=== PATIENT | female | born 1955 ===

== ENCOUNTER 2020-03-11 10:53 | Emergency (ER) | payer MEDICAID, SELFPAY ==
--- NOTE | 2020-03-11 13:10 | CT_ITS ---
EXAMINATION: CT HEAD WITHOUT CONTRAST CLINICAL INFORMATION: Fall, trauma, pain COMPARISON: CT head 01/28/2019 TECHNIQUE: Contiguous axial imaging was performed from the skull base to vertex without intravenous administration of contrast. Additional 2-D coronal and sagittal reformatted images are generated on the CT workstation and uploaded to PACS. This CT examination was performed using dose optimization techniques as appropriate, variously including the following: *Automated exposure control *Adjustment of mA and/or kV according to patient size (this includes techniques or standardized protocols for targeted exams where dose is matched to indication/reason for exam; i.e. extremities or head) *Use of iterative reconstruction technique DLP: 551 mGy-cm FINDINGS: There is no intracranial hemorrhage, hematoma, or extra-axial fluid collection. The ventricles are normal in size. There is no hydrocephalus, edema, or mass effect. The chin-white matter differentiation appears symmetric. There is no visible acute territorial infarct or mass lesion. There is a prominent right parietal occipital fissure again seen similar to prior CT. The calvarium appears intact. There is no pneumocephalus or orbital emphysema. The visualized sinuses and middle ears and mastoid air cells show no significant mucosal thickening. There are no air-fluid levels. CT/CT head/brain wo con IMPRESSION: No acute intracranial abnormality.
--- NOTE | 2020-03-11 13:10 | ECG_ITS ---
Test Reason : FALL Blood Pressure : / mmHG Vent. Rate : 072 BPM Atrial Rate : 072 BPM P-R Int : 128 ms QRS Dur : 072 ms QT Int : 394 ms P-R-T Axes : 061 029 025 degrees QTc Int : 431 ms Normal sinus rhythm Normal ECG When compared to the previous EKG of No other significant changes seen Referred By: Johan Aquino Electronically Signed By:NAY LAGUNAS MD
[2020-03-11 13:51] LABS: Basophils Percent Auto 0.2 % (0-2); Hematocrit 38.8 % (37-47); Hemoglobin 11.5 g/dl (12.0-16.0); Imm Gran Abs Auto 0.01 X10*3/uL (0.00-0.03); Imm Gran Pct Auto 0.2 % (0.0-0.4); Lymphocytes Absolute Auto 0.5 X10*3/uL (1.2-4.9); Lymphocytes Percent Auto 10.2 % (20-40); MANUAL DIFF FLAG SCAN; Mean Corpuscular HGB Conc 29.6 g/dl (31.0-35.0); Mean Corpuscular Hemoglobin 23.1 pg (27.0-33.0); Mean Corpuscular Volume 78.1 fL (80-98); Mean Platelet Volume 9.7 fL (9.4-12.3); Monocytes Absolute Auto 0.3 X10*3/uL (0.1-1.2); Monocytes Percent Auto 5.5 % (2-11); Neutrophils Absolute Auto 4.5 X10*3/uL (2.0-8.3); Neutrophils Percent Auto 83.9 % (45-73); Platelet Count 159 X10*3/uL (160-400); Red Blood Count 4.97 X10*6/uL (4.20-5.50); Red Cell Distribution Width 17.2 % (11.0-16.0); SCAN SMEAR FLAG 1; White Blood Count 5.3 X10*3/uL (4.8-10.8)
[2020-03-11 13:53] LABS: INTERNATIONAL NORM RATIO 1.3 (0.9-1.1); Prothrombin Time 15.4 SEC (10.8-13.0)
[2020-03-11 13:56] LABS: Partial Thromboplastin Time 31.6 SEC (24.1-38.0)
[2020-03-11 14:17] LABS: SLIDE REVIEW VERIFIED
[2020-03-11 14:19] LABS: Alanine Aminotransferase 11 U/L (0-31); Albumin Level 3.4 g/dL (3.5-5.0); Alkaline Phosphatase 70 U/L (39-117); Anion Gap 12 (12-20); Aspartate Amino Transferase 25 U/L (5-31); Bilirubin Total 0.4 mg/dL (0.0-1.0); Blood Urea Nitrogen 13 mg/dL (9-16); Calcium 7.9 mg/dL (8.4-10.2); Carbon Dioxide 26 mmol/L (22-29); Chloride 105 mmol/L (96-108); Estimated Glomerular Filt Rate > 60; Glucose Random 112 mg/dL (60-115); Potassium 3.7 mmol/l (3.3-5.1); Sodium 139 mmol/L (135-145); Total Protein 6.8 g/dL (6.5-8.0)
[2020-03-11 14:20] LABS: Troponin-I High Sensitivity 7.3 ng/L (<3.5-17.0)
[2020-03-11 14:50] VITALS: BP 122/102; PULSE 86; RESP 16; TEMP 37.4; O2SAT 98; BMI 38.3
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
== END 2020-03-11 19:00 | disposition home or self-care (01) ==
PROVIDERS: Nurse Practitioner Primary Care; Emergency Provider Emergency Medicine
DX: R55 Syncope and collapse (principal); T21.14XA Burn of first degree of lower back, initial encounter; T31.0 Burns involving less than 10% of body surface; M54.5 Low back pain; G44.309 Post-traumatic headache, unspecified, not intractable; X11.0XXA Contact with hot water in bath or tub, initial encounter; Y93.E1 Activity, personal bathing and showering; Y92.002 Bathroom of unspecified non-institutional (private) residence as the place of occurrence of the external cause; Z79.899 Other long term (current) drug therapy
CPT/HCPCS: 36415; 70450; 80053; 84484; 85025; 85610; 85730; 93005; 99283; 99284

== ENCOUNTER 2020-10-06 10:26 | Outpatient (REF) | payer MEDICAID, SELFPAY ==
--- NOTE | ~2020-10-06 | XR_ITS ---
EXAMINATION: XR HAND/WRIST, RIGHT CLINICAL INFORMATION: Trigger finger. COMPARISON: Right hand radiographs dated 05/30/2015. TECHNIQUE: AP, oblique, lateral, and scaphoid views of the right hand and wrist. FINDINGS: No acute fracture or dislocation. Mild joint space narrowing with small marginal osteophytes at the triscaphe and 1st carpometacarpal joints. No osseous erosion. No abnormal soft tissue calcification. 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 Patient will return for dedicated images of the hand.
== END 2020-10-06 10:27 | disposition home or self-care (01) ==
LOC: HO.XRAY 10:26
PROVIDERS: PCP Family Medicine; Visit Provider Family Medicine
DX: M65.341 Trigger finger, right ring finger (principal)
CPT/HCPCS: 73110; 73130

== ENCOUNTER 2021-01-02 11:26 | Outpatient (REF) | payer MEDICAID, SELFPAY ==
--- NOTE | ~2021-01-02 | MM_ITS ---
EXAMINATION: MM SCREENING DIGITAL BREAST TOMOSYNTHESIS, BILATERAL CLINICAL INFORMATION: Screening. Asymptomatic. The lifetime risk of breast cancer based on the Tyrer-Cuzick Model is 9%. COMPARISON: Mammography: 11/05/2019, 06/09/2018, 04/29/2017, 04/27/2016, 03/15/2015 TECHNIQUE: Digital breast tomosynthesis is performed in both the craniocaudal and mediolateral oblique views along with computer-aided detection (CAD). Synthesized 2D images are generated from the tomosynthesis. Additional left MLO view is provided. FINDINGS: There are scattered areas of fibroglandular density (ACR BI-RADS breast composition Category b). Bilateral scattered stable parenchymal asymmetries and smooth nodularity are similar to prior exams. There is no interval mass or architectural abnormality or developing density. There are some dermal calcifications overlying the bilateral posterior inferior medial breasts. The axilla and skin contours are unremarkable. No significant changes. MM/MM tomosynthesis screening BI IMPRESSION: No significant changes from prior studies. ASSESSMENT: BI-RADS 2: Benign RECOMMENDATION: Routine annual mammography screening. This patient's information was entered into a reminder system with a target due date for their next mammogram.
== END 2021-01-02 11:27 | disposition home or self-care (01) ==
LOC: HO.MAMMO 11:26
PROVIDERS: Visit Provider Family Medicine
DX: Z12.31 Encounter for screening mammogram for malignant neoplasm of breast (principal)
CPT/HCPCS: 77063; 77067

== ENCOUNTER → 2021-01-30 14:18 | Outpatient (BNVA) | payer MEDICAID, SELFPAY | PROVIDERS: PCP Family Medicine; Referring Provider Family Medicine; Visit Provider Internal Medicine Cardiovascular Disease | DX: R55 Syncope and collapse (principal); I10 Essential (primary) hypertension; E66.01 Morbid (severe) obesity due to excess calories; Z68.41 Body mass index [BMI] 40.0-44.9, adult; Z79.899 Other long term (current) drug therapy | CPT/HCPCS: 93005; 99202 ==

== ENCOUNTER → 2021-02-15 13:50 | Outpatient (BNVA) | payer MEDICAID, SELFPAY | PROVIDERS: PCP Family Medicine; Visit Provider Orthopaedic Surgery ==

== ENCOUNTER → 2021-03-01 12:48 | Outpatient (BNVA) | payer MEDICAID, SELFPAY | PROVIDERS: PCP Family Medicine; Visit Provider Orthopaedic Surgery | DX: M65.311 Trigger thumb, right thumb (principal) | CPT/HCPCS: 99202 ==

== ENCOUNTER → 2021-03-07 07:58 | Outpatient (REF) | payer MEDICAID, SELFPAY ==
--- NOTE | ~2021-03-07 | NM_ITS ---
Myocardial perfusion study Indication: Syncope Technique: The patient was brought in for a Lexiscan perfusion study on 03/07/2021. Patient performed low-level exercise and was injected 0.4 mg of Lexiscan intravenously. Within a minute of injection, 35 mCi of sestamibi was given intravenously. Images were obtained using the SPECT gamma camera interlaced with the gating device. Images were obtained in supine position. Resting perfusion study was performed on 03/08/2021. Patient was administered 35 mCi of sestamibi intravenously at rest. Images were then obtained in supine position. Images obtained with and without CT attenuation. Total DLP 156 mGy-cm. Images were processed with the software and compared side to side in short axis, horizontal long axis and vertical long axis views. Findings: The stress perfusion study showed non attenuated images show mildly to moderately reduced uptake in the lateral wall of the LV myocardium. Remainder of the LV myocardium is normally perfused. Attenuation corrected images show mildly reduced uptake in the distal anterior and apical wall of the LV myocardium.. The gated study shows normal LV systolic function with calculated LVEF of greater than 70 %. LV cavity is normal in size. The gated study shows normal systolic wall thickening and contraction of segments. Resting study shows nontender images show normal uptake of radiotracer in all segments of LV myocardium. Attenuation corrected images show mildly reduced uptake in the apex of the LV myocardium.. Gating at rest reveals normal systolic wall motion with ejection fraction at 68%. The findings are consistent with mild to moderate intensity reversible defect of lateral wall on non attenuated images. These findings are not seen on attenuation corrected images, could be corrected. Equivocal for mild to moderate lateral wall ischemia. NM/NM federico perf SPECT rest & str Impression: 1. Myocardial perfusion imaging study shows equivocal findings of lateral wall ischemia 2. Gated LVEF is 68% 3. Transient ischemic dilatation not present EKG is nondiagnostic for ischemia
--- NOTE | 2021-03-07 08:03 | HM_ITS ---
TEST PERFORMED: Cardiac event monitoring. REQUESTING PHYSICIAN: Blas Paul M.D. ENROLLMENT PERIOD: 03/07/2021, to 04/06/2021; 30 days. FINDINGS: In the above monitoring period, underlying rhythm was sinus. Ranged from 68 beats per minute to 93 beats per minute. Isolated PVCs noted. No clear patient symptoms identified. CONCLUSION: Study shows sinus rhythm only with isolated PVCs and no patient symptoms. Syed Quijano MD HS/STACY / [id number] MTDD
--- NOTE | 2021-03-07 08:03 | CA_ITS ---
Transthoracic Echocardiogram Patient (Last, First, Middle): Augustus Rust, Gender: Female Date of : 1955 Age: 65 Procedure Date: 03/07/2021 Procedure Type: Transthoracic Echocardiogram Location: OP Height: 149.86 cm Weight: 76.2 kg BSA: 1.71 m2 Heart Rate: bpm BP: 161 / 93 mmHg Interlibrary Loan Specialist: VH/CP Referring MD: Blas Paul MD Symptoms: R55 - Syncope and collapse Study Quality: Fair ECG Rhythm: Sinus Conclusions: - The left ventricular systolic function is normal. The visually estimated ejection fraction is between 60-65%. - No obvious valvular pathology seen on this study. Findings Left Ventricle Normal left ventricular cavity size. There is normal left ventricular wall thickness. The left ventricular systolic function is normal. The visually estimated ejection fraction is between 60-65%. There is no evidence of regional wall motion abnormalities. Diastolic function is normal for age. Right Ventricle Normal right ventricular cavity size and systolic function. Atria Both atria are normal in size. Aortic Valve There is a normal trileaflet aortic valve. There is no aortic valve stenosis. There is no aortic valve regurgitation. Mitral Valve The mitral valve appears normal. There is trace mitral valve regurgitation. There is no mitral valve stenosis. Pulmonic Valve The pulmonic valve was not well visualized. Tricuspid Valve There is trace tricuspid valve regurgitation. The pulmonary artery systolic pressure is normal. Great Vessels The aortic annulus, sinuses of valsalva, and asc aorta are normal in size. Venous The inferior vena cava is normal in size and collapses greater than 50% with inspiration. Pericardium/Pleural There is no evidence of pericardial effusion. Prior Study Comparison No significant change compared to prior study dated: 10/06/2015. Recommendations, Care & Conclusions No obvious valvular pathology seen on this study. Measurements 2D Linear Measurements IVSd: 1.01 0.6-0.9/0.6-1.0 cm LVIDd: 4.43 3.9-5.3/4.2-5.9 cm LVIDd Index: 2.59 2.4-3.2/2.2-3.1 cm/m2 LVIDs: 2.71 2.0-3.6 cm LVPWd: 0.94 0.7-1.1 cm Ao Root: 3.00 2.1-3.5 cm LA Diam: 3.80 2.7-3.8/3.0-4.0 cm LAIDs Index: 2.22 1.5-2.3 cm/m2 LV Mass: 179.92 67-162/88-224 g LV Mass Index: 105.22 43-95/49-115 g/m2 LVOT Diam: 2.00 3.0+(-)1.3 cm 2D Systolic Function EF 4C: 63.00 >55% EF 2C: 60.60 >55% Mitral Valve MV Pk E: 0.99 MV PK A: 0.77 MV Decel Time: 168.00 E/A: 1.30 E'Lateral: 8.27 E'Medial: 8.27 E/E' Med: 12.00 E/E' Lat: 12.00 PHT: 49.00 MVA PHT: 4.49 Decel [place]: 5.91 Aortic Valve AoV Pk Parker: 1.17 AoV Mn Parker: 0.80 AoV VTI: 0.34 AoV Pk Grad: 5.00 Aov Mn Grad: 3.00 TESSIE Cont.VTI: 2.22 LVOT LVOT Pk Parker: 0.87 LVOT Mn Parker: 0.49 LVOT VTI: 0.24 LVOT Pk Grad: 3.00 LVOT Mn Grad: 1.00 LVOT Diam: 2.00 LVOT Area: 3.14 Diastolic Function MV Pk E: 0.99 MV Pk A: 0.77 E/A: 1.30 E'Medial: 8.27 E/E' Med: 12.00 E' Laterial: 8.27 E/E' Lat: 12.00 Right Ventricle TAPSE (mm): 19.00 TVS' Parker: 14.00 Tricuspid Valve TR Pk Parker: 2.03 TR Pk Grad: 16.00 Great Vessels Aorta Ao Root-2D: 3.00 2.0-3.7 cm Ao Asc: 3.20 2.1-3.4 cm Updated in Other Vendor System with Status of Final Syed Quijano MD electronically signed on 03/08/2021 3:19:48 PM with status of Final
--- NOTE | 2021-03-07 08:03 | CA_ITS ---
Acquisition Time: 2021-03-07 11:17:48 Total Exercise Time: 00:02:00 Test Indications: Syncope Medications: AMLODIPINE CHLORTHALIDONE DOXYCYCLINE GABAPENTIN HYDROXAZINE OMEPRAZOLE TRAMADOL Protocol: LEXISCAN Max HR: 096 BPM 61% of Pred: 156 BPM Max BP: 130/082 mmHG Max Work Load: 1.0 METS Pharmacological stress test with Lexiscan injection, while sitting and kicking her legs, without anginal symptoms, without arrythmia, with normotensive response to injection, with nondiagnostic EKG for ischemia. Nuclear images pending. Test reviewed with Dr Quijano. Referred By: Blas Paul Overread By: INGRID TRONCOSO
== END ==
LOC: HO.CARD 07:58
PROVIDERS: Visit Provider Internal Medicine Cardiovascular Disease
DX: R55 Syncope and collapse (principal)
CPT/HCPCS: 78452; 93017; 93270; 93306; A9500; J0280; J2785

== ENCOUNTER 2021-03-08 14:08 | Outpatient (REF) | payer MEDICAID, SELFPAY ==
--- NOTE | ~2021-03-08 | MR_ITS ---
EXAMINATION: MR LUMBAR SPINE WITHOUT CONTRAST CLINICAL INFORMATION: Chronic right-sided pain with radicular symptoms. COMPARISON: Plain films of the lumbar spine 12/17/2017. CT scan of the lumbar spine 08/13/2016. TECHNIQUE: MRI of the lumbar spine was obtained using routine sequences without contrast. FINDINGS: VERTEBRAL BODIES AND PARASPINAL STRUCTURES: There is a mild levoscoliosis. The study redemonstrates a grade 1 anterolisthesis of L4 on L5 of approximately 4 mm. There is marked narrowing of intervertebral disc height at this level. There is a mild retrolisthesis of L5 on S1. There are multilevel degenerative endplate contour changes, with mild edematous signal anteriorly at T12-L1. Fatty endplate signal changes are seen at L4-L5 and L5-S1. There are a few foci of hyperintense T1 and T2 signal in multiple vertebrae consistent with hemangiomata. Vertebral body heights are maintained. There are no acute fractures. There are multiple bilateral renal cysts. There is a well-defined area of fatty signal in the right paraspinal muscles laterally at L4-L5. This was demonstrated on the prior CT scan. CONUS MEDULLARIS AND CAUDA EQUINA: Normal, terminating at the level of L1. The lower thoracic spinal cord appears normal. The cauda equina nerve roots and filum terminale appear normal. SPINAL LEVELS: T10-T11: On the sagittal images there is a small posterior disc protrusion with mild distortion the ventral lower thoracic spinal cord but there does not appear to be central stenosis and the neural foramina are patent bilaterally. T12-L1: There is mild bilateral facet arthropathy. There is a central and left-sided disc protrusion which distorts the ventral thecal sac, and is mild narrowing of the left subarticular recess. The neural foramina are patent. There is no central stenosis. L1-L2: There is mild to moderate bilateral facet arthropathy. Posterior disc contour is normal. There is no central stenosis and the neural foramina are patent bilaterally. L2-L3: There is mild to moderate bilateral facet arthropathy. Disc contour is normal. There is no central stenosis and the neural foramina are patent bilaterally. L3-L4: There is moderate bilateral facet arthropathy. Posterior disc contour is normal. There is no central stenosis and the neural foramina are patent bilaterally. L4-L5: There is severe bilateral facet arthropathy. There is unroofing of the disc as a result of the anterolisthesis and there is a left foraminal disc protrusion with mass effect on the exiting left L4 nerve root. There is narrowing of the subarticular recesses bilaterally, more severely on the left and there is severe central stenosis. L5-S1: There is moderate bilateral facet arthropathy. There is a posterior disc protrusion extending into the neural foramina bilaterally with mild impingement on the exiting L5 nerve roots, more prominently on the right. There is mild narrowing of the right subarticular recess. There is no central stenosis. MR/MR lumbar spine wo con IMPRESSION: 1. At L4-L5 there is severe facet arthropathy and there is a grade 1 anterolisthesis. There is a left foraminal disc protrusion with mass effect on the exiting left L4 nerve root. There is severe central stenosis. 2. At L5-S1 there is facet arthropathy and there is a posterior disc protrusion extending into the neural foramina, more prominently on the right. There is no central stenosis. 3. Spondylitic and facet arthropathic changes are also demonstrated at other levels as described above. 4. 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
== END 2021-03-08 14:09 | disposition home or self-care (01) ==
LOC: HO.MRI 14:08
PROVIDERS: Visit Provider Family Medicine
DX: M54.50 Low back pain, unspecified (principal)
CPT/HCPCS: 72148

== ENCOUNTER 2021-03-13 10:17 | Day surgery (SDC) | payer MEDICAID, SELFPAY ==
--- NOTE | 2021-03-13 09:40 | W.PM.OPN ---
Operative Note Operative Note Date of Service: 03/13/21 Narrative: Operative Note Preop diagnosis: 1. Right trigger thumb Postop diagnosis: 1. Same Procedure: 1. Right thumb A1 parish release Surgeon: Brenda Rudolph MD Anesthesia: local block using 1% lidocaine with epinephrine Findings: No locking or catching after A1 parish release EBL: Less than 5 mL Tourniquet time: None Specimens: None Complications: None Disposition: Brought to recovery room in stable condition Plan: Follow-up for 7-10 days for wound check and suture removal Indications: The patient is 65 years old, with a right trigger thumb that has been unresponsive to nonoperative management. The risks and benefits of operative treatment including but not limited to risk of damage to blood vessels, nerves, tendons, infection, persistent pain, persistent symptoms, recurrence or possible need for additional surgery were discussed with the patient and the patient wishes to proceed with surgery. Procedure: Once consent was obtained a local block was performed in the preop area using a combination of 1% lidocaine with epinephrine. The patient was then brought back to the operating suite and placed on the operative table in supine position. A tourniquet was applied to the proximal aspect of the right upper extremity and the limb was prepped and draped in a standard surgical fashion. Once assured that we had a good block, a 1.5 cm oblique incision was made centered over the A1 parish of the right thumb . The incision was made through the skin to the subcutaneous tissues using a #15 blade. Careful dissection was made down to the level of the A1 parish using tenotomy scissors, with care being taken to protect the nearby neurovascular structures. A longitudinal incision was made in the A1 parish 1st using a #15 blade, then using tenotomy scissors under direct visualization. The A1 parish was noted to be significantly thickened. Following our A1 parish release, we no longer saw any locking or catching of the digit with flexion and extension. Once satisfied with our A1 parish release the wound was copiously irrigated with normal saline and hemostasis was obtained with a brief period of local pressure. The skin edges were reapproximated with some 5.0 nylon suture material and a sterile dressing was applied. The patient appears to have tolerated the procedure well and with no complications. All digits were well vascularized at the conclusion of the case.
[2021-03-13 11:08] VITALS: BP 157/52; PULSE 70; RESP 16; TEMP 36.4; O2SAT 100; BMI 42.0
--- NOTE | 2021-03-13 11:34 | MHC.SHP ---
Pre-Procedural Eval Section A Date of Service: 03/13/21 The patient is an INPATIENT: No Changes since office visit: No Cold of Flu in the past 2 weeks, No New Medical Problems, No Changes in Medication and No Patient answered all questions The History & Physical has been completed within 30 days and I have reviewed it.: Yes Section B Chief Complaint: trigger release Allergies: Allergies Allergy/AdvReac Type Severity Reaction Status Date / Time No Known Allergies Allergy Unverified 12/24/19 18:09 [No Known Allergies*] pt states no food/medication Allergy Unknown Uncoded 09/18/19 00:00 a Plan I have reviewed the history and physical and performed a pertinent physical examination on my patient. No changes have occurred unless specified.
[2021-03-13 12:55] VITALS: BP 153/73; PULSE 70; RESP 16; TEMP 36.2; O2SAT 98
== END 2021-03-13 13:17 ==
LOC: HO.SSS 10:18
PROVIDERS: PCP Family Medicine; Visit Provider Orthopaedic Surgery
PROC: (CPT 26055; principal; 2021-03-13 10:40)
DX: M65.311 Trigger thumb, right thumb (principal); D64.9 Anemia, unspecified; I10 Essential (primary) hypertension; Z79.899 Other long term (current) drug therapy
CPT/HCPCS: 26055

== ENCOUNTER → 2021-03-22 14:36 | Outpatient (BNVA) | payer MEDICAID, SELFPAY | PROVIDERS: PCP Family Medicine; Visit Provider Orthopaedic Surgery | DX: Z47.89 Encounter for other orthopedic aftercare (principal); Z87.39 Personal history of other diseases of the musculoskeletal system and connective tissue | CPT/HCPCS: 99212 ==

== ENCOUNTER 2021-04-11 15:34 | Outpatient (REF) | payer MEDICAID, SELFPAY ==
[2021-04-11 17:14] LABS: Appearance Urine CLEAR; Color Urine STRAW; Glucose Urine UA NEG (NEG); Leukocyte Esterase Urine TRACE (NEG); Nitrite Urine NEG (NEG); Urine Blood NEG (NEG); Urine Ketones NEG (NEG); Urine Protein NEG (NEG-TRACE)
[2021-04-11 17:25] LABS: Bacteria Urine 1+ /LPF; RBC Urine 0-2 /HPF (0); Squamous Epithelial Cell Urine 1+ /LPF
[2021-04-11 17:40] LABS: Anion Gap 9 (12-20); Blood Urea Nitrogen 16 mg/dL (9-16); Calcium 9.6 mg/dL (8.4-10.2); Carbon Dioxide 31 mmol/L (22-29); Chloride 105 mmol/L (96-108); Estimated Glomerular Filt Rate > 60; Potassium 4.2 mmol/L (3.3-5.1); Sodium 141 mmol/L (135-145); Total Protein 7.7 g/dL (6.5-8.0)
[2021-04-11 17:40] LABS: Creatinine Urine 81.31 mg/dL; Microalbum/Creatinine Ratio Ur 8.6 ug/mg cr
== END 2021-04-11 15:35 | disposition home or self-care (01) ==
LOC: HO.LAB 15:34
PROVIDERS: PCP Family Medicine; Visit Provider Internal Medicine Nephrology
DX: I10 Essential (primary) hypertension (principal); R80.1 Persistent proteinuria, unspecified
CPT/HCPCS: 36415; 80051; 81001; 82043; 82310; 82565; 84155; 84520

== ENCOUNTER → 2021-05-25 14:38 | Outpatient (BNVA) | payer MEDICARE, MEDICAID, SELFPAY | PROVIDERS: PCP Family Medicine; Referring Provider Family Medicine; Visit Provider Internal Medicine Cardiovascular Disease | DX: R40.20 Unspecified coma (principal) | CPT/HCPCS: 99212 ==

== ENCOUNTER 2021-07-12 14:00 | Outpatient (RCR) | payer MEDICARE, OTHER, MEDICAID, SELFPAY | END 2021-07-21 08:36 | disposition home or self-care (01) | LOC: HO.PT 14:00 | PROVIDERS: PCP Family Medicine; Visit Provider Family Medicine | DX: M54.50 Low back pain, unspecified (principal) | CPT/HCPCS: 97014; 97110; 97140; 97162 ==

== ENCOUNTER → 2021-11-06 10:44 | Outpatient (BNVA) | payer OTHER, MEDICAID, SELFPAY | PROVIDERS: PCP Family Medicine; Visit Provider Anesthesiology | DX: M48.00 Spinal stenosis, site unspecified (principal); M43.10 Spondylolisthesis, site unspecified; M47.816 Spondylosis without myelopathy or radiculopathy, lumbar region; E66.01 Morbid (severe) obesity due to excess calories; Z68.43 Body mass index [BMI] 50.0-59.9, adult | CPT/HCPCS: 99202 ==

== ENCOUNTER 2022-01-04 11:23 | Outpatient (REF) | payer OTHER, SELFPAY ==
--- NOTE | ~2022-01-04 | MM_ITS ---
EXAMINATION: MM SCREENING DIGITAL BREAST TOMOSYNTHESIS, BILATERAL CLINICAL INFORMATION: Screening. Asymptomatic. Family history breast cancer, mother. The lifetime risk of breast cancer based on the Tyrer-Cuzick Model is 9%. COMPARISON: Mammography: 01/02/2021, 11/05/2019, 06/09/2018 TECHNIQUE: Digital breast tomosynthesis is performed in both the craniocaudal and mediolateral oblique views along with computer-aided detection (CAD). Synthesized 2D images are generated from the tomosynthesis. FINDINGS: There are scattered areas of fibroglandular density (ACR BI-RADS breast composition Category b). There are no significant masses, abnormal calcifications, or other abnormalities. Parenchymal pattern is similar to prior studies. There are stable parenchymal asymmetries and minor smooth nodularity. No developing density or architectural abnormality. No abnormal calcifications. The axilla are unremarkable. MM/MM tomosynthesis screening BI IMPRESSION: No significant changes from prior exams. ASSESSMENT: BI-RADS 2: Benign RECOMMENDATION: Routine annual mammography screening. This patient's information was entered into a reminder system with a target due date for their next mammogram.
== END 2022-01-04 11:24 | disposition home or self-care (01) ==
LOC: HO.MAMMO 11:23
PROVIDERS: PCP Family Medicine; Visit Provider Family Medicine
DX: Z12.31 Encounter for screening mammogram for malignant neoplasm of breast (principal)
CPT/HCPCS: 77063; 77067

== ENCOUNTER 2023-01-23 08:55 | Outpatient (REF) | payer OTHER, SELFPAY ==
[2023-01-23 09:10] LABS: MANUAL DIFF FLAG NO
[2023-01-23 09:15] LABS: Basophils Absolute Auto 0.1 X10*3/uL (0.0-0.2); Basophils Percent Auto 0.7 % (0-2); Eosinophils Absolute Auto 0.2 X10*3/uL (0.0-0.4); Eosinophils Percent Auto 3.1 % (0-4); Hematocrit 44.3 % (37.0-47.0); Hemoglobin 13.2 g/dl (12.0-16.0); Imm Gran Abs Auto 0.02 X10*3/uL (0.00-0.03); Imm Gran Pct Auto 0.3 % (0.0-0.4); Lymphocytes Absolute Auto 1.9 X10*3/uL (1.2-4.9); Mean Corpuscular HGB Conc 29.8 g/dl (31.0-35.0); Mean Corpuscular Hemoglobin 24.9 pg (27.0-33.0); Mean Corpuscular Volume 83.6 fL (80.0-98.0); Mean Platelet Volume 9.1 fL (9.4-12.3); Monocytes Absolute Auto 0.6 X10*3/uL (0.1-1.2); Neutrophils Absolute Auto 4.6 x10*3/uL (2.0-8.3); Neutrophils Percent Auto 61.9 % (45-73); Platelet Count 250 X10*3/uL (160-400); Red Cell Distribution Width 16.5 % (11.0-16.0); White Blood Count 7.4 X10*3/uL (4.8-10.8)
[2023-01-23 09:59] LABS: Alanine Aminotransferase 18 U/L (0-31); Albumin Level 3.8 g/dL (3.5-5.0); Alkaline Phosphatase 107 U/L (39-117); Anion Gap 13 (12-20); Aspartate Amino Transferase 20 U/L (5-31); Bilirubin Total 0.4 mg/dL (0.0-1.0); Blood Urea Nitrogen 15 mg/dL (9-16); Calcium 9.3 mg/dL (8.4-10.2); Carbon Dioxide 27 mmol/L (22-29); Chloride 107 mmol/L (96-108); Cholesterol 160 mg/dL (<200); Estimated Glomerular Filt Rate > 60; Glucose Random 105 mg/dL (60-115); HDL Cholesterol 51 mg/dL (>40); LDL Cholesterol Calculated 87 mg/dL (<100); Potassium 3.9 mmol/L (3.3-5.1); Sodium 143 mmol/L (135-145); Total Protein 7.6 g/dL (6.5-8.0); Triglycerides 114 mg/dL (<150)
[2023-01-23 10:07] LABS: TSH reflex Free T4 1.58 uIU/mL (0.32-4.0); Vitamin D 25-OH Total 39.6 ng/mL (>30)
[2023-01-23 10:55] LABS: Creatinine Urine 238.24 mg/dL; Microalbum/Creatinine Ratio Ur 5.4 ug/mg cr (<30)
== END 2023-01-23 08:56 | disposition home or self-care (01) ==
LOC: HO.LAB 08:55
PROVIDERS: PCP Family Medicine; Visit Provider Family Medicine
DX: E66.01 Morbid (severe) obesity due to excess calories (principal); N18.2 Chronic kidney disease, stage 2 (mild); C54.1 Malignant neoplasm of endometrium; E55.9 Vitamin D deficiency, unspecified
CPT/HCPCS: 36415; 80053; 80061; 82043; 82306; 82570; 84443; 85025

== ENCOUNTER 2023-02-07 10:41 | Outpatient (REF) | payer OTHER, SELFPAY | END 2023-02-07 10:42 | disposition home or self-care (01) | LOC: HO.MAMMO 10:41 | PROVIDERS: PCP Family Medicine; Visit Provider Family Medicine | DX: Z12.31 Encounter for screening mammogram for malignant neoplasm of breast (principal) | CPT/HCPCS: 77063; 77067 ==

== ENCOUNTER → 2023-02-07 10:45 | Outpatient (BNV) | payer OTHER, SELFPAY | PROVIDERS: PCP Family Medicine; Visit Provider Radiology Diagnostic Radiology | DX: Z12.31 Encounter for screening mammogram for malignant neoplasm of breast (principal) | CPT/HCPCS: 77063; 77067 ==

== ENCOUNTER 2023-02-25 13:53 | Outpatient (AMB) | payer OTHER, SELFPAY ==
--- NOTE | 2023-02-25 14:00 | MHC.OFFVISWM ---
Intake VS Expanded 02/25/23 14:20 BP 142/88 H Blood Pressure Location Rt brachial Blood Pressure Position Sitting Pulse 72 Pulse Source Pulse Oximeter Temp 97.2 F Temperature Source Temporal Artery Scan Pulse Oximetry 100 Oxygen Delivery Method Room Air Height 5 ft 1 in Weight 238 lb 3.2 oz BMI 45.0 Body Fat % 48.5 Body Fat Mass 115.6 Fat Free Mass 122.6 Visceral Fat Rating 20.0 Body Water % 36.4 Body Water Mass 86.6 Muscle Mass/Score 116.4 Basal Metabolic Rate/Score 1,731 Intake Visit Reasons: (OV) GBP 11/09/15 *Revision?* Allergies No Known Allergies [No Known Allergies*] Allergy (Verified 02/25/23 14:06) pt states no food/medication a Allergy (Unknown, Uncoded 11/06/21 11:11) Unknown Medication List - Last Reconciled 02/25/23 by Marlin Arambula PA-C amlodipine 10 mg PO DAILY chlorthalidone 25 mg PO DAILY cholecalciferol (vitamin D3) 50 mcg PO DAILY gabapentin 600 mg PO TID hydralazine 50 mg PO TID hydrocodone-acetaminophen 5-325 mg 1 tab PO Q4-6H PRN losartan 100 mg PO DAILY silver sulfadiazine 1% (Silvadene) 1 appl topical DAILY spironolactone 25 mg PO DAILY tolterodine ER 2 mg PO DAILY tramadol 50 mg PO BID PRN trazodone 50 mg PO BEDTIME HPI HPI Comments History of Present Illness Details 67 yo woman had GBP with Dr Mcclendon in November of 2015. At her last appt with us in September of 2019 she weighed 194 lbs BMI of 36.7. Her [employer] weight was 294.6 lbs and her lowest weight was 169 lbs. TBWL of 125.6 lbs or 42%. She returns to the bariatric office today with 69 lb weight gain and new diagnosis of spinal stenosis that is worsened by her weight. She is looking for options to lose weight again. Was given options for q 3 months injections - last one 1 year ago. She states she has nausea with desire to vomit if eats too large a meal. She will have reflux if eats fatty foods or lays down after she eats, no abd pain and no abdominal surgeries since her GBP. Wakes at 5:30 am and bed at 2:30 am. Only sleeps 3 hours per day. No naps 5:30 - black coffee without sugar. Changed this over last 6 months. - had more coffee with milk and sugar. Usually doesn't eat until 4 pm, sometimes has a yogurt or a piece of fruit at 1pm. 4pm - chicken breast or shrimp (4-5 oz) and 6 oz lettuce. no drinks when eating. Does not eat again for the day. Exercise - last PT was 6 months ago - states no exercises done at home. Can walk up to 1 hour without pain. Has gym membership [facility] Medical History (Updated 11/06/21 @ 11:38 by Antonio Yan MD) Morbid obesity Anemia HTN (hypertension) Surgical History (Updated 02/25/23 @ 14:15 by Marlin Arambula PA-C) Hx of hand surgery Hx of knee surgery Family History Father No problems noted. Mother CVD (cardiovascular disease) Social History Alcohol intake: never Patient Tobacco Use Status: Never used Tobacco Current occupational status: disabled Current occupation: rt handed Physical Exam GI Inspection: Yes Abdominal panniculus present and Yes scar (laparoscopic incisions well healed. Old vertical abd incision well healed) Assessment & Plan Assessment & Plan (1) S/P gastric bypass: Code(s): Z98.84 - Bariatric surgery status Plan: 67 yo woman s/p GBP 7 years ago with weight regain of 69.2 lbs. She asked about possible revision and I explained to her that we would need UGI and possible EGD for Dr Aceves to decide whether she was a candidate or not. But that she must restart a healthy meal plan and regualr exercise plan now. I encouraged her to meeet with her neuro surgeon or pain management team to discuss furhter steroid injections for her spinal stenosis. Meal plan: 1 cup coffee 8am - Pure protien powder with 8 oz water - over 1-2 hours 12 pm - same shake 4pm - 3 oz chciekn brease, fish or shellfish and 2 oz vegetable and 2 oz fresh fruit Exercise - treadmill at gym - start with 4d/ week, speed 2.5, incline 2- 5 for 300 calories. I have ordered vitamin levels and UGI. Next appt with me in 3-4 weeks, text me weekly weights Appt belinda Chung in 6 weeks. Patient is morbidly obese and is not considered stable at this time. I spent 45 minutes in total with patient reviewing/updating records, examining the patient and counseling the patient on weight management as detailed above. (2) Morbid obesity: Code(s): E66.01 - Morbid (severe) obesity due to excess calories Plan: see above (3) HTN (hypertension): Code(s): I10 - Essential (primary) hypertension Plan: see above Orders: Orders Hemoglobin A1c Today E66.01 - Morbid (severe) obesity due to excess calories, I10 - Essential (primary) hypertension, Z98.84 - Bariatric surgery status Zinc Today E66.01 - Morbid (severe) obesity due to excess calories, I10 - Essential (primary) hypertension, Z98.84 - Bariatric surgery status Vitamin A Today E66.01 - Morbid (severe) obesity due to excess calories, I10 - Essential (primary) hypertension, Z98.84 - Bariatric surgery status FL upper GI series Today E66.01 - Morbid (severe) obesity due to excess calories, Z98.84 - Bariatric surgery status Vitamin B12 and Folate Today E66.01 - Morbid (severe) obesity due to excess calories, I10 - Essential (primary) hypertension, Z98.84 - Bariatric surgery status Vitamin B1 Today E66.01 - Morbid (severe) obesity due to excess calories, I10 - Essential (primary) hypertension, Z98.84 - Bariatric surgery status PTHI Today E66.01 - Morbid (severe) obesity due to excess calories, I10 - Essential (primary) hypertension, Z98.84 - Bariatric surgery status Coding Level of Care Code New Pt Level 4 (13691) Diagnoses S/P gastric bypass Z98.84 Morbid obesity E66.01 HTN (hypertension) I10
[2023-02-25 14:20] VITALS: BP 142/88; PULSE 72; TEMP 36.2; O2SAT 100; BMI 45.0
== END 2023-02-25 14:57 | disposition home or self-care (01) ==
PROVIDERS: PCP Family Medicine; Visit Provider Physician Assistant
DX: E66.01 Morbid (severe) obesity due to excess calories (principal); Z68.42 Body mass index [BMI] 45.0-49.9, adult; Z90.3 Acquired absence of stomach [part of]; Z98.84 Bariatric surgery status
CPT/HCPCS: 99204

== ENCOUNTER → 2023-02-25 13:53 | Outpatient (BNVA) | payer OTHER, SELFPAY | PROVIDERS: PCP Family Medicine; Visit Provider Physician Assistant | DX: E66.01 Morbid (severe) obesity due to excess calories (principal); I10 Essential (primary) hypertension; Z98.84 Bariatric surgery status; Z68.42 Body mass index [BMI] 45.0-49.9, adult | CPT/HCPCS: 99202 ==

== ENCOUNTER 2023-03-08 08:18 | Outpatient (REF) | payer OTHER, SELFPAY ==
[2023-03-08 08:51] LABS: Estimated Average Glucose 117 mg/dL; Hemoglobin A1c % 5.7 % (<6.0)
[2023-03-08 09:44] LABS: Folate 14.5 ng/mL (> or = 4.0); Vitamin B12 394 pg/mL (200-900)
[2023-03-12 06:13] LABS: Zinc 74 mcg/dL (60-130)
[2023-03-13 14:59] LABS: Vitamin B1 7 nmol/L (8-30)
[2023-03-13 17:18] LABS: Vitamin A 34 mcg/dL (38-98)
== END 2023-03-08 08:19 | disposition home or self-care (01) ==
LOC: HO.LAB 08:18
PROVIDERS: PCP Family Medicine; Visit Provider Physician Assistant
DX: E66.01 Morbid (severe) obesity due to excess calories (principal); I10 Essential (primary) hypertension; Z98.84 Bariatric surgery status
CPT/HCPCS: 36415; 82607; 82746; 83036; 84425; 84590; 84630

== ENCOUNTER 2023-03-14 09:07 | Outpatient (AMB) | payer OTHER, SELFPAY ==
--- NOTE | 2023-03-14 09:13 | A.OFFVIS_ITS ---
Intake Vital Signs 03/14/23 09:24 Height 5 ft 1 in Weight 242 lb 2 oz BMI 45.7 BP 160/72 H Blood Pressure Location Lt brachial Position Sitting Respiration 18 Pulse 64 Pulse Source Pulse Oximeter Pulse Oximetry (%) 99 Oxygen Delivery Method Room Air Intake Visit Reasons: CHRONIC LOW BACK PAIN WITH SCIATICA/no answer Allergies No Known Allergies [No Known Allergies*] Allergy (Verified 03/14/23 09:23) pt states no food/medication a Allergy (Unknown, Uncoded 11/06/21 11:11) Unknown HPI HPI Comments History of Present Illness Details Augustus is back in my office after 1 year of absence. I was recommending her to go for a neurosurgery consult because she has severe lumbar spinal canal stenosis. The patient did not hear anything from neurosurgery. She was never trying to contact my office with the question why the neurosurgery did not contact her, neither she never contacter any office of neurosurgery on her own. I have send her again for the neurosurgical consult, in the order to prepare her for the neurosurgical visit I will send her for MRI, her last MRI was 3 years ago. I can offer her some injections under sedation (needle phobia) if she decides not to go for the neurosurgery or she will find to be a bad candidate for the neurosurgical procedures, after all she is severely morbidely obese with BMI more than 45 kg/m2 rior: complains on pain in lower back with radiation into the right lower extremity. She reports that she cannot sleep normally because of her pain she cannot do activities of daily living she can take care of herself but she can not function normally. She is on permanent disability. She reports that movements aggravates her pain and she reports that the tramadol alleviate her pain. She refused to describe her pain in terms of tissue damage. She had physical therapy in August of 2021 she reported that physical therapy did her pain on the worse. She had MRI of the lumbar spine which was done in March of 2021 results of which are dictated as below. Because of the results of the MRI she was sent to consult with some another practitioner presumably from neurosurgical office who did not recommend any surgical intervention and recommended steroid injections. The patient is scared of needles. She is morbidly obese individual despite the fact that she had bariatric surgery. [facility] Medical History (Updated 11/06/21 @ 11:38 by Antonio Yan MD) Morbid obesity Anemia HTN (hypertension) Surgical History (Updated 02/25/23 @ 14:15 by Marlin Arambula PA-C) Hx of hand surgery Hx of knee surgery Family History Father No problems noted. Mother CVD (cardiovascular disease) Social History (Updated 02/25/23 @ 14:12 by Nenita Garrison CMA) Alcohol intake: never Patient Tobacco Use Status: Never used Tobacco Current occupational status: disabled Current occupation: rt handed Review of Systems Const All systems reviewed & are unremarkable except as noted in HPI and below ENT Reports Normal hearing present Neuro Reports Normal hearing present, Denies Abnormal speech present, Denies confusion and Denies Sensory deficit (Neuro) Psych Denies confusion Physical Exam Vital Signs: Last Vital Signs Pulse 64 03/14/23 09:24 Resp 18 03/14/23 09:24 BP 160/72 H 03/14/23 09:24 Pulse Ox 99 03/14/23 09:24 Oxygen Delivery Method Room Air 03/14/23 09:24 BMI result Body Mass Index 45.7 Const General: No confusion Nutritional Appearance: obese morbidly obese Orientation/consciousness: No confusion Eyes General: appearance normal, both eyes and all related structures Pupils: Equal, round and reactive pupils present EOM: EOMs intact bilaterally Neck Neck: Yes full ROM Chest Chest palpation & inspection: normal inspection of the chest Resp Effort & Inspection: normal respiratory effort, able to speak in complete sentences, normal respiratory pattern, no audible wheezes and no cough Cardio Jugular venous distension: no JVD GI Inspection: Yes normal to inspection Back/Spine/Pelvis Other: Nelson presents with very mild aggravation on SLR on the right. Negative on the left. Reports quick tiredness of the lower extremities when walking. Reports flexing backwards alleviates her pain. That might be related to the fact that she has significant anterolisthesis on L4-5. Neuro General: No confusion Cranial nerves: Yes Equal, round and reactive pupils present and Yes Normal hearing present Speech: No Abnormal speech present Gait exam (Neuro): Normal gait present Motor exam (neuro): 5/5 motor strength present throughout Sensory Exam: No Sensory deficit (Neuro) Extrem General: No pedal edema Psych Speech and movement: Normal speech and movement present Affect: normal affect Attitude: cooperative Thought process: Normal thought process present Thought content: Normal thought content present Insight: Good insight present (Psych) Judgement: Good judgement present (Psych) Results Reviewed Results Reviewed: MR LUMBAR SPINE WITHOUT CONTRAST 2020 TECHNIQUE: MRI of the lumbar spine was obtained using routine sequences without contrast. FINDINGS: VERTEBRAL BODIES AND PARASPINAL STRUCTURES: There is a mild levoscoliosis. The study redemonstrates a grade 1 anterolisthesis of L4 on L5 of approximately 4 mm. There is marked narrowing of intervertebral disc height at this level. There is a mild retrolisthesis of L5 on S1. There are multilevel degenerative endplate contour changes, with mild edematous signal anteriorly at T12-L1. Fatty endplate signal changes are seen at L4-L5 and L5-S1. There are a few foci of hyperintense T1 and T2 signal in multiple vertebrae consistent with hemangiomata. Vertebral body heights are maintained. There are no acute fractures. There are multiple bilateral renal cysts. There is a well-defined area of fatty signal in the right paraspinal muscles laterally at L4-L5. This was demonstrated on the prior CT scan. CONUS MEDULLARIS AND CAUDA EQUINA: Normal, terminating at the level of L1. The lower thoracic spinal cord appears normal. The cauda equina nerve roots and filum terminale appear normal. SPINAL LEVELS: T10-T11: On the sagittal images there is a small posterior disc protrusion with mild distortion the ventral lower thoracic spinal cord but there does not appear to be central stenosis and the neural foramina are patent bilaterally. T12-L1: There is mild bilateral facet arthropathy. There is a central and left-sided disc protrusion which distorts the ventral thecal sac, and is mild narrowing of the left subarticular recess. The neural foramina are patent. There is no central stenosis. L1-L2: There is mild to moderate bilateral facet arthropathy. Posterior disc contour is normal. There is no central stenosis and the neural foramina are patent bilaterally. L2-L3: There is mild to moderate bilateral facet arthropathy. Disc contour is normal. There is no central stenosis and the neural foramina are patent bilaterally. L3-L4: There is moderate bilateral facet arthropathy. Posterior disc contour is normal. There is no central stenosis and the neural foramina are patent bilaterally. L4-L5: There is severe bilateral facet arthropathy. There is unroofing of the disc as a result of the anterolisthesis and there is a left foraminal disc protrusion with mass effect on the exiting left L4 nerve root. There is narrowing of the subarticular recesses bilaterally, more severely on the left and there is severe central stenosis. L5-S1: There is moderate bilateral facet arthropathy. There is a posterior disc protrusion extending into the neural foramina bilaterally with mild impingement on the exiting L5 nerve roots, more prominently on the right. There is mild narrowing of the right subarticular recess. There is no central stenosis. MR/MR lumbar spine wo con IMPRESSION: 1. At L4-L5 there is severe facet arthropathy and there is a grade 1 anterolisthesis. There is a left foraminal disc protrusion with mass effect on the exiting left L4 nerve root. There is severe central stenosis. 2. At L5-S1 there is facet arthropathy and there is a posterior disc protrusion extending into the neural foramina, more prominently on the right. There is no central stenosis. 3. Spondylitic and facet arthropathic changes are also demonstrated at other levels as described above. 4. 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 Assessment & Plan Assessment & Plan (1) Spinal stenosis: Code(s): M48.00 - Spinal stenosis, site unspecified (2) Morbid obesity: Code(s): E66.01 - Morbid (severe) obesity due to excess calories (3) Spondylolisthesis: Code(s): M43.10 - Spondylolisthesis, site unspecified (4) Spondylosis of lumbar spine: Code(s): M47.816 - Spondylosis without myelopathy or radiculopathy, lumbar region Plan Care plan: 1. Care plan fresh MRI 2. Neurosurgery consult. 3. If not a good candidate some injections could be offered to the patient under sedation such as L4- L5 & L5-S1 TFESI on the right. 4 will see her in the office after neurosurgical consult Orders: Orders MR lumbar spine wo con 03/14/23 M48.00 - Spinal stenosis, site unspecified Referrals Neuro Spine Referral M48.00 - Spinal stenosis, site unspecified Patient Instructions: I hereby testify that I spent 35 minutes in conversation with the patient as well as planning her care , evaluating her previous records and studies and organizing this note. Coding Level of Care Code Est Pt Level 4 (98416) Diagnoses Spinal stenosis M48.00 Morbid obesity E66.01 Spondylolisthesis M43.10 Spondylosis of lumbar spine M47.816
[2023-03-14 09:24] VITALS: BP 160/72; PULSE 64; RESP 18; O2SAT 99; BMI 45.7
== END 2023-03-14 09:57 | disposition home or self-care (01) ==
PROVIDERS: PCP Family Medicine; Visit Provider Anesthesiology
DX: M48.00 Spinal stenosis, site unspecified (principal); E66.01 Morbid (severe) obesity due to excess calories; M43.10 Spondylolisthesis, site unspecified; M47.816 Spondylosis without myelopathy or radiculopathy, lumbar region
CPT/HCPCS: 99214

== ENCOUNTER → 2023-03-14 09:07 | Outpatient (BNVA) | payer OTHER, SELFPAY | PROVIDERS: PCP Family Medicine; Visit Provider Anesthesiology | DX: M48.00 Spinal stenosis, site unspecified (principal); M43.10 Spondylolisthesis, site unspecified; M47.816 Spondylosis without myelopathy or radiculopathy, lumbar region; E66.01 Morbid (severe) obesity due to excess calories; Z68.42 Body mass index [BMI] 45.0-49.9, adult | CPT/HCPCS: 99212 ==

== ENCOUNTER 2023-03-25 14:45 | Outpatient (AMB) | payer OTHER, SELFPAY ==
--- NOTE | 2023-03-25 12:44 | A.OFFVIS_ITS ---
Intake VS Expanded 03/25/23 14:59 BP 150/77 H Blood Pressure Location Rt brachial Blood Pressure Position Sitting Pulse 70 Pulse Source Pulse Oximeter Temp 96.6 F L Temperature Source Temporal Artery Scan Pulse Oximetry 99 Oxygen Delivery Method Room Air Height 5 ft 1 in Weight 238 lb BMI 45.0 Body Fat % 42.9 Body Fat Mass 102.0 Fat Free Mass 135.8 Visceral Fat Rating 16.0 Body Water % 40.4 Body Water Mass 96.2 Muscle Mass/Score 129.0 Basal Metabolic Rate/Score 1,877 Intake Visit Reasons: (OV) F/U SWL Allergies No Known Allergies [No Known Allergies*] Allergy (Verified 03/25/23 14:55) pt states no food/medication a Allergy (Unknown, Uncoded 11/06/21 11:11) Unknown HPI HPI Comments History of Present Illness Details 67 yo woman had GBP with Dr Mcclendon in November of 2015. At her appt with us in September of 2019 she weighed 194 lbs BMI of 36.7. 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 TBWL of 125.6 lbs or 42%. She returned to the bariatric office in February with 69 lb weight gain and new diagnosis of spinal stenosis that is worsened by her weight. She is looking for options to lose weight again. Was given options for q 3 months injections - last one 1 year ago. She did not start the meal plan we discussed and is not exercising, did not contact me and is wondering why she has not lost any weight. Doesn't eat until afternoon may eat twice per day, but usually once. UGI - May 15, 2023 Appt with Juliet - 04/09/23 [facility] Medical History (Updated 11/06/21 @ 11:38 by Antonio Yan MD) Morbid obesity Anemia HTN (hypertension) Surgical History Hx of hand surgery Hx of knee surgery Family History Father No problems noted. Mother CVD (cardiovascular disease) Social History Alcohol intake: never Patient Tobacco Use Status: Never used Tobacco Current occupational status: disabled Current occupation: rt handed Physical Exam Vital Signs: Last Vital Signs Temp 96.6 F L 03/25/23 14:59 Pulse 70 03/25/23 14:59 BP 150/77 H 03/25/23 14:59 Pulse Ox 99 03/25/23 14:59 Oxygen Delivery Method Room Air 03/25/23 14:59 BMI result Body Mass Index 45.0 Assessment & Plan Assessment & Plan (1) Morbid obesity: Code(s): E66.01 - Morbid (severe) obesity due to excess calories Plan: No weight loss since appt on Feb 25, not following any plan. We discussed that she must follow a healthy meal plan and regular exercise if she wants to lose weight. 7am black coffee 8a - Pure protein powder with water 12 pm- same shake 4pm - 8 forks lean protien (only likes chicken breast, seafood - no fish - and eggs) and 8 forks vegetables (only like broccoli, cauliflower and lettuce) pt has very limited variety that she will eat. Exercise - Sit to be Fit daily for 15 minutes bid. We reveiwed her labs, Vit A and B1 deficiencies - taking both new supplements. Next appt with Juliet on 04/09 to help her with variety of foods and how to prepare them. Next appt with me in 3 months unless their is an abnormality with her UGI. Patient is morbidly obese and is not considered stable at this time. I spent 25 minutes in total with patient reviewing/updating records, examining the patient and counseling the patient on weight management as detailed above. (2) S/P gastric bypass: Code(s): Z98.84 - Bariatric surgery status Plan see above Coding Level of Care Code Est Pt Level 4 (10011) Diagnoses Morbid obesity E66.01 S/P gastric bypass Z98.84
[2023-03-25 14:59] VITALS: BP 150/77; PULSE 70; TEMP 35.9; O2SAT 99; BMI 45.0
== END 2023-03-25 15:34 | disposition home or self-care (01) ==
PROVIDERS: PCP Family Medicine; Visit Provider Physician Assistant
DX: E66.01 Morbid (severe) obesity due to excess calories (principal); Z98.84 Bariatric surgery status
CPT/HCPCS: 99214

== ENCOUNTER → 2023-03-25 14:45 | Outpatient (BNVA) | payer OTHER, SELFPAY | PROVIDERS: PCP Family Medicine; Visit Provider Physician Assistant | DX: E66.01 Morbid (severe) obesity due to excess calories (principal); Z98.84 Bariatric surgery status; Z68.42 Body mass index [BMI] 45.0-49.9, adult | CPT/HCPCS: 99212 ==

== ENCOUNTER 2023-04-11 09:27 | Outpatient (REF) | payer OTHER, SELFPAY | END 2023-04-11 09:28 | disposition home or self-care (01) | LOC: HO.MAMMO 09:27 | PROVIDERS: PCP Family Medicine; Visit Provider Family Medicine | DX: Z13.820 Encounter for screening for osteoporosis (principal); Z78.0 Asymptomatic menopausal state; Z90.3 Acquired absence of stomach [part of]; Z90.710 Acquired absence of both cervix and uterus; Z90.722 Acquired absence of ovaries, bilateral | CPT/HCPCS: 77080 ==

== ENCOUNTER 2023-05-24 14:22 | Outpatient (REF) | payer OTHER, SELFPAY ==
--- NOTE | ~2023-05-24 | MR_ITS ---
EXAMINATION: MR LUMBAR SPINE WITHOUT CONTRAST CLINICAL INFORMATION: Spinal stenosis. COMPARISON: MR lumbar spine 03/08/2021. TECHNIQUE: MRI of the lumbar spine was obtained using routine sequences without the administration of intravenous contrast. FINDINGS: This examination assumes the presence of 5 lumbar-type vertebral bodies. For the purposes of this examination, the L5-S1 intervertebral disc space is visualized on axial series 6 image 28. Mild exaggeration of the normal lumbar lordosis. Grade 1 anterolisthesis of L4-L5. Partially visualized dextrocurvature of the thoracolumbar junction. Lumbar vertebral body heights are maintained. Multilevel Modic type I and type II endplate changes. There is edema along the left L5 pedicle/posterior elements which is likely on the basis of degenerative change/stress reaction. Diffusely heterogeneous background marrow signal may reflect underlying osteopenia/osteoporosis. The conus medullaris is normal in signal intensity and terminates at the level of L1. T10-T11: Central disc protrusion indents the ventral thecal sac with probable mild canal stenosis. The left neural foramen is mildly narrowed. T12-L1: Left central disc extrusion asymmetrically impinges upon the left lateral recess. Facet arthropathy with ligamentum flavum redundancy. There is mild spinal canal stenosis. Overall, this appears comparable to the prior examination of 2020. The neural foramen are patent. L1-L2: Disc bulge and facet arthropathy. The spinal canal and neural foramen are not significantly narrowed. L2-L3: Facet arthropathy. The spinal canal and neural foramen are not significantly narrowed. L3-L4: Facet arthropathy. The spinal canal is patent. Mild narrowing of the neural foramen. L4-L5: Advanced facet arthropathy. There is associated grade 1 anterolisthesis with uncovering of the intervertebral disc space. Redemonstrated severe spinal canal stenosis with asymmetric narrowing of the left lateral recess compressing the descending left L5 nerve root. Overall, this appears stable to mildly increased compared to prior. There is severe left and [id number] right neural foraminal stenosis with compression of the exiting left L4 nerve root that appears comparable to prior. L5-S1: Disc bulge and facet arthropathy with ligamentum flavum redundancy. Narrowing of the lateral recesses abutting the S1 nerve roots. The central canal is otherwise patent. There is severe right and [id number] left neural foraminal stenosis with exiting nerve root impingement that appears slightly increased compared to prior, particularly on the left. Stable well circumscribed fatty lesion in the right posterior paraspinal musculature at the level of L4. Multiple bilateral renal cysts and additional T2 hyperintense foci which are too small to fully characterize but likely represent cysts. Dorsal subcutaneous edema is noted. MR/MR lumbar spine wo con IMPRESSION: Again seen are advanced multilevel degenerative changes of the lumbar spine with severe spinal canal stenosis at L4-L5. Again seen is asymmetric narrowing of the left lateral recess at L4-L5 with compression of the descending left L5 nerve root. Overall, the degree of stenosis appears stable to slightly increased compared to prior. Advanced bilateral neural foraminal stenoses at L4-L5 and L5-S1 with exiting nerve root impingement as described above. These appear slightly increased compared to the prior examination.
== END 2023-05-24 14:23 | disposition home or self-care (01) ==
LOC: HO.MRI 14:22
PROVIDERS: PCP Family Medicine; Visit Provider Anesthesiology
DX: M48.061 Spinal stenosis, lumbar region without neurogenic claudication (principal)
CPT/HCPCS: 72148

== ENCOUNTER 2023-06-05 07:46 | Outpatient (REF) | payer OTHER, SELFPAY ==
--- NOTE | ~2023-06-05 | FL_ITS ---
EXAMINATION: XR FLUOROSCOPY UPPER GI WITH AIR CLINICAL INFORMATION: History of gastric bypass. Preop evaluation. COMPARISON: Upper GI 11/2015 TECHNIQUE: Fluoroscopic air contrast upper GI examination was performed utilizing standard techniques with thin and thick barium and effervescent granules. Numerous spot images were obtained. FINDINGS: Dual and single contrast images of the esophagus demonstrate normal caliber, contour, and mucosal pattern. No evidence of stricture, mass, or ulcerations identified. Esophageal peristalsis was normal. Small type I hiatus hernia. Gastroesophageal reflux to the level of the lower esophagus. Dual contrast and single contrast images of the stomach demonstrated postsurgical changes consistent with prior history of Fuentes-en-Y gastric bypass. The gastrojejunostomy is widely patent without evidence of stricture or leak. Mucosal pattern without evidence of mass, ulceration, or other abnormality. Contrast freely passed into the alimentary limb. The imaged jejunum has a normal fold pattern and caliber. FLUOROSCOPY TIME: 4 minutes 2 seconds Number of Spot Images: 13 Number of Cine: 6 DOSE AREA PRODUCT: [id number] uGy-m2 (microgray-meter squared) FL/FL upper GI series IMPRESSION: 1. Postsurgical changes consistent with prior history of Fuentes-en-Y gastric bypass. No anastomotic stricture or leak. 2. Mild gastroesophageal reflux. 3. Small type I hiatus hernia. This procedure was performed by Sma Sunshine PA-C, and supervised by Dr. Arrington
== END 2023-06-05 07:47 | disposition home or self-care (01) ==
LOC: HO.XRAY 07:46
PROVIDERS: PCP Family Medicine; Visit Provider Physician Assistant
DX: E66.01 Morbid (severe) obesity due to excess calories (principal); Z98.84 Bariatric surgery status
CPT/HCPCS: 74240

== ENCOUNTER → 2023-06-05 07:47 | Outpatient (BNV) | payer OTHER, SELFPAY | PROVIDERS: PCP Family Medicine; Visit Provider Physician Assistant Surgical | DX: E66.01 Morbid (severe) obesity due to excess calories (principal); Z01.818 Encounter for other preprocedural examination | CPT/HCPCS: 74246 ==

== ENCOUNTER 2023-06-07 10:30 | Outpatient (AMB) | payer OTHER, SELFPAY ==
--- NOTE | 2023-06-07 10:26 | A.OFFVIS_ITS ---
Intake Intake Visit Reasons: (TV) F/U SWL Allergies No Known Allergies [No Known Allergies*] Allergy (Verified 03/25/23 14:55) pt states no food/medication a Allergy (Unknown, Uncoded 11/06/21 11:11) Unknown Medication List - Last Reconciled 06/07/23 by Marlin Arambula PA-C amlodipine 10 mg PO DAILY chlorthalidone 25 mg PO DAILY cholecalciferol (vitamin D3) 50 mcg PO DAILY gabapentin 600 mg PO TID hydralazine 50 mg PO TID hydrocodone-acetaminophen 5-325 mg 1 tab PO Q4-6H PRN losartan 100 mg PO DAILY silver sulfadiazine 1% (Silvadene) 1 appl topical DAILY spironolactone 25 mg PO DAILY thiamine HCl (vitamin B1) 50 mg PO DAILY tolterodine ER 2 mg PO DAILY tramadol 50 mg PO BID PRN HPI HPI Comments History of Present Illness Details 67 yo woman had GBP with Dr Mcclendon in November of 2015. 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 TBWL of 125.6 lbs or 42%. She returned to the bariatric office in February with 69 lb weight gain and new diagnosis of spinal stenosis that is worsened by her weight. She is looking for options to lose weight again. No weight loss since appt on Feb 25, not following any plan. We discussed that she must follow a healthy meal plan and regular exercise if she wants to lose weight. I saw her in March and she had not made any of the changes we discussed. I ordered an UGI due to her complaints of intolerance to foods. No n/v, abd pain or reflux. UGI - May 15, 2023 - rescheduled to 06/05 - not read yet. Appt with Juliet - 04/09/23 - she did not have this appt Meal plan now: does not think she is losing any weight 7am black coffee no sugar 10 am - Pure protein powder with water 1 pm- yogurt 4 pm - not measuring amount - chicken le gs without skin and 2 forks (?) broccoli or lettuce No snacks or anything else to eat Exercise - none, states back hurts too much to sit or stand. Has spine center appt on 06/13. [facility] Medical History (Updated 11/06/21 @ 11:38 by Antonio Yan MD) Morbid obesity Anemia HTN (hypertension) Surgical History Hx of hand surgery Hx of knee surgery Family History Father No problems noted. Mother CVD (cardiovascular disease) Social History Alcohol intake: never Patient Tobacco Use Status: Never used Tobacco Current occupational status: disabled Current occupation: rt handed Assessment & Plan Assessment & Plan (1) Morbid obesity: Code(s): E66.01 - Morbid (severe) obesity due to excess calories Plan: Pt does not have her weight today - states scale has no batteries, does not know the last time she weighed herself. She is s/p GBP 7 years ago with inadequate weight loss and weight gain. She states she does not have any side fffects from GBP but acn not exercise due to spinal stenosis. She has an adequate meal plan, no changes made. We will have an office appt in 2-3 weeks to get accurate weight and she will have spoken to spine team for advice on what exercises she can do. We discussed that she will likely not be able to loose weight without adequate movement - she states she can't do anythng. uGi is being read by radiology team this week. Will review with Dr Yola marlow no symptoms. Labs done Jan and Mar 2023. Patient is still morbidly obese and is not considered stable at this time. I spent 27 minutes in total speaking with the patient via video conference counseling , reviewing records and charting in patients chart. . (2) S/P gastric bypass: Code(s): Z98.84 - Bariatric surgery status (3) Spinal stenosis: Code(s): M48.00 - Spinal stenosis, site unspecified Plan see above Telehealth Telehealth Location of provider rendering services: practice address Location of patient: address on file Patient Identification confirmed using: Name, : Yes Telehealth method: voice only Patient verbally consented to treatment: Yes Patient verbally consented to billing insurance company: Yes Patient informed of any privacy concerns related to visit: Yes Coding Level of Care Code Tele Est Pt Level 4 (44158) Diagnoses Morbid obesity E66.01 S/P gastric bypass Z98.84 Spinal stenosis M48.00
== END 2023-06-07 10:57 | disposition home or self-care (01) ==
LOC: HO.HBS 10:50
PROVIDERS: PCP Family Medicine; Visit Provider Physician Assistant
DX: E66.01 Morbid (severe) obesity due to excess calories (principal); Z98.84 Bariatric surgery status; M48.00 Spinal stenosis, site unspecified
CPT/HCPCS: 99443

== ENCOUNTER → 2023-06-07 10:30 | Outpatient (BNVA) | payer OTHER, SELFPAY | PROVIDERS: PCP Family Medicine; Visit Provider Physician Assistant ==

== ENCOUNTER 2023-06-14 09:57 | Outpatient (REF) | payer OTHER, SELFPAY ==
--- NOTE | ~2023-06-14 | XR_ITS ---
EXAMINATION: XR LUMBOSACRAL SPINE WITH OBLIQUES CLINICAL INFORMATION: Spondylolisthesis. COMPARISON: MRI lumbar spine 05/24/2023. Radiographs lumbar spine 12/17/2017. TECHNIQUE: AP, lateral neutral, flexion and extension views of the lumbar spine. FINDINGS: Mild rightward curvature of the [id number]-vb-[id number] lumbar spine. Advanced degenerative changes in the imaged lower thoracic spine. Surgical clips overlie the left mid and upper abdomen as well as the pelvis. Radiodense material overlying the left lower quadrant and partially imaged right lower abdomen may represent ingested oral material such as oral contrast and correlation with clinical exam is recommended for further evaluation. This was not identified on the exam of 2018. Advanced multilevel lumbar spondylosis with multilevel loss of disc space height most notable at L5-S1. Grade 1 retrolisthesis of L1 on L2, L2 on L3 and L3 on L4. Grade 1 anterolisthesis of L4 on L5. XR/XR lumbar spine 4V min IMPRESSION: 1. Advanced multilevel lumbar spondylosis most notable at L5-S1. 2. Mild grade 1 retrolisthesis of L1 on L2, L2 on L3 and L3 on L4. Grade 1 anterolisthesis of L4 on L5. 3. Radiodense material overlying the left lower quadrant and partially imaged right lower abdomen may represent ingested oral material such as oral contrast and correlation with clinical exam is recommended for further evaluation.
== END 2023-06-14 09:58 | disposition home or self-care (01) ==
LOC: HO.HOSX 09:57
PROVIDERS: PCP Family Medicine; Visit Provider Physician Assistant
DX: M43.16 Spondylolisthesis, lumbar region (principal)
CPT/HCPCS: 72110; 99202

== ENCOUNTER 2023-06-14 09:57 | Outpatient (AMB) | payer OTHER, SELFPAY ==
--- NOTE | 2023-06-14 10:16 | HO.SPINEOV ---
Intake Intake Visit Reasons: Spinal stenosis Intake Note: Ms. Rudolph is here today c/o low back pain. Junior Database Administrator Required: Yes Junior Database Administrator Name: Tablet Allergies No Known Allergies [No Known Allergies*] Allergy (Verified 03/25/23 14:55) pt states no food/medication a Allergy (Unknown, Uncoded 11/06/21 11:11) Unknown Assessment & Plan Assessment & Plan (1) Spondylolisthesis: Code(s): M43.10 - Spondylolisthesis, site unspecified Plan Dear Dr Yan, Thank you for referring Mrs Ronni Dunn to our office today. She is a very nice 68-year-old female presents to the office today for evaluation of a chronic low back pain for least 3 years. The patient reports that the pain starts from the moment she gets up in the morning and gradually goes throughout the day. She does get intermittent leg pains as well when she is standing and walking which goes down the outside of her legs into her calves. She takes Aleve and tramadol to try to help with the pain. The pain at this point is significantly limiting her quality of life and that she is having severe pain in her back even doing simple things such as going to the grocery store or making meals. She underwent physical therapy without any relief. She has not yet had any cortisone injections, she is slightly nervous about this so wanted to talk to a spine surgery team 1st. PMH: She has a history of high blood pressure, knee replacements, endometriosis, bladder suspension, gastric bypass, trigger thumb surgery. She denies any heart attacks, strokes, kidney disorders, bleeding disorders, lung problems, previous back surgery etc. Social hx: She has not smoke, drink or use any recreational drugs Medications: Tramadol, losartan, amlodipine, multivitamins, ibuprofen Allergies: None Physical exam: Morbidly obese female BMI 47 she is able to stand up out of a chair demonstrates tenderness to her lower back around the level of L4-5. Her strength is full, reflexes absent in the setting of knee replacements. Imaging review: Lumbar MRI done at [place], compared to a CT scan done in 2014 at [place] shows a severe collapse of the disc at L4-5 with anterior listhesis. There is significant facet arthropathy and narrowing of the foramen bilaterally. She also has some milder degenerative disc disease throughout the lumbar spine in varying places but nothing as bad as the L4-5 disc space. I can see compared to the CT scan there has been progression of the spondylolisthesis over the last 9 years when it was barely noticeable at that time. Impression: 68-year-old female morbidly obese presents for evaluation of chronic but progressively worsening low back pain in the middle of her lumbar region most likely coming from the spondylolisthesis at L4-5 with facet arthropathy. She has a component of radicular pain down her legs as well which I think is coming from the L4-5 region as well. She is tried activity modifications, tincture of time, tramadol, Advil and physical therapy. The pain only continues to get worse and she is in significant discomfort doing simple things like standing to make food or going to the grocery store. Typically this is something because of her size Dr. Walker would treat with oblique lumbar interbody fusion. We did briefly discuss the procedure, risks, benefits etc.. At this time the patient is not interested in surgery and would like to try injections. I told her to contact your office to set that up, from the notes it looks like you are going to try L4-5, L5-S1 facet blocks which seems certainly reasonable. I will follow up with her in 3 months just to see how things are going. I will review her imaging with Dr. Walker as well just to finalize a surgical plan should the pain escalate and she wished to move ahead with surgery. I will also obtain standing flexion-extension x-rays just to evaluate the degree of instability of the segment. Thank you for allowing us to care for your patient. The total time spent with this visit with this patient was 45 minutes reviewing history, physical exam, lumbar imaging review, and implementation of treatment plan or further diagnostic testing Cayetano Walker MD,PhD [facility] Orders: Orders XR lumbar spine 4V min Today M43.10 - Spondylolisthesis, site unspecified Coding Level of Care Code New Pt Level 4 (91928) Diagnoses Spondylolisthesis M43.10
== END 2023-06-14 10:59 | disposition home or self-care (01) ==
PROVIDERS: PCP Family Medicine; Referring Provider Anesthesiology; Visit Provider Physician Assistant
DX: M43.10 Spondylolisthesis, site unspecified (principal)
CPT/HCPCS: 99204

== ENCOUNTER 2023-08-15 14:06 | Outpatient (AMB) | payer OTHER, SELFPAY ==
--- NOTE | 2023-08-15 14:07 | MHC.OFFVIS ---
Vital Signs 08/15/23 14:11 Height 5 ft 1 in Weight 251 lb 4 oz BMI 47.5 BP 160/84 H Blood Pressure Location Lt brachial Position Sitting Respiration 16 Pulse 73 Pulse Source Pulse Oximeter Pulse Oximetry (%) 98 Oxygen Delivery Method Room Air Intake Visit Reasons: Injection Discussion Intake Note: Patient comes in for injection discussion. Reports pain 810. Allergies No Known Allergies [No Known Allergies*] Allergy (Verified 08/15/23 14:11) pt states no food/medication a Allergy (Unknown, Uncoded 11/06/21 11:11) Unknown HPI Comments Details: Augustus is back in my office after 1 year of absence. She went for neurosurgical consult by my recommendation and they offered her neurosurgical procedure. However the weight of the patient is significant. Her BMI is 47.5 kg per m2. The suggestion from neurosurgical office was to perform therapeutic medial branch block to attempt to alleviate the pain of this patient. We will like to schedule this appointment prior to September. I will schedule her for bilateral L3-L4 does ramus L5 medial branch block therapeutic. Prior: complains on pain in lower back with radiation into the right lower extremity. She reports that she cannot sleep normally because of her pain she cannot do activities of daily living she can take care of herself but she can not function normally. She is on permanent disability. She reports that movements aggravates her pain and she reports that the tramadol alleviate her pain. She refused to describe her pain in terms of tissue damage. She had physical therapy in August of 2021 she reported that physical therapy did her pain on the worse. She had MRI of the lumbar spine which was done in March of 2021 results of which are dictated as below. Because of the results of the MRI she was sent to consult with some another practitioner presumably from neurosurgical office who did not recommend any surgical intervention and recommended steroid injections. The patient is scared of needles. She is morbidly obese individual despite the fact that she had bariatric surgery. [facility] Medical History (Updated 08/15/23 @ 16:34 by Antonio Yan MD) Morbid obesity Anemia HTN (hypertension) Surgical History Hx of hand surgery Hx of knee surgery Family History Father No problems noted. Mother CVD (cardiovascular disease) Social History Alcohol intake: never Patient Tobacco Use Status: Never used Tobacco Current occupational status: disabled Current occupation: rt handed Review of Systems Const All systems reviewed & are unremarkable except as noted in HPI and below ENT Reports Normal hearing present Neuro Reports Normal hearing present, Denies Abnormal speech present, Denies confusion and Denies Sensory deficit (Neuro) Psych Denies confusion Physical Exam Vital Signs: Last Vital Signs Pulse 73 08/15/23 14:11 Resp 16 08/15/23 14:11 BP 160/84 H 08/15/23 14:11 Pulse Ox 98 08/15/23 14:11 Oxygen Delivery Method Room Air 08/15/23 14:11 BMI result Body Mass Index 47.5 Const General: No confusion Nutritional Appearance: obese morbidly obese Orientation/consciousness: No confusion Eyes General: appearance normal, both eyes and all related structures Pupils: Equal, round and reactive pupils present EOM: EOMs intact bilaterally Neck Neck: Yes full ROM Chest Chest palpation & inspection: normal inspection of the chest Resp Effort & Inspection: normal respiratory effort, able to speak in complete sentences, normal respiratory pattern, no audible wheezes and no cough Cardio Jugular venous distension: no JVD GI Inspection: Yes normal to inspection Back/Spine/Pelvis Other: Nelson presents with very mild aggravation on SLR on the right. Negative on the left. Reports quick tiredness of the lower extremities when walking. Reports flexing backwards alleviates her pain. That might be related to the fact that she has significant anterolisthesis on L4-5. Neuro General: No confusion Cranial nerves: Yes Equal, round and reactive pupils present and Yes Normal hearing present Speech: No Abnormal speech present Gait exam (Neuro): Normal gait present Motor exam (neuro): 5/5 motor strength present throughout Sensory Exam: No Sensory deficit (Neuro) Extrem General: No pedal edema Psych Speech and movement: Normal speech and movement present Affect: normal affect Attitude: cooperative Thought process: Normal thought process present Thought content: Normal thought content present Insight: Good insight present (Psych) Judgement: Good judgement present (Psych) Assessment & Plan Assessment & Plan (1) Spinal stenosis: Code(s): M48.00 - Spinal stenosis, site unspecified Category: Medical (2) Morbid obesity: Code(s): E66.01 - Morbid (severe) obesity due to excess calories Category: Medical (3) Spondylolisthesis: Code(s): M43.10 - Spondylolisthesis, site unspecified Category: Medical (4) Spondylosis of lumbar spine: Code(s): M47.816 - Spondylosis without myelopathy or radiculopathy, lumbar region Category: Medical (5) Spondylosis of lumbar region without myelopathy or radiculopathy: Code(s): M47.816 - Spondylosis without myelopathy or radiculopathy, lumbar region Category: Medical Plan Neurosurgical consult was made patient was offered surgery. To mitigate her pain syndrome surgical team suggested medial branch blocks lower lumbar spine to help her pain. I will schedule her for therapeutic medial branch block as soon as possible. Coding Level of Care Code Est Pt Level 3 (81875) Diagnoses Spinal stenosis M48.00 Morbid obesity E66.01 Spondylolisthesis M43.10 Spondylosis of lumbar spine M47.816 Spondylosis of lumbar region without myelopathy or radiculopathy M47.816
[2023-08-15 14:11] VITALS: BP 160/84; PULSE 73; RESP 16; O2SAT 98; BMI 47.5
== END 2023-08-15 14:59 | disposition home or self-care (01) ==
PROVIDERS: PCP Family Medicine; Visit Provider Anesthesiology
DX: M48.00 Spinal stenosis, site unspecified (principal); E66.01 Morbid (severe) obesity due to excess calories; M43.10 Spondylolisthesis, site unspecified; M47.816 Spondylosis without myelopathy or radiculopathy, lumbar region
CPT/HCPCS: 99213

== ENCOUNTER → 2023-08-15 14:06 | Outpatient (BNVA) | payer OTHER, SELFPAY | PROVIDERS: PCP Family Medicine; Visit Provider Anesthesiology | DX: M48.00 Spinal stenosis, site unspecified (principal); M43.10 Spondylolisthesis, site unspecified; M47.816 Spondylosis without myelopathy or radiculopathy, lumbar region; E66.01 Morbid (severe) obesity due to excess calories; Z68.42 Body mass index [BMI] 45.0-49.9, adult | CPT/HCPCS: 99212 ==

== ENCOUNTER 2023-09-10 06:53 | Outpatient (REF) | payer OTHER, SELFPAY ==
--- NOTE | ~2023-09-10 | FL_ITS ---
EXAMINATION: XR FLUOROSCOPY WITH IMAGES CLINICAL INFORMATION: Lumbar spondylosis. COMPARISON: None available. TECHNIQUE: Fluoroscopy Supervised By: Dr. Antonio Yan. Fluoroscopy Time: 0.8 minutes. Cumulative Dose: 40.1 mGy. DAP: 0.697 Gycm2. Images: 4. FINDINGS: Intraoperative fluoroscopy and spot films were performed during a procedure in the OR. Transforaminal placement of spinal needles are seen at what appear to be L5 and S1. Exact level cannot be confirmed because of coning of the radiographs. Contrast media is seen in the epidural space around the nerve sheaths. Please see Dr. Antonio Yan's report for complete details. FL/FL guidance in treatment room IMPRESSION: Intraoperative fluoroscopy and spot films were obtained. Please see Dr. Antonio Yan's report for complete details.
== END 2023-09-10 06:54 | disposition home or self-care (01) ==
LOC: CF 06:53
PROVIDERS: Visit Provider Anesthesiology
DX: M47.816 Spondylosis without myelopathy or radiculopathy, lumbar region (principal)
CPT/HCPCS: 64493; 64494; J2795; J3301; Q9967

== ENCOUNTER 2023-09-10 12:42 | Outpatient (AMB) | payer OTHER, SELFPAY ==
--- NOTE | 2023-09-10 13:40 | A.OFFVIS_ITS ---
Vital Signs 09/10/23 13:41 09/10/23 13:49 Height 5 ft 1 in Weight 251 lb BMI 47.4 BP 124/82 128/86 Blood Pressure Location Lt brachial Lt brachial Position Sitting Sitting Respiration 18 18 Pulse 75 75 Pulse Source Pulse Oximeter Pulse Oximeter Pulse Oximetry (%) 96 96 Oxygen Delivery Method Room Air Room Air Comment Pre-Op Post-Op Intake Visit Reasons: BILATERAL THERAPEUTIC L3, L4, DRL5 MBB Allergies No Known Allergies [No Known Allergies*] Allergy (Verified 08/15/23 14:11) pt states no food/medication a Allergy (Unknown, Uncoded 11/06/21 11:11) Unknown PFSH Medical History (Updated 08/15/23 @ 16:34 by Antonio Yan MD) Morbid obesity Anemia HTN (hypertension) Surgical History Hx of hand surgery Hx of knee surgery Family History Father No problems noted. Mother CVD (cardiovascular disease) Social History Alcohol intake: never Patient Tobacco Use Status: Never used Tobacco Current occupational status: disabled Current occupation: rt handed Physical Exam Vital Signs: Last Vital Signs Pulse 75 09/10/23 13:49 Resp 18 09/10/23 13:49 BP 128/86 09/10/23 13:49 Pulse Ox 96 09/10/23 13:49 Oxygen Delivery Method Room Air 09/10/23 13:49 BMI result Body Mass Index 47.4 Assessment & Plan Assessment & Plan (1) Spinal stenosis: Code(s): M48.00 - Spinal stenosis, site unspecified Category: Medical (2) Morbid obesity: Code(s): E66.01 - Morbid (severe) obesity due to excess calories Category: Medical (3) Spondylolisthesis: Code(s): M43.10 - Spondylolisthesis, site unspecified Category: Medical (4) Spondylosis of lumbar spine: Code(s): M47.816 - Spondylosis without myelopathy or radiculopathy, lumbar region Category: Medical (5) Spondylosis of lumbar region without myelopathy or radiculopathy: Code(s): M47.816 - Spondylosis without myelopathy or radiculopathy, lumbar region Category: Medical Plan: Intra-articular L4-5 and medial branch block dorsal ramus L5 therapeutic injection. Informed consent was thoroughly explained to the patient before the procedure.? The patient came to the operating room.? She was positioned prone on operating table with a pillow under his abdomen.? Time-out was performed delineating correct site and side of the procedure, nature of the injection, name and date of of the patient. The lower back of the patient was prepped with ChloraPrep and draped with sterile utility towels.? C-arm was brought over the operating field and the picture of the lower lumbar spine and upper pelvis were demonstrated on the screen. Attention 1st concentrated on confluence of superior articular process of S1 with sacral ala bilaterally. Right and after that left confluence points were chosen as the target of the injection. The projection of the point of interest to the skin was injected with small amount of mixture of the ropivacain e 0.5% and lidocaine 2% one-to-one. After that 22 gauge 5 in needle was driven sequentially to the point of interest tunnel vision fashion. The patient tolerated needle advancement very poorly. Eventually when needle gently contacted the bone injection of the contrast performed demonstrating no intrathecal and no intravascular spread of the contrast. Small amount of the ropivacaine 0.5% mixed with Kenalog was injected into each point of interest. The patient continued to complain on severe pain in the injections. I asked her if she wants me to continue the procedure and she said that she does want the procedure to be completed. To minimize discomfort and pain on the injection I decided to go for bilateral intra-articular L4-5 steroid injections. The C-arm was tilted ipsilateral of t he right and after that left to demonstrate the L4-5 intra-articular space. After raising a skin wheal with previously mentioned solution of local anesthetics 22 gauge 5 in needle was driven sequentially to the point of interest this time intra-articular L5-S1 facets pace. Injection of the contrast demonstrated no intrathecal and no intravascular spread of the contrast. After that injection of the 2 cc of the ropivacaine mixed with Kenalog was performed into each joint. Upon completion of the injection the needles were withdrawn sterile dressing was applied. Total dose of Kenalog was 60 mg. The patient tolerated procedure well. Plan Neurosurgical consult was made patient was offered surgery. To mitigate her pain syndrome surgical team suggested medial branch blocks lower lumbar spine to help her pain. I will schedule her for therapeutic medial branch block as soon as possible. Orders: Orders FL guidance in treatment room Today M47.816 - Spondylosis without myelopathy or radiculopathy, lumbar region Coding Level of Care Code Procedure Only Diagnoses Spinal stenosis M48.00 Morbid obesity E66.01 Spondylolisthesis M43.10 Spondylosis of lumbar spine M47.816 Spondylosis of lumbar region without myelopathy or radiculopathy M47.816
[2023-09-10 13:41] VITALS: BP 124/82; PULSE 75; RESP 18; O2SAT 96; BMI 47.4
[2023-09-10 13:49] VITALS: BP 128/86; PULSE 75; RESP 18; O2SAT 96
== END 2023-09-10 13:31 | disposition home or self-care (01) ==
LOC: HO.PMCPRC 12:42
PROVIDERS: PCP Family Medicine; Visit Provider Anesthesiology
DX: M47.816 Spondylosis without myelopathy or radiculopathy, lumbar region (principal)
CPT/HCPCS: 64493; 64494

== ENCOUNTER 2023-09-20 11:26 | Outpatient (AMB) | payer OTHER, SELFPAY ==
--- NOTE | 2023-09-20 11:41 | HO.SPINEOV ---
Intake Visit Reasons: 3 month F/u Intake Note: Ms. Ronni Dunn is here today for a 3month F/u Fitness Worker Required: Yes Fitness Worker Name: Darcy Allergies No Known Allergies [No Known Allergies*] Allergy (Verified 09/20/23 12:00) pt states no food/medication a Allergy (Unknown, Uncoded 11/06/21 11:11) Unknown Assessment & Plan Assessment & Plan (1) Spondylosis of lumbar region without myelopathy or radiculopathy: Code(s): M47.816 - Spondylosis without myelopathy or radiculopathy, lumbar region Category: Medical (2) Spondylolisthesis: Code(s): M43.10 - Spondylolisthesis, site unspecified Category: Medical Plan Mrs Ronni Dunn is returning in follow-up. She underwent the injections and unfortunately she did not have any significant improvement. I reviewed my note from last time, and her MRI and x-rays done here at [facility]. We believe that the surgery of choice for her would be a L4-5, L5-S1 trans Kambin lumbar interbody fusion not only to correct her spondylolisthesis at L4-5 but also the severely collapsed disc at L5-S1. The pain is at a point now where it is almost intolerable. It shoots down her legs and it gives her significant trouble walking. I discussed the surgical procedure with her and her daughter at length, reviewing risks benefits, recovery etc.. They would like to proceed so we have tentatively booked him for December 23. I will bring her back in a week or 2 before surgery to meet Dr. Walker and just to go over the procedure again. Pt was given risk and benefits of surgery including but not limited to infection, hematoma , nerve injury,durotomy, weakness,bowel/bladder injury, persistent pain, as well as the option to continue with conservative treatment and patient wishes to proceed with surgery. Pt is aware they should stop their motrin, aspirin 7 days prior to surgery. All questions were answered to the best of our ability. If there is anything about this patients medical history that we have overlooked or concerns you have about us proceeding with surgery we would appreciate any input you can offer. Total amount of time spent in this visit was 20 minutes in discussion of symptoms, lumbar MRI and x-ray imaging results and subsequent plan of care Cayetano Walker MD,PhD [facility] Coding Level of Care Code Est Pt Level 3 (13847) Diagnoses Spondylosis of lumbar region without myelopathy or radiculopathy M47.816 Spondylolisthesis M43.10
== END 2023-09-20 12:30 | disposition home or self-care (01) ==
PROVIDERS: PCP Family Medicine; Visit Provider Physician Assistant
DX: M47.816 Spondylosis without myelopathy or radiculopathy, lumbar region (principal); M43.10 Spondylolisthesis, site unspecified
CPT/HCPCS: 99213

== ENCOUNTER → 2023-09-20 11:26 | Outpatient (BNVA) | payer OTHER, SELFPAY | PROVIDERS: PCP Family Medicine; Visit Provider Physician Assistant | DX: M47.816 Spondylosis without myelopathy or radiculopathy, lumbar region (principal); M43.10 Spondylolisthesis, site unspecified | CPT/HCPCS: 99212 ==

== ENCOUNTER 2023-10-07 12:52 | Outpatient (AMB) | payer OTHER, SELFPAY ==
--- NOTE | 2023-10-07 12:58 | MHC.OFFVIS ---
Vital Signs 10/07/23 13:12 Height 5 ft 1 in Weight 251 lb 3 oz BMI 47.5 BP 144/90 H Blood Pressure Location Lt brachial Position Sitting Respiration 16 Pulse 66 Pulse Source Pulse Oximeter Pulse Oximetry (%) 98 Oxygen Delivery Method Room Air Intake Visit Reasons: BILATERAL THERAPEUTIC L3, L4, DRL5 MBB Intake Note: Patient comes in for post-op. Reports pain 6/10. Allergies No Known Allergies [No Known Allergies*] Allergy (Verified 10/07/23 13:13) pt states no food/medication a Allergy (Unknown, Uncoded 11/06/21 11:11) Unknown HPI Comments Details: Augustus went for neurosurgical consult by my recommendation and they offered her neurosurgical procedure. She has scheduled for the neurosurgical procedure with Dr. Walker. To improve her pain we attempted to perform medial branch block for this patient. However unfortunately it was not helpful. Patient denies medial branch block with steroid L2-L3 L4 does ramus L5 helps her pain at all. She has appointment for surgery scheduled in December. She is recommended to follow-up with Dr. Walker. Prior: complains on pain in lower back with radiation into the right lower extremity. She reports that she cannot sleep normally because of her pain she cannot do activities of daily living she can take care of herself but she can not function normally. She is on permanent disability. She reports that movements aggravates her pain and she reports that the tramadol alleviate her pain. She refused to describe her pain in terms of tissue damage. She had physical therapy in August of 2021 she reported that physical therapy did her pain on the worse. She had MRI of the lumbar spine which was done in March of 2021 results of which are dictated as below. Because of the results of the MRI she was sent to consult with some another practitioner presumably from neurosurgical office who did not recommend any surgical intervention and recommended steroid injections. The patient is scared of needles. She is morbidly obese individual despite the fact that she had bariatric surgery. [facility] Medical History (Updated 08/15/23 @ 16:34 by Antonio Yan MD) Morbid obesity Anemia HTN (hypertension) Surgical History Hx of hand surgery Hx of knee surgery Family History Father No problems noted. Mother CVD (cardiovascular disease) Social History Alcohol intake: never Patient Tobacco Use Status: Never used Tobacco Current occupational status: disabled Current occupation: rt handed Review of Systems Const All systems reviewed & are unremarkable except as noted in HPI and below ENT Reports Normal hearing present Neuro Reports Normal hearing present, Denies Abnormal speech present, Denies confusion and Denies Sensory deficit (Neuro) Psych Denies confusion Physical Exam Vital Signs: Last Vital Signs Pulse 66 10/07/23 13:12 Resp 16 10/07/23 13:12 BP 144/90 H 10/07/23 13:12 Pulse Ox 98 10/07/23 13:12 Oxygen Delivery Method Room Air 10/07/23 13:12 BMI result Body Mass Index 47.5 Const General: No confusion Nutritional Appearance: obese morbidly obese Orientation/consciousness: No confusion Eyes General: appearance normal, both eyes and all related structures Pupils: Equal, round and reactive pupils present EOM: EOMs intact bilaterally Neck Neck: Yes full ROM Chest Chest palpation & inspection: normal inspection of the chest Resp Effort & Inspection: normal respiratory effort, able to speak in complete sentences, normal respiratory pattern, no audible wheezes and no cough Cardio Jugular venous distension: no JVD GI Inspection: Yes normal to inspection Back/Spine/Pelvis Other: presents with very mild aggravation on SLR on the right. Negative on the left. Reports quick tiredness of the lower extremities when walking. Reports flexing backwards alleviates her pain. That might be related to the fact that she has significant anterolisthesis on L4-5. Neuro General: No confusion Cranial nerves: Yes Equal, round and reactive pupils present and Yes Normal hearing present Speech: No Abnormal speech present Gait exam (Neuro): Normal gait present Motor exam (neuro): 5/5 motor strength present throughout Sensory Exam: No Sensory deficit (Neuro) Extrem General: No pedal edema Psych Speech and movement: Normal speech and movement present Affect: normal affect Attitude: cooperative Thought process: Normal thought process present Thought content: Normal thought content present Insight: Good insight present (Psych) Judgement: Good judgement present (Psych) Assessment & Plan Assessment & Plan (1) Spondylosis of lumbar region without myelopathy or radiculopathy: Code(s): M47.816 - Spondylosis without myelopathy or radiculopathy, lumbar region Category: Medical (2) Spondylolisthesis: Code(s): M43.10 - Spondylolisthesis, site unspecified Category: Medical (3) Spinal stenosis: Code(s): M48.00 - Spinal stenosis, site unspecified Category: Medical (4) Morbid obesity: Code(s): E66.01 - Morbid (severe) obesity due to excess calories Category: Medical (5) Spondylosis of lumbar spine: Code(s): M47.816 - Spondylosis without myelopathy or radiculopathy, lumbar region Category: Medical Plan Neurosurgical consult was made patient was offered surgery. To mitigate her pain syndrome surgical team suggested medial branch blocks lower lumbar spine to help her pain. Therapeutic L3 L4-5 medial branch block was performed for the patient. Unfortunately it did not help. For her surgery in December. Follow-up with Neurosurgery now. Coding Level of Care Code Est Pt Level 3 (60970) Diagnoses Spondylosis of lumbar region without myelopathy or radiculopathy M47.816 Spondylolisthesis M43.10 Spinal stenosis M48.00 Morbid obesity E66.01 Spondylosis of lumbar spine M47.816
[2023-10-07 13:12] VITALS: BP 144/90; PULSE 66; RESP 16; O2SAT 98; BMI 47.5
== END 2023-10-07 13:13 | disposition home or self-care (01) ==
PROVIDERS: PCP Family Medicine; Visit Provider Anesthesiology
DX: M47.816 Spondylosis without myelopathy or radiculopathy, lumbar region (principal); M43.10 Spondylolisthesis, site unspecified; M48.00 Spinal stenosis, site unspecified; E66.01 Morbid (severe) obesity due to excess calories
CPT/HCPCS: 99213

== ENCOUNTER → 2023-10-07 12:52 | Outpatient (BNVA) | payer OTHER, SELFPAY | PROVIDERS: PCP Family Medicine; Visit Provider Anesthesiology | DX: M47.816 Spondylosis without myelopathy or radiculopathy, lumbar region (principal); M43.10 Spondylolisthesis, site unspecified; M48.00 Spinal stenosis, site unspecified; E66.01 Morbid (severe) obesity due to excess calories; Z68.42 Body mass index [BMI] 45.0-49.9, adult | CPT/HCPCS: 99212 ==

== ENCOUNTER 2023-12-20 15:18 | Outpatient (AMB) | payer OTHER, SELFPAY ==
--- NOTE | 2023-12-20 15:20 | A.SPINEOV_ITS ---
Intake Visit Reasons: Discuss surgery Intake Note: Ms. Ronni Dunn is here today to Discuss Surgery. Fabric Designer Required: No Allergies No Known Allergies [No Known Allergies*] Allergy (Verified 12/20/23 16:31) pt states no food/medication a Allergy (Unknown, Uncoded 11/06/21 11:11) Unknown Assessment & Plan Assessment & Plan (1) Spondylosis of lumbar region without myelopathy or radiculopathy: Code(s): M47.816 - Spondylosis without myelopathy or radiculopathy, lumbar region Category: Medical Plan On 12/20/2023 I saw for preoperative visit Augustus Dunn. She scheduled to undergo a transcatheter by L4-5 and L5-S1 lumbar fusion coming Saturday. All questions were answered satisfactorily. León Walker MD, PhD Spine Fellowship Trained Neurosurgeon Director, [facility] Coding Level of Care Code Est Pt Level 2 (83945) Diagnoses Spondylosis of lumbar region without myelopathy or radiculopathy M47.816
== END 2023-12-20 16:55 | disposition home or self-care (01) ==
PROVIDERS: PCP Family Medicine; Visit Provider Neurological Surgery
DX: M47.816 Spondylosis without myelopathy or radiculopathy, lumbar region (principal)
CPT/HCPCS: 99212

== ENCOUNTER → 2023-12-20 15:18 | Outpatient (BNVA) | payer OTHER, SELFPAY | PROVIDERS: PCP Family Medicine; Visit Provider Neurological Surgery | DX: M47.816 Spondylosis without myelopathy or radiculopathy, lumbar region (principal) | CPT/HCPCS: 99212 ==

== ENCOUNTER 2023-12-24 08:34 | Outpatient (BNV) | payer OTHER, SELFPAY | END 2023-12-25 07:00 | PROVIDERS: Admitting Provider Physician Assistant; PCP Family Medicine; Visit Provider Internal Medicine Cardiovascular Disease | DX: R07.9 Chest pain, unspecified (principal) | CPT/HCPCS: 93306 ==

== ENCOUNTER 2023-12-24 08:34 | Inpatient (IN) | payer OTHER, SELFPAY ==
--- NOTE | 2023-12-13 | ECG_ITS ---
Test Reason : preop Blood Pressure : / mmHG Vent. Rate : 068 BPM Atrial Rate : 068 BPM P-R Int : 154 ms QRS Dur : 074 ms QT Int : 386 ms P-R-T Axes : 000 171 174 degrees QTc Int : 410 ms Suspect limb lead reversal, interpretation assumes no reversal Normal sinus rhythm Right axis deviation Abnormal ECG When compared with ECG of 11-MAR-2020 14:36, QRS axis Shifted right Referred By: Alyssa Briones Electronically Signed By:WHIT PERDOMO
[2023-12-13 11:56] VITALS: BP 147/70; PULSE 64; RESP 18; O2SAT 97; BMI 52.9
[2023-12-13 13:43] LABS: Hematocrit 39.5 % (37.0-47.0); Hemoglobin 11.8 g/dl (12.0-16.0); Mean Corpuscular HGB Conc 29.9 g/dl (31.0-35.0); Mean Corpuscular Volume 80.4 fL (80.0-98.0); Mean Platelet Volume 9.1 fL (9.4-12.3); Platelet Count 252 X10*3/uL (160-400); Red Blood Count 4.91 X10*6/uL (4.20-5.50); Red Cell Distribution Width 17.8 % (11.0-16.0); White Blood Count 7.3 X10*3/uL (4.8-10.8)
[2023-12-13 14:14] LABS: Anion Gap 9 (12-20); Blood Urea Nitrogen 19 mg/dL (9-16); Calcium 9.2 mg/dL (8.4-10.2); Carbon Dioxide 25 mmol/L (22-29); Chloride 112 mmol/L (96-108); Creatinine Clr Calc Pharmacy 80.9; Estimated Glomerular Filt Rate > 60; Glucose Random 94 mg/dL (60-115); Potassium 3.9 mmol/L (3.3-5.1); Sodium 142 mmol/L (135-145)
[2023-12-24] VITALS (15 sets, daily range): BP systolic 142–176; BP diastolic 47–82; PULSE 54–108; RESP 14–22; TEMP 36–36.4; O2SAT 97–100; BMI 53.3
--- NOTE | ~2023-12-24 | XR_ITS ---
EXAMINATION: XR CHEST CLINICAL INFORMATION: Chest pain COMPARISON: 06/24/2018 TECHNIQUE: Frontal view of the chest was obtained. FINDINGS: EKG leads overlying the chest. Heart is normal in size. Low lung volumes are present. Nonspecific bowel perihilar interstitial thickening and groundglass changes. No pleural effusions. XR/XR chest 1V IMPRESSION: Low lung volumes with nonspecific perihilar interstitial thickening and groundglass changes. Electronically signed by: Augustin Vitale MD 12/24/2023 09:32 PM EDT
--- OUTSIDE RECORDS SUMMARY | 2023-12-24 08:37 | XMS_ITS | Continuity of Care Document ---
Author Organization [facility] Address [address] [place], [place] [address]ade[address], [address] [place] [address]- Care Team Providers Care Septic Cleaner Name Role Phone Rob BOSTON, [place] Primary Care Physician Encounter [facility] [place] Date(s): 03/23/21 - 04/22/[address], [address] [place], [place] [address] Allergies, Adverse Reactions, Alerts No Known Allergies Immunizations Given and Recorded Vaccine Date Status Refusal Reason pneumococcal 23-valent vaccine 02/13/12 Given influenza virus vaccine, inactivated 02/13/12 Give n Medications hydrochlorothiazide-lisinopril 25 mg-20 mg oral tablet 1 tablet, By Mouth, Daily, 0 Refills, Maintenance Start Date: 02/08/12 Status: Ordered Walker See Instructions, # 1 units, Maintenance, For aid with walking, 02/14/12 4:57:32 Start Date: 02/14/12 Status: Ordered Problem List Condition Effective Dates Status Health Status Inform ant HCV (hepatitis C virus)(Confirmed) Active S/P MILTON-BSO (total abdominal hysterectomy and bilateral salpingo-oophorectomy)(Confirmed) Active Social History Social History Type Response Smoking Status Former smoker; Other : quit 20+ years ago; entered on: 06/28/14 Sex
--- OUTSIDE RECORDS SUMMARY | 2023-12-24 08:37 | XMS_ITS | Continuity of Care Document ---
Author Organization [facility] Address [address] [place] [address] flora, [address] [place] [address]- Care Team Providers Care Perforator Name Role Phone Socorro Rivas MD Primary Care Physician Encounter [facility] Date(s): 05/15/21 - 06/14/21 [facility] [address] [place] [address], [address] [place] [address]- Attending Physician: Kari Tidwell Admitting Physician: AdmKari douglas Referring Physician: AdmtrKari Allergies, Adverse Reactions, Alerts No Known Allergies Immunizations Given and Recorded Vaccine Date Status Refusal Reason pneumococcal 23-valent vaccine 02/13/12 Given influenza virus vaccine, inactivated 02/13/12 Give n Medications Amlodipine By Mouth, Daily, 0 Refills, Maintenance, 05/12/21 11:53:00 EST, Partial fill upon patient request if the prescription is for a schedule II opioid drug. Start Date: 05/12/21 Status: Ordered Cetirizine 0 Refills, Maintenance, 05/12/21 11:53:00 EST, Partial fill upon patient request if the prescription is for a schedule II opioid drug. Start Date: 05/12/21 Status: Ordered Chlorthalidone By Mouth, Daily, 0 Refills, Maintenance, 05/12/21 11:53:00 EST, Partial fill upon patient request if the prescription is for a schedule II opioid drug. Start Date: 05/12/21 Status: Ordered Clonidine 0 Refills, Maintenance, 05/12/21 11:53:00 EST, Partial fill upon patient request if the prescription is for a schedule II opioid drug. Start Date: 05/12/21 Status: Ordered Diclofenac By Mouth, 0 Refills, Maintenance, 05/12/21 11:53:00 EST, Partial fill upon patient request if the prescription is for a schedule II opioid drug. Start Date: 05/12/21 Status: Ordered Gabapentin By Mouth, 0 Refills, Maintenance, 05/12/21 11:54:00 EST, Partial fill upon patient request if the prescription is for a schedule II opioid drug. Start Date: 05/12/21 Status: Ordered hydrALAZINE 0 Refills, Maintenance, 05/12/21 11:54:00 EST, Partial fill upon patient request if the prescription is for a schedule II opioid drug. Start Date: 05/12/21 Status: Ordered hydrochlorothiazide-lisinopril 25 mg-20 mg oral tablet 1 tablet, By Mouth, Daily, 0 Refills, Maintenance Start Date: 02/08/12 Status: Ordered lidocaine 4% patch Topically, Daily, 0 Refills, Maintenance, 05/12/21 11:54:00 EST, Partial fill upon patient request if the prescription is for a schedule II opioid drug. Start Date: 05/12/21 Status: Ordered Losartan By Mouth, Daily, 0 Refills, Maintenance, 05/12/21 11:54:00 EST, Partial fill upon patient request if the prescription is for a schedule II opioid drug. Start Date: 05/12/21 Status: Ordered Myrbetriq By Mouth, Daily, 0 Refills, Maintenance, 05/12/21 11:54:00 EST, Partial fill upon patient request if the prescription is for a schedule II opioid drug. Start Date: 05/12/21 Status: Ordered Omeprazole By Mouth, Daily, 0 Refills, Maintenance, 05/12/21 11:54:00 EST, Partial fill upon patient request if the prescription is for a schedule II opioid drug. Start Date: 05/12/21 Status: Ordered Shingrix Intramuscular, Once, 0 Refills, Maintenance, 05/12/21 11:54:00 EST, Partial fill upon patient request if the prescription is for a schedule II opioid drug. Start Date: 05/12/21 Status: Ordered Spironolactone By Mouth, 0 Refills, Maintenance, 05/12/21 11:54:00 EST, Partial fill upon patient request if the prescription is for a schedule II opioid drug. Start Date: 05/12/21 Status: Ordered Tramadol By Mouth, 0 Refills, Maintenance, 05/12/21 11:55:00 EST, Partial fill upon patient request if the prescription is for a schedule II opioid drug. Start Date: 05/12/21 Status: Ordered Trazodone By Mouth, 2 times a day, 0 Refills, Maintenance, 05/12/21 11:55:00 EST, Partial fill upon patient request if the prescription is for a schedule II opioid drug. Start Date: 05/12/21 Status: Ordered Vitamin A = 50,000 International_Units, Intramuscular, Daily, 0 Refills, Maintenance, 05/12/21 11:55:00 EST, Partial fill upon patient request if the prescription is for a schedule II opioid drug. Start Date: 05/12/21 Status: Ordered Vitamin D3 400 intl units oral capsule 1 capsule = 10 mcg, By Mouth, Daily, 0 Refills, Maintenance, 05/12/21 11:55:00 EST, Partial fill upon patient request if the prescription is for a schedule II opioid drug. Start Date: 05/12/21 Status: Ordered Walker See Instructions, # 1 units, Maintenance, For aid with walking, 02/14/12 4:57:32 Start Date: 02/14/12 Status: Ordered Problem List Condition Effective Dates Status Health Status Inform ant HCV (hepatitis C virus)(Confirmed) Active S/P MILTON-BSO (total abdominal hysterectomy and bilateral salpingo-oophorectomy)(Confirmed) Active Severe obesity(Confirmed) Active Social History Social History Type Response Smoking Status Former smoker; Other : quit 20+ years ago; entered on: 06/28/14 Sex
--- OUTSIDE RECORDS SUMMARY | 2023-12-24 08:37 | XMS_ITS | Continuity of Care Document ---
Author Organization [facility] Address [address] [place] [address], [address] [place] [address]- Care Team Providers Care Spray Dyer Name Role Phone Rob BOSTON, Socorro Primary Care Physician Encounter [facility] [place] Date(s): 05/15/21 - 05/22/21 [facility] [address] [place] [address], [address] [place], [place] [address] Attending Physician: Cheyenne Francis DO Allergies, Adverse Reactions, Alerts No Known Allergies [...] and bilateral salpingo-oophorectomy)(Confirmed) Active Severe obesity(Confirmed) Active Vital Signs Most recent to oldest [Reference Range]: 1 Height 152 cm (05/15/21 1:23 PM) Weight 99 kg (05/15/21 1:23 PM) Body Mass Index [18.5-24.99] 42.85 *>HHI* (05/15/21 1:23 PM) Social History Social History Type Response Smoking Status Former smoker; Other : quit 20+ years ago; entered on: 06/28/14 Sex
--- OUTSIDE RECORDS SUMMARY | 2023-12-24 08:37 | XMS_ITS | Continuity of Care Document ---
Author Organization [facility] Address [address] [place] [address] [address], [address] [place] [address]- Care Team Providers Care Block Layer Name Role Phone Socorro Rivas MD Primary Care Physician Encounter [facility] [place] Date(s): 03/23/21 - 05/05/21 [facility] [address] [place] [address] Drive, [address] [place], [place] [address] Attending Physician: Cheyenne Francis DO Referring Physician: Socorro Rivas MD Allergies, Adverse Reactions, Alerts No Known Allergies [...]
--- OUTSIDE RECORDS SUMMARY | 2023-12-24 08:37 | XMS_ITS | Continuity of Care Document ---
Author Organization [facility] [address], [address] [place] [address]- Care Team Providers Care Rebeamer Name Role Phone Socorro Rivas MD Primary Care Physician [place] [facility] [place]13[place] - 05/31/21 [facility] [address] [place] [address], [address] [place], [place] [address] Attending Physician: Cheyenne Francis DO Referring Physician: [...]
[2023-12-24] MEDS: methocarbamoL 750 MG TABLET PO (09:16)
[2023-12-24] MEDS: Gabapentin 300 MG CAPSULE PO ×3 (09:16→21:10)
[2023-12-24] MEDS: Lactated Ringers 1,000 ML 100 ML IVCONT (09:24)
--- NOTE | 2023-12-24 10:11 | MHC.SHP ---
Pre-Procedural Eval Section A - 24 Hr Update-Section A only Date of Service: 12/24/23 The patient is an INPATIENT: Yes Section B - Complete if H&P > 30 days Chief Complaint: s/p 14-sl ollif Details of Present Illness: Back pain Allergies: Allergies Allergy/AdvReac Type Severity Reaction Status Date / Time No Known Allergies Allergy Verified 12/20/23 16:31 [No Known Allergies*] pt states no food/medication Allergy Unknown Unknown Uncoded 11/06/21 11:11 a Review of Systems Sugical H&P ROS: Negative: Constitution, Cardiovascular, Respiratory, Neurological, Psychiatric, Hem-Onc, Allergic/Immunologic, Gastrointestinal, Genitourinary, Musculoskeletal, Integumentary, Endocrine and Eyes/Ears/Nose/Throat Exam Surgical H&P Exam: Normal: HEENT, Normal: Heart, Normal: Lungs, Normal: Extremities, Normal: Abdomen, Normal: Skin and Normal: Neurological (Awake, alert) Plan Diagnosis/Plan: Unchanged I have reviewed the history and physical and performed a pertinent physical examination on my patient. No changes have occurred unless specified. L4-5, L5-S1 Transkambin fusion Time Spent With Patient Time: Total time managing care of this patient today _5___ minutes.
--- NOTE | 2023-12-24 10:35 | P.CONAN_ITS ---
Documented by User: Alyssa Briones NP 12/23/23 14:22 HPI - Anesthesia Eval Consult details Narrative: 68yo F for L4-5,L5-S1 Transkambin Lumbar Interbody Fusion, 12/24/23 No recent illness No CP/SOB with minimal activity OMA: No CPAP d/t equipment malfunction GERD: ran out of ppi, rare symptoms BMI: 52 PMFSH Active Problems Active Problems: All Active Problems Spondylosis of lumbar region without myelopathy or radiculopathy (Acute) S/P gastric bypass (Acute) Spondylosis of lumbar spine (Acute) Spondylolisthesis (Acute) Spinal stenosis (Acute) Trigger finger of right thumb (Acute) Morbid obesity (Acute) HTN (hypertension) (Acute) Past Medical History Medical History (Updated 12/13/23 @ 11:42 by Carolyne Carrillo RN) GERD (gastroesophageal reflux disease) History of headache Sleep apnea Insomnia Back pain Morbid obesity Anemia HTN (hypertension) Family History Family History Father No problems noted. Mother CVD (cardiovascular disease) Family history of problems with anesthesia: No Surgical History Surgical History (Updated 12/24/23 @ 08:50 by Sophia Denson RN) History of cholecystectomy Hx of bariatric surgery Hx of total hysterectomy H/O colonoscopy Hx of hand surgery Hx of knee surgery History of Problems with Anesthesia: No Social History Social History Are you a primary home health care respiratory therapist to a significant other at home: No Do you presently have visiting nurse or other home services: Yes (PATIENT'S LIBRARIAN) Alcohol intake: never Patient Tobacco Use Status: Never used Tobacco Use of substances other than those prescribed or required for medical reasons: No Have you been hit, kicked, punched, or otherwise hurt by someone within the past year? If so, by whom?: No Advance Directives: No Advance Directives on File: No Recently lost weight without trying: No Eating poorly because of decreased appetite: No Nutrition Risks: No Nutritional Risk Patient : No : No Poor oral hygiene: Yes (full upper and lower dentures) Current occupational status: disabled Current occupation: rt handed Meds Allergies Allergy/AdvReac Type Severity Reaction Status Date / Time No Known Allergies Allergy Verified 12/20/23 16:31 [No Known Allergies*] pt states no food/medication Allergy Unknown Unknown Uncoded 11/06/21 11:11 a Home Medications ?Medication ?Instructions ?Recorded ?Confirmed ?Last Taken ?Type amlodipine 10 mg tablet 10 mg PO DAILY 01/30/21 12/13/23 Unknown History chlorthalidone 25 mg tablet 25 mg PO DAILY 01/30/21 12/13/23 Unknown History cholecalciferol (vitamin D3) 50 50 mcg PO DAILY 01/30/21 12/13/23 Unknown History mcg (2,000 unit) capsule losartan 100 mg tablet 100 mg PO DAILY 01/30/21 12/13/23 03/13/21 History spironolactone 25 mg tablet 25 mg PO DAILY 01/30/21 12/13/23 Unknown History tramadol 50 mg tablet 50 mg PO BID PRN Pain 01/30/21 12/13/23 Unknown History amitriptyline 50 mg tablet 50 mg PO BEDTIME 12/13/23 12/13/23 Unknown History cetirizine 10 mg tablet 10 mg PO DAILY 12/13/23 12/13/23 Unknown History clonidine HCl 0.1 mg tablet 0.1 mg PO BEDTIME 12/13/23 12/13/23 Unknown History gabapentin 300 mg capsule 300 mg PO TID 12/13/23 12/13/23 Unknown History hydralazine 100 mg tablet 100 mg PO TID 12/13/23 12/13/23 Unknown History mirabegron 25 mg tablet,extended 25 mg PO DAILY 12/13/23 12/13/23 Unknown History release 24 hr (Myrbetriq) pregabalin 50 mg capsule 50 mg PO TID 12/13/23 12/13/23 Unknown History zolpidem 5 mg tablet 5 mg PO BEDTIME PRN insomnia 12/24/23 Unknown History Exam Height,Weight and Vital Signs: Height 4 ft 10 in Weight 114.759 kg Last Vital Signs Pulse 64 12/13/23 11:56 Resp 18 12/13/23 11:56 BP 147/70 H 12/13/23 11:56 Pulse Ox 97 12/13/23 11:56 O2 Del Method Room Air 12/13/23 11:56 Pertinent Lab Results Pertinent Lab Results: Lab Results 12/13/23 12/13/23 Range/Units 13:06 13:14 WBC 7.3 (4.8-10.8) X10*3/uL RBC 4.91 (4.20-5.50) X10*6/uL Hgb 11.8 L (12.0-16.0) g/dl Hct 39.5 (37.0-47.0) % MCV 80.4 (80.0-98.0) fL MCH 24.0 L (27.0-33.0) pg MCHC 29.9 L (31.0-35.0) g/dl RDW 17.8 H (11.0-16.0) % Plt Count 252 (160-400) X10*3/uL MPV 9.1 L (9.4-12.3) fL Absolute Nucleated RBC 0.000 (0.0-0.012) X10*3/uL Nucleated RBC % (auto) 0.0 (0.0-0.2) /100WBC Sodium 142 (135-145) mmol/L Potassium 3.9 (3.3-5.1) mmol/L Chloride 112 H (96-108) mmol/L Carbon Dioxide 25 (22-29) mmol/L Anion Gap 9 L (12-20) BUN 19 H (9-16) mg/dL Creatinine 0.75 (0.5-1.4) mg/dL Estim Creat Clear Calc 80.9 Estimated GFR > 60 Random Glucose 94 (60-115) mg/dL Calcium 9.2 (8.4-10.2) mg/dL Blood Type A Positive Antibody Screen NEGATIVE Narrative Narrative: EKG 12/2023 Vent. Rate : 068 BPM Atrial Rate : 068 BPM P-R Int : 154 ms QRS Dur : 074 ms QT Int : 386 ms P-R-T Axes : 000 171 174 degrees QTc Int : 410 ms Suspect limb lead reversal, interpretation assumes no reversal Normal sinus rhythm Right axis deviation Abnormal ECG When compared with ECG of 11-MAR-2020 14:36, QRS axis Shifted right Airway TM Dist: >3cm Neck ROM: Full Denture: Upper and Lower Heart: RRR Lungs: CTAB Assessment and Plan Assessment Anesthesia Assessment: Anesthesia Plan Discussed and PAT Visit Final Anesthetic Review Family History of Problems with Anesthesia: No History of Problems with Anesthesia: No Documented by User: Juliet Knight, 12/24/23 10:42 [facility] Past Medical History Medical History (Updated 12/13/23 @ 11:42 by Carolyne Carrillo RN) GERD (gastroesophageal reflux disease) History of headache Sleep apnea Insomnia Back pain Morbid obesity Anemia HTN (hypertension) Family History Family History Father No problems noted. Mother CVD (cardiovascular disease) Family history of problems with anesthesia: No Surgical History Surgical History (Updated 12/24/23 @ 08:50 by Sophia Denson RN) History of cholecystectomy Hx of bariatric surgery Hx of total hysterectomy H/O colonoscopy Hx of hand surgery Hx of knee surgery History of Problems with Anesthesia: No Social History Social History Are you a primary home health care respiratory therapist to a significant other at home: No Do you presently have visiting nurse or other home services: Yes (PATIENT'S LIBRARIAN) Alcohol intake: never Patient Tobacco Use Status: Never used Tobacco Use of substances other than those prescribed or required for medical reasons: No Have you been hit, kicked, punched, or otherwise hurt by someone within the past year? If so, by whom?: No Advance Directives: No Advance Directives on File: No Recently lost weight without trying: No Eating poorly because of decreased appetite: No Nutrition Risks: No Nutritional Risk Patient : No : No Poor oral hygiene: Yes (full upper and lower dentures) Current occupational status: disabled Current occupation: rt handed Meds Allergies Allergy/AdvReac Type Severity Reaction Status Date / Time No Known Allergies Allergy Verified 12/20/23 16:31 [No Known Allergies*] pt states no food/medication Allergy Unknown Unknown Uncoded 11/06/21 11:11 a Home Medications ?Medication ?Instructions ?Recorded ?Confirmed ?Last Taken ?Type amlodipine 10 mg tablet 10 mg PO DAILY 01/30/21 12/13/23 Unknown History chlorthalidone 25 mg tablet 25 mg PO DAILY 01/30/21 12/13/23 Unknown History cholecalciferol (vitamin D3) 50 50 mcg PO DAILY 01/30/21 12/13/23 Unknown History mcg (2,000 unit) capsule losartan 100 mg tablet 100 mg PO DAILY 01/30/21 12/13/23 03/13/21 History spironolactone 25 mg tablet 25 mg PO DAILY 01/30/21 12/13/23 Unknown History tramadol 50 mg tablet 50 mg PO BID PRN Pain 01/30/21 12/13/23 Unknown History amitriptyline 50 mg tablet 50 mg PO BEDTIME 12/13/23 12/13/23 Unknown History cetirizine 10 mg tablet 10 mg PO DAILY 12/13/23 12/13/23 Unknown History clonidine HCl 0.1 mg tablet 0.1 mg PO BEDTIME 12/13/23 12/13/23 Unknown History gabapentin 300 mg capsule 300 mg PO TID 12/13/23 12/13/23 Unknown History hydralazine 100 mg tablet 100 mg PO TID 12/13/23 12/13/23 Unknown History mirabegron 25 mg tablet,extended 25 mg PO DAILY 12/13/23 12/13/23 Unknown History release 24 hr (Myrbetriq) pregabalin 50 mg capsule 50 mg PO TID 12/13/23 12/13/23 Unknown History zolpidem 5 mg tablet 5 mg PO BEDTIME PRN insomnia 12/24/23 Unknown History Exam Exam Date and Time: 12/24/23 1030 Height,Weight and Vital Signs: Vital Signs Pulse Rate 64 12/13/23 11:56 Respiratory Rate 18 12/13/23 11:56 Blood Pressure 147/70 H 12/13/23 11:56 Pulse Oximetry 97 12/13/23 11:56 Oxygen Delivery Method Room Air 12/13/23 11:56 Temperature 97.2 F 12/24/23 09:06 Pulse Rate 69 12/24/23 09:06 Respiratory Rate 16 12/24/23 09:06 Blood Pressure 151/66 H 12/24/23 09:06 Pulse Oximetry 97 12/24/23 09:06 Oxygen Delivery Method Room Air 12/24/23 09:06 Height 4 ft 10 in Weight 114.759 kg Last Vital Signs Pulse 64 12/13/23 11:56 Resp 18 12/13/23 11:56 BP 147/70 H 12/13/23 11:56 Pulse Ox 97 12/13/23 11:56 O2 Del Method Room Air 12/13/23 11:56 Airway Mallampati Class: II TM Dist: >3cm Neck ROM: Full Denture: Upper and Lower Heart: S1S2 Assessment and Plan Assessment Anesthesia Assessment: Anesthesia Plan Discussed and Chart Reviewed Final Anesthetic Review Family History of Problems with Anesthesia: No History of Problems with Anesthesia: No NPO: Yes ASA Class: III Final Preanesthetic Review: No Changes in Pt Med Stat, Meds/Allgs Chart Reviewed, Consent Obtained/Reviewed (case monitor at bedside for translation) and Anes Risks/Benef Reviewed Patient Risk: Intermediate Procedure Risk: Intermediate Anesthetic Plan Anesthetic Plan: GA and Agree w/ Assess. and Plan Disposition: Standard PACU
[2023-12-24] MEDS: ceFAZolin Sodium/Dextrose,Iso 2 GM/50 ML PIGGYBACK IV ×3 (10:58→23:34)
[2023-12-24] MEDS: Acetaminophen 1,000 MG/100 ML PIGGYBACK 400 MG IV ×3 (11:10→23:15)
--- NOTE | 2023-12-24 13:20 | P.OP_ITS ---
Operative Note Operative Note Date of Service: 12/24/23 Narrative: Preoperative diagnosis: 1) L4-L5, L5-S1 degenerative disc disease and lumbar spondylolisthesis L4-5 2) back pain and radiculopathy. Postprocedure diagnosis: 1) same as above Procedure: 1) L4-5, L5-S1 oblique lateral lumbar interbody fusion with discectomy, preparation of the endplates and placement of a titanium bullet cage packed with allograft, anterior to the transverse process in modified prone position, with intraoperative biplanar fluoroscopy imaging and electrophysiological monitoring 2) L4-S1 posterior minimally invasive pedicle screw placement and posterior lateral instrumentation and fusion with intraoperative biplanar fluoroscopic imaging and electrophysiological monitoring 3 injection of 10 cc of Exparel at the bilateral L 5 transverse process for a muscular erector spinae block and additional Exparel in paravertebral tissue for postop management Consent Informed Consent was obtained for this operation. I have explained the nature, purpose and benefits of the operation. I have discussed the risks and benefit of the operation including possible complications or adverse events with patient/family. Alternative(s) were discussed with the patient with their relative benefits and risks as well as the consequences of not accepting the operation were included in obtaining consent. Surgeon: MELONY MO MD, PHD Procedure Assisted By: selam Saxena Description of Procedure: This is a complex surgery on the lumbar spine and an business banking sales assistant as needed for safety of the surgery for setup of instrumentation, retraction and closing. History: This 68-year-old female suffering from severe lumbar degenerative disc disease L4-5 and L5-S1 with a spondylolisthesis at L4-5 causing spinal stenosis and nerve compression. The patient was offered an oblique lumbar lateral interbody fusion followed by a posterior lateral instrumented fusion L4-5 and L5-S1. The procedure and complications were explained and the patient was consented. Procedure: The patient was brought to the operating room and endotracheally intubated. The patient was positioned on the Nixon spine table in a modified prone position for ease of access from the left side.. 2C arms were installed for fluoroscopy. Prepping and draping was done followed by timeout. The landmarks, including spinal processes, transverse processes, disc space, endplates and pedicles are identified and marked. The following steps are taken for each specified level: L4-5 level: Cage size 10 mm high and 30 mm long titanium; L5-S1 level: Cage size 9 mm high and 27 mm long titanium . The patient was turned using the rotation of the surgical table so a near direct anterior lateral approach to the lumbar spine could be achieved. A small incision was then made superior to the mid iliac crest and then using biplanar fluoroscopy visualization, under electrophysiological monitoring and stimulation, we introduced an electrophysiological probe through the retroperitoneal space into the desired disc anterior to the transverse process and then passed it into the disc space after finding a silent window. The sleeve was retained and the probe was removed, then the K wire was passed sequentially into the disc space. A dilating tube was then passed along the same route. Following this, a working channel, a working channel was then passed sequentially into the disc space. The working channel was manually held in position while a series of disc cleaning tools were passed through the channel to remove the affected disc under clear and direct biplanar fluoroscopic visualization, decompress the nerve roots and equal corticated vertebral endplates at this segment. Arthrodesis of the intervertebral space via an anterior retroperitoneal exposure was achieved through [place] and lateral extraforaminal space. Allograft was added into the anterior disc space. The working channel was then removed. A titanium interbody cage tightly packed with allograft was then inserted into the midportion of the intervertebral disc space over a K-wire under biplanar fluoroscopic visualization and intraoperative neuro monitoring. The inter pedicular and intradiscal space was significantly enlarged and disc height was restored to worked normal anatomy there for releasing pressure on the nerve roots visual largely the spinal canal and lateral recess as well as foramen were bilateral decompressed and all bones were confined to the borders of the disc space . The steps were done for the L4-5 and L5-S1 levels. The following steps are then taken for each specified level: L4 level: Bilateral L4 screws with a diameter of 6.5 x 45 mm; L5 level: Bilateral L5 screws with a diameter of 6.5 x 40 mm; S1 level: Bilateral S1 screws with a diameter of 6.5 x 40 mm. The posterolateral fusion is initiated after the patient is rotated to a true prone position. The entry point to the pedicle is identified in the AP and lateral views and then the skin incision is injected with local anesthetic. We entered the pedicle with the pediguard tap after which a K-wire was introduced into the vertebral body. Additionally, I used a small periosteal decorticator along the screws to refresh the surface of the bone and facet and I put some amount of allograft for additional stability for the posterolateral fusion. Over the K-wire we insert pedicle screws bilaterally. After the screws were placed, we put the daphney in place and under fluoroscopic imaging, we locked the daphney in place and removed the screw tops and then each incision has been closed with 0 Vicryl for the fascia and a 3-0 Vicryl for the subdermal layer. Steri- Strips were used to approximate the incisions. An OpSite with Tegaderm was used to cover the incision. Final x-rays and AP and lateral projection showed good position of the interbody device and instrumentation. All sponge and needle counts were correct. The patient was extubated and transported in a stable condition to the recovery room. This procedure was done with the aid of a physician business banking sales assistant as a qualified resident was not available. Anesthesia: General Estimated Blood Loss (ml): 40 mL Specimen: None Duration of Surgery: 90 minutes Postoperative Plan: Admit to inpatient
[2023-12-24] MEDS: HYDROmorphone HCl 0.5 MG/0.5 ML SYRINGE IVPUSH ×3 (13:58→14:40)
[2023-12-24] MEDS: 0.9 % Sodium Chloride 1,000 ML 75 ML IVCONT (15:27)
[2023-12-24] MEDS: hydrOXYzine HCL 10 MG TABLET PO ×2 (16:32→21:11)
--- NOTE | 2023-12-24 17:14 | PHA.MEDREC ---
Pharmacy Consult ? Medication Reconciliation Pharmacy has completed the medication reconciliation. Confirmed medications with patient and Collar Runner. Patient was able to confirm all her medications and how she takes them and they matched what we have in claims but the Mybretiq 25mg she states she takes that as needed for an overactive bladder. She also confirmed she took her medications last yesterday.
[2023-12-24] MEDS: Pregabalin 50 MG CAPSULE PO ×2 (17:49→21:10)
[2023-12-24] MEDS: hydrALAZINE HCl 50 MG TABLET 100 MG PO ×2 (17:49→21:10)
[2023-12-24] MEDS: ondansetron HCL 4 MG/2 ML VIAL IVPUSH (19:34)
--- NOTE | 2023-12-24 19:43 | ECG_ITS ---
Test Reason : CP Blood Pressure : / mmHG Vent. Rate : 124 BPM Atrial Rate : 124 BPM P-R Int : 142 ms QRS Dur : 068 ms QT Int : 260 ms P-R-T Axes : 060 009 -05 degrees QTc Int : 373 ms Sinus tachycardia Nonspecific ST and T wave abnormality Abnormal ECG When compared with ECG of 13-DEC-2023 12:32, Nonspecific ST and T wave abnormality is now Present QRS axis Shifted left Heart rate has increased Referred By: Theresa Alexander Electronically Signed By:WHIT PERDOMO
[2023-12-24] MEDS: Nitroglycerin 0.4 MG TAB.SUBL SUBLINGUAL (19:45)
--- NOTE | 2023-12-24 19:50 | PM.EVENT ---
Event Note Date of Service: 12/24/23 Event Note: DATA CONTROL ASSISTANT called due to patient experiencing severe retrosternal chest pain described as tightness. Non radiating. Started about 20 minutes ago. Initially had lightheadedness but no sob, nauea, vomiting, diaphoresis syncope. She has s/p lumbar fusion with discectomy performed earlier today and reports ongoing back pain. She is very anxious. Will check EKG, troponin, BNP, BMP, CBC, ddimer. Will also order CXR She is given sublingual nitro Q 5 minutes p.r.n. for chest pain with good effect. Hold on aspirin given spinal surgery today. Monitor on tele. Time Spent With Patient Time: Total time managing care of this patient today ____ minutes.
[2023-12-24 20:28] LABS: Basophils Percent Auto 0.1 % (0-2); Hematocrit 39.9 % (37.0-47.0); Hemoglobin 11.8 g/dl (12.0-16.0); Imm Gran Abs Auto 0.11 X10*3/uL (0.00-0.03); Imm Gran Pct Auto 0.7 % (0.0-0.4); Lymphocytes Absolute Auto 0.4 X10*3/uL (1.2-4.9); Lymphocytes Percent Auto 2.6 % (20-40); MANUAL DIFF FLAG SCAN; Mean Corpuscular HGB Conc 29.6 g/dl (31.0-35.0); Mean Corpuscular Volume 81.3 fL (80.0-98.0); Mean Platelet Volume 9.2 fL (9.4-12.3); Monocytes Absolute Auto 0.4 X10*3/uL (0.1-1.2); Monocytes Percent Auto 2.3 % (2-11); Neutrophils Absolute Auto 15.1 x10*3/uL (2.0-8.3); Neutrophils Percent Auto 94.3 % (45-73); Platelet Count 219 X10*3/uL (160-400); Red Blood Count 4.91 X10*6/uL (4.20-5.50); Red Cell Distribution Width 17.2 % (11.0-16.0); SCAN SMEAR FLAG 1
[2023-12-24 20:52] LABS: B Type Natriuretic Peptide 138 pg/mL (<100); Troponin-I High Sensitivity < 2.7 ng/L (<3.5-17.0)
[2023-12-24 20:56] LABS: SLIDE REVIEW VERIFIED
[2023-12-24 21:01] LABS: Anion Gap 12 (12-20); Blood Urea Nitrogen 13 mg/dL (9-16); Calcium 8.9 mg/dL (8.4-10.2); Carbon Dioxide 24 mmol/L (22-29); Chloride 106 mmol/L (96-108); Creatinine Clr Calc Pharmacy 67.7; Estimated Glomerular Filt Rate > 60; Glucose Random 382 mg/dL (60-115); Potassium 4.2 mmol/L (3.3-5.1); Sodium 138 mmol/L (135-145)
[2023-12-24] MEDS: Docusate Sodium 100 MG CAPSULE PO (21:10)
[2023-12-24] MEDS: LORazepam 0.5 MG TABLET 0.25 MG PO (21:10)
[2023-12-24] MEDS: Amitriptyline HCl 50 MG TABLET PO (21:10)
[2023-12-24] MEDS: cloNIDine HCL 0.1 MG TABLET PO (21:15)
--- NOTE | 2023-12-24 21:41 | PM.EVENT ---
Event Note Date of Service: 12/24/23 Event Note: 7:35 PM - SOFTWARE PRODUCT MANAGER activated. Patient started to experience retrosternal pressure associated with anxiety and some shortness of breath. VS remarkable for O2 sats 100 % on RA and mild tachycardia. No hypotension or fever. ECG stat showed sinus tachycardia without obvious ischemic changes. CXR showed no pulmonary edema, effusions, consolidation or pneumothorax. Nitroglycerin 0.4 mg SL given X1 which completely resolved all her symptoms. Blood workup obtained. Troponin is negative. Glucose is 382 (per chart review no hx of diabetes). Insulin sliding scale and NS bolus ordered. We will recheck her BG in 2 hours as well as her A1c. We will avoid aspirin due to recent spinal surgery. D-dimer noted to be elevated, however, this is likely due to recent surgery as there is no hypoxia and symptoms completely subsided with nitroglycerin SL X1. For now, we will continue to monitor her symptoms, recheck troponin in several hours, obtain TTE in am and request a cardiology consult. Time Spent With Patient Time: Total time managing care of this patient today ____ minutes.
[2023-12-24 21:43] LABS: D Dimer High Sensitivity 4098 NG/ML
[2023-12-24] MEDS: Insulin Lispro 100 UNIT/ML 3 ML VIAL SUBCUT (22:03)
[2023-12-24] MEDS: 0.9 % Sodium Chloride 500 ML IV (22:04)
[2023-12-25 00:13] LABS: Glucose, Whole Blood 132 mg/dL (60-115)
[2023-12-25 01:28] LABS: Troponin-I High Sensitivity 4.5 ng/L (<3.5-17.0)
--- NOTE | 2023-12-25 01:58 | PC.NURSE ---
Addendum entered by Lucía Marrero RN 12/25/23 05:13: add to below, during below incident oxygen 2 liters N/C was applied and o2 sat was 100%, prior to oxygen was 96% room air (see typo below). Original Note: 193- Alerted to patients room by HEALTH DATA ANALYST that patient is feeling mid sternal chest pressure and tightness. pt alert and somewhat feeling anxious, 3 family members present in her room, pt mainly Mohawk speaking, however, daughter at bedside speaks Central African. Lung harris clear but dim to bases, ((% room air, [id number]/65. pt denies jaw pain, no radiation to her arms, color wnl, skin warm and dry. pt stated to not feeling this kind of pain previously, noted she is post operative for an Oblique Lateral Lumbar Inter-body Fusion, lower back dressing C-D-I. also feeling nauseous, therefore, medicated with IVP Zofran at 1938. Due to chest tightness and pressure persisting a GUIDANCE COUNSELOR was called; nursing assembly supervisor, PA, and the hospitalist on duty all responded. Nitro SL 0.4 mg was administered at 194 after an override from Pyxis by SUPERINTENDENT ELECTRIC POWER on RR team. Patient had relief from her symptoms within 10 minutes and continued to improve to a pain free status. MD ordered Lab work, trop series, cxr, Po Ativan, To place pt on tele monitoring, Ekg....Noted with labs that her random Glucose value was 382, MD ordered a 500ml bolus and 10 units of Insulin with a recheck in 2 hours. Pt denied a diabetic diagnosis, will check her HA1C in the AM. all other medications given as ordered, pt swallowed pills without difficulty and no further chest tightness or chest pressure episodes. Will continue to watch cardiac rhythm and monitor her status closely.
[2023-12-25 04:00] VITALS: BP 112/55; PULSE 80; RESP 18; TEMP 36.1; O2SAT 96
[2023-12-25] MEDS: Acetaminophen 1,000 MG/100 ML PIGGYBACK 400 MG IV (04:45)
[2023-12-25] MEDS: 0.9 % Sodium Chloride 1,000 ML 75 ML IVCONT (05:01)
[2023-12-25] MEDS: ceFAZolin Sodium/Dextrose,Iso 2 GM/50 ML PIGGYBACK IV (05:02)
--- NOTE | 2023-12-25 05:16 | PC.NURSE ---
0000-Patient incontinent of small amount of urine, then 2 max assist to bedside commode at 0400, able to void 300ml of yellow urine then bladder scan revealed 211ml. No action at this time, will continue to monitor
--- NOTE | 2023-12-25 06:56 | P.DS_ITS ---
DS: Providers Provider Date of Service: 12/25/23 Date of admission: 12/24/23 08:34 Primary care physician: Socorro Rivas MD Consults: 12/24/23 21:54 Consult to Cardiology Routine Consulting Provider: [facility] Reason for consultation: Chest pain, status post spinal surgery Has provider been notified: Yes DS: Summary Time Attestation Discharge Coordination Time (in mins): 15 Quality: Safe Use of Opioids Does Pt have an Active Cancer Diagnosis on the Problem List?: No Quality: Stroke Does the patient have a stroke diagnosis?: No Physical Exam Vital Signs: Vital Signs: Last Vital Signs Temp 96.9 F 12/25/23 04:00 Pulse 80 12/25/23 04:00 Resp 18 12/25/23 04:00 BP 112/55 L 12/25/23 04:00 Pulse Ox 96 12/25/23 04:00 O2 Del Method Room Air 12/25/23 04:00 O2 Flow Rate 2.0 12/24/23 19:47 BMI result Body Mass Index 53.3 DS: Data Data Completed and Pending Labs on day of discharge: Laboratory Results - last 24 hr 12/24/23 12/25/23 12/25/23 20:16 00:01 01:01 WBC 16.0 H RBC 4.91 Hgb 11.8 L Hct 39.9 MCV 81.3 MCH 24.0 L MCHC 29.6 L RDW 17.2 H Plt Count 219 MPV 9.2 L Immature Gran % (Auto) 0.7 H Neut % (Auto) 94.3 H Lymph % (Auto) 2.6 L [place] % (Auto) 2.3 Eos % (Auto) 0.0 Baso % (Auto) 0.1 Lymph # (Auto) 0.4 L [place] # (Auto) 0.4 Eos # (Auto) 0.0 Baso # (Auto) 0.0 Abs Immat Gran (auto) 0.11 H Absolute Neuts (auto) 15.1 H Absolute Nucleated RBC 0.000 Nucleated RBC % (auto) 0.0 Smear Tech's Comments VERIFIED D-Dimer High Sensitivty 4098 Sodium 138 Potassium 4.2 Chloride 106 Carbon Dioxide 24 Anion Gap 12 BUN 13 Creatinine 0.90 Estim Creat Clear Calc 67.7 Estimated GFR > 60 POC Glucose 132 H Random Glucose 382 H* Calcium 8.9 Troponin I High Sens < 2.7 4.5 D B-Natriuretic Peptide 138 H Discharge Plan Discharge Anticipated Discharge Date/Time: 12/25/23 07:38 Patient Disposition: Home Health Service Discharge Diagnosis: s/p L4-5 Referrals: Socorro Rivas MD [Primary Care Provider] - 1 Week Discharge Medications: New oxycodone 5 mg tablet 5 mg PO Q4-6H PRN (Reason: severe pain (scale score 7-10)) Qty: 30 0RF Rx Instructions: Partial Fill upon patient request. hydroxyzine HCl 25 mg tablet 25 mg PO BID Qty: 30 0RF methocarbamol 500 mg tablet 500 mg PO TID Qty: 30 0RF Continued cetirizine 10 mg tablet 10 mg PO DAILY amitriptyline 50 mg tablet 50 mg PO BEDTIME clonidine HCl 0.1 mg tablet 0.1 mg PO BEDTIME hydralazine 100 mg tablet 100 mg PO TID gabapentin 300 mg capsule 300 mg PO TID pregabalin 50 mg Capsule 50 mg PO TID mirabegron [Myrbetriq] 25 mg tablet extended release 24 hr 25 mg PO DAILY PRN (Reason: Overactive Bladder) zolpidem 5 mg tablet 5 mg PO BEDTIME PRN (Reason: insomnia) vitamin A 3,000 mcg (10,000 unit) capsule 1 cap PO DAILY ibuprofen [Advil] 200 mg Tablet 600 mg PO DAILY PRN (Reason: Headache) cholecalciferol (vitamin D3) 50 mcg (2,000 unit) capsule 50 mcg PO DAILY losartan 100 mg tablet 100 mg PO DAILY amlodipine 10 mg tablet 10 mg PO DAILY spironolactone 25 mg tablet 25 mg PO DAILY tramadol 50 mg tablet 50 mg PO BID PRN (Reason: Pain) chlorthalidone 25 mg tablet 25 mg PO DAILY Discharge Orders: Discharge Order (Routine); Ordered 12/25/23 Ordered By: Bryson Arita Diet: Advance to usual diet Activity on Discharge: As tolerated Stand Alone Forms: Patient Portal Discharge page Print Language: Indonesian Activity Restrictions/Additional Instructions: After your spinal surgery we ask you to observe the following restrictions/guidelines: Activity: It is normal to feel some discomfort as you increase your activity, but that will improve with time. We ask you avoid heavy lifting or acitivities that cause pain. As a general rule, 8lbs is a safe limit for lifting right after surgery. Walk as much as you feel comfortable but not to exhaustion. You will feel extra tired the first few days after surgery. Stay well hydrated. It is OK to walk up and down stairs You may return to driving when you are off narcotics (such as vicodin, oxycodone, dilaudid, etc), and you are back to normal functional capacity. If you have any concerns please check with office before driving. Return to work is specific to each patient and each surgery, so please speak with your doctor/PA at first follow up. Please bring paperwork such as FMLA at that time if you need it filled out. Medications: We have sent in [address] [facility] pharmacy here at [facility] for you to take post- operatively. Oxycodone, hydroxyzine & methocarbamol. Please take these as prescribed for pain. Please also continue your Lyrica prescription alongside this for nerve pain. Please refrain from taking your tramadol prescription at the same time as the oxycodone as they are both narcotic pain medications. You may take one or the other. Often times patients feel tramadol is not strong enough to help deal with their pain after lumbar fusion. We recommend you take 1,000mg Tylenol every 8 hours for the first few weeks after surgery, if you do not have any liver issues and can tolerate this medication. Do not exceed 4,000mg daily. We will give you a short supply of narcotics after surgery (usually one weeks worth). If you need more please call the office but do not use more than prescribed. You will need to give our office 48 hours notice if you need narcotics refilled and we do not fill narcotics on weekends or evenings. If you are on a narcotic, it is a good idea to take a stool softener such as colace or senna to avoid constipation If you take blood thinner such as aspirin, Plavix, Coumadin, Effient, Eliquis etc for conditions such as Afib, DVT, Pulmonary embolus, coronary disease, stents etc please speak with your surgeon about specific details as to when you can resume these medications. You can resume NSAIDs on post op day 1 (eg: Motrin, Naproxen, etc). Follow up: Please call the office, , after surgery to arrange a 3 week follow up for wound check. Wound Care: You may remove your dressing on the first day after surgery. ?You may ?leave open to air. Please do not remove the steri strips underneath. they will fall off on their own in one week. IT IS NORMAL FOR THE WOUND TO OOZE OR BE BLOODY FOR A FEW DAYS AFTER SURGERY. ?IF THIS HAPPENS JUST PLACE NEW DRESSING OVER IT TO AVOID STAINING CLOTHES. You may shower on post op day # 1 We ask that you do not let the water soak the wound. If it does get wet, just towel dry lightly. Please do not scrub your incision or place any type of chemical/ointment on the wound. No tub baths, pools or jacuzzis for one month. If you have any leaking or redness from your wound, or fevers, please call the office. Care Plan Goals: Returned to normal activity as tolerated. Health Concerns: Patient had an episode of chest pain during her admission, it is recommended that she follow up with her live in caregiver outpatient who fortunately for her was able to see her inpatient during this hospital stay and start her on a new medication. She understands she should also follow up promptly with her primary care physician to discuss her ongoing medical concerns. Plan of Treatment: Follow-up in clinic in 2-3 weeks. Assessment: POD: 1 Procedure: L4-S1 SHANE Coffman was seen sitting upright in bed this morning on . Overnight the patient had an episode of chest pain. This was worked up by our medical team who reports stable vitals, and unremarkable labs/imaging. Her chest pain was completely resolved with the 1 application of nitroglycerin. In addition to this she had high sugar noted overnight 383 and was started on insulin sliding scale. She has no history of diabetes so far as we are able to tell. She reports she has been OOB to the bedside commode with assist, and is otherwise doing well. She feels her symptoms are much better overall than pre- operatively. She still reports mild-moderate pain in her low back, with good r elief with oxycodone pain medication. She is voiding well, tolerating diet. Afebrile, vital signs stable. Full strength 5/5 LEs. Back dressings have some staining without signs of hematoma. No active sanguineous drainage. Area is dry. Plan: 68 y/o female POD:1 s/p L4-S1 lumbar fusion. 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 Vitals reported as stable. Chest x-ray stable. Troponin negative, D-dimer elevated but likely secondary to surgery (this lab value is nonspecific). She is OOB with assist, voiding well, tolerating diet. PT recommends home with REFRIGERATION HOUSEMAN & family support. Cardiology reviewed her TTE and reports no wall motion abnormality. They are comfortable with her being discharged home with an additional cardiac medication. Thus, the patient is medically cleared to be discharged home with health services. This patients care & post-operative plan has been discussed with the attending neurosurgeon Dr. Walker who saw the patient alongside this communications writer today during rounds. Bryson Walker MD,PhD [facility]
--- NOTE | 2023-12-25 07:00 | CA_ITS ---
Transthoracic Echocardiogram Patient (Last, First, Middle): Augustus Rust, Gender: Female Date of : 1955 Age: 68 Procedure Date: 12/25/2023 Procedure Type: Transthoracic Echocardiogram Location: S3E Height: 147.32 cm Weight: 115.21 kg BSA: 2.02 m2 Heart Rate: 118 bpm BP: 126 / 60 mmHg Soil Analyst: Referring MD: Clifford Hui MD Sas Programmer Remote: Blas Paul MD Symptoms: Chest pain Study Quality: Technically Difficult ECG Rhythm: Sinus Conclusions: - 1. Technically limited study 2. Normal LV ejection fraction of 65-70% with mild LVH with impaired relaxation filling pattern with no regional wall motion abnormality noted after definity injection 3. Cardiac valvular Dopplers within normal limits 4. Normal measured RV systolic pressure Findings Procedure Information Contrast agent, definity, is being given per protocol without apparent complications. Left Ventricle Normal left ventricular size and systolic function. There is mildly increased left ventricular wall thickness. The visually estimated ejection fraction is between 65-70%. There is no evidence of regional wall motion abnormalities. Spectral Doppler is indicative of an impaired relaxation filling pattern. Right Ventricle The right ventricle was not well visualized. Normal right ventricular cavity size. Atria The left atrium is mildly dilated. Interatrial shunt cannot be excluded. The right atrium was not well visualized. Aortic Valve The aortic valve was not well visualized. There is no aortic valve stenosis. There is no aortic valve regurgitation. Mitral Valve The mitral valve was not well visualized. There is trace mitral valve regurgitation. There is no mitral valve stenosis. Pulmonic Valve The pulmonic valve was not well visualized. Tricuspid Valve The tricuspid valve was not well visualized. There is trace tricuspid valve regurgitation. The right ventricular systolic pressure is normal. The right ventricular systolic pressure is 26 mmHg. Normal right atrial pressure. There is no evidence of pulmonary hypertension. Great Vessels The pulmonary artery was not well visualized. There is no dilatation of the ascending aorta measuring 2.70 cm. Venous The inferior vena cava was not well visualized. Pericardium/Pleural The pericardium was not well visualized. Measurements 2D Linear Measurements IVSd: 1.24 0.6-0.9/0.6-1.0 cm LVIDd: 4.64 3.9-5.3/4.2-5.9 cm LVIDd Index: 2.30 2.4-3.2/2.2-3.1 cm/m2 LVIDs: 2.77 2.0-3.6 cm LVPWd: 1.21 0.7-1.1 cm Ao Root: 2.70 2.1-3.5 cm LA Diam: 4.50 2.7-3.8/3.0-4.0 cm LAIDs Index: 2.23 1.5-2.3 cm/m2 LV Mass: 266.76 67-162/88-224 g LV Mass Index: 132.06 43-95/49-115 g/m2 LVOT Diam: 2.10 3.0+(-)1.3 cm Mitral Valve MV Pk E: 0.93 MV PK A: 1.08 MV Decel Time: 115.00 E/A: 0.90 E'Lateral: 14.50 E'Medial: 12.10 E/E' Med: 7.60 E/E' Lat: 6.40 PHT: 34.00 MVA PHT: 6.47 Decel Mcmullen: 8.04 Aortic Valve AoV Pk Parker: 1.72 AoV Mn Parker: 1.13 AoV VTI: 0.37 AoV Pk Grad: 12.00 Aov Mn Grad: 6.00 TESSIE Cont.VTI: 2.67 LVOT LVOT Pk Parker: 1.22 LVOT Mn Parker: 0.80 LVOT VTI: 0.29 LVOT Pk Grad: 6.00 LVOT Mn Grad: 3.00 LVOT Diam: 2.10 LVOT Area: 3.46 Diastolic Function MV Pk E: 0.93 MV Pk A: 1.08 E/A: 0.90 E'Medial: 12.10 E/E' Med: 7.60 E' Laterial: 14.50 E/E' Lat: 6.40 Right Ventricle TAPSE (mm): 23.00 TVS' Parker: 17.00 Tricuspid Valve TR Pk Parker: 2.42 TR Pk Grad: 23.00 RA Press: 3.00 RVSP: 26.00 Great Vessels Aorta Ao Root-2D: 2.70 2.0-3.7 cm Ao Asc: 2.70 2.1-3.4 cm Pulmonary Valve PV Pk Parker: 1.29 Peak PV Grad: 7.00 Updated in Other Vendor System with Status of Final Blas Paul MD electronically signed on 12/25/2023 12:16:19 PM with status of Final
[2023-12-25 07:11] LABS: Estimated Average Glucose 114 mg/dL; Hemoglobin A1C 101.1935 umol/L; Hemoglobin A1c % 5.6 % (<6.0)
[2023-12-25 07:12] VITALS: BP 126/60; PULSE 84; RESP 18; TEMP 36.1; O2SAT 94
[2023-12-25 07:26] LABS: Glucose, Whole Blood 90 mg/dL (60-115)
--- NOTE | 2023-12-25 07:44 | HO.NEUROPN_ITS ---
Neurosurgery Operative Note Date of Service: 12/25/23 Narrative: POD: 1 Procedure: L4-S1 SHANE Coffman was seen sitting upright in bed this morning on . Overnight the patient had an acute episode of chest pain. She hospitalist note for additional details. In short this was worked up by our medicine team who reported stable vitals, and unremarkable labs/imaging. Her chest pain was completely resolved with 1 application of nitroglycerin. In addition to this she had high sugar noted overnight (383) and was started on insulin sliding scale. She has no history of diabetes so far as we are able to tell. She reports she has been OOB to the bedside commode with assist, and is otherwise doing well. She feels her symptoms are much better overall than pre- operatively. She still reports mild-moderate pain in her low back, with good relief with oxycodone pain medication. She is voiding well, tolerating diet. Afebrile, vital signs stable. Full strength 5/5 LEs. Back dressings have some staining without signs of hematoma. No active sanguineous drainage. Area is dry. Plan: 68 y/o female POD:1 s/p L4-S1 lumbar fusion. NUCLEAR OPERATIONS SPECIALIST called on patient last night for chest pain. Vitals reported as stable. Chest x-ray stable. Troponin negative, D-dimer elevated but likely secondary to surgery (this lab value is nonspecific). She is OOB with assist x 2, voiding well, tolerating diet. She will need to mobilize with physical therapy today. Assuming she is cleared for discharge home with health services by PT she should be fine to go home today. Obviously if medicine team would like to continue working her up via a TTE it is understandable, however we would recommend she have this completed outpatient. We feel it protracted hospital stay will only cause additional post-operative harm for the patient, given that she has full strength and lives at home with multiple family members who can assist her. I will complete a face to face for the patient before DC. This patients care & post-operative plan has been discussed with the attending neurosurgeon Dr. Walker who saw the patient alongside this chief writer today during rounds. Bryson Walker MD,PhD [facility]
[2023-12-25 09:13] VITALS: BP 126/60; PULSE 84; O2SAT 94
[2023-12-25] MEDS: Losartan Potassium 50 MG TABLET 100 MG PO (09:15)
[2023-12-25] MEDS: Pregabalin 50 MG CAPSULE PO (09:15)
[2023-12-25] MEDS: Thiamine HCL 100 MG TABLET 50 MG PO (09:15)
[2023-12-25] MEDS: Docusate Sodium 100 MG CAPSULE PO (09:19)
[2023-12-25] MEDS: Cholecalciferol (Vitamin D3) 25 MCG TABLET 50 MCG PO (09:19)
[2023-12-25] MEDS: hydrOXYzine HCL 10 MG TABLET PO (09:19)
[2023-12-25] MEDS: Spironolactone 25 MG TABLET PO (09:19)
[2023-12-25] MEDS: Loratadine 10 MG TABLET PO (09:19)
[2023-12-25] MEDS: Gabapentin 300 MG CAPSULE PO (09:19)
[2023-12-25] MEDS: hydrALAZINE HCl 50 MG TABLET 100 MG PO (09:19)
[2023-12-25] MEDS: hydroCHLOROthiazide 25 MG TABLET PO (09:19)
[2023-12-25] MEDS: amLODIPine Besylate 10 MG TABLET PO (09:25)
--- NOTE | 2023-12-25 09:58 | P.CONCA_ITS ---
History of Present Illness History of Present Illness Date of Service: 12/25/23 Requesting physician: Clifford Hui Consult reason: chest pain Chief complaint: s/p 14-sl ollif Narrative: I was consulted to see Augustus in cardiology consultation today for chest pain. Consult was requested by hospitalist team. Patient just underwent lumbar neurosurgery for radicular pain. Patient yesterday while at rest developed retrosternal chest tightness which she describes as severe discomfort requiring sublingual nitroglycerin. This episode was precipitated by anxiety. Subsequently she had another episode of similar chest pain along with anxiety relieved by sublingual nitroglycerin. EKG done shows sinus tachycardia with nonspecific T-wave changes. Her troponins were negative for any myocardial injury. Couple years ago she had a myocardial perfusion imaging which had shown lateral ischemia. History was obtained with help of cage maker machine. She says she has had this chest pain syndrome for many years greater than 10 years starting in [place]. However she has had totally only 6 or 7 episodes at home all of these episodes mostly at rest. She denies any exertional symptoms at home. She is minimally functionally active. She was prior history of obesity status post gastric bypass surgery, hypertension, spinal stenosis. Patient has never had any documented coronary artery disease. Cardiology consult was sought for further management plan. While interviewing her she started getting very agitated and got very anxious and was shaking all over. She says she gets these episodes frequently. Review of Systems 2 Constitutional: Constitutional: Reports no additional constitutional complaints Eyes: Eyes: Reports no additional eye complaints Cardiovascular: Cardiovascular: Reports chest pain at rest, Denies syncope, Denies leg edema, Denies lightheadedness, Denies Loss of Consciousness, Denies palpitations and Reports dyspnea Respiratory: Respiratory: Reports no additional respiratory complaints and Reports dyspnea Gastrointestinal: Gastrointestinal: Reports no additional gastrointestinal complaints Musculoskeletal: Musculoskeletal: Reports back pain Neurologic: Reports system reviewed and no additional complaints, except as documented and Denies syncope Psychiatric: Psychiatric: Reports anxiety Endocrine: Endocrine: Denies palpitations [facility] Past Medical History Medical History GERD (gastroesophageal reflux disease) History of headache Sleep apnea Insomnia Back pain Morbid obesity Anemia HTN (hypertension) Family History Family History Father No problems noted. Mother CVD (cardiovascular disease) Surgical History Surgical History History of cholecystectomy Hx of bariatric surgery Hx of total hysterectomy H/O colonoscopy Hx of hand surgery Hx of knee surgery Social History Social History Household Members: None Housing: Apartment Housing Other:: second floor. uses elevator Are you a primary transitional care liaison to a significant other at home: No Do you presently have visiting nurse or other home services: No Alcohol intake: never Patient Tobacco Use Status: Never used Tobacco Use of substances other than those prescribed or required for medical reasons: No Currently Displaying Signs/Symptoms of Drug Intoxication Withdrawal: No Have you been hit, kicked, punched, or otherwise hurt by someone within the past year? If so, by whom?: No Do you feel safe in your current relationship?: Yes Is there a partner from a previous relationship who is making you feel unsafe now?: No Are you made to feel afraid or neglected: No Advance Directives: No Advance Directives on File: No Do you have a plan to hurt others: No Plan Recently lost weight without trying: No Eating poorly because of decreased appetite: No Nutrition Risks: No Nutritional Risk Patient : No : No Poor oral hygiene: No Current occupational status: disabled Current occupation: rt handed Meds Allergies Allergy/AdvReac Type Severity Reaction Status Date / Time No Known Allergies Allergy Verified 12/20/23 16:31 [No Known Allergies*] pt states no food/medication Allergy Unknown Unknown Uncoded 11/06/21 11:11 a Active Medications: Current Medications Amitriptyline HCl (Amitriptyline Hcl 50 Mg Tablet) 50 mg PO BEDTIME REGAN Last Admin: 12/24/23 21:10 Dose: 50 mg Amlodipine Besylate (Amlodipine Besylate 10 Mg Tablet) 10 mg PO DAILY REGAN; Protocol Last Admin: 12/25/23 09:25 Dose: 10 mg Clonidine HCl (Clonidine Hcl 0.1 Mg Tablet) 0.1 mg PO BEDTIME REGAN; Protocol Last Admin: 12/24/23 21:15 Dose: 0.1 mg Docusate Sodium (Docusate Sodium 100 Mg Capsule) 100 mg PO BID REGAN Last Admin: 12/25/23 09:19 Dose: 100 mg Gabapentin (Gabapentin 300 Mg Capsule) 300 mg PO TID [facility] Last Admin: 12/25/23 09:19 Dose: 300 mg Glucose (Glucose Gel 15 Gm Gel..Gram.) 15 gm PO Q15M PRN; Protocol PRN Reason: per Hypoglycemia Standing Ord. Hydralazine HCl (Hydralazine Hcl 50 Mg Tablet) 100 mg PO TID [facility]; Protocol Last Admin: 12/25/23 09:19 Dose: 100 mg Hydrochlorothiazide (Hydrochlorothiazide 25 Mg Tablet) 25 mg PO DAILY [facility] Last Admin: 12/25/23 09:19 Dose: 25 mg Hydromorphone HCl (Hydromorphone Hcl 1 Mg/Ml Syringe) 1 mg IVPUSH Q3H PRN; Protocol PRN Reason: Pain, Severe (Pain Scale 7-10) Hydroxyzine HCl (Hydroxyzine Hcl 10 Mg Tablet) 10 mg PO TID [facility] Last Admin: 12/25/23 09:19 Dose: 10 mg Sodium Chloride (Ns) 1,000 mls @ 75 mls/hr IVCONT .[id number] [facility] Last Admin: 12/25/23 05:01 Dose: 75 mls/hr Acetaminophen (Ofirmev) 1,000 mg in 100 mls @ 400 mls/hr IV Q6H [facility] Last Infusion: 12/25/23 05:01 Dose: Infused Dextrose (D10) 250 mls @ 750 mls/hr IV Q15M PRN; Protocol PRN Reason: per Hypoglycemia Standing Ord. Insulin Human Lispro (Insulin Lispro 100 Unit/Ml 3 Ml Vial) 0 unit SUBCUT QIDACHS [facility]; Protocol Last Admin: 12/25/23 08:40 Dose: Not Given Loratadine (Loratadine 10 Mg Tablet) 10 mg PO DAILY [facility] Last Admin: 12/25/23 09:19 Dose: 10 mg Losartan Potassium (Losartan Potassium 50 Mg Tablet) 100 mg PO DAILY [facility]; Protocol Last Admin: 12/25/23 09:15 Dose: 50 mg Methocarbamol (Methocarbamol 750 Mg Tablet) 750 mg PO TID PRN PRN Reason: Muscle Spasm Mirabegron (Mirabegron 25 Mg Tab.Er.24h) 25 mg PO DAILY PRN PRN Reason: URINARY RETENTION Nitroglycerin (Nitroglycerin 0.4 Mg Tab.Subl) 0.4 mg SUBLINGUAL Q5MX3 PRN PRN Reason: Chest Pain Last Admin: 12/24/23 19:45 Dose: 0.4 tab Ondansetron HCl (Ondansetron Hcl 4 Mg/2 Ml Vial) 4 mg IVPUSH Q6H PRN PRN Reason: Nausea and Vomiting Last Admin: 12/24/23 19:34 Dose: 4 mg Oxycodone HCl (Oxycodone Hcl Immed Release 5 Mg Tablet) 5 mg PO Q4H PRN PRN Reason: Pain, Moderate(Pain Scale 4-6) Oxycodone HCl (Oxycodone Hcl Immed Release 5 Mg Tablet) 10 mg PO Q4H PRN PRN Reason: Pain, Severe (Pain Scale 7-10) Pregabalin (Pregabalin 50 Mg Capsule) 50 mg PO TID [facility] Last Admin: 12/25/23 09:15 Dose: 50 mg Spironolactone (Spironolactone 25 Mg Tablet) 25 mg PO DAILY [facility]; Protocol Last Admin: 12/25/23 09:19 Dose: 25 mg Thiamine HCl (Thiamine Hcl 100 Mg Tablet) 50 mg PO DAILY [facility] Last Admin: 12/25/23 09:15 Dose: 50 mg Vitamin D (Cholecalciferol (Vitamin D3) 25 Mcg Tablet) 50 mcg PO DAILY [facility] Last Admin: 12/25/23 09:19 Dose: 50 mcg Home Medications ?Medication ?Instructions ?Recorded ?Confirmed ?Last Taken ?Type amlodipine 10 mg tablet 10 mg PO DAILY 01/30/21 12/24/23 12/23/23 History chlorthalidone 25 mg tablet 25 mg PO DAILY 01/30/21 12/24/23 12/23/23 History cholecalciferol (vitamin D3) 50 50 mcg PO DAILY 01/30/21 12/24/23 12/23/23 History mcg (2,000 unit) capsule losartan 100 mg tablet 100 mg PO DAILY 01/30/21 12/24/23 12/23/23 History spironolactone 25 mg tablet 25 mg PO DAILY 01/30/21 12/24/23 12/23/23 History tramadol 50 mg tablet 50 mg PO BID PRN Pain 01/30/21 12/24/23 12/23/23 History amitriptyline 50 mg tablet 50 mg PO BEDTIME 12/13/23 12/24/23 12/23/23 History cetirizine 10 mg tablet 10 mg PO DAILY 12/13/23 12/24/23 12/23/23 History clonidine HCl 0.1 mg tablet 0.1 mg PO BEDTIME 12/13/23 12/24/23 12/23/23 History gabapentin 300 mg capsule 300 mg PO TID 12/13/23 12/24/23 12/23/23 History hydralazine 100 mg tablet 100 mg PO TID 12/13/23 12/24/23 12/23/23 History mirabegron 25 mg tablet,extended 25 mg PO DAILY PRN Overactive 12/13/23 12/24/23 12/23/23 History release 24 hr (Myrbetriq) Bladder pregabalin 50 mg capsule 50 mg PO TID 12/13/23 12/24/23 12/23/23 History ibuprofen 200 mg tablet (Advil) 600 mg PO DAILY PRN Headache 12/24/23 12/24/23 12/23/23 History vitamin A 3,000 mcg (10,000 unit) 1 cap PO DAILY 12/24/23 12/24/23 12/23/23 History capsule zolpidem 5 mg tablet 5 mg PO BEDTIME PRN insomnia 12/24/23 12/24/23 12/23/23 History Physical Exam 2 Vital Signs: Vital Signs: Last Vital Signs Temp 97.0 F 12/25/23 07:12 Pulse 84 12/25/23 09:13 Resp 18 12/25/23 07:12 BP 126/60 12/25/23 09:13 Pulse Ox 94 12/25/23 09:13 O2 Del Method Room Air 12/25/23 07:12 O2 Flow Rate 2.0 12/24/23 19:47 BMI result Body Mass Index 53.3 Const: General: cooperative, comfortable, alert, awake and anxious N utritional Appearance: obese Orientation/consciousness: patient oriented x3 HEENT: Head: Yes normocephalic and Yes atraumatic Neck: Neck: Yes trachea midline, Yes supple and Yes no JVD Resp: Effort & Inspection: normal respiratory effort Auscultation: clear to auscultation bilaterally Cardio: Jugular venous distension: no JVD Rate: tachycardic Rhythm: r egular rhythm Heart sounds: S1 normal heart sound present, S2 normal heart sound present, no click, no gallops, no murmurs and no rubs GI: Auscultation: normal bowel sounds Skin: General skin exam: no rashes or lesions noted Neuro: General: patient oriented x3 and no focal motor deficits Extrem: General: Yes no clubbing, cyanosis or edema Objective Labs and Meds 12/24/23 20:16 12/24/23 20:16 Lab results: Laboratory Results - last 24 hr 12/24/23 12/25/23 12/25/23 20:16 00:01 01:01 WBC 16.0 H RBC 4.91 Hgb 11.8 L Hct 39.9 MCV 81.3 MCH 24.0 L MCHC 29.6 L RDW 17.2 H Plt Count 219 MPV 9.2 L Immature Gran % (Auto) 0.7 H Neut % (Auto) 94.3 H Lymph % (Auto) 2.6 L [place] % (Auto) 2.3 Eos % (Auto) 0.0 Baso % (Auto) 0.1 Lymph # (Auto) 0.4 L [place] # (Auto) 0.4 Eos # (Auto) 0.0 Baso # (Auto) 0.0 Abs Immat Gran (auto) 0.11 H Absolute Neuts (auto) 15.1 H Absolute Nucleated RBC 0.000 Nucleated RBC % (auto) 0.0 Smear Tech's Comments VERIFIED D-Dimer High Sensitivty 4098 Sodium 138 Potassium 4.2 Chloride 106 Carbon Dioxide 24 Anion Gap 12 BUN 13 Creatinine 0.90 Estim Creat Clear Calc 67.7 Estimated GFR > 60 POC Glucose 132 H Random Glucose 382 H* Estimat Average Glucose Hemoglobin A1c % Calcium 8.9 Troponin I High Sens < 2.7 4.5 D B-Natriuretic Peptide 138 H 12/25/23 12/25/23 05:35 07:11 WBC RBC Hgb Hct MCV MCH MCHC RDW Plt Count MPV Immature Gran % (Auto) Neut % (Auto) Lymph % (Auto) [place] % (Auto) Eos % (Auto) Baso % (Auto) Lymph # (Auto) [place] # (Auto) Eos # (Auto) Baso # (Auto) Abs Immat Gran (auto) Absolute Neuts (auto) Absolute Nucleated RBC Nucleated RBC % (auto) Smear Tech's Comments D-Dimer High Sensitivty Sodium Potassium Chloride Carbon Dioxide Anion Gap BUN Creatinine Estim Creat Clear Calc Estimated GFR POC Glucose 90 Random Glucose Estimat Average Glucose 114 Hemoglobin A1c % 5.6 Calcium Troponin I High Sens B-Natriuretic Peptide Imaging Radiologist's impression: Impressions Chest X-Ray 12/24/23 20:00 IMPRESSION: Low lung volumes with nonspecific perihilar interstitial thickening and groundglass changes. Electronically signed by: Augustin Vitale MD 12/24/2023 09:32 PM EDT Assessment and Plan (1) Chest pain: Status: Acute Chest pain syndrome in this elderly woman with prior abnormal stress test with mildly abnormal EKG with fast heart rate could represent ischemia although her chest pain syndrome has been present for many years. This was responsive to nitroglycerin today. However troponins are negative and likelihood of acute coronary syndrome is low. I think her symptoms are driven by anxiety. This needs to be controlled. Also suggest to start a nonselective beta-neil such as Inderal LA 60 mg daily. Echocardiogram has been requested in absence of any significant findings of wall motion abnormality I think she can potentially be discharged home. Would start her on aspirin therapy. Will continue amlodipine and other antihypertensive regimen. Consider statin therapy. Will [place] back once echocardiogram is completed. Thank you for allowing me to partake in the care Procedures Date of Service Date of Service: 12/25/23
[2023-12-25 11:16] LABS: Glucose, Whole Blood 97 mg/dL (60-115)
[2023-12-25] MEDS: oxyCODONE HCl Immed Release 5 MG TABLET PO (12:25)
--- NOTE | 2023-12-25 13:14 | MHC.CM.PN ---
CM met with patient to complete CM assessment. apigee developer assisting. IMM delivered. Patient lives in an apartment alone. Ambulates w/ cane/walker PRN. Has a HOSPITAL NURSE LIAISON to assist w/ ADL's 1 hour daily. PCP Socorro Rivas MD HCP on file and verified. DP: Home w/ new VNA for SN. Awaiting accepting agency. Patient medically cleared for dc. Daughter to transport.
--- NOTE | 2023-12-25 13:57 | W.MHC.F2F ---
Service Date Service Date: 12/25/23 Encounter Date of encounter: 12/25/23 Reasons for Services Signs and symptoms assessed: S/P L4-5 lumbar fusion Reason for half-way: neurological assessment, medication management and medication treatment Reason for physical therapy: home safety and mobility, therapeutic exercises, gait/transfer training and ADL training Homebound: Leaving the home is medically contraindicated at this time without the asist of a device and/or another person due th the listed conditions above and below. Reason homebound: unsteady gait / fall risk, pain with ambulation, pain with transfers, poor balance / fall risk and weakness related to hospital stay Certification: Based on the above findings, I certify that this patient is confined to the home and needs intermittent half-way care, physical therapy and/or speech therapy, or continues to need occupational therapy. The patient is under my care, and I have initiated the establishment of the plan of care. The patient will be followed by a physician who will periodically review the plan of care. Time Spent With Patient Time: Total time managing care of this patient today ___15_ minutes.
--- NOTE | 2023-12-26 09:14 | HO.POSTANES ---
Post Anesthesia Evaluation Post Anesthesia Evaluation Date of Service: 12/24/23 Anesthesia: General Mental Status: Awake Pain Control: Satisfactory Nausea/Vomiting: None Hydration: Adequate Anesthesia-Related Issues: No Anes. Related Issues
== END 2023-12-25 14:20 | disposition home health service (06) | DRG 460 ==
LOC: HO.SSSA 08:35 → HO.S3 14:20
PROVIDERS: Internal Medicine; Neurological Surgery; Nurse Practitioner; Physician Assistant; Admitting Provider Physician Assistant; PCP Family Medicine; Visit Provider Physician Assistant
PROC: 0SG00A0 Fusion of Lumbar Vertebral Joint with Interbody Fusion Device, Anterior Approach, Anterior Column, Open Approach (ICD-10-PCS; principal; 2023-12-24 11:00)
DX: M51.06 Intervertebral disc disorders with myelopathy, lumbar region (principal); Z68.43 Body mass index [BMI] 50.0-59.9, adult; E66.01 Morbid (severe) obesity due to excess calories; R07.9 Chest pain, unspecified; M43.16 Spondylolisthesis, lumbar region; F41.9 Anxiety disorder, unspecified; M51.16 Intervertebral disc disorders with radiculopathy, lumbar region; M51.17 Intervertebral disc disorders with radiculopathy, lumbosacral region; Z98.84 Bariatric surgery status; Z79.899 Other long term (current) drug therapy
CPT/HCPCS: 36415; 71045; 80048; 82947; 83036; 83880; 84484; 85025; 85027; 85379; 86850; 86900; 86901; 93005; 93306; 97162; C1713; C1889; C9290; J0131; J0665; J0690; J1100; J1170; J1596; J1885; J2405; J2704; J3010; L8699; Q9957

== ENCOUNTER → 2023-12-24 08:34 | Outpatient (BNV) | payer OTHER, SELFPAY | PROVIDERS: Admitting Provider Physician Assistant; PCP Family Medicine; Visit Provider Internal Medicine Cardiovascular Disease | DX: R07.9 Chest pain, unspecified (principal) | CPT/HCPCS: 99222 ==

== ENCOUNTER → 2023-12-24 08:34 | Outpatient (BNV) | payer OTHER, SELFPAY | PROVIDERS: Admitting Provider Physician Assistant; PCP Family Medicine; Visit Provider Neurological Surgery | DX: M43.16 Spondylolisthesis, lumbar region (principal); M51.36 Other intervertebral disc degeneration, lumbar region | CPT/HCPCS: 20930; 22558; 22585; 22612; 22614; 22840; 22853; 63056; 63057; 99024; 99499; G0180 ==

== ENCOUNTER 2024-01-16 09:42 | Outpatient (AMB) | payer OTHER, SELFPAY ==
--- NOTE | 2024-01-16 09:44 | A.SPINEOV_ITS ---
Intake Visit Reasons: 1st post op Intake Note: Ms. Ronni Dunn is here today for her 1st post-op. Senior Software Quality Engineer Required: Yes Senior Software Quality Engineer Services: Senior Software Quality Engineer Present Senior Software Quality Engineer Name: Darcy Moscoso Allergies No Known Allergies [No Known Allergies*] Allergy (Verified 12/20/23 16:31) pt states no food/medication a Allergy (Unknown, Uncoded 11/06/21 11:11) Unknown Assessment & Plan Assessment & Plan (1) S/P spinal fusion: Code(s): Z98.1 - Arthrodesis status Category: Surgical Plan Procedure: L4-5, L5-S1 oblique lateral lumbar interbody fusion Augustus is a pleasant 68-year-old female who comes in today for her 1st p ostoperative visit after having an L4-S1 lumbar fusion completed by our service. To recap she was having intermittent leg pain down her bilateral legs laterally down to her calves alongside severe low back pain when she was initially evaluated in the clinic. Today she reports that her left leg has continued to have significant pain since her surgery. She also reports that the skin in her low back is painful to touch, more so on the left side vs. the right. She feels like the medication she has been taking for pain has only been modestly helpful. She has been up out of bed ambulating around her home but has to utilize a walker to do so. She has been sleeping in a recliner for the last 8 years and continues to do so as she experiences increased pain in her low back. The patient as severe shooting pains down her left lower extremity, which she describes as starting in her left hip and going down the lateral aspect of her left leg terminating near the left calf. She has no other new neurological issues/deficits since her surgery. Her left lateral incision site for the transkambin approach has an erythematous border and some degree of nonunion. Given this, it is dry and there is no evidence of swelling/fluctuance/induration. Augustus has a very large body habitus (BMI 53.3) and her left lateral incision site falls directly in the middle of a skin fold. This is likely contributing to the erythema and nonunion seen here. I would like to trial her on a few days of Bactrim and will send a picture of her incision site to the attending neurosurgeon Dr. Walker. I have scheduled her to come back and see me in clinic on Saturday after she has completed her course of antibiotics to see if there is any improvement. I will follow up with her in the interim if Dr. Walker has any other plan/directions. Bryson Walker MD,PhD [facility] Medications: New sulfamethoxazole-trimethoprim 800-160 mg (Bactrim DS) 1 tab PO BID 4 days 8 tabs 0RF surgical prophylaxis Coding Level of Care Code Global (72490) Diagnoses S/P spinal fusion Z98.1
== END 2024-01-16 10:17 | disposition home or self-care (01) ==
PROVIDERS: PCP Family Medicine; Visit Provider Physician Assistant
DX: Z98.1 Arthrodesis status (principal)
CPT/HCPCS: 99024

== ENCOUNTER → 2024-01-16 09:42 | Outpatient (BNVA) | payer OTHER, SELFPAY | PROVIDERS: PCP Family Medicine; Visit Provider Physician Assistant | DX: Z98.1 Arthrodesis status (principal) | CPT/HCPCS: 99212 ==

== ENCOUNTER 2024-01-21 15:01 | Outpatient (AMB) | payer OTHER, SELFPAY ==
--- NOTE | 2024-01-21 14:42 | A.SPINEOV_ITS ---
Intake Visit Reasons: follow up Intake Note: Ms. Ronni Dunn is here today for a F/u. Shuttle Van Driver Required: Yes Shuttle Van Driver Name: Darcy Moscoso Allergies No Known Allergies [No Known Allergies*] Allergy (Verified 01/21/24 15:13) pt states no food/medication a Allergy (Unknown, Uncoded 11/06/21 11:11) Unknown Office Meds lidocaine (PF) 10 mg/mL (1 %) injection solution Performing Provider: AZAM Hanna Performing Location: [facility] Administered by: AZAM Hanna on 01/21/24 14:59 Dose Route Admin Location Dispensed Lot Number Expiration Date [facility][NOTE 3] [employer]sn/Ss[employer] Assistant Navigator 5 mL subcut spine 5 mL [id number] 10/06/25 50405-409-34 [place] 5 mL subcut SPINE 5 mL [id number] 10/06/25 35183-796-57 [place] 5 mL subcut spine 5 mL [id number] 10/06/25 21536-873-53 [place] [employer] Assessment & Plan Assessment & Plan (1) S/P spinal fusion: Code(s): Z98.1 - Arthrodesis status Category: Surgical Plan Augustus comes in today for a follow-up visit after her L4-5, L5-S1 oblique lateral lumbar interbody fusion which was completed 12/24/23. During her last visit upon examining her incision sites it appeared that her far lateral incision site had begun to open up down to the sutures. I attempted to start the patient on few days of antibiotics in the hopes that her body would begin to reapproximate the incision. Unfortunately, this has continued to open up. It is now slightly larger than the image I compared it to during her last visit. Therefore, I discussed the possibility of excising tissue and reapproximating the wound with [place]son[place]. She was apprehensive at first, but did get sent to having the procedure done when I explained we can utilize lidocaine to make the procedure rather painless. She agreed to proceed. I prepped the area in a sterile fashion and cleansed it with both Betadine and alcohol. I then injected about 12cc of lidocaine total ( 3mL wasted ). I waited about 10 minutes for the lidocaine to take affect. After this I excised the wound edges, then closed the wound with 4 simple interrupted sutures. The patient was advised to keep the wound open to air. I provided her with hibiclens to bath with. I also sent in a 5 day course of doxycycline for the patient, as she just finished a 5 days course of Bactrim. We will need to see her again in 14 days for suture removal. We may want to wait another week if her incision does not appear well closed at this time. Bryson Walker MD,PhD [facility] Orders: Orders AMB Incision Repair Today Z98.1 - Arthrodesis status Medications: New doxycycline monohydrate 100 mg PO BID PRN 10 caps 0RF infection prophylaxis Coding Level of Care Code Procedure Only Diagnoses S/P spinal fusion Z98.1
== END 2024-01-21 15:58 | disposition home or self-care (01) ==
PROVIDERS: PCP Family Medicine; Visit Provider Physician Assistant
DX: Z98.1 Arthrodesis status (principal)
CPT/HCPCS: 99024

== ENCOUNTER → 2024-01-21 15:01 | Outpatient (BNVA) | payer OTHER, SELFPAY | PROVIDERS: PCP Family Medicine; Visit Provider Physician Assistant | DX: Z98.1 Arthrodesis status (principal) | CPT/HCPCS: 99212; J2003 ==

== ENCOUNTER 2024-01-27 10:18 | Outpatient (AMB) | payer OTHER, SELFPAY ==
[2024-01-27 10:21] VITALS: BP 156/84; PULSE 84; O2SAT 95; BMI 51.0
--- NOTE | 2024-01-27 10:21 | HO.NEPHOV_ITS ---
Vital Signs 01/27/24 10:21 Height 5 ft Weight 261 lb BMI 51.0 BP 156/84 H Blood Pressure Location Lt brachial Position Sitting Pulse 84 Pulse Source Pulse Oximeter Pulse Oximetry (%) 95 Oxygen Delivery Method Room Air Intake Visit Reasons: Hypertension/ Conf Clinical Laboratory Assistant Required: No Clinical Laboratory Assistant Services: Clinical Laboratory Assistant Present (Patients daughter will interpret.) Accompanied by: Daughter Allergies No Known Allergies [No Known Allergies*] Allergy (Verified 01/27/24 10:24) pt states no food/medication a Allergy (Unknown, Uncoded 11/06/21 11:11) Unknown Medication List - Last Reconciled 01/27/24 by Tay Sims MD acetaminophen (Tylenol Extra Strength) 1,000 mg (2 x 500 mg) PO TID PRN amitriptyline 50 mg PO BEDTIME amlodipine 10 mg PO DAILY baclofen 5 mg PO TID PRN cetirizine 10 mg PO DAILY chlorthalidone 25 mg PO DAILY cholecalciferol (vitamin D3) 50 mcg PO DAILY clonidine HCl 0.1 mg PO BEDTIME doxycycline monohydrate 100 mg PO BID PRN gabapentin 300 mg PO TID hydralazine 100 mg PO TID hydroxyzine HCl 25 mg PO BID ibuprofen (Advil) 600 mg PO DAILY PRN losartan 100 mg PO DAILY mirabegron ER (Myrbetriq) 25 mg PO DAILY PRN oxycodone 10 mg PO Q4H PRN pregabalin 50 mg PO TID spironolactone 25 mg PO DAILY sulfamethoxazole-trimethoprim 800-160 mg (Bactrim DS) 1 tab PO BID thiamine HCl (vitamin B1) mg PO tramadol 50 mg PO BID PRN vitamin A 1 cap PO DAILY zolpidem 5 mg PO BEDTIME PRN HPI Comments Details: Augustus is a pleasant 68-year-old man with a history of obesity and resistant hypertension. She has been referred for evaluation hypertension. She is on multiple antihypertensive medications blood pressure is still suboptimal. Recently she underwent back surgery. She lost some weight and subsequently came back. She was accompanied by her family. They helped with translation. [facility] Medical History (Updated 12/28/23 @ 00:02 by Vinicius Pruitt) GERD (gastroesophageal reflux disease) History of headache Sleep apnea Insomnia Back pain Morbid obesity Anemia HTN (hypertension) Surgical History (Updated 10/21/24 @ 10:24 by FELIPE Mendoza) History of back surgery (~12/2023) History of cholecystectomy Hx of bariatric surgery Hx of total hysterectomy H/O colonoscopy Hx of hand surgery Hx of knee surgery Family History Father No problems noted. Mother CVD (cardiovascular disease) Social History Household Members: None Housing: Apartment Housing Other:: second floor. uses elevator Are you a primary respiratory care specialist to a significant other at home: No Do you presently have visiting nurse or other home services: No Alcohol intake: never Patient Tobacco Use Status: Never used Tobacco service: No Current occupational status: disabled Current occupation: rt handed Review of Systems Const Denies fever(s) and Denies weight loss Card Denies chest pain Resp Denies cough and Denies hemoptysis GI Denies abdominal pain, Denies diarrhea and Denies nausea Musc Denies back pain Neuro Denies focal weakness Physical Exam Vital Signs: Last Vital Signs Pulse 84 01/27/24 10:21 BP 156/84 H 01/27/24 10:21 Pulse Ox 95 01/27/24 10:21 Oxygen Delivery Method Room Air 01/27/24 10:21 BMI result Body Mass Index 51.0 Const General: comfortable; No acute distress Nutritional Appearance: obese Orientation/consciousness: patient oriented x3 Eyes General: appearance normal, both eyes and all related structures Visual Blanchard: normal visual blanchard by confrontation Neck Neck: Yes supple and Yes no JVD Resp Effort & Inspection: normal respiratory effort and respiratory effort not decreased Auscultation: rhonchi Cardio Palpation: no palpable S3 and no palpable S4 Heart sounds: no rubs GI Inspection: Yes normal to inspection Palpation (GI): Soft to palpation Percussion: Yes normal to percussion Auscultation: normal bowel sounds General: Yes no CVA tenderness Back/Spine/Pelvis Back: no CVA tenderness Skin General skin exam: no petechiae and no purpura Neuro General: patient oriented x3 and no focal motor deficits Extrem General: No clubbing and No edema Results Reviewed Nephrology Results: Hgb 11.8 g/dl (12.0-16.0) L 12/24/23 WBC 16.0 X10*3/uL (4.8-10.8) H 12/24/23 Plt Count 219 X10*3/uL (160-400) 12/24/23 Sodium 138 mmol/L (135-145) 12/24/23 Potassium 4.2 mmol/L (3.3-5.1) 12/24/23 Chloride 106 mmol/L (96-108) 12/24/23 Carbon Dioxide 24 mmol/L (22-29) 12/24/23 BUN 13 mg/dL (9-16) 12/24/23 Creatinine 0.90 mg/dL (0.5-1.4) 12/24/23 Calcium 8.9 mg/dL (8.4-10.2) 12/24/23 Assessment & Plan Assessment & Plan (1) HTN (hypertension): Code(s): I10 - Essential (primary) hypertension Category: Medical Plan 68-year-old woman with obesity and resistant hypertension. Obesity is probably playing a critical role in causing resistant hypertension. Given the history of morbid obesity underlying obstructive sleep apnea should be considered as well. First step would be to re-evaluate the compliance. I will check with the pharmacy to see when she filled her prescriptions. Encouraged her to stay on low-sodium diet. Renal function stable at baseline. Goal is to maintain systolic blood pressure less than 140 mm Hg. We discussed importance of weight loss. Once I confirmed her medications I would gradually increase clonidine to 0.1 mg t.i.d. for now. Continue other medications including amlodipine losartan spironolactone and chlorthalidone with hydralazine. She was returned to office in next few weeks once the baseline workup is compl eted Orders: Orders Cortisol, Free Today I10 - Essential (primary) hypertension Basic Metabolic Panel Today I10 - Essential (primary) hypertension Medications: Discontinued sulfamethoxazole-trimethoprim 800-160 mg (Bactrim DS) Discontinued Reason: Patient no longer taking 1 tab PO BID 10 tabs 0RF surgical prophylaxis Coding Level of Care Code New Pt Level 5 (78327) Diagnoses HTN (hypertension) I10
== END 2024-01-27 10:42 | disposition home or self-care (01) ==
PROVIDERS: PCP Family Medicine; Referring Provider Family Medicine; Visit Provider Internal Medicine Hypertension Specialist
DX: I1A.0 Resistant hypertension (principal)
CPT/HCPCS: 99204

== ENCOUNTER → 2024-01-27 10:18 | Outpatient (BNVA) | payer OTHER, SELFPAY | PROVIDERS: PCP Family Medicine; Referring Provider Family Medicine; Visit Provider Internal Medicine Hypertension Specialist | DX: I1A.0 Resistant hypertension (principal); E66.9 Obesity, unspecified; Z68.43 Body mass index [BMI] 50.0-59.9, adult | CPT/HCPCS: 99202 ==

== ENCOUNTER 2024-02-06 10:15 | Outpatient (AMB) | payer OTHER, SELFPAY ==
--- NOTE | 2024-02-06 10:21 | A.SPINEOV_ITS ---
Intake Visit Reasons: 2nd post op Intake Note: Ms. Ronni Dunn is here for her 2nd post-op. Paver Operator Required: Yes Paver Operator Services: Paver Operator Present Paver Operator Name: Daughter- Darcy Allergies No Known Allergies [No Known Allergies*] Allergy (Verified 01/27/24 10:24) pt states no food/medication a Allergy (Unknown, Uncoded 11/06/21 11:11) Unknown Assessment & Plan Assessment & Plan (1) S/P spinal fusion: Code(s): Z98.1 - Arthrodesis status Category: Surgical Plan Procedure: L4-5, L5-S1 oblique lateral lumbar interbody fusion Augustus comes in today for a subsequent follow up visit to have her sutures rem arlyn after previous far lateral incision site was closed with interrupted sutures. She tolerated the suture removal well. Her incision site appeared closed and well healing before and after suture removal. She continues to report significant left leg pain since surgery. She reports it feels like it is aching and throbbing constantly. She is still using her post-operative pain medications. She has Gabapentin still but is out of Oxycodone and Baclofen. No new reported neurological deficits. Patient still ambulates with a cane. Her incision sites are closed and well healing. Typically the type of pain Augustus is reporting can be attributed to the surgical approach, however she reports her pain persists in the same severity since surgery. She should have had at least some relief of pain by now after the inflammation goes down from surgery. Therefore, I would like to send daren for a set of X-rays today after this visit. Due to her body habitus I suspect the X- rays will prove difficult to evaluate in regards to instrumentation positioning. I will likely need to follow up her X-rays with a CT scan. Bryson Walker MD,PhD [facility] Coding Level of Care Code Global (43019) Diagnoses S/P spinal fusion Z98.1
== END 2024-02-06 10:40 | disposition home or self-care (01) ==
LOC: HO.HNS 10:16
PROVIDERS: PCP Family Medicine; Visit Provider Physician Assistant
DX: Z98.1 Arthrodesis status (principal)
CPT/HCPCS: 99024

== ENCOUNTER 2024-02-06 10:15 | Outpatient (REF) | payer OTHER, SELFPAY ==
--- NOTE | ~2024-02-06 | XR_ITS ---
EXAMINATION: XR LUMBOSACRAL SPINE CLINICAL INFORMATION: Arthrodesis status COMPARISON: June 2023. TECHNIQUE: AP and lateral views of the lumbosacral spine. FINDINGS: No acute lumbar compression fractures seen. Postfusion changes now observed L4-S1 with disc spacers at L4-5 and L5-S1. Anterolisthesis L4-5 is again observed. The hardware appears to be intact. Slight retrolisthesis L2-3. Multilevel thoracic spondylitic change and degenerative disc space narrowing. XR/XR lumbar spine 2-3V IMPRESSION: Postfusion changes L4-S1 with disc spacers in position as noted above. Hardware appears intact. Anterolisthesis L4-5 again observed. Slight retrolisthesis L2-3. Electronically signed by: Jonnie Meza MD 02/06/2024 01:47 PM EDT
== END 2024-02-06 10:16 | disposition home or self-care (01) ==
LOC: HO.HOSX 10:15
PROVIDERS: PCP Family Medicine; Visit Provider Physician Assistant
DX: Z98.1 Arthrodesis status (principal)
CPT/HCPCS: 72100; 99212

== ENCOUNTER 2024-02-12 08:47 | Outpatient (REF) | payer OTHER, SELFPAY ==
[2024-02-12 10:10] LABS: Anion Gap 10 (12-20); Blood Urea Nitrogen 15 mg/dL (9-16); Calcium 9.1 mg/dL (8.4-10.2); Carbon Dioxide 29 mmol/L (22-29); Chloride 108 mmol/L (96-108); Cholesterol 156 mg/dL (<200); Estimated Glomerular Filt Rate > 60; Glucose Random 94 mg/dL (60-115); HDL Cholesterol 51 mg/dL (>40); LDL Cholesterol Calculated 85 mg/dL (<100); Potassium 3.6 mmol/L (3.3-5.1); Sodium 143 mmol/L (135-145); Triglycerides 104 mg/dL (<150)
[2024-02-12 10:35] LABS: TSH reflex Free T4 2.25 uIU/mL (0.32-4.0)
[2024-02-21 01:53] LABS: Cortisol, Free 0.74 mcg/dL
== END 2024-02-12 08:48 | disposition home or self-care (01) ==
LOC: HO.LAB 08:47
PROVIDERS: Internal Medicine; Absent Provider Internal Medicine Hypertension Specialist; PCP Family Medicine; Visit Provider Family Medicine
DX: I10 Essential (primary) hypertension (principal)
CPT/HCPCS: 36415; 80048; 80061; 82530; 84443

== ENCOUNTER 2024-02-13 09:52 | Outpatient (REF) | payer OTHER, SELFPAY ==
--- NOTE | ~2024-02-13 | MM_ITS ---
EXAMINATION: MM SCREENING DIGITAL BREAST TOMOSYNTHESIS, BILATERAL CLINICAL INFORMATION: Screening. Asymptomatic. COMPARISON: Mammography: Comparison is made with available priors TECHNIQUE: Digital breast mammography with tomosynthesis is performed in both the craniocaudal and mediolateral oblique views along with computer-aided detection (CAD). FINDINGS: There are scattered areas of fibroglandular density (ACR BI-RADS breast composition Category b). There are no significant masses, abnormal calcifications, or other abnormalities. MM/MM tomosynthesis screening BI IMPRESSION: No mammographic evidence of malignancy. ASSESSMENT: BI-RADS BI-RADS 1 - Negative RECOMMENDATION: Routine annual mammography screening. 1 year F/U This examination should not preclude the clinical evaluation of a suspicious palpable abnormality. This patient's information was entered into a reminder system with a target due date for their next mammogram. Electronically signed by: Laine Bravo DO 02/21/2024 04:07 PM [facility]
--- NOTE | ~2024-02-13 | CT_ITS ---
EXAMINATION: CT LUMBAR SPINE WITHOUT CONTRAST CLINICAL INFORMATION: Persistent postoperative pain. Evaluate for hardware complication. COMPARISON: Multiple priors, most recent lumbar spine radiographs dated 02/06/2024 and MRI dated 05/24/2023. TECHNIQUE: Contiguous axial CT images of the lumbar spine were obtained without contrast. Sagittal and coronal reformats were provided and reviewed. This CT examination was performed using dose optimization techniques as appropriate, variously including the following: *Automated exposure control *Adjustment of mA and/or kV according to patient size (this includes techniques or standardized protocols for targeted exams where dose is matched to indication/reason for exam; i.e. extremities or head) *Use of iterative reconstruction technique DLP; 1304 mGy-cm FINDINGS: Posterior stabilization and intervertebral disc hardware at L4-S1. No hardware fracture. No perihardware lucency to suggest loosening or infection. Associated bilateral facet arthropathy without significant fusion of the facet joints. Unchanged vertebral body alignment. The lumbar lordosis is maintained. Grade 1 anterolisthesis of L4 on L5, similar when compared to the prior MRI. No acute fracture or subluxation. No loss of vertebral body height. Mild loss of intervertebral disc height with endplate osteophytes throughout the upper lumbar and lower thoracic spine, unchanged. No concerning lytic or blastic osseous lesion. Disc bulges and stenosis poorly evaluated on CT examination. No significant bony central canal stenosis. Mild bilateral neural foraminal stenosis at L4-L5 and L5-S1. No abnormal soft tissue mass or organized fluid collection. The visualized paraspinal soft tissues are grossly unremarkable. CT/CT lumbar spine wo IV con IMPRESSION: 1. Posterior stabilization and intervertebral disc hardware at L4-S1 without evidence of hardware complication. 2. Grade 1 anterolisthesis of L4 on L5, similar when compared to the prior MRI. 3. No acute fracture or subluxation. 4. Multilevel degenerative disc disease, similar when compared to the prior MRI. Disc bulges and stenosis poorly evaluated on CT examination. Mild bilateral neural foraminal stenosis at L4-L5 and L5-S1. Electronically signed by: Eliecer Vásquez MD 02/14/2024 09:25 AM [facility] Workstation: [id number]
== END 2024-02-13 09:53 | disposition home or self-care (01) ==
LOC: HO.CT 09:52
PROVIDERS: Visit Provider Physician Assistant
DX: Z12.31 Encounter for screening mammogram for malignant neoplasm of breast (principal); Z98.1 Arthrodesis status
CPT/HCPCS: 72131; 77063; 77067

== ENCOUNTER → 2024-02-13 10:45 | Outpatient (BNV) | payer OTHER, SELFPAY | PROVIDERS: Visit Provider Internal Medicine | DX: Z12.31 Encounter for screening mammogram for malignant neoplasm of breast (principal) | CPT/HCPCS: 77063; 77067 ==

== ENCOUNTER 2024-03-02 12:00 | Outpatient (AMB) | payer OTHER, SELFPAY ==
--- NOTE | 2024-03-02 12:03 | HO.NEPHOV_ITS ---
Vital Signs 03/02/24 12:04 Height 5 ft Weight 256 lb BMI 50.0 BP 130/70 Blood Pressure Location Lt brachial Position Sitting Pulse 83 Pulse Source Pulse Oximeter Pulse Oximetry (%) 97 Oxygen Delivery Method Room Air Intake Visit Reasons: Hypertension/ Conf Engineering Specialist Required: Yes Engineering Specialist Services: Engineering Specialist Offered & Declined (Grandchild will translate) Accompanied by: Grand Child Allergies No Known Allergies [No Known Allergies*] Allergy (Verified 03/02/24 12:10) pt states no food/medication a Allergy (Unknown, Uncoded 11/06/21 11:11) Unknown Medication List - Last Reviewed 03/02/24 by FELIPE Mendoza amitriptyline 50 mg PO BEDTIME amlodipine 10 mg PO DAILY cetirizine 10 mg PO DAILY chlorthalidone 25 mg PO DAILY cholecalciferol (vitamin D3) 50 mcg PO DAILY clonidine HCl 0.1 mg PO BEDTIME gabapentin 300 mg PO TID hydralazine 100 mg PO TID ibuprofen (Advil) 600 mg PO DAILY PRN losartan 100 mg PO DAILY mirabegron ER (Myrbetriq) 25 mg PO DAILY PRN pregabalin 50 mg PO TID spironolactone 50 mg PO DAILY thiamine HCl (vitamin B1) mg PO tramadol 50 mg PO BID PRN zolpidem 5 mg PO BEDTIME PRN HPI Comments Details: Augustus is a pleasant 68-year-old man with a history of obesity and resistant hypertension. She has been referred for evaluation hypertension. She is on multiple antihypertensive medications blood pressure is still suboptimal. Recently she underwent back surgery. She lost some weight and subsequently gained some back. She was accompanied by her family. They helped with translation. 03/02/24 Claims BP was normal at home [facility] Medical History (Updated 12/28/23 @ 00:02 by Vinicius Pruitt) GERD (gastroesophageal reflux disease) History of headache Sleep apnea Insomnia Back pain Morbid obesity Anemia HTN (hypertension) Surgical History History of back surgery (~12/2023) History of cholecystectomy Hx of bariatric surgery Hx of total hysterectomy H/O colonoscopy Hx of hand surgery Hx of knee surgery Family History Father No problems noted. Mother CVD (cardiovascular disease) Social History Household Members: None Housing: Apartment Housing Other:: second floor. uses elevator Are you a primary career services manager to a significant other at home: No Do you presently have visiting nurse or other home services: No Alcohol intake: never Patient Tobacco Use Status: Never used Tobacco service: No Current occupational status: disabled Current occupation: rt handed Physical Exam Vital Signs: Last Vital Signs Pulse 83 03/02/24 12:04 Pulse Ox 97 03/02/24 12:04 Oxygen Delivery Method Room Air 03/02/24 12:04 BMI result Body Mass Index 50.0 Comfortable Neck supple no JVD. Lungs entry equal no rales. Heart S1-S2 heard no gallop or rub. Abdomen soft nontender. Neuro alert awake oriented. No asterixis. Extremities no edema. Results Reviewed Nephrology Results: Sodium 143 mmol/L (135-145) 02/12/24 Potassium 3.6 mmol/L (3.3-5.1) 02/12/24 Chloride 108 mmol/L (96-108) 02/12/24 Carbon Dioxide 29 mmol/L (22-29) 02/12/24 BUN 15 mg/dL (9-16) 02/12/24 Creatinine 0.70 mg/dL (0.5-1.4) 02/12/24 Calcium 9.1 mg/dL (8.4-10.2) 02/12/24 Assessment & Plan Assessment & Plan (1) HTN (hypertension): Code(s): I10 - Essential (primary) hypertension Category: Medical Plan 68-year-old woman with obesity and resistant hypertension. Obesity is probably playing a critical role in causing resistant hypertension. Given the history of morbid obesity underlying obstructive sleep apnea should be considered as well. Encouraged her to stay on low-sodium diet. Renal function stable at baseline. BP is acceptable Goal is to maintain systolic blood pressure less than 140 mm Hg. We discussed importance of weight loss. Keep current meds NO changes Coding Level of Care Code Est Pt Level 4 (50908) Diagnoses HTN (hypertension) I10
[2024-03-02 12:04] VITALS: BP 130/70; PULSE 83; O2SAT 97; BMI 50.0
== END 2024-03-02 12:25 | disposition home or self-care (01) ==
PROVIDERS: PCP Family Medicine; Visit Provider Internal Medicine Hypertension Specialist
DX: I1A.0 Resistant hypertension (principal)
CPT/HCPCS: 99214

== ENCOUNTER → 2024-03-02 12:00 | Outpatient (BNVA) | payer OTHER, SELFPAY | PROVIDERS: PCP Family Medicine; Visit Provider Internal Medicine Hypertension Specialist | DX: I1A.0 Resistant hypertension (principal); E66.9 Obesity, unspecified; Z68.43 Body mass index [BMI] 50.0-59.9, adult | CPT/HCPCS: 99212 ==

== ENCOUNTER 2024-06-30 11:06 | Outpatient (AMB) | payer OTHER, SELFPAY ==
[2024-06-30 11:09] VITALS: BP 144/86; PULSE 71; O2SAT 99; BMI 50.0
--- NOTE | 2024-06-30 11:09 | HO.NEPHOV_ITS ---
Vital Signs 06/30/24 11:09 06/30/24 11:21 Height 5 ft Weight 256 lb BMI 50.0 BP 144/86 H 130/80 Blood Pressure Location Lt brachial Lt brachial Position Sitting Sitting Pulse 71 Pulse Source Pulse Oximeter Pulse Oximetry (%) 99 Oxygen Delivery Method Room Air Intake Visit Reasons: 3 Month F/U/ Conf Business Intelligence Etl Developer Required: No Business Intelligence Etl Developer Services: Business Intelligence Etl Developer Offered & Declined (Granddaughter will translate ) Accompanied by: Grand Child Allergies No Known Allergies [No Known Allergies*] Allergy (Verified 06/30/24 11:11) pt states no food/medication a Allergy (Unknown, Uncoded 11/06/21 11:11) Unknown Medication List - Last Reconciled 06/30/24 by Tay Sims MD amitriptyline 50 mg PO BEDTIME amlodipine 10 mg PO DAILY cetirizine 10 mg PO DAILY chlorthalidone 25 mg PO DAILY cholecalciferol (vitamin D3) 50 mcg PO DAILY clonidine HCl 0.1 mg PO BEDTIME gabapentin 300 mg PO TID hydralazine 100 mg PO TID ibuprofen (Advil) 600 mg PO DAILY PRN losartan 100 mg PO DAILY mirabegron ER (Myrbetriq) 25 mg PO DAILY PRN pregabalin 50 mg PO TID spironolactone 50 mg PO DAILY thiamine HCl (vitamin B1) mg PO tramadol 50 mg PO BID PRN zolpidem 5 mg PO BEDTIME PRN HPI Comments Details: Augustus is a pleasant 68-year-old man with a history of obesity and resistant hypertension. She has been referred for evaluation hypertension. She is on multiple antihypertensive medications blood pressure is still suboptimal. Recently she underwent back surgery. She lost some weight and subsequently gained some back. She was accompanied by her family. They helped with translation. 03/02/24 Claims BP was normal at home [facility] Medical History (Updated 12/28/23 @ 00:02 by Vinicius Pruitt) GERD (gastroesophageal reflux disease) History of headache Sleep apnea Insomnia Back pain Morbid obesity Anemia HTN (hypertension) Surgical History History of back surgery (~12/2023) History of cholecystectomy Hx of bariatric surgery Hx of total hysterectomy H/O colonoscopy Hx of hand surgery Hx of knee surgery Family History Father No problems noted. Mother CVD (cardiovascular disease) Social History Household Members: None Housing: Apartment Housing Other:: second floor. uses elevator Are you a primary personal care worker to a significant other at home: No Do you presently have visiting nurse or other home services: No Alcohol intake: never Patient Tobacco Use Status: Never used Tobacco service: No Current occupational status: disabled Current occupation: rt handed Physical Exam Vital Signs: Last Vital Signs Pulse 71 06/30/24 11:09 BP 144/86 H 06/30/24 11:09 Pulse Ox 99 06/30/24 11:09 Oxygen Delivery Method Room Air 06/30/24 11:09 BMI result Body Mass Index 50.0 Comfortable Neck supple no JVD. Lungs entry equal no rales. Heart S1-S2 heard no gallop or rub. Abdomen soft nontender. Neuro alert awake oriented. No asterixis. Extremities no edema. Results Reviewed Nephrology Results: Sodium 143 mmol/L (135-145) 02/12/24 Potassium 3.6 mmol/L (3.3-5.1) 02/12/24 Chloride 108 mmol/L (96-108) 02/12/24 Carbon Dioxide 29 mmol/L (22-29) 02/12/24 BUN 15 mg/dL (9-16) 02/12/24 Creatinine 0.70 mg/dL (0.5-1.4) 02/12/24 Calcium 9.1 mg/dL (8.4-10.2) 02/12/24 Assessment & Plan Assessment & Plan (1) HTN (hypertension): Code(s): I10 - Essential (primary) hypertension Category: Medical Plan 68-year-old woman with obesity and resistant hypertension. Obesity is probably playing a critical role in causing resistant hypertension. Given the history of morbid obesity underlying obstructive sleep apnea should be considered as well. Encouraged her to stay on low-sodium diet. Renal function stable at baseline. BP is acceptable Goal is to maintain systolic blood pressure less than 140 mm Hg. We discussed importance of weight loss. Keep current meds NO changes Coding Level of Care Code Est Pt Level 4 (28199) Diagnoses HTN (hypertension) I10
[2024-06-30 11:21] VITALS: BP 130/80
--- OUTSIDE RECORDS SUMMARY | 2024-06-30 13:41 | XMS_ITS | Encounter Summary ---
Author Organization [employer] Address [address] [facility] [address] [place] [address] Care Team Providers Care Photographic Editor Name Role Phone Socorro Rivas MD Primary Care Provider [phone] Reason for Visit * Reason Comments Med Refill Encounter Details Date Type Department Care Team ([facility] st Contact Info) Description 09/05/2023 Refill [facility] MED & PEDS [address] [place], [place] [phone] Socorro Rivas MD [address] [place] [address] Social History Tobacco Use Types Packs/Day Years Used Date Smoking Tobacco: Never Passive Smoke Exposure: Never Smokeless Tobacco: Never Alcohol Answer Date Recorded Frequency of Alcohol Consumption Not on file 01/10/2023 Average Number of Drinks Not on file 023 Frequency of Binge Drinking Not on file 08/2022 Score 0 01/10/2023 Depression Answer Date Recorded Patient Health Questionnaire-9 Score 4 01/10/2023 Housing Stability Answer Date Recorded What is your housing situation today? I have kaitlynn owens 01/21/[address] you li ve. Do you have problems with any of the following? None of the above 01/21/2023 Food Insecurity Answer Date Recorded Within the past 12 months, y ou worried that your food would run out before you got money to buy more: Never True 01/21/2023 Within the past 12 months,th e food you bought just didn't last and you didn't have enough money to get more: Never True Transportation Answer Date Recorded In the past 12 months, has l ack of transportation kept you from medical appts, meetings, work or from getting things needed for daily living? No 01/21/2023 Utilities Answer Date Recorded In the past 12 months, has t he electric, gas, oil or water company threatened to shut off services in your home? No 01/21/2023 Depression Answer Date Recorded Patient Health Questionnaire-2 Score 1 01/10/2023 Comments Unknown Sex and Gender Information Value Date Recorded Sex Assigned at Female 02/05/2022 10:21 AM EDT Legal Sex Female 10:21 AM EDT Gender Identity Female 02/05/2022 10:21 AM EDT Sexual Orientation Straight 02/05/2022 10 :21 AM EDT documented as of this encounter Plan of Treatment Not on file documented as of this encounter Goals Goal Patient Goal Type Associated Problems Recent Progress Patient-Stated? Author BP <150/90 General No Darleen Humphreys, PharmD documented as of this encounter Visit Diagnoses Not on filedocumented in this encounter Additional Health Concerns Assessment Noted Time PHQ-9 Depression Total Score: 4 01/11/20 23 2:17 PM EDT documented as of this encounter Care Teams Photographic Editor Relationship Specialty Start Date End Date Socorro Rivas MD [address] [place] [address] PCP - General Family Medicine 12/02/[address] [address] 04/08/23 León Walker MD,PhD Spine Surgery 02/13/24 Tay Sims MD Nephrology 02/13/24 Antonio Yan MD Pain Medicine 02/13/24 Marlin Arambula PA-C Bariatrics 02/13/[address] [address] 03/09/24 documented as of this encounter
--- OUTSIDE RECORDS SUMMARY | 2024-06-30 13:41 | XMS_ITS | Encounter Summary ---
Author Organization [employer] Address [address] [facility] [address] [place] [address] Care Team Providers Care Sap Basis Consultant Name Role Phone Socorro Rivas MD Primary Care Provider [phone] Encounter Details Date Type Department Care Team ([facility] Contact Info) Description 04/17/2022 Telephone [facility] CH[facility] MED & PEDS [address] [place], [place] [phone] Socorro Rivas MD [address] [place] [address] Social History Tobacco Use Types Packs/Day Years Used Date Smoking Tobacco: Never Assessed Comments Unknown Sex and Gender Information Value [...] Diagnoses Not on filedocumented in this encounter Care Teams Sap Basis Consultant Relationship Specialty Start Date End Date Socorro Rivas MD [address] [place] [address] PCP - General Family Medicine 12/02/[address] [address] 04/08/23 León Walker MD,PhD Spine Surgery 02/13/24 Tay Sims MD Nephrology 02/13/24 Antonio Yan MD Pain Medicine 02/13/24 Marlin Arambula PA-C Bariatrics 02/13/[address] [address] 03/09/24 documented as of this encounter
--- OUTSIDE RECORDS SUMMARY | 2024-06-30 13:41 | XMS_ITS | Encounter Summary ---
Author Organization [employer] Address [address] [facility] [address] [place] [address] Care Team Providers Care Anchor Tack Puller Name Role Phone Socorro Rivas MD Primary Care Provider [phone] Reason for Visit * Reason Comments Med Refill Encounter Details Date Type Department Care Team ([facility] st Contact Info) Description 06/30/2024 Refill [facility] CHC MED & PEDS [address] [place], [place] [phone] Farnaz Linn FNP [address] [place], [place] [phone] Social History Tobacco Use Types Packs/Day Years Used Date Smoking Tobacco: Never Passive Smoke Exposure: Never Smokeless Tobacco: Never Alcohol Answer Date Recorded Frequency of Alcohol Consumption Not on file 02/13/2024 Average Number of Drinks Not on file 024 Frequency of Binge Drinking Not on file 10/2023 Score 0 02/13/2024 Depression Answer Date Recorded Patient Health Questionnaire-9 [...] documented as of this encounter Care Teams Anchor Tack Puller Relationship Specialty Start Date End Date Socorro Rivas MD [address] [place] [address] PCP - General Family Medicine 12/02/[address] [address] 04/08/23 León Walker MD,PhD Spine Surgery 02/13/24 Tay Sims MD Nephrology 02/13/24 Antonio Yan MD Pain Medicine 02/13/24 Marlin Arambula PA-C Bariatrics 02/13/[address] [address] 03/09/24 documented as of this encounter
--- OUTSIDE RECORDS SUMMARY | 2024-06-30 13:41 | XMS_ITS | Clinical Summary ---
Author Organization [employer] Address [address] [place] [address] Care Team Providers Care Corporate Associate Attorney Name Role Phone Socorro Rivas MD Primary Care Provider [phone] Allergies No known active allergies Medications * This document contains information received from the source organization and may not represent a complete record from that organization. ibuprofen 200 MG tablet Patient purchases OTC: 1-2 tablets every 4-6 hours as needed for pain. Active Blood Pressure kit 1 Units in the morning. 1 kit 3 Active thiamine (Vitamin B-1) 50 MG tablet Take 1 tablet by mouth Once daily. 3 Active D3 Super Strength 50 MCG (2000 UT) capsule TAKE 1 CAPSULE BY MOUTH EVERY MORNING 120 capsule 4 4 Active amitriptyline (Elavil) 50 MG tabletIndications :Neuropathy TAKE 1 TABLET BY MOUTH AT BEDTIME 90 tablet 3 4 Active spironolactone (Aldactone) 50 MG tabletIndications :Primary hypertension Take 1 tablet (50 mg) by mouth Once per day. 30 tablet 11 4 12/12/19 25 Active cetirizine (ZyrTEC) 10 MG tablet TAKE 1 TABLET BY MOUTH EVERY MORNING 90 tablet 1 4 Active baclofen (Lioresal) 5 MG tablet 4 Active oxyCODONE (Roxicodone) 10 MG immediate release tablet Take 10 mg by mouth every 4 (four) hours if needed. 4 Active losartan (Cozaar) 100 MG tabletIndications :Essential (primary) hypertension TAKE 1 TABLET BY MOUTH EVERY MORNING 90 tablet 3 4 Active Myrbetriq 25 MG 24 hr tabletIndications :Urinary incontinence, unspecified type TAKE 1 TABLET BY MOUTH AT BEDTIME 90 tablet 3 4 Active chlorthalidone (Hygroton) 25 MG tabletIndications :Essential (primary) hypertension TAKE 1 TABLET BY MOUTH EVERY MORNING 90 tablet 3 4 Active amLODIPine (Norvasc) 10 MG tabletIndications :Essential (primary) hypertension TAKE 1 TABLET BY MOUTH EVERY MORNING 90 tablet 3 4 Active cloNIDine (Catapres) 0.1 MG tablet TAKE 1 TABLET BY MOUTH AT BEDTIME 30 tablet 3 5 Active zolpidem (Ambien) 5 MG tablet TAKE 1 TABLET BY MOUTH AT BEDTIME NEEDED FOR SLEEP 28 tablet 1 5 Active hydrALAZINE (Apresoline) 100 MG tabletIndications :Hypertension, unspecified type TAKE 1 TABLET BY MOUTH THREE TIMES DAILY IN THE MORNING, EVENING, AND BEDTIME 90 tablet 5 Active pregabalin (Lyrica) 50 MG capsuleIndication s:Chronic low back pain with sciatica, sciatica laterality unspecified, unspecified back pain laterality TAKE 1 CAPSULE BY MOUTH THREE TIMES DAILY IN THE MORNING, IN THE EVENING, AND AT BEDTIME 90 capsule 5 Active Active Problems Problem Noted Date Diagnosed Date Spondylosis of lumbar spine 01/08/2024 S/P gastric bypass 01/08/2024 Near syncope 01/08/2024 Resistant hypertension 09/16/2023 Assessment & Plan (12/10/2023 3:23 PM EDT): BP is not at goal, elevated 180/96, recheck 186/90. Administered Clonidine 0.1 mg tablet in office. Continue on medications. Follow up in 1 week with nurse for BP recheck, with machine and written readings. Referral to Nephrology for further evaluation. ~~~~~~ Nursing Visit Instructions: - If SBP < 140/DBP <90 mmHg in more than 75% of home self-monitoring, continue current medication regimen and make f/u with PCP in 3 month - If SBP >140-165/DBP >90-115 mmHg , add incr clonidine to 0.2 mg and f/u with PCP in 1 month - If SBP > 165/ DBP> 115 mmHg, consult with covering provider - If SBP <90/DBP <50 mmHg, consult with covering provider. Assessment & Plan (09/16/2023 8:28 AM EDT): Difficult to control, has f/up with specialist. On amlodipine, chlorthalidone, hydralazine, losartan and spirolactone, next step labetalol. Insomnia 05/28/2023 Assessment & Plan (08/17/2023 4:26 AM EDT): Despite being prescribed Seroquel 100MG tablet the pt continues with insomnia. Medication was discontinued and pt was prescribed zolpidem (Ambien) 5 MG tablet. Assessment & Plan (07/08/2023 9:57 AM EDT): Prior trial of doxepin & trazodone, will send trial of seroquel. Fu in 5-6 weeks. Future Appointments Date Time Provider Department Center 08/16/2023 2:00 PM Socorro Rivas MD [facility] 03/19/2024 10:00 AM Darleen Humphreys PharmD [facility] Assessment & Plan (05/29/2023 4:16 PM EST): Patient suffers from insomnia and is worse with her chronic lower back pain. She reports she has always had a difficult time with sleep but the pain only affects her more. Will optimize pain management and if sleeping issue continue will need to discuss other medication management of her insomnia, balancing the risk/benefits with her weight Future Appointments Date Time Provider Department Center 07/08/2023 9:00 AM Socorro Rivas MD [facility] 03/18/2024 10:00 AM Darleen Humphreys PharmD [facility] Chronic low back pain with sciatica 03/07/2023 Assessment & Plan (07/08/2023 9:57 AM EDT): Patient has severe back pain, no controlled with high dose tramadol, will proceed with trial of lyrica, will need to submit PA. If well patient does not have fibromyalgia, she does have neuropathic pain. Following with pain management and neurosurgery Assessment & Plan (05/28/2023 4:58 PM EST): Patient is overweight and have counseled her on exercise and nutrition to help with weight management. Her weight plays a factor in her chronic lower back pain. I have increased the dose on Tramadol to 100 mg, every 8 hrs PRN. She has been going to [facility] weight clinic to help with weigh loss. Assessment & Plan (03/07/2023 10:49 AM EST): Patient reports she is open to going to pain management and consider injections to help with her pain, she is going to [facility] weight clinic to help with weight loss, but pain is not tolerable, interfering with her sleep and MRADLs. Postmenopausal disorder 03/07/2023 Assessment & Plan (03/07/2023 10:47 AM EST): Patient needs DEXA testing to screen for osteoporosis, ordered placed Physical exam 01/21/2023 Assessment & Plan (01/21/2023 4:57 PM EDT): 67 y.o. female here for annual physical examination. Depression screening done. Will order lipids. Hx of hep C sp treatment Colorectal CA screening UTD Needs RSV vaccination Fall prevention: At increase risk of falls given arthritis. Followup DEXA order in next visit. Breast CA screening: UTD Counseled on healthy diet and physical activity. RAFAT (generalized anxiety disorder) 01/15/2023 Assessment & Plan (01/15/2023 11:58 AM EDT): Augustus reports feeling alone, and sleeps a lot of time throughout the day. Symptoms of depression she reports are not consistent, but is aware when symptoms worsen, and reaches out for support; she also reports anxiety and shared somatic concerns. Often feels heart beating rapidly. At this time, she reports feeling depressed, trouble falling asleep and poor appetite. She also reports feeling nervous, worrying too much, about different things, difficulting relaxing, restlessness, fearfulness. Her coping skills include staying active, and walking. Augustus would like to engage in therapy, short term. Appointment has been scheduled for 01/31 @ 1pm. PHQ9: 7 GAD7: 13 At this time Augustus Norris meets criteria for Visit Diagnoses: Problem List Items Addressed This Visit Other Depressive disorder RAFAT (generalized anxiety disorder) Patient ready to address current needs Yes Strengths include willingness to engage, understands symptoms PLAN: 1. Follow up with [facility] [place]: Recommended for follow-up: 01/31 @ 1pm 2. Patient goal is to manage symptoms 3. Behavioral Recommendations a. Continue staying active b. Engage in therapy c. Development of coping skills. Major depressive disorder, single episode, unspe cified 01/15/2023 Urge incontinence 11/23/2022 Assessment & Plan (11/23/2022 2:36 PM EDT): Patient with urge incontinence and prolapsed bladder on examination. Reports previous use of liners and pads. Will resend supplies. Gastroesophageal reflux disease 02/19/2022 Periodic limb movement disorder 02/19/2022 Scalp psoriasis 02/19/2022 Chronic kidney disease, stage 2 (mild) Primary hypertension 02/01/2020 Assessment & Plan (02/17/2024 8:31 PM EST): Seen by nephrology which will adjust regimen. Hold off changes Assessment & Plan (05/29/2023 4:15 PM EST): Patient has had difficult to control blood pressure, close to target of < 140/90 mmHg. Cont current regimen Assessment & Plan (03/07/2023 10:48 AM EST): Difficult to control BP, close to target. Unclear benefit of continue increasing medication vs side effects of these. Will hold off any changes and f/up in 3 months Assessment & Plan (12/26/2022 4:10 PM EDT): Uncontrolled. Reports readings are the same from home, will adjust regimen. Will f/up in 6 weeks. Target < 140/90 mmHg Bilateral cataracts 12/07/2019 Syncope 09/11/2012 Carotid atherosclerosis 08/29/2012 Overview (02/19/2022): 08/18 Endometrial cancer 04/26/2012 Overview (02/19/2022): 04/2012 endometrial polyp found in [place]. 02/12/2012 sp [place]-BSO Vitamin D deficiency 04/24/2012 Status post [place]-BS[facility] 02/20/2012 RBC microcytosis 02/20/2012 Obstructive sleep apnea 01/31/2012 Overview (02/19/2022): 01/17 CPAP 8 cmH2O Pulmonary hypertension 01/21/2012 History of syphilis 01/07/2012 Overview (02/19/2022): [place] baseline RPR 1:8. Debility 10/30/2011 Overview (02/19/2022): PT-1, WAITER/[employer], needs help with ADL/IADLs, walks with walker Localized osteoarthrosis 10/30/2011 Obesity 10/30/2011 Assessment & Plan (02/17/2024 8:31 PM EST): Discussed calorie deficit, recommended reduction of 20-30% of maintenance calories; laser/electro optics technician referral offered. Recommended to decrease soda and sugary beverage consumption. Recommended at least 20 g per meal of protein to assist with satiety. Recommended at least 150 min/week of moderate intensity exercise. Assessment & Plan (12/24/2022 2:15 PM EDT): Discussed calorie deficit, recommended reduction of 20-30% of maintenance calories; laser/electro optics technician referral offered. Recommended to decrease soda and sugary beverage consumption. Recommended at least 20 g per meal of protein to assist with satiety. Recommended at least 150 min/week of moderate intensity exercise. Referred to Bariatric Surgery. Depressive disorder 09/20/2011 Shoulder joint pain 09/20/2011 Hepatitis C virus infection cured after antiviral drug therapy 09/14/2011 Overview (02/19/2022): F/u with Dr. Astudillo Encounters Date Type Department Care Team Description 06/30/2024 Refill [facility] [address] [place] [address] Farnaz Linn FNP 05/27/2024 Refill [facility] [address] [place] [address] Socorro Rivas MD Hypertension, unspecified type; Chronic low back pain with sciatica, sciatica laterality unspecified, unspecified back pain laterality 05/04/2024 Refill [facility] [address] [place] [address] Socorro Rivas MD 04/17/2024 Refill [facility] [address] [place] [address] Socorro Rivas MD 04/15/2024 Refill [facility] [address] [place] [address] Socorro Rivas MD from Last 3 Months Immunizations Name Administration Dates Next Due Hep A, Adult 10/30/2021,10/03/2011 Hep B, adult 10/30/2021,03/19/2012,10/03/2011 Influenza High-dose Quadriva lent Preservative Free 12/24/2022,01/23/2022 Influenza injectable quadriv alent IIV4 with preservative 01/31/2016 Influenza injectable quadriv alent preservative free 01/09/2021,02/19/2020,01/21/2019,02/12,03/11/2017,02/23/2013 Influenza, IIV3, injectable 03/08/2015,1 05/18/2013,02/13/2012,01/16 Influenza, Unspecified 01/23/2022,02/13/2012,02/2011 Influenza, seasonal, injecta ble, preservative free 02/13/2024 Pfizer Covid-19 Vaccine 12+ 08/11/2021,1 04/27/2020,08/17/2020,07/27 Pfizer Covid-19 Vaccine 12+ fifi-sucrose (Ruiz Cap) 08/11/2021 Pneumococcal Conjugate PCV 20 09/29/2021 Pneumococcal Polysaccharide PPSV23 06/17/2018,,02/13/2012 Pneumococcal, Unspecified 09/23/2021 RSV Adjuvant 03/08/2023 Tdap 06/17/2018,01/31/2016 Zoster, Recombinant 11/30/2021,09/29/2021 Zoster, live 11/30/2021,09/29/2021,06/17/2018 Social History Tobacco Use Types Packs/Day Years Used Date Smoking Tobacco: Never Passive Smoke Exposure: Never Smokeless Tobacco: Never Tobacco Cessation:Counseling Given: Not Answered Alcohol Answer Date Recorded Frequency of Alcohol [...] Orientation Straight 02/05/2022 10 :21 AM EDT Last Filed Vital Signs Vital Sign Reading Time Taken Comments Blood Pressure 176/78 02/13/2024 1:25 PM EST Pulse 74 02/13/2024 1:25 PM EST Temperature 36.3 ??C (97.4 ??F) 02/13/2024 1:25 PM ES T Respiratory Rate 18 02/13/2024 1:25 PM EST Oxygen Saturation 97% 02/13/2024 1:25 PM EST Inhaled Oxygen Concentration - - Weight 118 kg (260 lb 9.6 oz) 02/13/2024 1:25 PM EST Height 147.3 cm (4' 10 ) 02/13/2024 1:25 PM EST Body Mass Index 54.47 02/13/2024 1:25 PM EST Plan of Treatment Health Maintenance Due Date Last Done Comments CT Colonography 1955 FIT 1955 FOBT 1955 Sigmoidoscopy 1955 Colonoscopy 09/26/2021 09/27/2011 Depression Screening 01/11/2024 01/10/2023, 01/11/20 23 SDOH Screening 07/07/2024 07/08/2023 Diabetes: Hemoglobin A1C 12/11/2024 024, 03/08/2023, 03/22/2020, Additional history exists Alcohol/Substance Use Screening 02/12/2025 02/13/2024 COVID-19 Vaccine ( season) 2025 08/11/2021, 08/11/2021, 02/25/2021, Additional history exists Postponed from 12/08/2023 (Patient Refused) Tobacco Screening 02/12/2025 02/13/2024 Colorectal Cancer Screening 01/23/2026 FIT DNA/Cologuard 01/23/2026 01/23/2023 Mammogram 02/12/2026 02/13/2024, 05/2022, 01/05/2022, Additional history exists DTaP/Tdap/Td Vaccines (3 - Td or Tdap) 06/17/2028 06/17/2018, 01/31/2016 Lipid Panel 02/11/2029 02/12/2024, 01/06, 02/12/2020 Pneumococcal Vaccine: 50+ Years Completed 09/29/2021, 09/23/2021, 06/17/2018, Additional history exists Hepatitis A Vaccines Aged Out 10/30/2021, 10/03/19 12 No longer eligible based on patient's age to complete this topic Hepatitis B Vaccines Completed 10/30/2021, 03/19/2012, 10/03/2011 Zoster Vaccines Completed 11/30/2021, 11/07, 09/29/2021, Additional history exists RSV Patients and Patients Aged 60 years or older Completed 03/08/2023 Influenza Vaccine Completed 02/13/2024, , 01/23/2022, Additional history exists HIB Vaccines Aged Out No longer eligi ble based on patient's age to complete this topic HPV Vaccines Aged Out No longer eligi ble based on patient's age to complete this topic Hepatitis C Screening Discontinued IPV Vaccines Aged Out No longer eligi ble based on patient's age to complete this topic Meningococcal Vaccine Aged Out No joslyn stephanie eligible based on patient's age to complete this topic RSV under 20 months Aged Out No longe r eligible based on patient's age to complete this topic Rotavirus Vaccines Aged Out No longer eligible based on patient's age to complete this topic Goals Goal Patient Goal Type Associated Problems Recent Progress Patient-Stated? Author BP <150/90 General No Darleen Humphreys, Dante Procedures Procedure Name Priority Date/Time Associated Diagnosis Comments BI MAMMOGRAM SCREENING TOMOSYNTHESIS BILATERAL Routine 02/13/2024 10:35 AM EST LIPID PANEL, STANDARD Routine 02/12/2024 9:05 AM EST Primary hypertension POCT GLYCATED HEMOGLOBIN, TOTAL Routine 12/12/2023 1:34 PM EDT Severe obesity (BMI >= 40) (CMS/HCC) LAB COLOGUARD?? COLON CANCER SCREEN Routine 01/23/2023 6:17 PM EDT Colon cancer screening HM COLONOSCOPY Routine 09/27/2011 from Last 3 Months or Most Recently Relevant to Health Maintenance Results * BI Mammogram Screening Tomosynthesis Bilateral (02/13/2024 10:35 AM EST) Anatomical Region Laterality Modality Breast Bilateral Mammography 02/13/2024 10:3 5 AM EST Narrative 02/21/2024 4:10 PM EST ? [facility] [facility] ?[address] ?[place] [address] ? Mammography Report ? Signed ? Patient: Ronni Shaun,Milsonia ?MR#: ?? [id number] ? : 1955 ?Acct:[id number] ? Age/Sex: 68 / F ?ADM Date: 02/13/24 ? Loc: HO.CT ? Attending Dr: Bryson NASCIMENTO ? Ordering Physician: Socorro Rivas MD ?Results: 1Nega ?? tive ? Date of Service: 02/13/24 ?Follow Up: 1 Year From Orig ?? inal Mammogram ? Procedure(s): MM tomosynthesis screening BI ?? Accession Number(s): [id number] ? cc: Socorro Rivas MD ? EXAMINATION: ?? MM SCREENING DIGITAL BREAST TOMOSYNTHESIS, BILATERAL ? CLINICAL INFORMATION: ? Screening. Asymptomatic. ? COMPARISON: ?? Mammography: Comparison is made with available priors ? TECHNIQUE: ?? Digital breast mammography with tomosynthesis is performed in both the ?? craniocaudal and mediolateral oblique views along with computer-aided ?? detection (CAD). ? FINDINGS: ?? There are scattered areas of fibroglandular density (ACR BI-RADS breast ?? composition Category b). ? There are no significant masses, abnormal calcifications, or other ?? abnormalities. ? MM/MM tomosynthesis screening BI ?? IMPRESSION: ?? No mammographic evidence of malignancy. ? ASSESSMENT: ? BI-RADS BI-RADS 1 - Negative ? RECOMMENDATION: ?? Routine annual mammography screening. ? 1 year F/U ? This examination should not preclude the clinical evaluation of a ?? suspicious palpable abnormality. ? This patient's information was entered into a reminder system with a ?? target due date for their next mammogram. ? Electronically signed by: ??Laine Bravo DO ??02/21/2024 04:07 PM EST ?? RP ? Dictated By: ?Laine Bravo DO ? Signed By: ?<Electronically signed by Laine Bravo, DO in OV> ? 02/21/24 1607 ? DD/ 1035 ? TD/TT: 02/13/24 1059 ? Marketing Information Coordinator: ? Procedure Note Donnatalyinterpreter, Image - 02/21/2024 [place] [address] Mammography Report Signed Patient: Augustus RustMR#: [id number] : 7Acct:[id number] Age/Sex: 68 / FADM Date: 02/13/24 Loc: HO.CT Attending Dr: Bryson NASCIMENTO Ordering Physician: Socorro Rivasesults: 1Nega tive Date of Service: 02/13/24Follow Up: 1 Year From Orig inal Mammogram Procedure(s): MM tomosynthesis screening BI Accession Number(s): [id number] cc: Socorro Rivas MD EXAMINATION: MM SCREENING DIGITAL BREAST TOMOSYNTHESIS, BILATERAL CLINICAL INFORMATION: Screening. Asymptomatic. COMPARISON: Mammography: Comparison is made with available priors TECHNIQUE: Digital breast mammography with tomosynthesis is performed in both the craniocaudal and mediolateral oblique views along with computer-aided detection (CAD). FINDINGS: There are scattered areas of fibroglandular density (ACR BI-RADS breast composition Category b). There are no significant masses, abnormal calcifications, or other abnormalities. MM/MM tomosynthesis screening BI IMPRESSION: No mammographic evidence of malignancy. ASSESSMENT: BI-RADS BI-RADS 1 - Negative RECOMMENDATION: Routine annual mammography screening. 1 year F/U This examination should not preclude the clinical evaluation of a suspicious palpable abnormality. This patient's information was entered into a reminder system with a target due date for their next mammogram. Electronically signed by: Laine Bravo DO 02/21/2024 04:07 PM EST Dictated By: Laine Bravo DO Signed By: <Electronically signed by Laine Bravo DO in OV> 02/21/24 1607 DD/ 1035 TD/TT: 02/13/24 1059 Marketing Information Coordinator: us Socorro Rivas MD IMG BI PROCEDURES Final Resul t * Lipid Panel, Standard (02/12/2024 9:05 AM EST) Triglycerides 104 <150 mg/dL [facility] Comment:Desirable Triglyceri de: less than 150 mg/dLBorderline High Triglyceride 150-199 mg/dLHigh Triglyceride: 200-499 mg/dLVery High Triglyceride: greater than or equal to 5OO mg/dL Cholesterol 156 <200 mg/dL [facility] Comment:Desirable Cholestero l: less than 200 mg/dLBorderline High Cholesterol: 200-239 mg/dLHigh Cholesterol: greater than 239 mg/dL LDL Cholesterol Calculated 85 <100 mg/dL [facility] Comment:Desirable LDL: less than 100 mg/dLNear Optimal/Above Optimal LDL: 110- 129 mg/dLBorderline High LDL: 130-159 mg/dLHigh LDL: 160-189 mg/dLVery High LDL: greater than or equal to 190 mg/dL HDL Cholesterol 51 >40 mg/dL [facility] Comment:Desirable HDL: great er than 40 mg/dL Note: This HDL assay may give artificially low results in patients with liver disease. Blood Venous blood specimen / Unknown 02/12/2024 9:05 AM EST 02/12/2024 9:05 AM EST us Mulugeta Jose MD LAB BLOOD ORDERABLES Final Result [facility] [address] [place] [address] [phone] * POCT HGB A1C (12/12/2023 1:34 PM EDT) Hemoglobin A1C 5.8 4.0 - 6.0 % QC Media Lot # [id number] Lot# Expiration Date [id number] Blood 12/12/2023 1:34 PM EDT Mulugeta Jose MD POINT OF CARE TEST ENTER/ED IT ORDERABLES Final Result * Cologuard?? colon cancer screening (01/23/2023 6:17 PM EDT) Cologuard Result Negative Negative 02/01/20 10:21 AM EDT etouches (CLIA #:[id number]) Comment: NEGATIVE TEST RESULT. A negative Cologuard result indicates a low likelihood that a colorectal cancer (CRC) or advanced adenoma (adenomatous polyps with more advanced pre-malignant features) ??is present. The chance that a person with a negative Cologuard test has a colorectal cancer is less than 1 in 1500 (negative predictive value >99.9%) or has an ??advanced adenoma is less than ??5.3% (negative predictive value 94.7%). These data are based on a prospective cross-sectional study of 10,000 individuals at average risk for colorectal cancer who were screened with both Cologuard and colonoscopy. (Zahra Sarabia al, N Engl J Med 2014;370(14):1286- 1297) The normal value (reference range) for this assay is negative. COLOGUARD RE-SCREENING RECOMMENDATION: Periodic colorectal cancer screening is an important part of preventive healthcare for asymptomatic individuals at average risk for colorectal cancer. ??Following a negative Cologuard result, the [employer] and U.S. Multi-Society Task Force screening guidelines recommend a Cologuard re-screening interval of 3 years. References: [place] [employer] Guideline for Colorectal Cancer Screening: https://www.cancer.org/cancer/aldzt-egfbbk-tnrlem/hxcakxuhe-pcokqxpdx-hchfwvw/ac s-rec ommendations.html.; Juan DK, Nikki CR, Arden PalaciosK, Colorectal Cancer Screening: Recommendations for Physicians and Patients from the U.S. Multi-Society Task Force on Colorectal Cancer Screening , Am J Gastroenterology 2017; 112:1651-3289. TEST DESCRIPTION: Composite algorithmic analysis of stool DNA-biomarkers with hemoglobin immunoassay. ?? Quantitative values of individual biomarkers are not reportable and are not associated with individual biomarker result reference ranges. Cologuard is intended for colorectal cancer screening of adults of either sex, 45 years or older, who are at average-risk for colorectal cancer (CRC). Cologuard has been approved for use by the U.S. FDA. The performance of Cologuard was established in a cross sectional study of average-risk adults aged 50-84. Cologuard performance in patients ages 45 to 49 years was estimated by sub-group analysis of near-age groups. Colonoscopies performed for a positive result may find as the most clinically significant lesion: colorectal cancer [4.0%], advanced adenoma (including sessile serrated polyps greater than or equal to 1cm diameter) [20%] or non- advanced adenoma [31%]; or no colorectal neoplasia [45%]. These estimates are derived from a prospective cross-sectional screening study of 10,000 individuals at average risk for colorectal cancer who were screened with both Cologuard and colonoscopy. (Zahra Mullins et al, N Engl J Med 2014;370(14):4149-6711.) Cologuard may produce a false negative or false positive result (no colorectal cancer or precancerous polyp present at colonoscopy follow up). A negative Cologuard test result does not guarantee the absence of CRC or advanced adenoma (pre-cancer). The current Cologuard screening interval is every 3 years. ([place] [employer] and U.S. Multi-Society Task Force). Cologuard performance data in a 10,000 patient pivotal study using colonoscopy as the reference method can be accessed at the following location: [email or web address]/results. Additional description of the Cologuard test process, warnings and precautions can be found at [email or web address]. Stool specimen (specimen) 01/23/2023 6:17 PM EDT 01/25/2023 12:48 PM EDT Socorro Rivas MD LAB MOLECULAR DIAGNOSTICS ORD ERABLES Final Result etouches (CLIA #:[id number]) [address] [place] [address], * Colonoscopy (09/27/2011) Colonoscopy Minor diverticulosis Historical Provider HEALTH MAINTENANCE Final Result from Last 3 Months or Most Recently Relevant to Health Maintenance Insurance [facility] Care Teams Corporate Associate Attorney Relationship Specialty Start Date End Date Socorro Rivas MD [address] [place] [address] PCP - General Family Medicine 12/02/[address] [address] 04/08/23 León Walker MD,PhD Spine Surgery 02/13/24 Tay Sims MD Nephrology 02/13/24 Antonio Yan MD Pain Medicine 02/13/24 Marlin Arambula PA-C Bariatrics 02/13/[address] [address] 03/09/24
--- OUTSIDE RECORDS SUMMARY | 2024-06-30 13:41 | XMS_ITS | Encounter Summary ---
Author Organization [employer] Address [address] [facility] 7t [place] [address] Care Team Providers Care Java Software Architect Name Role Phone Socorro Rivas MD Primary Care Provider [phone] Encounter Details Date Type Department Care Team (Late st Contact Info) Description 03/12/2022 Orders Only [facility] MEDICINE [address] [place] [address] Darleen Humphreys PharmD [address] [place] [address] Social History Tobacco Use Types Packs/Day Years [...] Humphreys, PharmD documented as of this encounter Procedures Procedure Name Priority Date/Time Associated Diagnosis Comments VITAMIN D,25-OH,TOTAL,IA Routine 01/23/2023 9:08 AM EDT documented in this encounter Results * Vitamin D, 25-Hydroxy, Total, Immunoassay (01/23/2023 9:08 AM EDT) Vitamin D 25-OH Total 39.6 >30 ng/mL [facility] Comment:Health Based Referen ce Values*< 20 ng/mL Nqiefdsir50-95 ng/mL Insufficient> 30 ng/mL Sufficient*Ancelmo CARUSO. N Engl J Med. 2007;357:266-280Care must be taken in interpreting Vitamin D results fromdifferent laboratories and methodologies. Published datademonstrated that results from patients undergoinghemodialysis may show a negative bias when tested withvarious automated 25-OH vitamin D assays when compared toLC-MS/MS.When testing samples from patients whose predominant form ofVitamin D is Vitamin D2, such as patients receiving VitaminD2 supplementation, results that are subtherapeutic shouldbe confirmed with another method such as LC-MS/MS. 01/23/2023 9:08 AM EDT 01/23/2023 9:08 AM EDT us Socorro Rivas MD LAB BLOOD ORDERABLES Final Re sult [facility] [address] [place] [phone] documented in this encounter Visit Diagnoses Not on filedocumented in this encounter Care Teams Java Software Architect Relationship Specialty Start Date End Date Socorro Rivas MD [address] [place] [address] PCP - General Family Medicine 12/02/[address] [address] 04/08/23 León Walker MD,PhD Spine Surgery 02/13/24 Tay Sims MD Nephrology 02/13/24 Antonio Yan MD Pain Medicine 02/13/24 Marlin NASCIMENTO-Gurpreet Bariatrics 02/13/[address] [address] 03/09/24 documented as of this encounter
--- OUTSIDE RECORDS SUMMARY | 2024-06-30 13:41 | XMS_ITS | Encounter Summary ---
Author Organization [employer] Address [address] [facility] 7t [place] [address] Care Team Providers Care Environmental Health And Safety Manager Name Role Phone Socorro Rivas MD Primary Care Provider [phone] Reason for Visit * Reason Onset Date Comments Med Refill 03/23/2024 Encounter Details Date Type Department Care Team ([facility] [place] [facility] st Contact Info) Description 03/23/2024 Telephone [facility] MEDICINE [address] [place] [address] Socorro Rivas MD [address] [place], [place] [phone] Med Refill Social History Tobacco Use Types Packs/Day Years Used Date Smoking Tobacco: Never Passive Smoke Exposure: Never Smokeless Tobacco: Never Alcohol Answer Date Recorded Frequency of Alcohol Consumption Not on file 02/13/2024 Average Number of Drinks Not on file 024 Frequency of Binge Drinking Not on file 1110/2023 Score 0 02/13/2024 Depression Answer Date Recorded [...] AM EDT documented as of this encounter Miscellaneous Notes * Telephone Encounter - Nikki Hoover LPN - 03/23/2024 1:09 PM EST Medication was sent to [facility] on 12/04/23 #30 with 3 refills. * Telephone Encounter - Garfield Reddy - 03/23/2024 12:19 PM EST TC from pt requesting medication refill. Medications needing refill : cloNIDine (Catapres) 0.1 MG tablet To be sent to: [facility] - [place], [place] - [address] [facility] documented in this encounter Plan of Treatment Not on [...] documented as of this encounter Care Teams Environmental Health And Safety Manager Relationship Specialty Start Date End Date Socorro Rivas MD [address] [facility] [place] [address] PCP - General Family Medicine 12/02/[address] [address] 04/08/23 León Walker MD,PhD Spine Surgery 02/13/24 Tay Sims MD Nephrology 02/13/24 Antonio Yan MD Pain Medicine 02/13/24 Marlin Arambula PA-C Bariatrics 02/13/[address] [address] 03/09/24 documented as of this encounter
--- OUTSIDE RECORDS SUMMARY | 2024-06-30 13:41 | XMS_ITS | Encounter Summary ---
Author Organization [employer] Address 75 [facility] 7t [place] [address] Care Team Providers Care Primer Boxer Name Role Phone Socorro Rivas MD Primary Care Provider [phone] Reason for Visit * Reason Comments Med Refill Encounter Details Date Type Department Care Team ([facility] st Contact Info) Description 09/04/2023 Refill [facility] CHC MED & PEDS [address] [place], [place] [phone] Socorro Rivas MD [address] [place] [address] Social History Tobacco Use Types Packs/Day Years [...] documented as of this encounter Care Teams Primer Boxer Relationship Specialty Start Date End Date Socorro Rivas MD [address] [place] [address] PCP - General Family Medicine 12/02/[address] [address] 04/08/23 León Walker MD,PhD Spine Surgery 02/13/24 Tay Sims MD Nephrology 02/13/24 Antonio Yan MD Pain Medicine 02/13/24 Marlin Arambula PA-C Bariatrics 02/13/[address] [address] 03/09/24 documented as of this encounter
--- OUTSIDE RECORDS SUMMARY | 2024-06-30 13:41 | XMS_ITS | Encounter Summary ---
Author Organization [employer] Address [address] [facility] 7t [place] [address] Care Team Providers Care Vine Pruner Name Role Phone Socorro Rivas MD Primary Care Provider [phone] Reason for Visit * Reason Comments Med Refill Encounter Details Date Type Department Care Team ([facility] st Contact Info) Description 04/15/2024 Refill [facility] CHC MED & PEDS [address] [place], [place] [phone] Socorro Rivas MD [address] [place] [address] Social History Tobacco Use Types Packs/Day Years [...] documented as of this encounter Care Teams Vine Pruner Relationship Specialty Start Date End Date Socorro Rivas MD [address] [place] [address] PCP - General Family Medicine 12/02/[address] [address] 04/08/23 León Walker MD,PhD Spine Surgery 02/13/24 Tay Sims MD Nephrology 02/13/24 Antonio Yan MD Pain Medicine 02/13/24 Marlin Arambula PA-C Bariatrics 02/13/[address] [address] 03/09/24 documented as of this encounter
--- OUTSIDE RECORDS SUMMARY | 2024-06-30 13:41 | XMS_ITS | Clinical Summary ---
Author Organization [facility] Address [address] [place] [address] Care Team Providers Care Bailiff Name Role Phone Steve Patton MD Primary Care Provider [phone] Allergies No known active allergies Medications cholecalciferol (VITAMIN D-3) 50 MCG (1999) capsule 01/09/2021 Active Diclofenac Sodium 1 % gel 02/02/2021 Active gabapentin (NEURONTIN) 300 MG capsule 600 mg 02/05/2021 Active hydrOXYzine (VISTARIL) 25 MG capsule 01/09/2021 Active Myrbetriq 25 MG tablet sustained-relea se 24 hour 03/01/2021 Active losartan (COZAAR) 100 MG tablet 01/09/2021 Active lidocaine (LIDODERM) 5 % patch 02/02/2021 Active traZODone (DESYREL) 50 MG tablet 01/31/2021 Active hydrALAZINE 25 MG tablet Take 1 tablet (25 mg total) by mouth in the morning and 1 tablet (25 mg total) in the evening. 120 tablet 3 05/01/2021 Active doxepin (SINEquan) 25 MG capsule Take 25 mg by mouth every night Active amLODIPine-ator vastatin (CADUET) 10-10 MG per tablet Take 1 tablet by mouth 1 (one) time each day Active chlorthalidone 25 MG tablet Take 25 mg by mouth 1 (one) time each day Active spironolactone (ALDACTONE) 25 MG tablet Take 25 mg by mouth 1 (one) time each day Active Active Problems Problem Noted Date Diagnosed Date Gastroesophageal reflux disease 02/19/2022 11/19/2022 Psoriasis of scalp 02/19/2022 11/19/2022 Periodic limb movement disorder 02/19/2022 11/19/2022 Chronic kidney disease, stage 2 (mild) 05/03/202 2 Chronic active hepatitis C 03/07/2021 Cancer 03/07/2021 Sleep apnea 03/07/2021 Vitamin D deficiency 03/07/2021 Essential hypertension 03/07/2021 Proteinuria 03/07/2021 Bilateral cataracts 12/07/2019 11/19/2022 Syncope 09/11/2012 11/19/2022 Carotid atherosclerosis 08/29/2012 11/20/19 23 Overview (11/19/2022): 08/18 Cancer of endometrium 04/26/2012 11/19/2022 Overview (11/19/2022): 04/2012 endometrial polyp found in [place]. 02/12/2012 sp [facility] History of total hysterectom y with bilateral salpingo-oophorectomy 02/20/2012 11/19/2022 Microcytosis 02/20/2012 11/19/2022 Pulmonary hypertension 01/21/2012 3 History of syphilis 01/07/2012 11/19/2022 Overview (11/19/2022): Tx in [place] ([facility]), baseline RPR 1:8. 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 Astudillo Immunizations Name Administration Dates Next Due Hepatitis A 10/30/2021,10/03/2011 Hepatitis B 10/30/2021,03/19/2012,10/03/2011 Influenza, Quadrivalent, Pre servative Free 01/09/2021,02/19/2020,01/21/2019,02/12,03/11/2017 Influenza, Unspecified 01/23/2022,02/13/2012,02/2011 Pfizer SARS-COV-2 08/11/2021, 1,08/17/2020,07/27 Pneumococcal Polysaccharide 06/17/2018 Pneumococcal, Unspecified 09/23/2021 Shingrix 11/30/2021,09/29/2021 Tdap 06/17/2018,01/31/2016 Zoster 06/17/2018 Social History Tobacco Use Types Packs/Day Years Used Date Smoking Tobacco: Never Assessed Alcohol Use Standard Drinks/Week Comments Never 0 (1 standard drink = 0.6 oz pur e alcohol) Comments Unknown Sex and Gender Information Value Date Recorded Sex Assigned at Not on file Legal Sex Female 2:07 PM EDT Gender Identity Not on file Sexual Orientation Not on file Last Filed Vital Signs Vital Sign Reading Time Taken Comments Blood Pressure 129/62 08/08/2021 1:46 PM EDT Pulse 82 08/08/2021 1:46 PM EDT Temperature - - Respiratory Rate - - Oxygen Saturation 98% 08/08/2021 1:46 PM EDT Inhaled Oxygen Concentration - - Weight 105 kg (230 lb 9.6 oz) 08/08/2021 1:46 PM EDT Height - - Body Mass Index - - Plan of Treatment Health Maintenance Due Date Last Done Comments Breast Cancer Screening 1955 Colorectal Cancer Screening: Annual FOBT 2005 Colorectal Cancer Screening: Colonoscopy 2005 Colorectal Cancer Screening: Sigmoidoscopy 2005 Pneumococcal Vaccine: 65+ Years (2 of 2 - PCV) 09/23/2022 09/23/2021, 06/17/2018 Influenza Vaccine (#1) 2023 2, 01/09/2021, 02/19/2020, Additional history exists Hepatitis B Vaccine Aged Out 10/30/2021, 03/19/2012, 10/03/2011 No longer eligible based on patient's age to complete this topic Insurance Care Teams Bailiff Relationship Specialty Start Date End Date Steve Patton MD PCP - General Nephrology 05/01/21
--- OUTSIDE RECORDS SUMMARY | 2024-06-30 13:41 | XMS_ITS | Encounter Summary ---
Author Organization [employer] Address [address] [facility] 7t [place] [address] Care Team Providers Care Infection Prevention Specialist Name Role Phone Socorro Rivas MD Primary Care Provider [phone] Reason for Visit * Reason Comments Med Refill Encounter Details Date Type Department Care Team ([facility] st Contact Info) Description 09/06/2023 Refill [facility] CHC MED & PEDS [address] [place], [place] [phone] Socorro Rivas MD [address] [place] [address] Social History Tobacco Use Types Packs/Day Years [...] documented as of this encounter Care Teams Infection Prevention Specialist Relationship Specialty Start Date End Date Scoorro Rivas MD [address] [place] [address] PCP - General Family Medicine 12/02/[address] [address] 04/08/23 León Walker MD,PhD Spine Surgery 02/13/24 Tay Sims MD Nephrology 02/13/24 Antonio Yan MD Pain Medicine 02/13/24 Marlin Arambula PA-C Bariatrics 02/13/[address] [address] 03/09/24 documented as of this encounter
--- OUTSIDE RECORDS SUMMARY | 2024-06-30 13:41 | XMS_ITS | Encounter Summary ---
Author Organization [employer] Address 75 [facility] 7t [place] [address] Care Team Providers Care Gas Burner Operator Name Role Phone Socorro Rivas MD Primary Care Provider [phone] Reason for Visit * Reason Comments Med Refill Encounter Details Date Type Department Care Team ([facility] st Contact Info) Description 01/14/2024 Refill [facility] CHC MED & PEDS [address] [place], [place] [phone] John Yancey MD [address] [place] [address] Social History Tobacco Use Types Packs/Day Years [...] documented as of this encounter Care Teams Gas Burner Operator Relationship Specialty Start Date End Date Socorro Rivas MD [address] [place] [address] PCP - General Family Medicine 12/02/[address] [address] 04/08/23 León Walker MD,PhD Spine Surgery 02/13/24 Tay Sims MD Nephrology 02/13/24 Antonio Yan MD Pain Medicine 02/13/24 Marlin NASCIMENTO-Gurpreet Bariatrics 02/13/[address] [address] 03/09/24 documented as of this encounter
--- OUTSIDE RECORDS SUMMARY | 2024-06-30 13:41 | XMS_ITS | Encounter Summary ---
Author Organization [employer] Address 75 [facility] 7t [place] [address] Care Team Providers Care Buffer Inflated Pad Name Role Phone Socorro Rivas MD Primary Care Provider [phone] Encounter Details Date Type Department Care Team (Late st Contact Info) Description 10/15/2023 Orders Only [facility] CHC MED & PEDS [address] [place], [place] [phone] ProviderVarun MD Social History Tobacco Use Types Packs/Day Years [...] t he electric, gas, oil or water [email or web address] threatened to shut off services in your [...] Procedure Name Priority Date/Time Associated Diagnosis Comments ALBUMIN/CREATININE RATIO, TIMED URINE Routine 10/15/2023 2:42 PM EDT documented in this encounter Results * Albumin/Creatinine Ration, Timed Urine (10/15/2023 2:42 PM EDT) Urine Urine specimen obtained by clean catch procedure / Unknown us Historical Provider LAB URINE ORDERABLES Shayla l Result documented in this encounter Visit Diagnoses Not on filedocumented in this encounter Additional Health Concerns Assessment Noted Time PHQ-9 Depression Total Score: 4 01/11/20 23 2:17 PM EDT documented as of this encounter Care Teams Buffer Inflated Pad Relationship Specialty Start Date End Date Socorro Rivas MD [address] [place] [address] PCP - General Family Medicine 12/02/[address] [address] 04/08/23 León Walker MD,PhD Spine Surgery 02/13/24 Tay Sims MD Nephrology 02/13/24 Antonio Yan MD Pain Medicine 02/13/24 Marlin NASCIMENTO-C Bariatrics 02/13/[address] [address] 03/09/24 documented as of this encounter
== END 2024-06-30 11:22 | disposition home or self-care (01) ==
LOC: HO.HKA 11:07
PROVIDERS: PCP Family Medicine; Visit Provider Internal Medicine Hypertension Specialist
DX: I10 Essential (primary) hypertension (principal)
CPT/HCPCS: 99214

== ENCOUNTER → 2024-06-30 11:06 | Outpatient (BNVA) | payer OTHER, SELFPAY | PROVIDERS: PCP Family Medicine; Visit Provider Internal Medicine Hypertension Specialist | DX: I1A.0 Resistant hypertension (principal); E66.9 Obesity, unspecified; Z68.43 Body mass index [BMI] 50.0-59.9, adult | CPT/HCPCS: 99212 ==

== ENCOUNTER 2024-08-28 13:26 | Outpatient (AMB) | payer OTHER, SELFPAY ==
--- OUTSIDE RECORDS SUMMARY | 2024-08-28 13:29 | XMS_ITS | Encounter Summary ---
Author Organization [employer] Address [address] [facility] 7t [place] [address] Care Team Providers Care Smoke Inspector Name Role Phone Socorro Rivas MD Primary Care Provider [phone] Encounter Details Date Type Department Care Team (Late Contact Info) Description 03/12/2022 Orders Only [facility] MEDICINE [address] [place] [address] Darleen Humphreys, PharmD [address] [place] [address] Social History Tobacco Use Types Packs/Day Years Used Date Smoking Tobacco: Never Assessed Comments Unknown Sex and Gender Information Value Date Recorded Sex Assigned at Female 02/05/2022 10:21 AM EDT Legal Sex Female 10:21 AM EDT Gender Identity Female 02/05/2022 10:21 AM EDT Sexual Orientation Straight 02/05/2022 10 :21 AM EDT documented as of this encounter Plan of Treatment Upcoming Encounters Date Type Department Care Team (Late st Contact Info) Description 09/16/2024 3:30 PM EDT Office Visit [facility] CHC MED & PEDS [address] [place] [address] Socorro Rivas MD [address] [place] [address] documented as of this encounter Goals Goal [...] Vitamin D 25-OH Total 39.6 >30 ng/mL [facility] Comment:Health Based Referen ce Values*< 20 ng/mL Yyuturkdq35-49 ng/mL Insufficient> 30 ng/mL Sufficient*Ancelmo CARUSO. N [...] MD LAB BLOOD ORDERABLES Final Re sult [facility] [address] [place] [phone] documented in this encounter Visit Diagnoses Not on filedocumented in this encounter Care Teams Smoke Inspector Relationship Specialty Start Date End Date Socorro Rivas MD [address] [place] [address] PCP - General Family Medicine 12/02/[address] [address] 04/08/23 León Walker MD,PhD Spine Surgery 02/13/24 Tay Sims MD Nephrology 02/13/24 Antonio Yan MD Pain Medicine 02/13/24 Marlin Arambula PA-C Bariatrics 02/13/[address] [address] 03/09/24 documented as of this encounter
--- NOTE | 2024-08-28 13:30 | A.SPINEOV_ITS ---
Intake Visit Reasons: BP/Numbness left side bellow knee sx 12/24/23 Intake Note: Ms. Ronni [place] is here today c/o low back pain and left side numbness. Household Appliances Salesperson Required: No Allergies No Known Allergies [No Known Allergies*] Allergy (Verified 06/30/24 11:11) pt states no food/medication a Allergy (Unknown, Uncoded 11/06/21 11:11) Unknown Assessment & Plan Assessment & Plan (1) S/P spinal fusion: Code(s): Z98.1 - Arthrodesis status Category: Surgical (2) Left lumbar radiculopathy: Code(s): M54.16 - Radiculopathy, lumbar region Category: Medical Plan Dear colleague, On 08/28/2024, I saw for follow-up Juana [place]. She underwent a trans Kambin L4-5 L5-S1 lumbar fusion in December of 2023 for back pain and bilateral leg pain. 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 This is most likely related to the transforaminal approach. She is dealing with pain numbness in the L5 distribution. She has taken Advil without success. On exam, there paresthesias in the L5 dermatome. Motor exam is full bilaterally. I would like to obtain an MRI of the lumbar spine to get a closer look at the left L5 nerve root. I told her that recovery can take up to 2 years. I will see her back after the MRI is done. I spent 20 minutes in his consult Orders: Orders MR lumbar spine wo/w con Today M54.16 - Radiculopathy, lumbar region, Z98.1 - Arthrodesis status Coding Level of Care Code Est Pt Level 3 (60635) Diagnoses S/P spinal fusion Z98.1 Left lumbar radiculopathy M54.16
== END 2024-08-28 14:27 | disposition home or self-care (01) ==
LOC: HO.HNS 13:27
PROVIDERS: PCP Family Medicine; Visit Provider Neurological Surgery
DX: Z98.1 Arthrodesis status (principal); M54.16 Radiculopathy, lumbar region
CPT/HCPCS: 99213

== ENCOUNTER → 2024-08-28 13:26 | Outpatient (BNVA) | payer OTHER, SELFPAY | PROVIDERS: PCP Family Medicine; Visit Provider Neurological Surgery | DX: M54.16 Radiculopathy, lumbar region (principal); Z98.1 Arthrodesis status | CPT/HCPCS: 99212 ==

== ENCOUNTER → 2024-09-22 10:02 | Outpatient (BNV) | payer OTHER, SELFPAY | PROVIDERS: PCP Family Medicine; Visit Provider Radiology Diagnostic Radiology | DX: M48.062 Spinal stenosis, lumbar region with neurogenic claudication (principal) | CPT/HCPCS: 72158 ==

== ENCOUNTER 2024-09-22 10:03 | Outpatient (REF) | payer OTHER, SELFPAY ==
--- NOTE | ~2024-09-22 | MR_ITS ---
EXAMINATION: MR LUMBAR SPINE WITHOUT AND WITH CONTRAST CLINICAL INFORMATION: 12/27/2023 spinal fusion , low back pain with left leg pain and numbness, incontinence TECHNIQUE: Multiplanar multisequence imaging was performed through the lumbar spine without and with contrast. CONTRAST: 10 mL Gadavist PRIOR: CT from 02/13/2024 FINDINGS: 5 non-rib bearing lumbar segments are present on prior CT. Lesions with increased signal within anterior L2 and posterior superior L3 likely represent vertebral body hemangiomas. Simple renal cysts are present bilaterally in the kidneys. There is moderate fatty atrophy of the paraspinal musculature. There is an intramuscular simple lipoma in the right paraspinal muscles extending from L3-4 to upper S1. The termination of conus medullaris is within normal limits at the level of upper L1. Posterior pedicle screws and rods span between L4-S1. Interbody spaces are also present. T12-L1: Central left paracentral disc protrusion indents thecal sac resulting in mild spinal stenosis. Facet arthropathy contributes to mild bilateral foraminal narrowing. L1-L2: Broad-based disc bulge and moderate facet arthropathy does not result in spinal stenosis. There is mild to moderate right and no left foraminal narrowing. L2-L3: There is no disc bulge or herniation. There is mild facet degeneration. Facet hypertrophy minimally narrows both neural foramen. L3-L4: There is subtle retrolisthesis. There is no disc bulge or herniation. There is mild to moderate facet arthropathy. There is mild bilateral foraminal narrowing. L4-L5: The level is fused. Stable grade 1 anterolisthesis is noted. There is moderate severe facet hypertrophy and ligamentum flavum thickening resulting in mild spinal stenosis and left lateral recess stenosis with with medial displacement of left L5 nerve roots. There is minimal right subarticular zone narrowing. There is moderate right foraminal narrowing. The left neural foramen is obscured by metal artifact. There is at least moderate, possibly severe foraminal narrowing. L5-S1: Broad-based disc bulge does not result in spinal stenosis. There is moderate facet hypertrophy with osteophytes. There is mild to moderate foraminal narrowing, greater on the left. With Contrast: There is mild hyperenhancement of the subcutaneous soft tissues dorsal to the level of surgery. There is physiologic enhancement otherwise. There is no enhancement of the aforementioned simple renal cysts. MR/MR lumbar spine wo/w con IMPRESSION: L4-S1 posterior lumbar interbody fusion with posterior pedicle screws and rods. Interbody spaces are present. L1-L2: There is mild to moderate right foraminal narrowing. L4-L5: There is mild spinal stenosis and left lateral recess stenosis with medial displacement of left L5 nerve roots. There is moderate right foraminal narrowing. The left neural foramen is obscured by metal artifact with at least moderate, possibly severe foraminal narrowing. L5-S1: There is mild to moderate foraminal narrowing, greater on the left. Electronically signed by: Vaughn Silver MD 09/22/2024 02:01 PM EDT
--- OUTSIDE RECORDS SUMMARY | 2024-09-22 11:27 | XMS_ITS | Encounter Summary ---
Author Organization [employer] Address [address] [facility] 7t [place] [address] Care Team Providers Care Post Office Clerk Name Role Phone Socorro Rivas MD Primary Care Provider [phone] Encounter Details Date Type Department Care Team ([facility] st Contact Info) Description 03/12/2022 Orders Only [facility] MEDICINE [address] [place] [address] Darleen Humphreys PharmD [address] [place] [address] Social History Tobacco Use Types Packs/Day Years [...] Vitamin D 25-OH Total 39.6 >30 ng/mL [facility] Comment:Health Based Referen ce Values*< 20 ng/mL Mzotoidut54-43 ng/mL Insufficient> 30 ng/mL Sufficient*Ancelmo CARUSO. N [...] MD LAB BLOOD ORDERABLES Final Re sult [facility] [address] [place] [phone] documented in this encounter Visit Diagnoses Not on filedocumented in this encounter Care Teams Post Office Clerk Relationship Specialty Start Date End Date Socorro Rivas MD [address] [place] [address] PCP - General Family Medicine 12/02/[address] [address] 04/08/23 León Walker MD,PhD Spine Surgery 02/13/24 Tay Sims MD Nephrology 02/13/24 Antonio Yan MD Pain Medicine 02/13/24 Marlin NASCIMENTO-Gurpreet Bariatrics 02/13/[address] [address] 03/09/24 documented as of this encounter
[2024-09-22] MEDS: gadobutroL 10 ML VIAL IVPUSH (12:01)
== END 2024-09-22 10:04 | disposition home or self-care (01) ==
LOC: HO.MRI 10:03
PROVIDERS: PCP Family Medicine; Visit Provider Neurological Surgery
DX: M54.16 Radiculopathy, lumbar region (principal); Z98.1 Arthrodesis status
CPT/HCPCS: 72158; A9585

== ENCOUNTER 2024-10-14 14:54 | Outpatient (AMB) | payer OTHER, SELFPAY ==
--- OUTSIDE RECORDS SUMMARY | 2024-10-14 15:21 | XMS_ITS | Encounter Summary ---
Author Organization [employer] Address [address] [facility] 7t [place] [address] Care Team Providers Care Securities Counselor Name Role Phone Socorro Rivas MD Primary Care Provider [phone] Encounter Details Date Type Department Care Team ([facility] st Contact Info) Description 03/12/2022 Orders Only [facility] MEDICINE [address] [place] [address] Darleen Humphreys PharmD [address] [place] [address] Social History Tobacco Use Types Packs/Day Years [...] Vitamin D 25-OH Total 39.6 >30 ng/mL [facility] Comment:Health Based Referen ce Values*< 20 ng/mL Ajtosqkva96-15 ng/mL Insufficient> 30 ng/mL Sufficient*Ancelmo CARUSO. N [...] MD LAB BLOOD ORDERABLES Final Re sult [facility] [address] [place] [phone] documented in this encounter Visit Diagnoses Not on filedocumented in this encounter Care Teams Securities Counselor Relationship Specialty Start Date End Date Socorro Rivas MD [address] [place] [phone] PCP - General Family Medicine 12/02/[address] [address] 04/08/23 León Walker MD,PhD Spine Surgery 02/13/24 Tay Sims MD Nephrology 02/13/24 Antonio Yan MD Pain Medicine 02/13/24 Marlin NASCIMENTO-Gurpreet Bariatrics 02/13/[address] [address] 03/09/24 documented as of this encounter
--- OUTSIDE RECORDS SUMMARY | 2024-10-14 15:21 | XMS_ITS | Clinical Summary ---
Author Organization [facility] Address [address] [place] [address] Care Team Providers Care Legal Services Manager Name Role Phone Steve Patton MD Primary Care Provider [phone] Allergies No known active allergies Medications cholecalciferol [...] syphilis 01/07/2012 11/19/2022 Overview (11/19/2022): Tx in [place] ([place]), baseline RPR 1:8. Debility 10/30/2011 11/19/2022 Overview (11/19/2022): PT-1, [employer], needs help with ADL/IADLs, walks with walker Localized osteoarthrosis 10/30/2011 023 Obesity 10/30/2011 11/19/2022 Depressive disorder 09/20/2011 11/19/2022 Shoulder joint pain 09/20/2011 11/19/2022 Patient cured 09/14/2011 11/19/2022 Overview (11/19/2022): F/u with Dr. Astudillo Immunizations Immunization Administration Dates Next Due Hepatitis A 10/30/2021,10/03/2011 Hepatitis B 10/30/2021,03/19/2012,10/03/2011 Influenza, Quadrivalent, Pre servative Free 01/09/2021,02/19/2020,01/21/2019,02/12,03/11/2017 Influenza, Unspecified 01/23/2022,02/13/2012,02/2011 Pfizer SARS-COV-2 08/11/2021,,08/17/2020,07/27 Pneumococcal Polysaccharide 06/17/2018 Pneumococcal, Unspecified 09/23/2021 Shingrix [...] Colonoscopy 2005 Colorectal Cancer Screening: Sigmoidoscopy 2005 Influenza Vaccine (#1) 2024 , 01/23/2022, 01/09/2021, Additional history exists Pneumococcal Vaccine: 50+ Years Completed 09/29/2021, 09/23/2021, 06/17/2018, Additional history exists Pneumococcal Vaccine: Peds (0 to 5 Years) and At-Risk Patients (6 to 49 Years) Discontinued 09/29/2021, 09/23/2021, 06/17/2018, Additional history exists Hepatitis B Vaccine Aged Out 10/30/2021, 03/19/2012, 10/03/2011 No longer eligible based on patient's age to complete this topic Insurance Care Teams Legal Services Manager Relationship Specialty Start Date End Date Steve Patton MD PCP - General Nephrology 05/01/21
--- NOTE | 2024-10-14 15:23 | HO.SPINEOV ---
Intake Visit Reasons: MRI f/u Intake Note: Ms. Ronni Dunn is here today to F/u on the results to her MRI. Turnaround Engineer Required: No Allergies No Known Allergies (No Known Allergies*) Allergy (Verified 06/30/24 11:11) pt states no food/medication a Allergy (Unknown, Uncoded 11/06/21 11:11) Unknown Assessment & Plan Assessment & Plan (1) Left lumbar radiculopathy: Code(s): M54.16 - Radiculopathy, lumbar region Category: Medical Plan Dear colleague, On 10/14/2024, I saw for follow-up Augustus Dunn. She is status post L4-5 lumbar fusion to correct the lumbar spondylolisthesis approximately 1 year ago. She continues to complain of a left-sided leg pain , tingling and mild weakness. She states that the current pain is at the same level as preoperatively. We decided to repeat an MRI of the lumbar spine which showed L4-5 lateral recess stenosis compressing the left L5 nerve root and L4 foraminal stenosis. I offered her L4-5 decompression, including an L4 foraminotomy to decompress the L4 and L5 nerve roots in an attempt to address her ongoing symptoms. She is scheduled for 11/18/2024. Thank you for allowing me take care of your patient. León Walker MD, PhD Spine Fellowship Trained Neurosurgeon Director, [facility] Coding Level of Care Code Est Pt Level 3 (31975) Diagnoses Left lumbar radiculopathy M54.16
== END 2024-10-14 16:10 | disposition home or self-care (01) ==
LOC: HO.HNS 14:54
PROVIDERS: PCP Family Medicine; Visit Provider Neurological Surgery
DX: M54.16 Radiculopathy, lumbar region (principal)
CPT/HCPCS: 99213

== ENCOUNTER → 2024-10-14 14:54 | Outpatient (BNVA) | payer OTHER, SELFPAY | PROVIDERS: PCP Family Medicine; Visit Provider Neurological Surgery | DX: Z71.2 Person consulting for explanation of examination or test findings (principal); M54.16 Radiculopathy, lumbar region | CPT/HCPCS: 99212 ==

== ENCOUNTER → 2024-11-04 13:18 | Outpatient (BNV) | payer OTHER, SELFPAY | PROVIDERS: PCP Family Medicine; Visit Provider Internal Medicine Cardiovascular Disease | DX: Z01.810 Encounter for preprocedural cardiovascular examination (principal) | CPT/HCPCS: 93010 ==

== ENCOUNTER 2024-11-16 13:21 | Outpatient (AMB) | payer OTHER, SELFPAY ==
--- NOTE | 2024-11-16 13:23 | HO.NEPHOV_ITS ---
Vital Signs 11/16/24 13:24 Height 5 ft Weight 267 lb BMI 52.1 BP 156/82 H Blood Pressure Location Lt brachial Position Sitting Pulse 73 Pulse Source Pulse Oximeter Pulse Oximetry (%) 97 Oxygen Delivery Method Room Air Intake Visit Reasons: High BP- Spine surgery scheduled for 11/18 Java Performance Engineer Required: Yes Java Performance Engineer Name: Norm [id number] Accompanied by: Daughter Allergies No Known Allergies (No Known Allergies*) Allergy (Verified 11/16/24 13:26) Medication List - Last Reconciled 11/16/24 by Tay Sims MD amitriptyline 50 mg PO BEDTIME amlodipine 10 mg PO DAILY cetirizine 10 mg PO DAILY chlorthalidone 25 mg PO DAILY cholecalciferol (vitamin D3) 50 mcg PO DAILY clonidine HCl 0.1 mg PO BEDTIME hydralazine 100 mg PO TID losartan 100 mg PO DAILY mirabegron ER (Myrbetriq) 25 mg PO DAILY PRN pregabalin 100 mg PO BID spironolactone 50 mg PO DAILY zolpidem 5 mg PO BEDTIME PRN HPI Comments Details: Augustus is a pleasant 68-year-old man with a history of obesity and resistant hypertension. She has been referred for evaluation hypertension. She is on multiple antihypertensive medications blood pressure is still suboptimal. Recently she underwent back surgery. She lost some weight and subsequently gained some back. She was accompanied by her family. They helped with translation. 03/02/24; Claims BP was normal at home 11/16/24 Home BP is elevated She does not remember any of her medications. Upon further inquiry with the help of aerial photograph interpreter I believe that she is not taking her medications as prescribed. She is due for surgery on November 18. [facility] Medical History (Updated 11/04/24 @ 12:50 by Josey Mcgregor RN) Wears dentures Hx of cancer of uterus OAB (overactive bladder) Weakness of both arms OMA (obstructive sleep apnea) GERD (gastroesophageal reflux disease) History of headache Sleep apnea Insomnia Back pain Morbid obesity Anemia HTN (hypertension) Surgical History History of back surgery (~12/2023) History of cholecystectomy Hx of bariatric surgery (~2015) Hx of total hysterectomy H/O colonoscopy Hx of hand surgery Hx of knee surgery Family History Father No problems noted. Mother CVD (cardiovascular disease) Social History Household Members: None Housing: Apartment Housing Other:: second floor. uses elevator Are you a primary student career development specialist to a significant other at home: No Do you presently have visiting nurse or other home services: Yes (1 hour per day MACHINE TRACER) Alcohol intake: never Patient Tobacco Use Status: Former Tobacco user Tobacco use type: Cigarette service: No Current occupational status: disabled Current occupation: rt handed Physical Exam Vital Signs: Last Vital Signs Pulse 73 11/16/24 13:24 BP 156/82 H 11/16/24 13:24 Pulse Ox 97 11/16/24 13:24 Oxygen Delivery Method Room Air 11/16/24 13:24 BMI result Body Mass Index 52.1 Const General: comfortable Nutritional Appearance: well nourished Orientation/consciousness: patient oriented x3 HEENT Head: No normal to inspection Mouth: moist mucous membranes Neck Neck: Yes supple and Yes no JVD Resp Auscultation: clear to auscultation bilaterally and no rales Cardio Jugular venous distension: no JVD Palpation: no palpable S3 and no palpable S4 Heart sounds: no rubs GI Palpation (GI): Soft to palpation and nontender Percussion: No Fluid wave present General: Yes no CVA tenderness Back/Spine/Pelvis Back: no CVA tenderness Skin General skin exam: no rashes or lesions noted Neuro General: patient oriented x3 Extrem General: Yes no pedal edema and No clubbing Results Reviewed Nephrology Results: Hgb, (12.0-16.0) 11.3 g/dl L 11/04/24 WBC, (4.8-10.8) 9.3 X10*3/uL 11/04/24 Plt Count, (160-400) 288 X10*3/uL Δ 11/04/24 Sodium, (135-145) 143 mmol/L 11/04/24 Potassium, (3.3-5.1) 4.1 mmol/L 11/04/24 Chloride, (96-108) 107 mmol/L 11/04/24 Carbon Dioxide, (22-29) 28 mmol/L 11/04/24 BUN, (9-16) 15 mg/dL 11/04/24 Creatinine, (0.5-1.4) 0.68 mg/dL 11/04/24 Calcium, (8.4-10.2) 9.2 mg/dL 11/04/24 Assessment & Plan Assessment & Plan (1) HTN (hypertension): Code(s): I10 - Essential (primary) hypertension Category: Medical Plan 68-year-old woman with obesity and resistant hypertension. Obesity is probably playing a critical role in causing resistant hypertension. Given the history of morbid obesity underlying obstructive sleep apnea should be considered as well. Encouraged her to stay on low-sodium diet. Renal function stable at baseline. BP is acceptable Goal is to maintain systolic blood pressure less than 140 mm Hg. We discussed importance of weight loss. 11/16/2024. Hypertension. Blood pressure is suboptimal. Primarily due to noncompliance. I have asked her to bring all her medications tomorrow I will review the medications and make adjustments and hopefully she should be ready for surgery on Saturday. Coding Level of Care Code Est Pt Level 4 (90571) Diagnoses HTN (hypertension) I10
[2024-11-16 13:24] VITALS: BP 156/82; PULSE 73; O2SAT 97; BMI 52.1
--- OUTSIDE RECORDS SUMMARY | 2024-11-16 13:30 | XMS_ITS | Clinical Summary ---
Author Organization [facility] Address [address] [address] Phone Care Team Providers Care Solar Sales Rep Name Role Phone Unavailable Primary Care Provider Unavailabl e Social History Tobacco Use Types Packs/Day Years Used Date Smoking Tobacco: Never Assessed Education Answer Date Recorded Are you interested in more education? Not on nichelle e 12/25/2023 Are you concerned about learning? Not on file 12/25/2023 No 12/25/2023 No 12/25/2023 Digital Access Answer Date Recorded No 12/25/2023 No 12/25/2023 Reliable internet access at home? Not on file 12/25/2023 Device with a working camera? Not on file Comments Unknown Sex and Gender Information Value Date Recorded Sex Assigned at Not on file Legal Sex Female 1:23 PM EDT Gender Identity Not on file Sexual Orientation Not on file Plan of Treatment Not on file Medical Devices Not on file Insurance [facility] MEDICARE REPLACEMENT [place] [id number] MEDICARE REPLACEMENT MEDICARE REPLACEMENT MEDICARE [place] [address] [place] [address] MEDICARE REPLACEMENT [facility] MEDICARE REPLACEMENT Additional Source Comments The information contained in this document represents components of the legal health record. It is not the complete legal health record.[facility]
--- OUTSIDE RECORDS SUMMARY | 2024-11-16 13:30 | XMS_ITS | Encounter Summary ---
Author Organization [employer] Address [address] [facility] 7t [place] [address] Care Team Providers Care Tableau Report Developer Name Role Phone Socorro Rivas MD Primary Care Provider [phone] Reason for Visit * Reason Comments Med Refill Encounter Details Date Type Department Care Team ([facility] st Contact Info) Description 11/11/2024 Refill [facility] MED & PEDS [address] [place], [place] [id number] Socorro Rivas MD [address] [place] [address] Social History Tobacco Use Types Packs/Day Years [...] housing situation today? I have kaitlynn owens 09/07/[address] you li ve. Do you have problems with any of the following? None of the above 09/07/2024 Food Insecurity Answer Date Recorded Within the past 12 months, y ou worried that your food would run out before you got money to buy more: Never True 09/07/2024 Within the past 12 months,th e food you bought just didn't last and you didn't have enough money to get more: Never True 05/2024 Transportation Answer Date Recorded In the past 12 months, has l ack of transportation kept you from medical appts, meetings, work or from getting things needed for daily living? No 09/07/2024 Utilities Answer Date Recorded In the past 12 months, has t he electric, gas, oil or water company threatened to shut off services in your home? No 09/07/2024 Depression Answer Date Recorded Patient Health Questionnaire-2 Score 1 01/10/2023 Internet Access Answer Date Recorded Internet Access Q1 Yes 09/07/2024 Internet Access Q2 Not on file 09/07/2024 Comments Unknown Sex and Gender Information Value [...] documented as of this encounter Care Teams Tableau Report Developer Relationship Specialty Start Date End Date Socorro Rivas MD [address] [place] [address] PCP - General Family Medicine 12/02/[address] [address] 04/08/23 León Walker MD,PhD Spine Surgery 02/13/24 Tay Sims MD Nephrology 02/13/24 Antonio Yan MD Pain Medicine 02/13/24 Marlin Arambula PA-C Bariatrics 02/13/[address] [address] 03/09/24 documented as of this encounter
--- OUTSIDE RECORDS SUMMARY | 2024-11-16 13:30 | XMS_ITS | Clinical Summary ---
Author Organization [facility] Address [address] [place] [address] Care Team Providers Care Paleobotanist Name Role Phone Steve Patton MD Primary Care Provider [phone] Allergies No known active allergies Medications cholecalciferol [...] syphilis 01/07/2012 11/19/2022 Overview (11/19/2022): Tx in [place] ([place]), baseline RPR 1:8. 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
== END 2024-11-16 13:37 | disposition home or self-care (01) ==
LOC: HO.HKA 13:21
PROVIDERS: PCP Family Medicine; Visit Provider Internal Medicine Hypertension Specialist
DX: I10 Essential (primary) hypertension (principal)
CPT/HCPCS: 99214

== ENCOUNTER → 2024-11-16 13:21 | Outpatient (BNVA) | payer OTHER, SELFPAY | PROVIDERS: PCP Family Medicine; Visit Provider Internal Medicine Hypertension Specialist | DX: I10 Essential (primary) hypertension (principal); E66.01 Morbid (severe) obesity due to excess calories | CPT/HCPCS: 99212 ==

== ENCOUNTER 2024-11-17 16:27 | Outpatient (AMB) | payer OTHER, SELFPAY ==
--- NOTE | 2024-11-17 16:28 | HO.NEPHOV_ITS ---
Vital Signs 11/17/24 16:37 BP 140/70 H Blood Pressure Location Lt brachial Position Sitting Intake Visit Reasons: Tomorrow 11/17/2024 Grainer Machine Required: No Grainer Machine Services: Grainer Machine Offered & Declined (Daughter will translate) Accompanied by: Daughter Allergies No Known Allergies (No Known Allergies*) Allergy (Verified 11/17/24 16:30) HPI Comments Details: Augustus is a pleasant 68-year-old man with a history of obesity and resistant hypertension. She has been referred for evaluation hypertension. She is on multiple antihypertensive medications blood pressure is still suboptimal. Recently she underwent back surgery. She lost some weight and subsequently gained some back. She was accompanied by her family. They helped with translation. 03/02/24; Claims BP was normal at home 11/16/24 Home BP is elevated She does not remember any of her medications. Upon further inquiry with the help of steam pan sponger I believe that she is not taking her medications as prescribed. She is due for surgery on November 18. 11/17/24: Accompanied by daughter. Feel Panfilo All meds reviewed [facility] Medical History (Updated 11/04/24 @ 12:50 by Josey Mcgregor, WYATT) Wears dentures Hx of cancer of uterus OAB (overactive bladder) Weakness of both arms OMA (obstructive sleep apnea) GERD (gastroesophageal reflux disease) History of headache Sleep apnea Insomnia Back pain Morbid obesity Anemia HTN (hypertension) Surgical History History of back surgery (~12/2023) History of cholecystectomy Hx of bariatric surgery (~2015) Hx of total hysterectomy H/O colonoscopy Hx of hand surgery Hx of knee surgery Family History Father No problems noted. Mother CVD (cardiovascular disease) Social History Household Members: None Housing: Apartment Housing Other:: second floor. uses elevator Are you a primary patient centered care specialist to a significant other at home: No Do you presently have visiting nurse or other home services: Yes (1 hour per day OUTSIDE SALESPERSON) Alcohol intake: never Patient Tobacco Use Status: Former Tobacco user Tobacco use type: Cigarette service: No Current occupational status: disabled Current occupation: rt handed Physical Exam Const General: comfortable Nutritional Appearance: well nourished Orientation/consciousness: patient oriented x3 HEENT Head: No normal to inspection Mouth: moist mucous membranes Neck Neck: Yes supple and Yes no JVD Resp Auscultation: clear to auscultation bilaterally and no rales Cardio Jugular venous distension: no JVD Palpation: no palpable S3 and no palpable S4 Heart sounds: no rubs GI Palpation (GI): Soft to palpation and nontender Percussion: No Fluid wave present General: Yes no CVA tenderness Back/Spine/Pelvis Back: no CVA tenderness Skin General skin exam: no rashes or lesions noted Neuro General: patient oriented x3 Extrem General: Yes no pedal edema and No clubbing Results Reviewed Nephrology Results: Hgb, (12.0-16.0) 11.3 g/dl L 11/04/24 WBC, (4.8-10.8) 9.3 X10*3/uL 11/04/24 Plt Count, (160-400) 288 X10*3/uL Δ 11/04/24 Sodium, (135-145) 143 mmol/L 11/04/24 Potassium, (3.3-5.1) 4.1 mmol/L 11/04/24 Chloride, (96-108) 107 mmol/L 11/04/24 Carbon Dioxide, (22-29) 28 mmol/L 11/04/24 BUN, (9-16) 15 mg/dL 11/04/24 Creatinine, (0.5-1.4) 0.68 mg/dL 11/04/24 Calcium, (8.4-10.2) 9.2 mg/dL 11/04/24 Assessment & Plan Assessment & Plan (1) HTN (hypertension): Code(s): I10 - Essential (primary) hypertension Category: Medical Plan 68-year-old woman with obesity and resistant hypertension. Obesity is probably playing a critical role in causing resistant hypertension. Given the history of morbid obesity underlying obstructive sleep apnea should be considered as well. Encouraged her to stay on low-sodium diet. Renal function stable at baseline. BP is acceptable Goal is to maintain systolic blood pressure less than 140 mm Hg. We discussed importance of weight loss. 11/17/2024. Hypertension. Blood pressure is acceptable Can administer additional dose of Clonidine PRN if SBP > 160 mmHG No change in medications today No absolute contraindication for surgery from a renal stand point Will arrange follow up post surgery Coding Level of Care Code Est Pt Level 3 (56840) Diagnoses HTN (hypertension) I10
[2024-11-17 16:37] VITALS: BP 140/70
--- OUTSIDE RECORDS SUMMARY | 2024-11-17 16:37 | XMS_ITS | Clinical Summary ---
Author Organization [facility] Facility Address [address] [place] [address] Care Team Providers Care Termite Exterminator Name Role Phone Steve Patton MD Primary Care Provider [phone] Allergies No known active allergies Medications cholecalciferol [...] syphilis 01/07/2012 11/19/2022 Overview (11/19/2022): Tx in [place] ([place]), baseline RPR 1:8. 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
--- OUTSIDE RECORDS SUMMARY | 2024-11-17 16:38 | XMS_ITS | Clinical Summary ---
Author Organization [facility] Address [address] [address] Phone Care Team Providers Care Ultrasound Technologist Name Role Phone Unavailable Primary Care Provider [...] file Medical Devices Not on file Insurance [facility] MEDICARE REPLACEMENT [employer] [id number] MEDICARE REPLACEMENT MEDICARE REPLACEMENT MEDICARE [place] [address] [place] [address] MEDICARE REPLACEMENT [facility] MEDICARE REPLACEMENT Additional Source Comments The information contained in this document represents components of the legal health record. It is not the complete legal health record.[facility]
== END 2024-11-17 16:41 | disposition home or self-care (01) ==
LOC: HO.HKA 16:27
PROVIDERS: PCP Family Medicine; Visit Provider Internal Medicine Hypertension Specialist
DX: I10 Essential (primary) hypertension (principal)
CPT/HCPCS: 99213

== ENCOUNTER → 2024-11-17 16:27 | Outpatient (BNVA) | payer OTHER, SELFPAY | PROVIDERS: PCP Family Medicine; Visit Provider Internal Medicine Hypertension Specialist | DX: I10 Essential (primary) hypertension (principal); E66.9 Obesity, unspecified | CPT/HCPCS: 99212 ==

== ENCOUNTER 2024-11-18 08:32 | Day surgery (SDC) | payer OTHER, SELFPAY ==
--- OUTSIDE RECORDS SUMMARY | 2024-10-20 15:44 | XMS_ITS | Encounter Summary ---
Author Organization [employer] Address [address] [facility] 7[address] [place] [address] Care Team Providers Care Llama Farmer Name Role Phone Socorro Rivas MD Primary Care Provider [phone] Encounter Details Date Type Department Care Team ([facility] st Contact Info) Description 03/12/2022 Orders Only [facility] MEDICINE [address] [place] [address] Darleen Humphreys PharmD [address] [place] [address] Social History Tobacco Use Types Packs/Day Years [...] Vitamin D 25-OH Total 39.6 >30 ng/mL [facility] Comment:Health Based Referen ce Values*< 20 ng/mL Yzqhexnbi99-14 ng/mL Insufficient> 30 ng/mL Sufficient*Ancelmo CARUSO. N [...] MD LAB BLOOD ORDERABLES Final Re sult [facility] [address] [place] [phone] documented in this encounter Visit Diagnoses Not on filedocumented in this encounter Care Teams Llama Farmer Relationship Specialty Start Date End Date Socorro Rivas MD [address] [place] [phone] PCP - General Family Medicine 12/02/[address] [address] 04/08/23 León Walker MD,PhD Spine Surgery 02/13/24 Tay Sims MD Nephrology 02/13/24 Antonio Yan MD Pain Medicine 02/13/24 Marlin NASCIMENTO-Gurpreet Bariatrics 02/13/[address] [address] 03/09/24 documented as of this encounter
--- OUTSIDE RECORDS SUMMARY | 2024-10-20 15:44 | XMS_ITS | Clinical Summary ---
Author Organization [facility] Address [address] [place] [address] Care Team Providers Care Assembler Molded Frames Name Role Phone Steve Patton MD Primary Care Provider [phone] Allergies No known active allergies Medications cholecalciferol [...] syphilis 01/07/2012 11/19/2022 Overview (11/19/2022): [place] ([place]), baseline RPR 1:8. Debility 10/30/2011 11/19/2022 Overview (11/19/2022): PT-1, [employer], needs help with ADL/IADLs, walks with walker [...] to complete this topic Insurance Care Teams Assembler Molded Frames Relationship Specialty Start Date End Date Steve Patton MD PCP - General Nephrology 05/01/21
--- NOTE | 2024-11-04 | ECG_ITS ---
Test Reason : preop Blood Pressure : */* mmHG Vent. Rate : 73 BPM Atrial Rate : 73 BPM P-R Int : 128 ms QRS Dur : 70 ms QT Int : 376 ms P-R-T Axes : 13 18 4 degrees QTcB Int : 414 ms Normal sinus rhythm Normal ECG When compared with ECG of 24-Dec-2023 19:46, Vent. rate has decreased by 51 bpm T wave inversion no longer evident in Lateral leads Referred By: Alyssa Briones Electronically Signed By: NAY LAGUNAS MD
[2024-11-04 12:15] VITALS: BP 195/83; PULSE 72; RESP 16; O2SAT 99; BMI 51.8
--- NOTE | 2024-11-04 12:49 | HO.ANESPROP2 ---
Documented by User: Alyssa Briones NP 11/17/24 08:47 HPI - Anesthesia Eval Consult details Narrative: 69yo F for Left L4-5 Decompression and L4 Foraminotomy, 11/18/24 s/p TLIF 12/2023 with GA- , no anesthesia issues per patient - had episode of chest pain during admit. Consult with cardiology with negative trops, nml echo - likely anxiety related as chest pain present for many years No recent illness No CP/SOB with minimal activity, able to do housework OMA: No CPAP d/t equipment malfunction. Obtaining new machine at the end of the month. Encouraged use with all sleep during preop period GERD: diet controlled BMI: 52 HTN: BP elevated at PAT - multiple meds. Follows [facility] for htn. Pt does not check POC at home. Next appt scheduled for December. Pt takes all meds as prescribed and follows low salt diet 11/12/24 Per recommendation of Bricklayer'S Assistant, pt in for repeat BP's. Right 152/82 and Left 193/84. Advised patient to log BP's at home and bring DOS. 11/16/24 Office eval with [facility]. Thought elevated BP d/t med noncompliance. Med teaching planned for 11/17/24. Creat at baseline. Case reviewed with [facility] Active Problems Active Problems: All Active Problems Left lumbar radiculopathy (Acute) S/P spinal fusion (Acute) Spondylosis of lumbar region without myelopathy or radiculopathy (Acute) S/P gastric bypass (Acute) Spondylosis of lumbar spine (Acute) Spondylolisthesis (Acute) Spinal stenosis (Acute) Trigger finger of right thumb (Acute) Morbid obesity (Acute) HTN (hypertension) (Acute) Past Medical History Medical History Wears dentures Hx of cancer of uterus OAB (overactive bladder) Weakness of both arms OMA (obstructive sleep apnea) GERD (gastroesophageal reflux disease) History of headache Sleep apnea Insomnia Back pain Morbid obesity Anemia HTN (hypertension) Family History Family History Father No problems noted. Mother CVD (cardiovascular disease) Family history of problems with anesthesia: No Surgical History Surgical History History of back surgery (~12/2023) History of cholecystectomy Hx of bariatric surgery (~2015) Hx of total hysterectomy H/O colonoscopy Hx of hand surgery Hx of knee surgery History of Problems with Anesthesia: No Social History Social History Household Members: None Housing: Apartment Housing Other:: second floor. uses elevator Are you a primary care provider to a significant other at home: No Do you presently have visiting nurse or other home services: Yes (1 hour per day HOME MORTGAGE DISCLOSURE ACT SPECIALIST) Alcohol intake: never Patient Tobacco Use Status: Former Tobacco user Tobacco use type: Cigarette Smoked in Last 30 Days: No Use of substances other than those prescribed or required for medical reasons: No Have you been hit, kicked, punched, or otherwise hurt by someone within the past year? If so, by whom?: No Are you DNR?: No Advance Directives: No Advance Directives Information Provided: Yes Advance Directives on File: No service: No Current occupational status: disabled Current occupation: rt handed [employer] Allergies Allergy/AdvReac Type Severity Reaction Status Date / Time No Known Allergies (No Known Allergy Verified 11/18/24 08:57 Allergies*) Home Medications ?Medication ?Instructions ?Recorded ?Confirmed ?Last Taken ?Type amlodipine 10 mg tablet 10 mg PO DAILY 01/30/21 11/18/24 11/18/24 History chlorthalidone 25 mg tablet 25 mg PO DAILY 01/30/21 11/16/24 12/23/23 History cholecalciferol (vitamin D3) 50 50 mcg PO DAILY 01/30/21 11/16/24 12/23/23 History mcg (2,000 unit) capsule losartan 100 mg tablet 100 mg PO DAILY 01/30/21 11/16/24 12/23/23 History amitriptyline 50 mg tablet 50 mg PO BEDTIME 12/13/23 11/16/24 12/23/23 History cetirizine 10 mg tablet 10 mg PO DAILY 12/13/23 11/16/24 12/23/23 History clonidine HCl 0.1 mg tablet 0.1 mg PO BEDTIME 12/13/23 11/16/24 12/23/23 History spironolactone 50 mg tablet 50 mg PO DAILY 03/02/24 11/16/24 Unknown History pregabalin 100 mg capsule 100 mg PO BID 11/16/24 11/16/24 Unknown History baclofen 10 mg tablet 10 mg PO TID 11/17/24 Unknown History mirabegron 25 mg tablet,extended 25 mg PO DAILY Overactive Bladder 11/17/24 Unknown History release 24 hr (Myrbetriq) Exam Height,Weight and Vital Signs: Height 5 ft Weight 120.3 kg Last Vital Signs Pulse 72 11/04/24 12:15 Resp 16 11/04/24 12:15 BP 195/83 H 11/04/24 12:15 Pulse Ox 99 11/04/24 12:15 O2 Del Method Room Air 11/04/24 12:15 Pertinent Lab Results Pertinent Lab Results: Lab Results 11/04/24 Range/Units 13:16 WBC 9.3 (4.8-10.8) X10*3/uL RBC 5.02 (4.20-5.50) X10*6/uL Hgb 11.3 L (12.0-16.0) g/dl Hct 37.8 (37.0-47.0) % MCV 75.3 L (80.0-98.0) fL MCH 22.5 L (27.0-33.0) pg MCHC 29.9 L (31.0-35.0) g/dl RDW 19.1 H (11.0-16.0) % Plt Count 288 D (160-400) X10*3/uL MPV 9.0 L (9.4-12.3) fL Absolute Nucleated RBC 0.000 (0.0-0.012) X10*3/uL Nucleated RBC % (auto) 0.0 (0.0-0.2) /100WBC Sodium 143 (135-145) mmol/L Potassium 4.1 (3.3-5.1) mmol/L Chloride 107 (96-108) mmol/L Carbon Dioxide 28 (22-29) mmol/L Anion Gap 12 (12-20) BUN 15 (9-16) mg/dL Creatinine 0.68 (0.5-1.4) mg/dL Estim Creat Clear Calc 94.3 Estimated GFR > 60 Random Glucose 91 (60-115) mg/dL Calcium 9.2 (8.4-10.2) mg/dL Narrative Narrative: EKG 10/2024 Vent. Rate : 73 BPM Atrial Rate : 73 BPM P-R Int : 128 ms QRS Dur : 70 ms QT Int : 376 ms P-R-T Axes : 13 18 4 degrees QTcB Int : 414 ms Normal sinus rhythm Normal ECG When compared with ECG of 24-Dec-2023 19:46, Vent. rate has decreased by 51 bpm T wave inversion no longer evident in Lateral leads ECHO 2023 Conclusions: - 1. Technically limited study 2. Normal LV ejection fraction of 65-70% with mild LVH with impaired relaxation filling pattern with no regional wall motion abnormality noted after definity injection 3. Cardiac valvular Dopplers within normal limits 4. Normal measured RV systolic pressure Airway Mallampati Class: III TM Dist: >3cm Neck ROM: Full Denture: Upper and Lower Heart: RRR Lungs: CTAB Assessment and Plan Assessment Anesthesia Assessment: Anesthesia Plan Discussed and PAT Visit Final Anesthetic Review Family History of Problems with Anesthesia: No History of Problems with Anesthesia: No Documented by User: Eder Sotelo MD 11/18/24 09:13 [facility] Past Medical History Medical History Wears dentures Hx of cancer of uterus OAB (overactive bladder) Weakness of both arms OMA (obstructive sleep apnea) GERD (gastroesophageal reflux disease) History of headache Sleep apnea Insomnia Back pain Morbid obesity Anemia HTN (hypertension) Family History Family History Father No problems noted. Mother CVD (cardiovascular disease) Surgical History Surgical History History of back surgery (~12/2023) History of cholecystectomy Hx of bariatric surgery (~2015) Hx of total hysterectomy H/O colonoscopy Hx of hand surgery Hx of knee surgery Social History Social History Household Members: None Housing: Apartment Housing Other:: second floor. uses elevator Are you a primary care provider to a significant other at home: No Do you presently have visiting nurse or other home services: Yes (1 hour per day HOME MORTGAGE DISCLOSURE ACT SPECIALIST) Alcohol intake: never Patient Tobacco Use Status: Former Tobacco user Tobacco use type: Cigarette Smoked in Last 30 Days: No Use of substances other than those prescribed or required for medical reasons: No Have you been hit, kicked, punched, or otherwise hurt by someone within the past year? If so, by whom?: No Are you DNR?: No Advance Directives: No Advance Directives Information Provided: Yes Advance Directives on File: No service: No Current occupational status: disabled Current occupation: rt [employer] Allergies Allergy/AdvReac Type Severity Reaction Status Date / Time No Known Allergies (No Known Allergy Verified 11/18/24 08:57 Allergies*) Home Medications ?Medication ?Instructions ?Recorded ?Confirmed ?Last Taken ?Type amlodipine 10 mg tablet 10 mg PO DAILY 01/30/21 11/18/24 11/18/24 History chlorthalidone 25 mg tablet 25 mg PO DAILY 01/30/21 11/16/24 12/23/23 History cholecalciferol (vitamin D3) 50 50 mcg PO DAILY 01/30/21 11/16/24 12/23/23 History mcg (2,000 unit) capsule losartan 100 mg tablet 100 mg PO DAILY 01/30/21 11/16/24 12/23/23 History amitriptyline 50 mg tablet 50 mg PO BEDTIME 12/13/23 11/16/24 12/23/23 History cetirizine 10 mg tablet 10 mg PO DAILY 12/13/23 11/16/24 12/23/23 History clonidine HCl 0.1 mg tablet 0.1 mg PO BEDTIME 12/13/23 11/16/24 12/23/23 History spironolactone 50 mg tablet 50 mg PO DAILY 03/02/24 11/16/24 Unknown History pregabalin 100 mg capsule 100 mg PO BID 11/16/24 11/16/24 Unknown History baclofen 10 mg tablet 10 mg PO TID 11/17/24 Unknown History mirabegron 25 mg tablet,extended 25 mg PO DAILY Overactive Bladder 11/17/24 Unknown History release 24 hr (Myrbetriq) Assessment and Plan Assessment Anesthesia Assessment: Chart Reviewed Final Anesthetic Review NPO: Yes ASA Class: III Final Preanesthetic Review: No Changes in Pt Med Stat, Meds/Allgs Chart Reviewed, Consent Obtained/Reviewed, Anes Risks/Benef Reviewed and DNR Form (If Appl.) Patient Risk: Intermediate Procedure Risk: Intermediate Anesthetic Plan Anesthetic Plan: GA Disposition: Standard PACU
[2024-11-04 14:12] LABS: Hematocrit 37.8 % (37.0-47.0); Hemoglobin 11.3 g/dl (12.0-16.0); Mean Corpuscular HGB Conc 29.9 g/dl (31.0-35.0); Mean Corpuscular Hemoglobin 22.5 pg (27.0-33.0); Mean Corpuscular Volume 75.3 fL (80.0-98.0); NRBC Abs Auto 0.000 X10*3/uL (0.0-0.012); NRBC Pct Auto 0.0 /100WBC (0.0-0.2); Platelet Count 288 X10*3/uL (160-400); Red Blood Count 5.02 X10*6/uL (4.20-5.50); White Blood Count 9.3 X10*3/uL (4.8-10.8)
[2024-11-04 14:49] LABS: Anion Gap 12 (12-20); Blood Urea Nitrogen 15 mg/dL (9-16); Calcium 9.2 mg/dL (8.4-10.2); Carbon Dioxide 28 mmol/L (22-29); Chloride 107 mmol/L (96-108); Creatinine Clr Calc Pharmacy 94.3; Estimated Glomerular Filt Rate > 60; Potassium 4.1 mmol/L (3.3-5.1); Sodium 143 mmol/L (135-145)
--- NOTE | ~2024-11-18 | FL_ITS ---
EXAMINATION: FL GUIDANCE ONLY HISTORY: L4-5 DECOMPRESSION COMPARISON: Correlation is made with plain films of the lumbar spine dated 02/06/2024. TECHNIQUE: Fluoroscopy time: 5 seconds. Cumulative Dose: 4.5641 mGy. DAP: 1.9853 mGym2 Images: 1. FINDINGS: A fluoroscopic spot film of the lumbar spine in the lateral projection demonstrates a probe directed toward the L4 vertebral body from a posterior approach. FL/FL guidance in OR IMPRESSION: Fluoroscopy during procedure. Please see procedure report for additional information. Electronically signed by: Usama Menjivar MD 11/18/2024 12:30 PM EDT
--- NOTE | 2024-11-18 07:00 | MHC.SHP ---
Pre-Procedural Eval Section A - 24 Hr Update-Section A only Date of Service: 11/18/24 Section B - Complete if H&P > 30 days Chief Complaint: Radiculopathy, lumbar region Allergies: Allergies Allergy/AdvReac Type Severity Reaction Status Date / Time No Known Allergies (No Known Allergy Verified 11/17/24 16:30 Allergies*) Review of Systems Sugical H&P ROS: Negative: Constitution, Cardiovascular, Respiratory, Neurological, Psychiatric, Hem-Onc, Allergic/Immunologic, Gastrointestinal, Genitourinary, Musculoskeletal, Integumentary, Endocrine and Eyes/Ears/Nose/Throat Exam Surgical H&P Exam: Not Evaluated: HEENT, Not Evaluated: Heart, Not Evaluated: Lungs, Not Evaluated: Extremities, Not Evaluated: Abdomen, Not Evaluated: Skin and Not Evaluated: Neurological Exam Comment: THE PATIENT IS AWAKE, ALERT, NO ACUTE DISTRESS. PROPOSED SURGICAL INCISION SITE IS CLEAN, DRY, WITH NO SIGNS OF RECENT TRAUMA. Plan Diagnosis/Plan: Unchanged I have reviewed the history and physical and performed a pertinent physical examination on my patient. No changes have occurred unless specified. Plan remains the same, left L4-5 lumbar decompression with L4 foraminotomy. Time Spent With Patient Time: Total time managing care of this patient today _6___ minutes.
[2024-11-18 08:58] VITALS: BP 140/93; PULSE 73; RESP 14; TEMP 36.6; O2SAT 96
[2024-11-18] MEDS: Lactated Ringers 1,000 ML 100 ML IVCONT (09:01)
[2024-11-18 09:03] VITALS: BMI 50.8
--- NOTE | 2024-11-18 11:33 | P.OP_ITS ---
Operative Note Operative Note Date of Service: 11/18/24 Narrative: Preoperative Diagnosis: L4-5 spinal stenosis/lateral recess stenosis/neural foraminal stenosis Operation: Left L5 Laminotomy, Partial facetectomy and L4 foraminotomy with use of microscope Consent Informed Consent was obtained for this operation. I have explained the nature, purpose and benefits of the operation. I have discussed the risks and benefit of the operation including possible complications or adverse events with patient/family. Alternative(s) were discussed with the patient with their relative benefits and risks as well as the consequences of not accepting the operation were included in obtaining consent. Surgeon: MELONY MO MD, PHD Procedure Assisted By: AZAM Hanna Description of Procedure This patient underwent an L4-S1 lumbar fusion in the past. She continues to complain of left leg tingling and electricity. Repeat MRI shows left L4-5 lateral recess stenosis possible L4 foraminal stenosis. The patient was offered a decompression. The procedure complications were explained. The patient was consented. The patient was brought to the operating room and endotracheally intubated. The patient was turned in prone position on the Vu frame. Prep and drape was done followed by timeout. The Physician residential living assistant provided access. A mid lumbar incision was made followed by release of the paravertebral muscle on the left side to expose the L4-5 lamina, facet joints and previous placed L4 and pedicle screws. An intraoperative x-ray was obtained to confirm the correct level. The microscope was brought in. I took over the procedure. The high-speed drill was used to do a left L4-5 laminotomy until flavum ligament was reached. A #2 Kerrison was used to expand the laminotomy near flush to the pedicles and to include a partial facetectomy. The flavum ligament was opened and resected with a #3 Kerrison to decompress the underlying thecal sac. The flavum ligament was removed to decompress the lateral recess and the exiting L5 nerve root. A long nerve hook could be easily passed along the medial side of the pedicle as a sign of adequate decompression. Then L4-5 expanded. The medial wall of superior wall of L5 and inferior wall of the L4 pedicle were identified and with a 2. Kerrison a L4 foraminotomy was performed. A long nerve hook could be easily passed intraforaminally without resistance The microscope was removed. Hemostasis was done. The physician residential living assistant close the Incision in 2 layers. Steri-Strips were used to approximate incision. An OpSite with Tegaderm was used to cover the incision. All sponge needle counts were correct. Patient was extu bated and transported in stable is to recovery room. Anesthesia: General Estimated Blood Loss (ml): 35 Complications: None Duration of Surgery: Under 60 Minutes Postoperative Plan: Discharge to home
--- NOTE | 2024-11-18 11:45 | P.DS_ITS ---
DS: Providers Provider Date of Service: 11/18/24 Date of discharge: 11/18/24 Primary care physician: Socorro Rivas MD DS: Summary Time Attestation Discharge Coordination Time (in mins): 15 Quality: Safe Use of Opioids Does Pt have an Active Cancer Diagnosis on the Problem List?: No Quality: Stroke Does the patient have a stroke diagnosis?: No Physical Exam Vital Signs: Vital Signs: Last Vital Signs Temp 97.9 F 11/18/24 08:58 Pulse 73 11/18/24 08:58 Resp 14 11/18/24 08:58 BP 140/93 H 11/18/24 08:58 Pulse Ox 96 11/18/24 08:58 O2 Del Method Room Air 11/18/24 08:58 BMI result Body Mass Index 50.8 DS: Data Data Completed and Pending Completed studies during hospitalization [Text1]: Procedures Excision of Lumbar Vertebral Disc, Open Approach (12/24/23) Fusion of Lumbar Vertebral Joint with Interbody Fusion Device, Anterior Approach, Anterior Column, Open Approach (12/24/23) Fusion of Lumbosacral Joint with Interbody Fusion Device, Anterior Approach, Anterior Column, Open Approach (12/24/23) Insertion of Interspinous Process Spinal Stabilization Device into Lumbar Vertebral Joint, Open Approach (12/24/23) Insertion of Interspinous Process Spinal Stabilization Device into Lumbosacral Joint, Open Approach (12/24/23) Monitoring of Peripheral Nervous Electrical Activity, Intraoperative, External Approach (12/24/23) Discharge Plan Discharge Patient Disposition: Home, Self-Care Referrals: Socorro Rivas MD [Primary Care Provider, Medical] - 1 Week Discharge Medications: New oxycodone 5 mg tablet 5 mg PO Q6H PRN (Reason: pain) Qty: 30 0RF Rx Instructions: Partial Fill upon patient request. Continued cetirizine 10 mg tablet 10 mg PO DAILY amitriptyline 50 mg tablet 50 mg PO BEDTIME clonidine HCl 0.1 mg tablet 0.1 mg PO BEDTIME mirabegron [Myrbetriq] 25 mg tablet extended release 24 hr 25 mg PO DAILY cholecalciferol (vitamin D3) 50 mcg (2,000 unit) capsule 50 mcg PO DAILY losartan 100 mg tablet 100 mg PO DAILY amlodipine 10 mg tablet 10 mg PO DAILY chlorthalidone 25 mg tablet 25 mg PO DAILY spironolactone 50 mg tablet 50 mg PO DAILY pregabalin 100 mg capsule 100 mg PO BID baclofen 10 mg tablet 10 mg PO TID Discharge Orders: Discharge Order (Routine); Ordered 11/18/24 Ordered By: Bryson Arita Diet: Advance to usual diet Activity on Discharge: As tolerated Activity Restrictions/Additional Instructions: After your spinal surgery we ask you to observe the following restrictions/guidelines: Activity: It is normal to feel some discomfort as you increase your activity, but that will improve with time. We ask you avoid heavy lifting or acitivities that cause pain. As a general rule, 8lbs is a safe limit for lifting right after surgery. Walk as much as you feel comfortable but not to exhaustion. You will feel extra tired the first few days after surgery. Stay well hydrated. It is OK to walk up and down stairs You may return to driving when you are off narcotics (such as vicodin, oxycodone, dilaudid, etc), and you are back to normal functional capacity. If you have any concerns please check with office before driving. Return to work is specific to each patient and each surgery, so please speak with your doctor/PA at first follow up. Please bring paperwork such as FMLA at that time if you need it filled out. Medications: We recommend you take 1,000mg Tylenol every 8 hours for the first few weeks after surgery, if you do not have any liver issues and can tolerate this medication. Do not exceed 4,000mg daily. We will give you a short supply of narcotics after surgery (usually one weeks worth). If you need more please call the office but do not use more than prescribed. You will need to give our office 48 hours notice if you need narcotics refilled and we do not fill narcotics on weekends or evenings. If you are on a narcotic, it is a good idea to take a stool softener such as colace or senna to avoid constipation If you take blood thinner such as aspirin, Plavix, Coumadin, Effient, Eliquis etc for conditions such as Afib, DVT, Pulmonary embolus, coronary disease, stents etc please speak with your surgeon about specific details as to when you can resume these medications. You can resume NSAIDs on post op day 1 (eg: Motrin, Naproxen, etc). Follow up: Please call the office, , after surgery to arrange a 3 week follow up for wound check. Wound Care: You may remove your dressing on the first day after surgery. ?You may ?leave open to air. Please do not remove the steri strips underneath. they will fall off on their own in one week. IT IS NORMAL FOR THE WOUND TO OOZE OR BE BLOODY FOR A FEW DAYS AFTER SURGERY. ?IF THIS HAPPENS JUST PLACE NEW DRESSING OVER IT TO AVOID STAINING CLOTHES. You may shower on post op day # 1 We ask that you do not let the water soak the wound. If it does get wet, just towel dry lightly. Please do not scrub your incision or place any type of chemical/ointment on the wound. No tub baths, pools or jacuzzis for one month. If you have any leaking or redness from your wound, or fevers, please call the office. Print Language: Icelandic
[2024-11-18 12:02] VITALS: BP 139/68; PULSE 72; RESP 16; TEMP 36.3; O2SAT 100
[2024-11-18 12:07] VITALS: BP 132/74; PULSE 73; RESP 18; O2SAT 100
[2024-11-18 12:12] VITALS: BP 131/71; PULSE 70; RESP 18; O2SAT 98
[2024-11-18 12:17] VITALS: BP 135/68; PULSE 64; RESP 18; O2SAT 98
[2024-11-18 12:35] VITALS: BP 141/66; PULSE 70; RESP 16; TEMP 36.6; O2SAT 97
== END 2024-11-18 13:21 | disposition home or self-care (01) ==
PROVIDERS: Nurse Practitioner; PCP Family Medicine; Visit Provider Neurological Surgery
PROC: (CPT 63047; principal; 2024-11-18 10:50)
DX: M48.062 Spinal stenosis, lumbar region with neurogenic claudication (principal); M54.16 Radiculopathy, lumbar region; R20.0 Anesthesia of skin; Z98.1 Arthrodesis status
CPT/HCPCS: 63047; 36415; 80048; 85027; 93005; J0131; J0690; J1100; J1885; J2003; J2250; J2405; J2704; J3010

== ENCOUNTER → 2024-11-18 08:32 | Outpatient (BNV) | payer OTHER, SELFPAY | PROVIDERS: PCP Family Medicine; Visit Provider Neurological Surgery | DX: M48.062 Spinal stenosis, lumbar region with neurogenic claudication (principal) | CPT/HCPCS: 63047; 99499 ==

== ENCOUNTER → 2024-12-02 10:44 | Outpatient (REF) | payer OTHER, SELFPAY ==
--- OUTSIDE RECORDS SUMMARY | 2024-12-02 11:39 | XMS_ITS | Clinical Summary ---
Author Organization [facility] Address [address] [place] [address] Phone Care Team Providers Care Lead Neurodiagnostic Technologist Name Role Phone Unavailable Primary Care [...] file Medical Devices Not on file Insurance [facility] MEDICARE REPLACEMENT [place] [employer] [id number] MEDICARE REPLACEMENT MEDICARE REPLACEMENT MEDICARE [place] [address] [place] [address] MEDICARE REPLACEMENT [facility] MEDICARE REPLACEMENT Additional Source Comments The information contained in this document represents components of the legal health record. It is not the complete legal health record.[facility]
--- OUTSIDE RECORDS SUMMARY | 2024-12-02 11:39 | XMS_ITS | Encounter Summary ---
Author Organization [employer] Address [address] [facility] 7t [place] [address] Care Team Providers Care Curing Room Supervisor Name Role Phone Socorro Rivas MD Primary Care Provider [phone] Reason for Visit * Reason Comments Med Refill Encounter Details Date Type Department Care Team ([facility] st Contact Info) Description 04/15/2024 Refill [facility] MED & PEDS [address] [place], [place] [phone] Socorro Rivas MD [address] [place] [address] Social History Tobacco Use Types Packs/Day Years [...] documented as of this encounter Care Teams Curing Room Supervisor Relationship Specialty Start Date End Date Socorro Rivas MD [address] [place] [address] PCP - General Family Medicine 12/02/[address] [address] 04/08/23 León Walker MD,PhD Spine Surgery 02/13/24 Tay Sims MD Nephrology 02/13/24 Anotnio Yan MD Pain Medicine 02/13/24 Marlin Arambula PA-C Bariatrics 02/13/[address] [address] 03/09/24 documented as of this encounter
--- OUTSIDE RECORDS SUMMARY | 2024-12-02 11:39 | XMS_ITS | Encounter Summary ---
Author Organization [employer] Address [address] [facility] 7t [place] [address] Care Team Providers Care Lead Athlete Name Role Phone Socorro Rivas MD Primary Care Provider [phone] Reason for Visit * Reason Comments Med Refill Encounter Details Date Type Department Care Team ([facility] st Contact Info) Description 09/05/2023 Refill [facility] CH[facility] MED & PEDS [address] [place], [place] [phone] Socorro Rivas MD [address] [place] [address] Social History Tobacco Use Types Packs/Day Years [...] documented as of this encounter Care Teams Lead Athlete Relationship Specialty Start Date End Date Socorro Rivas MD [address] [place] [address] PCP - General Family Medicine 12/02/[address] [address] 04/08/23 León Walker MD,PhD Spine Surgery 02/13/24 Tay Sims MD Nephrology 02/13/24 Antonio Yan MD Pain Medicine 02/13/24 Marlin Arambula PA-C Bariatrics 02/13/[address] [address] 03/09/24 documented as of this encounter
--- OUTSIDE RECORDS SUMMARY | 2024-12-02 11:39 | XMS_ITS | Encounter Summary ---
Author Organization [employer] Address [address] [facility] 7t [place] [address] Care Team Providers Care Shoemaking Cutter Name Role Phone Socorro Rivas MD Primary Care Provider [phone] Reason for Visit * Reason Comments Med Refill Encounter Details Date Type Department Care Team ([facility] st Contact Info) Description 09/04/2023 Refill [facility] MED & PEDS [address] [place], [place] [phone] Socorro Rivas MD [address] [place] [address] Social History Tobacco Use Types Packs/Day Years [...] documented as of this encounter Care Teams Shoemaking Cutter Relationship Specialty Start Date End Date Socorro Rivas MD [address] [place] [address] PCP - General Family Medicine 12/02/[address] [address] 04/08/23 León Walker MD,PhD Spine Surgery 02/13/24 Tay Sims MD Nephrology 02/13/24 Antonio Yan MD Pain Medicine 02/13/24 Marlin Arambula PA-C Bariatrics 02/13/[address] [address] 03/09/24 documented as of this encounter
--- OUTSIDE RECORDS SUMMARY | 2024-12-02 11:39 | XMS_ITS | Encounter Summary ---
Author Organization [employer] Address [address] [facility] 7t [place] [address] Care Team Providers Care Vinyl Flooring Installer Name Role Phone Socorro Rivas MD Primary Care Provider [phone] Encounter Details Date Type Department Care Team ([facility] st Contact Info) Description 03/12/2022 Orders Only [facility] [address] [place] [address] Darleen Humphreys PharmD [address] [place] [address] Social History Tobacco Use Types Packs/Day Years [...] Vitamin D 25-OH Total 39.6 >30 ng/mL [facility] Comment:Health Based Referen ce Values*< 20 ng/mL [id number] ng/mL Insufficient> 30 ng/mL Sufficient*Ancelmo CARUSO. N [...] MD LAB BLOOD ORDERABLES Final Re sult [facility] [address] [place] [phone] documented in this encounter Visit Diagnoses Not on filedocumented in this encounter Care Teams Vinyl Flooring Installer Relationship Specialty Start Date End Date Socorro Rivas MD [address] [place] [address] PCP - General Family Medicine 12/02/[address] [address] 04/08/23 León Walker MD,PhD Spine Surgery 02/13/24 Tay Sims MD Nephrology 02/13/24 Antonio Yan MD Pain Medicine 02/13/24 Marlin NASCIMENTO-Gurpreet Bariatrics 02/13/[address] [address] 03/09/24 documented as of this encounter
--- OUTSIDE RECORDS SUMMARY | 2024-12-02 11:39 | XMS_ITS | Encounter Summary ---
Author Organization [employer] Address [address] [facility] 7t [place] [address] Care Team Providers Care Alemite Operator Name Role Phone Socorro Rivas MD Primary Care Provider [phone] Reason for Visit * Reason Comments Med Refill Encounter Details Date Type Department Care Team ([facility] st Contact Info) Description 09/06/2023 Refill [facility] MED & PEDS [address] [place], [place] [phone] Socorro Rivas MD [address] [place] [address] Social History Tobacco Use Types Packs/Day Years [...] documented as of this encounter Care Teams Alemite Operator Relationship Specialty Start Date End Date Socorro Rivas MD [address] [place] [address] PCP - General Family Medicine 12/02/[address] [address] 04/08/23 León Walker MD,PhD Spine Surgery 02/13/24 Tay Sims MD Nephrology 02/13/24 Antonio Yan MD Pain Medicine 02/13/24 Marlin Arambula PA-C Bariatrics 02/13/[address] [address] 03/09/24 documented as of this encounter
--- OUTSIDE RECORDS SUMMARY | 2024-12-02 11:39 | XMS_ITS | Encounter Summary ---
Author Organization [employer] Address [address] [facility] 7[address] [place] [address] Care Team Providers Care Medical Device Assembler Name Role Phone Socorro Rivas MD Primary Care Provider [phone] Encounter Details Date Type Department Care Team ([facility] Contact Info) Description 04/17/2022 Telephone [facility] MED & PEDS [address] [place], [place] [phone] Socorro Rivas MD 505 [place] [address] Social History Tobacco Use Types Packs/Day Years [...] on filedocumented in this encounter Care Teams Medical Device Assembler Relationship Specialty Start Date End Date Socorro Rivas MD [address] [place] [address] PCP - General Family Medicine 12/02/[address] [address] 04/08/23 León Walker MD,PhD Spine Surgery 02/13/24 Tay Sims MD Nephrology 02/13/24 Antoino Yan MD Pain Medicine 02/13/24 Marlin Arambula PA-C Bariatrics 02/13/[address] [address] 03/09/24 documented as of this encounter
--- OUTSIDE RECORDS SUMMARY | 2024-12-02 11:39 | XMS_ITS | Clinical Summary ---
Author Organization [facility] Address [address] [place] [address] Care Team Providers Care Director Orange Name Role Phone Steve Patton MD Primary Care Provider [phone] Allergies No known active allergies Medications cholecalciferol [...] syphilis 01/07/2012 11/19/2022 Overview (11/19/2022): [place]x in [place] ([facility]), baseline RPR 1:8. 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
--- OUTSIDE RECORDS SUMMARY | 2024-12-02 11:39 | XMS_ITS | Encounter Summary ---
Author Organization [employer] Address 75 [facility] 7t [place] [address] Care Team Providers Care Hand Ii Thermal Cutter Name Role Phone Socorro Rivas MD Primary Care Provider [phone] Encounter Details Date Type Department Care Team (Late st Contact Info) Description 10/15/2023 Orders Only [facility] CHC MED & PEDS [address] [place], [place] [phone] ProviderVarun MD Social History Tobacco Use Types [...] t he electric, gas, oil or water [employer] threatened to shut off services in your [...] documented as of this encounter Care Teams Hand Ii Thermal Cutter Relationship Specialty Start Date End Date Socorro Rivas MD [address] [place] [address] PCP - General Family Medicine 12/02/[address] [address] 04/08/23 León Walker MD,PhD Spine Surgery 02/13/24 Tay Sims MD Nephrology 02/13/24 Antonio Yan MD Pain Medicine 02/13/24 Marlin NASCIMENTO-C Bariatrics 02/13/[address] [address] 03/09/24 documented as of this encounter
--- OUTSIDE RECORDS SUMMARY | 2024-12-02 11:39 | XMS_ITS | Encounter Summary ---
Author Organization [employer] Address [address] [facility] 7t [place] [address] Care Team Providers Care Machine Biller Name Role Phone Socorro Rivas MD Primary Care Provider [phone] Reason for Visit * Reason Comments Med Refill Encounter Details Date Type Department Care Team ([facility] st Contact Info) Description 01/14/[address] [facility] MED & PEDS [address] [place], [place] [phone] John Yancey MD [address] [place] [address] Social History Tobacco Use Types Packs/Day Years [...] documented as of this encounter Care Teams Machine Biller Relationship Specialty Start Date End Date Socorro Rivas MD [address] [place] [address] PCP - General Family Medicine 12/02/[address] [address] 04/08/23 León Walker MD,PhD Spine Surgery 02/13/24 Tay Sims MD Nephrology 02/13/24 Antonio Yan MD Pain Medicine 02/13/24 Marlin NASCIMENTO-Gurpreet Bariatrics 02/13/[address] [address] 03/09/24 documented as of this encounter
--- OUTSIDE RECORDS SUMMARY | 2024-12-02 11:39 | XMS_ITS | Encounter Summary ---
Author Organization [employer] Address [address] [facility] 7t [place] [address] Care Team Providers Care Railway Signal Electrician Name Role Phone Socorro Rivas MD Primary Care Provider [phone] Reason for Visit * Reason Onset Date Comments Med Refill 03/23/2024 Encounter Details Date Type Department Care Team ([facility] st Contact Info) Description 03/23/2024 Telephone [facility] [address] [place] [address] Socorro Rivas MD [address] [place] [address] Med Refill Social History Tobacco Use Types [...] 1:09 PM EST Medication was sent to [facility] on 12/04/23 #30 with 3 refills. * Telephone Encounter - Garfield Reddy - 03/23/2024 12:19 PM EST TC from pt requesting medication refill. Medications needing refill : cloNIDine (Catapres) 0.1 MG tablet To be sent to: [facility] - [place], [place] - [address] [facility] documented in this encounter Plan of Treatment [...] documented as of this encounter Care Teams Railway Signal Electrician Relationship Specialty Start Date End Date Socorro Rivas MD [address] [facility] [place] [address] PCP - General Family Medicine 12/02/[address] [address] 04/08/23 León Walker MD,PhD Spine Surgery 02/13/24 Tay Sims MD Nephrology 02/13/24 Antonio Yan MD Pain Medicine 02/13/24 Marlin Arambula PA-C Bariatrics 02/13/[address] [address] 03/09/24 documented as of this encounter
--- OUTSIDE RECORDS SUMMARY | 2024-12-02 11:40 | XMS_ITS | Clinical Summary ---
Author Organization [employer] Address [address] [place] [address] Care Team Providers Care Automation Test Engineer Name Role Phone Socorro Rivas MD Primary Care Provider Allergies No known active allergies Medications * This document contains information received from the source organization and may not represent a complete record from that organization. Blood Pressure kit 1 Units in the morning. 1 kit 11/24/19 23 Active thiamine (Vitamin B-1) 50 MG tablet Take 1 tablet by mouth Once daily. 03/13/20 23 Active amitriptyline (Elavil) 50 MG tabletIndication s:Neuropathy TAKE 1 TABLET BY MOUTH AT BEDTIME 90 tablet 3 11/25/19 24 Active spironolactone (Aldactone) 50 MG tabletIndication s:Primary hypertension Take 1 tablet (50 mg) by mouth Once per day. 30 tablet 11 12/12/19 24 025 Active losartan (Cozaar) 100 MG tabletIndication s:Essential (primary) hypertension TAKE 1 TABLET BY MOUTH EVERY MORNING 90 tablet 3 03/17/20 24 Active Myrbetriq 25 MG 24 hr tabletIndication s:Urinary incontinence, unspecified type TAKE 1 TABLET BY MOUTH AT BEDTIME 90 tablet 3 03/17/20 24 Active chlorthalidone (Hygroton) 25 MG tabletIndication s:Essential (primary) hypertension TAKE 1 TABLET BY MOUTH EVERY MORNING 90 tablet 3 03/17/20 24 Active amLODIPine (Norvasc) 10 MG tabletIndication s:Essential (primary) hypertension TAKE 1 TABLET BY MOUTH EVERY MORNING 90 tablet 3 03/17/20 24 Active hydrALAZINE (Apresoline) 100 MG tabletIndication s:Hypertension, unspecified type TAKE 1 TABLET BY MOUTH THREE TIMES DAILY IN THE MORNING, EVENING, AND BEDTIME 90 tablet 05/28/19 25 Active cetirizine (ZyrTEC) 10 MG tablet TAKE 1 TABLET BY MOUTH EVERY MORNING 90 tablet 1 07/29/19 25 Active pregabalin (Lyrica) 100 MG capsuleIndicatio ns:Periodic limb movement disorder,Chronic low back pain with sciatica, sciatica laterality unspecified, unspecified back pain laterality Take 1 capsule (100 mg) by mouth 2 times daily. 60 capsule 2 09/17/19 25 Active cloNIDine (Catapres) 0.1 MG tablet Take 1 tablet (0.1 mg) by mouth at bedtime. 30 tablet 3 09/17/19 25 Active cholecalciferol (D3 Super Strength) 50 MCG (2000 UT) capsule Take 1 capsule (50 mcg) by mouth in the morning. 120 capsule 4 10/21/19 25 Active baclofen (Lioresal) 10 MG tablet TAKE 1 TABLET BY MOUTH THREE TIMES DAILY 90 tablet 1 11/12/19 25 Active zolpidem (Ambien) 5 MG tablet TAKE 1 TABLET BY MOUTH AT BEDTIME NEEDED for SLEEP 28 tablet 11/19/19 25 Active zolpidem (Ambien) 5 MG tablet TAKE 1 TABLET BY MOUTH AT BEDTIME NEEDED FOR SLEEP 28 tablet 1 07/03/19 25 025 Discontinued baclofen (Lioresal) 10 MG tablet Take 1 tablet (10 mg) by mouth 3 times daily. 90 tablet 1 09/17/19 25 025 Discontinued Active Problems Problem Noted Date Diagnosed Date S/P lumbar laminectomy 11/19/2024 Overview (11/19/2024): Underwent laminectomy of L5 11/18/[address] León Walker Spondylosis of lumbar spine 01/08/2024 S/P gastric bypass 01/08/2024 Near syncope 01/08/2024 Resistant hypertension 09/16/2023 Assessment & Plan (09/21/2024 8:44 AM EDT): Patient reports a 15-year history of hypertension since moving from [place]. Despite current treatment, blood pressure remains persistently elevated. 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 Given the persistent nature of the hypertension despite treatment, further evaluation for secondary causes is warranted. Plan: - Order laboratory tests to investigate causes of resistant hypertension - Order ultrasound to evaluate renal artery - Follow up in 6 weeks to reassess blood pressure control Assessment & Plan (12/10/2023 3:23 PM EDT): [...] Center 08/16/2023 2:00 PM Socorro Rivas MD [facility] 03/19/2024 10:00 AM Brandon MedeirosD [facility] Assessment & Plan (05/29/2023 4:16 PM EST): [...] Center 07/08/2023 9:00 AM Socorro Rivas MD [facility] 03/18/2024 10:00 AM Darleen Humphreys PharmD [facility]IC[facility] Chronic low back pain with sciatica [...] understands symptoms PLAN: 1. Follow up with [facility] [place]: Recommended for follow-up: 01/31 @ 1pm 2. [...] 02/19/2022 Chronic kidney disease, stage 2 (mild) 2 Primary hypertension 02/01/2020 Assessment & Plan (02/17/2024 [...] of syphilis 01/07/2012 Overview (02/19/2022): Tx in [place] ([facility]), baseline RPR 1:8. 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 Recommended to decrease soda and sugary beverage consumption. Recommended at least 20 g per meal of protein to assist with satiety. Recommended at least 150 min/week of moderate intensity exercise. Assessment & Plan (12/24/2022 2:15 PM EDT): Discussed calorie deficit, recommended reduction of 20-30% of maintenance calories; veterinarian referral offered. Recommended to decrease soda and [...] Encounters Date Type Department Care Team Description 11/17/2024 Refill [facility] [address] [place] [address] Tosha Whitmore MD 11/11/2024 Refill [facility] [address] [place] [address] Socorro Rivas MD 11/04/2024 Orders Only GENERIC EXTERNAL DATA DEPARTMENT Provider, Generic External Data 10/19/2024 Refill [facility] [address] [place] [address] Socorro Rivas MD 09/30/2024 Telephone [facility] [address] [place] [phone] Socorro Rivas MD US RENAL ORDER 09/22/2024 Orders Only [facility] External Provider, [facility] 09/21/2024 Telephone [facility] [address] [place] [address] Socorro Rivas MD Durable Medical Equipment 09/16/2024 3:30 PM EDT Office Visit [facility] [address] [place] [address] Socorro Rivas MD Periodic limb movement disorder (Primary Dx); Chronic low back pain with sciatica, sciatica laterality unspecified, unspecified back pain laterality; Resistant hypertension; Sleep apnea, unspecified type; Class 3 severe obesity with serious comorbidity and body mass index (BMI) of 50.0 to 59.9 in adult, unspecified obesity type; Acute right ankle pain 09/16/2024 Travel 09/07/2024 Patient Outreach [facility] [address] [place] [phone] Socorro Rivas MD Pre-visit Planning (SDOH screening negative and Tobacco screening negative) from Last 3 Months Immunizations Immunization Administration Dates Next Due Hep A, Adult [...] Sign Reading Time Taken Comments Blood Pressure 148/86 09/16/2024 3:19 PM EDT Pulse 82 09/16/2024 3:19 PM EDT Temperature 36.2 C (97.2 F) 09/16/2024 3:19 PM EDT Respiratory Rate 18 09/16/2024 3:19 PM EDT Oxygen Saturation 98% 09/16/2024 3:19 PM EDT Inhaled Oxygen Concentration - - Weight 117 kg (257 lb 9.6 oz) 09/16/2024 3:19 PM EDT Height 147.3 cm (4' 10 ) 09/16/2024 3:19 PM EDT Body Mass Index 53.84 09/16/2024 3:19 PM EDT Plan of Treatment Health Maintenance Due Date Last Done Comments CT Colonography 1955 FIT 1955 FOBT 1955 Sigmoidoscopy 1955 Colonoscopy 09/26/2021 09/27/2011 Depression Screening 01/11/2024 01/10/2023, 01/11/20 23 Influenza Vaccine (#1) 2024 , 12/24/2022, 01/23/2022, Additional history exists Diabetes: Hemoglobin A1C 12/11/2024 024, 03/08/2023, 03/22/2020, Additional history exists Alcohol/Substance Use Screening 02/12/2025 02/13/2024 COVID-19 Vaccine ( season) 2025 08/11/2021, 08/11/2021, 02/25/2021, Additional history exists Postponed from 12/08/2023 (Patient Refused) Tobacco Screening 02/12/2025 02/13/2024 SDOH Screening 09/07/2025 09/07/2024 Colorectal Cancer Screening 01/23/2026 FIT DNA/Cologuard 01/23/2026 01/23/2023 Mammogram 02/12/2026 02/13/2024, 1105/2022, 01/05/2022, Additional history exists DTaP/Tdap/Td Vaccines (3 [...] Aged 60 years or older Completed 03/08/2023 HIB Vaccines Aged Out No longer eligi ble based on patient's age to complete this topic HPV Vaccines Aged Out No longer eligi ble based on patient's age to complete this topic Hepatitis C Screening Discontinued IPV Vaccines Aged Out No longer eligi ble based on patient's age to complete this topic Meningococcal B Vaccine Aged Out No l onger eligible based on patient's age to complete [...] Procedure Name Priority Date/Time Associated Diagnosis Comments FL GUIDANCE IN OR Routine 11/18/2024 10: 45 AM EDT BASIC METABOLIC PANEL Routine 11/04/2024 1:16 PM EDT CBC Routine 11/04/2024 1:16 PM EDT MR LUMBAR SPINE W AND WO CONTRAST Routine 09/22/2024 10:20 AM EDT BI MAMMOGRAM SCREENING TOMOSYNTHESIS BILATERAL Routine 02/13/2024 10:35 AM EST LIPID PANEL, STANDARD Routine 02/12/2024 9:05 AM EST Primary hypertension POCT GLYCATED HEMOGLOBIN, TOTAL Routine 12/12/2023 1:34 PM EDT Severe obesity (BMI >= 40) (CMS/HCC) LAB COLOGUARD COLON CANCER SCREEN Routine 01/23/2023 6:17 PM EDT Colon cancer screening HM COLONOSCOPY Routine 09/27/2011 from Last 3 Months or Most Recently Relevant to Health Maintenance Results * FL Guidance in OR (11/18/2024 10:45 AM EDT) Anatomical Region Laterality Modality X-Ray Angiograph y 11/18/2024 10:4 5 AM EDT Narrative 11/18/2024 12:32 PM EDT [address] [address] Fluoroscopy Report Signed Patient: Augustus Rust MR#: [id number] : 1955 Acct:[id number] Age/Sex: 69 / F ADM Date: 11/18/24 Loc: HO[facility] Attending Dr: León Walker MD, PhD Ordering Physician: León Walker MD, PhD Date of Service: 11/18/24 Procedure(s): FL guidance in OR Accession Number(s): [id number] cc: León Walker MD, PhD; Socorro Rivas MD EXAMINATION: FL GUIDANCE ONLY HISTORY: L4-5 DECOMPRESSION COMPARISON: Correlation is made with plain films of the lumbar spine dated 02/06/2024. TECHNIQUE: Fluoroscopy time: 5 seconds. Cumulative Dose: 4.5641 mGy. DAP: 1.9853 mGym2 Images: 1. FINDINGS: A fluoroscopic spot film of the lumbar spine in the lateral projection demonstrates a probe directed toward the L4 vertebral body from a posterior approach. FL/FL guidance in OR IMPRESSION: Fluoroscopy during procedure. Please see procedure report for additional information. Electronically signed by: Usama Menjivar MD 11/18/2024 12:30 PM EDT Dictated By: Usama Menjivar MD Signed By: <Electronically signed by Usama Menjivar MD in OV> 11/18/24 1230 DD/ 1045 TD/TT: 11/18/24 1130 Retail Business Development Manager: Procedure Note Donotuseinterpreter, Image - 11/18/[address] [address] Fluoroscopy Report Signed Patient: Augustus RustMR#: [id number] : 1955cct:[id number] Age/Sex: 69 / FADM Date: 11/18/24 Loc: HO.[facility] Attending Dr: León Walker MD, PhD Ordering Physician: León Walker MD, PhD Date of Service: 11/18/24 Procedure(s): FL guidance in OR Accession Number(s): [id number] cc: León Walker MD, PhD; Socorro Rivas MD EXAMINATION: FL GUIDANCE ONLY HISTORY: L4-5 DECOMPRESSION COMPARISON: Correlation is made with plain films of the lumbar spine dated 02/06/2024. TECHNIQUE: Fluoroscopy time: 5 seconds. Cumulative Dose: 4.5641 mGy. DAP: 1.9853 mGym2 Images: 1. FINDINGS: A fluoroscopic spot film of the lumbar spine in the lateral projection demonstrates a probe directed toward the L4 vertebral body from a posterior approach. FL/FL guidance in OR IMPRESSION: Fluoroscopy during procedure. Please see procedure report for additional information. Electronically signed by: Usama Menjivar MD 11/18/2024 12:30 PM EDT Dictated By: Usama Menjivar MD Signed By: <Electronically signed by Usama Menjivar MD in OV> 11/18/24 1230 DD/ 1045 TD/TT: 11/18/24 1130 Retail Business Development Manager: [facility] External Provider IMG IR PROCEDURES Final Result * (ABNORMAL) CBC (11/04/2024 1:16 PM EDT) White Blood Count 9.3 4.8 - 10.8 X10*3/uL [facility] Red Blood Count 5.02 4.20 - 5.50 X10*6/uL [facility] Hemoglobin 11.3(L) 12.0 - 16.0 g/dl [facility] Hematocrit 37.8 37.0 - 47.0 % [facility] Mean Corpuscular Volume 75.3(L) 80.0 - 98.0 fL [facility] Mean Corpuscular Hemoglobin 22.5(L) 27.0 - 33.0 pg [facility] Mean Corpuscular HGB Conc 29.9(L) 31.0 - 35.0 g/dl [facility] Red Cell Distribution Width 19.1(H) 11.0 - 16.0 % [facility] Platelet Count 288 160 - 400 X10*3/uL [facility] Mean Platelet Volume 9.0(L) 9.4 - 12.3 fL [facility] NRBC Pct Auto 0.0 0.0 - 0.2 /100WBC [facility] NRBC Abs Auto 0.000 0.0 - 0.012 X10*3/uL [facility] 11/04/2024 1:16 PM EDT 11/04/2024 1:16 PM EDT us Generic External Data Provider LAB BLOOD ORDERAB LES Final Result [facility] [address], [place] [phone] * Basic Metabolic Panel (11/04/2024 1:16 PM EDT) Sodium 143 135 - 145 mmol/L [facility] Potassium 4.1 3.3 - 5.1 mmol/L [facility] Chloride 107 96 - 108 mmol/L [facility] Carbon Dioxide 28 22 - 29 mmol/L [facility] Anion Gap 12 12 - 20 [facility] Urea Nitrogen (BUN) 15 9 - 16 mg/dL [facility] Creatinine, Serum 0.68 0.5 - 1.4 mg/dL [facility] Creatinine Clr Calc Pharmacy 94.3 [facility] Comment:Provided height and weight: 152.4 cm,120.3 kg.eGFR (calculated from the MDRD study equation) and eCrCl(calculated from the Cockcroft-Gault equation) are based ondifferent parameters and may not yield comparable results.If eCrCl result is absurd, please check patient'sheight/weight. Estimated Glomerular Filt Rate >60 [facility] Comment:Chronic Kidney Disea se: Estimated GFR < 60 mL/min/1.33j4Chcqac Kidney Disease: Estimated GFR < 15 mL/min/1.73m2 Glucose 91 60 - 115 mg/dL [facility] Calcium 9.2 8.4 - 10.2 mg/dL [facility] 11/04/2024 1:16 PM EDT 11/04/2024 1:16 PM EDT us Generic External Data Provider LAB BLOOD ORDERAB LES Final Result Performing Organization Address City/State/[facility] Co de Phone Number [facility] [address] [place] [address] [phone] * MR Lumbar Spine w/ and w/o Contrast (09/22/2024 10:20 AM EDT) Anatomical Region Laterality Modality Spine, L-spine Magnetic Resonan ce 09/22/2024 10:2 0 AM EDT Narrative 09/22/2024 2:04 PM EDT [place] [address] Magnetic Resonance Report Signed Patient: Augustus Rust MR#: [id number] : 1955 Acct:[id number] Age/Sex: 69 / F ADM Date: 09/22/24 Loc: HO.MRI Attending Dr: León Walker MD, PhD Ordering Physician: León Walker MD, PhD Date of Service: 09/22/24 Procedure(s): MR lumbar spine wo/w con Accession Number(s): [id number] cc: León Walker MD, PhD; Socorro Rivas MD EXAMINATION: MR LUMBAR SPINE WITHOUT AND WITH CONTRAST CLINICAL INFORMATION: 12/27/2023 spinal fusion , low back pain with left leg pain and numbness, incontinence TECHNIQUE: Multiplanar multisequence imaging was performed through the lumbar spine without and with contrast. CONTRAST: 10 mL Gadavist PRIOR: CT from 02/13/2024 FINDINGS: 5 non-rib bearing lumbar segments are present on prior CT. Lesions with increased signal within anterior L2 and posterior superior L3 likely represent vertebral body hemangiomas. Simple renal cysts are present bilaterally in the kidneys. There is moderate fatty atrophy of the paraspinal musculature. There is an intramuscular simple lipoma in the right paraspinal muscles extending from L3-4 to upper S1. The termination of conus medullaris is within normal limits at the level of upper L1. Posterior pedicle screws and rods span between L4-S1. Interbody spaces are also present. T12-L1: Central left paracentral disc protrusion indents thecal sac resulting in mild spinal stenosis. Facet arthropathy contributes to mild bilateral foraminal narrowing. L1-L2: Broad-based disc bulge and moderate facet arthropathy does not result in spinal stenosis. There is mild to moderate right and no left foraminal narrowing. L2-L3: There is no disc bulge or herniation. There is mild facet degeneration. Facet hypertrophy minimally narrows both neural foramen. L3-L4: There is subtle retrolisthesis. There is no disc bulge or herniation. There is mild to moderate facet arthropathy. There is mild bilateral foraminal narrowing. L4-L5: The level is fused. Stable grade 1 anterolisthesis is noted. There is moderate severe facet hypertrophy and ligamentum flavum thickening resulting in mild spinal stenosis and left lateral recess stenosis with with medial displacement of left L5 nerve roots. There is minimal right subarticular zone narrowing. There is moderate right foraminal narrowing. The left neural foramen is obscured by metal artifact. There is at least moderate, possibly severe foraminal narrowing. L5-S1: Broad-based disc bulge does not result in spinal stenosis. There is moderate facet hypertrophy with osteophytes. There is mild to moderate foraminal narrowing, greater on the left. With Contrast: There is mild hyperenhancement of the subcutaneous soft tissues dorsal to the level of surgery. There is physiologic enhancement otherwise. There is no enhancement of the aforementioned simple renal cysts. MR/MR lumbar spine wo/w con IMPRESSION: L4-S1 posterior lumbar interbody fusion with posterior pedicle screws and rods. Interbody spaces are present. L1-L2: There is mild to moderate right foraminal narrowing. L4-L5: There is mild spinal stenosis and left lateral recess stenosis with medial displacement of left L5 nerve roots. There is moderate right foraminal narrowing. The left neural foramen is obscured by metal artifact with at least moderate, possibly severe foraminal narrowing. L5-S1: There is mild to moderate foraminal narrowing, greater on the left. Electronically signed by: Vaughn Silver MD 09/22/2024 02:01 PM EDT RP Dictated By: Vaughn Silver MD Signed By: <Electronically signed by Vaughn Silver MD in OV> 09/22/24 1401 DD/ 1020 TD/TT: 09/22/24 1200 Retail Business Development Manager: Procedure Note Donotuseinterpreter, Image - 09/22/2024 [place] [address] Magnetic Resonance Report Signed Patient: Augustus Rust#: [id number] : 1955cct:[id number] Age/Sex: 69 / FADM Date: 09/22/24 Loc: HO.MRI Attending Dr: León Walker MD, PhD Ordering Physician: León Walker MD, PhD Date of Service: 09/22/24 Procedure(s): MR lumbar spine wo/w con Accession Number(s): [id number] cc: León Walker MD, PhD; Socorro Rivas MD EXAMINATION: MR LUMBAR SPINE WITHOUT AND WITH CONTRAST CLINICAL INFORMATION: 12/27/2023 spinal fusion , low back pain with left leg pain and numbness, incontinence TECHNIQUE: Multiplanar multisequence imaging was performed through the lumbar spine without and with contrast. CONTRAST: 10 mL Gadavist PRIOR: CT from 02/13/2024 FINDINGS: 5 non-rib bearing lumbar segments are present on prior CT. Lesions with increased signal within anterior L2 and posterior superior L3 likely represent vertebral body hemangiomas. Simple renal cysts are present bilaterally in the kidneys. There is moderate fatty atrophy of the paraspinal musculature. There is an intramuscular simple lipoma in the right paraspinal muscles extending from L3-4 to upper S1. The termination of conus medullaris is within normal limits at the level of upper L1. Posterior pedicle screws and rods span between L4-S1. Interbody spaces are also present. T12-L1: Central left paracentral disc protrusion indents thecal sac resulting in mild spinal stenosis. Facet arthropathy contributes to mild bilateral foraminal narrowing. L1-L2: Broad-based disc bulge and moderate facet arthropathy does not result in spinal stenosis. There is mild to moderate right and no left foraminal narrowing. L2-L3: There is no disc bulge or herniation. There is mild facet degeneration. Facet hypertrophy minimally narrows both neural foramen. L3-L4: There is subtle retrolisthesis. There is no disc bulge or herniation. There is mild to moderate facet arthropathy. There is mild bilateral foraminal narrowing. L4-L5: The level is fused. Stable grade 1 anterolisthesis is noted. There is moderate severe facet hypertrophy and ligamentum flavum thickening resulting in mild spinal stenosis and left lateral recess stenosis with with medial displacement of left L5 nerve roots. There is minimal right subarticular zone narrowing. There is moderate right foraminal narrowing. The left neural foramen is obscured by metal artifact. There is at least moderate, possibly severe foraminal narrowing. L5-S1: Broad-based disc bulge does not result in spinal stenosis. There is moderate facet hypertrophy with osteophytes. There is mild to moderate foraminal narrowing, greater on the left. With Contrast: There is mild hyperenhancement of the subcutaneous soft tissues dorsal to the level of surgery. There is physiologic enhancement otherwise. There is no enhancement of the aforementioned simple renal cysts. MR/MR lumbar spine wo/w con IMPRESSION: L4-S1 posterior lumbar interbody fusion with posterior pedicle screws and rods. Interbody spaces are present. L1-L2: There is mild to moderate right foraminal narrowing. L4-L5: There is mild spinal stenosis and left lateral recess stenosis with medial displacement of left L5 nerve roots. There is moderate right foraminal narrowing. The left neural foramen is obscured by metal artifact with at least moderate, possibly severe foraminal narrowing. L5-S1: There is mild to moderate foraminal narrowing, greater on the left. Electronically signed by: Vaughn Silver MD 09/22/2024 02:01 PM EDT Dictated By: Vaughn Silver MD Signed By: <Electronically signed by Vaughn Silver MD in OV> 09/22/24 1401 DD/ 1020 TD/TT: 09/22/24 1200 Retail Business Development Manager: [facility] External Provider IMG MRI PROCEDURES Final Result * BI Mammogram Screening Tomosynthesis Bilateral (02/13/2024 10:35 AM EST) Anatomical Region Laterality Modality Breast Bilateral Mammography 02/13/2024 10:3 5 AM EST Narrative 02/21/2024 4:10 PM EST [address] [address] Mammography Report Signed Patient: Augustus Rust MR#: [id number] : 1955 Acct:[id number] Age/Sex: 68 / F ADM Date: 02/13/24 Loc: HO.CT Attending Dr: Bryson NASCIMENTO Ordering Physician: Socorro Rivas MD Results: 1Nega tive Date of Service: 02/13/24 Follow Up: 1 Year From Orig inal Mammogram Procedure(s): MM tomosynthesis screening BI Accession Number(s): [id number] cc: Socorro Rivas MD EXAMINATION: MM SCREENING [...] Laine Bravo DO 02/21/2024 04:07 PM EST RP Dictated By: Laine Bravo DO Signed By: <Electronically signed by Laine Bravo DO in OV> 02/21/24 1607 DD/ 1035 TD/TT: 02/13/24 1059 Retail Business Development Manager: Procedure Note Donotuseinterpreter, Image - 02/21/[address] [address] Mammography Report Signed Patient: Augustus RustMR#: [id number] : 1955cct:[id number] Age/Sex: 68 / FADM Date: 02/13/24 Loc: HO.CT Attending Dr: Bryson NASCIMENTO Ordering Physician: Socorro Rivas MDResults: 1Nega tive Date of Service: 02/13/24Follow Up: 1 Year From Orig inal Mammogram Procedure(s): MM tomosynthesis screening BI Accession Number(s): [id number] cc: Socorro Rivas MD EXAMINATION: MM SCREENING [...] Laine Bravo DO 02/21/2024 04:07 PM EST RP Dictated By: Laine Bravo DO Signed By: <Electronically signed by Laine Bravo DO in OV> 02/21/24 1607 DD/ 1035 TD/TT: 02/13/24 1059 Retail Business Development Manager: us Socorro Rivas MD IMG BI PROCEDURES Final Resul t * Lipid Panel, Standard (02/12/2024 9:05 AM EST) Triglycerides 104 <150 mg/dL [facility] Comment:Desirable Triglyceri de: less than 150 mg/dLBorderline High Triglyceride 150-199 mg/dLHigh Triglyceride: 200-499 mg/dLVery High Triglyceride: greater than or equal to 5OO mg/dL Cholesterol 156 <200 mg/dL [facility] Comment:Desirable Cholestero l: less than 200 mg/dLBorderline High Cholesterol: 200-239 mg/dLHigh Cholesterol: greater than 239 mg/dL LDL Cholesterol Calculated 85 <100 mg/dL [facility] Comment:Desirable LDL: less than 100 mg/dLNear Optimal/Above Optimal LDL: 110- 129 mg/dLBorderline High LDL: 130-159 mg/dLHigh LDL: 160-189 mg/dLVery High LDL: greater than or equal to 190 mg/dL HDL Cholesterol 51 >40 mg/dL [facility] Comment:Desirable HDL: great er than 40 mg/dL Note: This HDL assay may give artificially low results in patients with liver disease. Blood Venous blood specimen / Unknown 02/12/2024 9:05 AM EST 02/12/2024 9:05 AM EST us Mulugeta Jose MD LAB BLOOD ORDERABLES Final Result [facility] [address] [place] [address] [phone] * POCT HGB A1C (12/12/2023 1:34 PM EDT) Hemoglobin A1C 5.8 4.0 - 6.0 % QC Media Lot # [id number] Lot# Expiration Date ,[id number] Blood 12/12/2023 1:34 PM EDT us Mulugeta Jose MD POINT OF CARE TEST ENTER/ED IT ORDERABLES Final Result * Cologuard?? colon cancer screening (01/23/2023 6:17 PM EDT) Cologuard Result Negative Negative 02/01/20 10:21 AM EDT [facility] (CLIA #:[id number]) Comment: NEGATIVE TEST RESULT. A negative Cologuard result indicates a low likelihood that a colorectal cancer (CRC) or advanced adenoma (adenomatous polyps with more advanced pre-malignant features) is present. The chance that a person with a negative Cologuard test has a colorectal cancer is less than 1 in 1500 (negative predictive value >99.9%) or has an advanced adenoma is less than 5.3% (negative predictive value 94.7%). These data are based on a prospective cross-sectional study of 10,000 individuals at average risk for colorectal cancer who were screened with both Cologuard and colonoscopy. (Zahra Mosquera. et al, N Engl J Med 2014;370(14):9100-9285) The normal value (reference range) for this assay is negative. COLOGUARD RE-SCREENING RECOMMENDATION: Periodic colorectal cancer screening is an important part of preventive healthcare for asymptomatic individuals at average risk for colorectal cancer. Following a negative Cologuard result, the [place] [employer] and U.S. Multi-Society Task Force screening guidelines recommend a Cologuard re-screening interval of 3 years. References: [place] [employer] Guideline for Colorectal Cancer Screening: https://www.cancer.org/cancer/dtzqy-yknjbl-klcwwz/skulaqzan-uipqqwtgs-yytefdx/ac s-rec ommendations.html.; Juan CHRISTIANSON, Nikki BOJORQUEZ, Arden PalaciosK, Colorectal Cancer Screening: Recommendations for Physicians and Patients from the U.S. Multi-Society Task Force on Colorectal Cancer Screening , Am J Gastroenterology 2017; 112:0774-7947. TEST DESCRIPTION: Composite algorithmic analysis of stool DNA-biomarkers with hemoglobin immunoassay. Quantitative values of individual biomarkers are not [...] Mullins et al, N Engl J Med 2014;370(14):1663-3477.) Cologuard may produce a false negative or false positive result (no colorectal cancer or precancerous polyp present at colonoscopy follow up). A negative Cologuard test result does not guarantee the absence of CRC or advanced adenoma (pre-cancer). The current Cologuard screening interval is every 3 years. ([place] [employer] and U.S. Multi-Society Task Force). Cologuard performance data in a 10,000 patient pivotal study using colonoscopy as the reference method can be accessed at the following location: www.[employer]/results. Additional description of the Cologuard test process, warnings and precautions can be found at www.[employer]ark[employer]ova[employer]parksrd.com. Stool specimen (specimen) 01/23/2023 6:17 PM EDT 01/25/2023 12:48 PM EDT us Socorro Rivas MD LAB MOLECULAR DIAGNOSTICS ORD ERABLES Final Result [facility] (CLIA #:[id number]) [address] [place] [address], * Colonoscopy (09/27/2011) Colonoscopy Minor diverticulosis us Historical Provider HEALTH MAINTENANCE Final Result from Last 3 Months or Most Recently Relevant to Health Maintenance Insurance [facility] [employer] (O D-SNP) Care Teams Automation Test Engineer Relationship Specialty Start Date End Date Socorro Rivas MD [address] [place] [address] PCP - General Family Medicine 12/02/[address] 04/08/23 León Walker MD,PhD Spine Surgery 02/13/24 Tay Sims MD Nephrology 02/13/24 Antonio Yan MD Pain Medicine 02/13/24 Marlin Arambula PA-C Bariatrics 02/13/[address] [address] 03/09/24
== END ==
LOC: HO.SL 10:44
PROVIDERS: PCP Family Medicine; Visit Provider Family Medicine
DX: Z13.89 Encounter for screening for other disorder (principal)

== ENCOUNTER 2024-12-09 13:56 | Outpatient (AMB) | payer OTHER, SELFPAY ==
--- NOTE | 2024-12-09 14:04 | HO.SPINEOV ---
Intake Visit Reasons: 1st post op Intake Note: Ms. Ronni Dunn is here today for her 1st post op. Criminal Intelligence Analyst Required: No Allergies No Known Allergies (No Known Allergies*) Allergy (Verified 11/18/24 08:57) Assessment & Plan Assessment & Plan (1) Carpal tunnel syndrome: Code(s): G56.00 - Carpal tunnel syndrome, unspecified upper limb Category: Medical Plan Mrs Rudolph is here 3 weeks out from her left L4-5 decompression with L5 foraminotomy. Her left leg pain went away and she is very happy about that. Her wound is healed up beautifully. She is walking better according to her daughter who is here today to help me with Arabic. She also want to talk about having tingling and burning sensation in her fingers in her whole hand as well as sensations of weakness that mostly occur at nighttime. 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 I am wondering if she does not have carpal tunnel. I am going to send her for an EMG and can call her with the results. Total amount of time spent in this visit was 20 minutes in discussion of symptoms, ordering EMG and subsequent plan of care Cayetano Walker MD,PhD [facility] Orders: Orders NE electromyogram (EMG) Today G56.00 - Carpal tunnel syndrome, unspecified upper limb Coding Level of Care Code Est Pt Level 3 (31039) Diagnoses Carpal tunnel syndrome G56.00
--- OUTSIDE RECORDS SUMMARY | 2024-12-09 16:09 | XMS_ITS | Encounter Summary ---
Author Organization [employer] Address [address] [facility] 7t [place] [address] Care Team Providers Care Fire Sprinkler Apparatus Inspector Name Role Phone Socorro Rivas MD Primary Care Provider [phone] Reason for Visit * Reason Comments Med Refill Encounter Details Date Type Department Care Team ([facility] st Contact Info) Description 09/05/2023 Refill [facility] MED & PEDS [address] [place], [place] [phone] Socorro Rivas MD [address] [place] [address] Social History Tobacco Use Types Packs/Day Years [...] documented as of this encounter Care Teams Fire Sprinkler Apparatus Inspector Relationship Specialty Start Date End Date Socorro Rivas MD [address] [place] [address] PCP - General Family Medicine 12/02/[address] [address] 04/08/23 León Walker MD,PhD Spine Surgery 02/13/24 Tay Sims MD Nephrology 02/13/24 Antonio Yan MD Pain Medicine 02/13/24 Marlin Arambula PA-C Bariatrics 02/13/[address] [address] 03/09/24 documented as of this encounter
--- OUTSIDE RECORDS SUMMARY | 2024-12-09 16:09 | XMS_ITS | Encounter Summary ---
Author Organization [employer] Address [address] [facility] 7t [place] [address] Care Team Providers Care Varnisher Plasticoater Name Role Phone Socorro Rivas MD Primary Care Provider [phone] Reason for Visit * Reason Comments Med Refill Encounter Details Date Type Department Care Team ([facility] st Contact Info) Description 01/14/2024 Refill [facility] MED & PEDS [address] [place], [place] [phone] John Yancey MD [address] [place] [address] Social History Tobacco Use Types Packs/Day Years [...] documented as of this encounter Care Teams Varnisher Plasticoater Relationship Specialty Start Date End Date Socorro Rivas MD [address] [place] [address] PCP - General Family Medicine 12/02/[address] [address] 04/08/23 León Walker MD,PhD Spine Surgery 02/13/24 Tay Sims MD Nephrology 02/13/24 Antonio Yan MD Pain Medicine 02/13/24 Marlin NASCIMENTO-Gurpreet Bariatrics 02/13/[address] [address] 03/09/24 documented as of this encounter
--- OUTSIDE RECORDS SUMMARY | 2024-12-09 16:09 | XMS_ITS | Clinical Summary ---
Author Organization [facility] Address [address] [address] Phone Care Team Providers Care Chiropractic Neurologist Name Role Phone Unavailable Primary Care Provider [...] file Medical Devices Not on file Insurance [facility] MEDICARE REPLACEMENT [place]AM UGARTE [id number] MEDICARE REPLACEMENT MEDICARE REPLACEMENT MEDICARE REPLACEMENT [address] [address] MEDICARE REPLACEMENT [facility] MEDICARE REPLACEMENT Additional Source Comments The information contained in this document represents components of the legal health record. It is not the complete legal health record.[facility]
--- OUTSIDE RECORDS SUMMARY | 2024-12-09 16:09 | XMS_ITS | Encounter Summary ---
Author Organization [employer] Address [address] [facility] 7t [place] [address] Care Team Providers Care Grinder Needle Tip Name Role Phone Socorro Rivas MD Primary Care Provider [phone] Encounter Details Date Type Department Care Team ([facility] Contact Info) Description 04/17/2022 Telephone [facility] MED & PEDS [address] [place], [place] [phone] Socorro Rivas MD [address] [place] [address] Social History Tobacco Use Types Packs/Day Years [...] on filedocumented in this encounter Care Teams Grinder Needle Tip Relationship Specialty Start Date End Date Socorro Rivas MD [address] [place] [address] PCP - General Family Medicine 12/02/[address] [address] 04/08/23 León Walker MD,PhD Spine Surgery 02/13/24 Tay Sims MD Nephrology 02/13/24 Antonio Yan MD Pain Medicine 02/13/24 Marlin Arambula PA-C Bariatrics 02/13/[address] [address] 03/09/24 documented as of this encounter
--- OUTSIDE RECORDS SUMMARY | 2024-12-09 16:09 | XMS_ITS | Encounter Summary ---
Author Organization [employer] Address [address] [facility] 7t [place] [address] Care Team Providers Care Brake Engineer Name Role Phone Socorro Rivas MD Primary Care Provider [phone] Reason for Visit * Reason Comments Med Refill Encounter Details Date Type Department Care Team ([facility] st Contact Info) Description 09/06/2023 Refill [facility] CH[facility] MED & PEDS [address] [place], [place] [phone] Socorro Rvias MD [address] [place] [address] Social History Tobacco Use Types Packs/Day Years [...] documented as of this encounter Care Teams Brake Engineer Relationship Specialty Start Date End Date Socorro Rivas MD [address] [place] [address] PCP - General Family Medicine 12/02/[address] [address] 04/08/23 León Walker MD,PhD Spine Surgery 02/13/24 Tay Sims MD Nephrology 02/13/24 Antonio Yan MD Pain Medicine 02/13/24 Marlin Arambula PA-C Bariatrics 02/13/[address] [address] 03/09/24 documented as of this encounter
--- OUTSIDE RECORDS SUMMARY | 2024-12-09 16:09 | XMS_ITS | Encounter Summary ---
Author Organization [employer] Address [address] [facility] 7t [place] [address] Care Team Providers Care Body Stylist Name Role Phone Socorro Rivas MD Primary Care Provider [phone] Encounter Details Date Type Department Care Team ([facility] st Contact Info) Description 03/12/2022 Orders Only [facility] MEDICINE [address] [place] [address] Darleen Humphreys PharmD [address] [place] [address] Social History Tobacco Use Types Packs/Day Years [...] Vitamin D 25-OH Total 39.6 >30 ng/mL [facility] Comment:Health Based Referen ce Values*< 20 ng/mL [id number] ng/mL Insufficient> 30 ng/mL Sufficient*Ancelmo CARUSO. N [...] MD LAB BLOOD ORDERABLES Final Re sult [facility] [address] [place] [phone] documented in this encounter Visit Diagnoses Not on filedocumented in this encounter Care Teams Body Stylist Relationship Specialty Start Date End Date Socorro Rivas MD [address] [place] [address] PCP - General Family Medicine 12/02/[address] [address] 04/08/23 León Walker MD,PhD Spine Surgery 02/13/24 Tay Sims MD Nephrology 02/13/24 Antonio Yan MD Pain Medicine 02/13/24 Marlin NASCIMENTO-Gurpreet Bariatrics 02/13/[address] [address] 03/09/24 documented as of this encounter
--- OUTSIDE RECORDS SUMMARY | 2024-12-09 16:09 | XMS_ITS | Encounter Summary ---
Author Organization [employer] Address [address] [facility] 7t [place] [address] Care Team Providers Care Lockstitch Lining Maker Name Role Phone Socorro Rivas MD Primary Care Provider [phone] Encounter Details Date Type Department Care Team (Late st Contact Info) Description 10/15/2023 Orders Only [facility] MED & PEDS [address] [place], [place] [phone] ProviderVarun MD Social History Tobacco Use Types [...] t he electric, gas, oil or water [employer] threatened to shut off services in your [...] documented as of this encounter Care Teams Lockstitch Lining Maker Relationship Specialty Start Date End Date Socorro Rivas MD [address] [place] [address] PCP - General Family Medicine 12/02/[address] [address] 04/08/23 León Walker MD,PhD Spine Surgery 02/13/24 Tay Sims MD Nephrology 02/13/24 Antonio Yan MD Pain Medicine 02/13/24 Marlin NASCIMENTO-C Bariatrics 02/13/[address] [address] 03/09/24 documented as of this encounter
--- OUTSIDE RECORDS SUMMARY | 2024-12-09 16:09 | XMS_ITS | Encounter Summary ---
Author Organization [employer] Address [address] [facility] 7t [place] [address] Care Team Providers Care Employee Development Specialist Name Role Phone Socorro Rivas MD Primary Care Provider [phone] Reason for Visit * Reason Onset Date Comments Med Refill 03/23/2024 Encounter Details Date Type Department Care Team ([facility] st Contact Info) Description 03/23/2024 Telephone [facility] MEDICINE [address] [place] [address] Socorro Rivas MD [address] [place] [address] Med Refill Social History Tobacco Use Types [...] 1:09 PM EST Medication was sent to [facility] on 12/04/23 #30 with 3 refills. * Telephone Encounter - Garfield Reddy - 03/23/2024 12:19 PM EST TC from pt requesting medication refill. Medications needing refill : cloNIDine (Catapres) 0.1 MG tablet To be sent to: [facility] - [place], [place] - [address] [facility] documented in this encounter Plan [...] documented as of this encounter Care Teams Employee Development Specialist Relationship Specialty Start Date End Date Socorro Rivas MD [address] [facility] [place] [address] PCP - General Family Medicine 12/02/[address] [address] 04/08/23 León Walker MD,PhD Spine Surgery 02/13/24 Tay Sims MD Nephrology 02/13/24 Antonio Yan MD Pain Medicine 02/13/24 Marlin Arambula PA-C Bariatrics 02/13/[address] [address] 03/09/24 documented as of this encounter
--- OUTSIDE RECORDS SUMMARY | 2024-12-09 16:09 | XMS_ITS | Clinical Summary ---
Author Organization [employer] Address [address] [facility] 7t [place] [address] Care Team Providers Care Child Care Education Coordinator Name Role Phone Socorro Rivas MD Primary Care Provider [phone] Allergies No known active allergies Medications * [...] 15-year history of hypertension since moving from [place]. Despite current treatment, blood pressure remains persistently elevated. 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 She has been going to [facility] weight clinic to help with weigh loss. Assessment & Plan (03/07/2023 10:49 AM EST): Patient reports she is open to going to pain management and consider injections to help with her pain, she is going to [facility] weight clinic to help with weight loss, [...] understands symptoms PLAN: 1. Follow up with [facility]: Recommended for follow-up: 01/31 @ 1pm 2. [...] of syphilis 01/07/2012 Overview (02/19/2022): Tx in [place] ([place]), baseline RPR 1:8. 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 Recommended to decrease soda and sugary beverage consumption. Recommended at least 20 g per meal of protein to assist with satiety. Recommended at least 150 min/week of moderate intensity exercise. Assessment & Plan (12/24/2022 2:15 PM EDT): Discussed calorie deficit, recommended reduction of 20-30% of maintenance calories; sea captain referral offered. Recommended to decrease soda and [...] Department Care Team Description 11/17/2024 Refill [facility] [address] [place] [address] Tosha Whitmore MD 11/11/2024 Refill [facility] [address] [place] [address] Socorro Rivas MD 11/04/2024 Orders Only GENERIC EXTERNAL DATA DEPARTMENT Provider, Generic External Data 10/19/2024 Refill [facility] [address] [place] [address] Socorro Rivas MD 09/30/2024 Telephone [facility] [address] [place] [phone] Socorro Rivas MD US RENAL ORDER 09/22/2024 Orders Only [facility] External Provider, [facility] 09/21/2024 Telephone [facility] [address] [place] [address] Socorro Rivas MD Durable Medical Equipment 09/16/2024 3:30 PM EDT Office Visit [facility] [address] [place] [address] Socorro Rivas MD Periodic limb movement disorder (Primary Dx); Chronic low back pain with sciatica, sciatica laterality unspecified, unspecified back pain laterality; Resistant hypertension; Sleep apnea, unspecified type; Class 3 severe obesity with serious comorbidity and body mass index (BMI) of 50.0 to 59.9 in adult, unspecified obesity type; Acute right ankle pain 09/16/2024 Travel from Last 3 Months Immunizations Immunization Administration [...] 10/30/2021, 03/19/2012, 10/03/2011 Zoster Vaccines Completed 11/30/2021, 0808/2021, 09/29/2021, Additional history exists RSV Patients and [...] Patient-Stated? Author BP <150/90 General No Darleen Humphreys PharmD Procedures Procedure Name Priority Date/Time Associated Diagnosis [...] AM EDT Narrative 11/18/2024 12:32 PM EDT [address] [address] Fluoroscopy Report Signed Patient: Augustus Rust MR#: [id number] : 1955 Acct:[id number] Age/Sex: 69 / F ADM Date: 11/18/24 Loc: HO.SSS Attending Dr: León Walker MD, PhD Ordering Physician: León Walker MD, PhD Date of Service: 11/18/24 Procedure(s): FL guidance in OR Accession Number(s): [id number] cc: León Walker MD, PhD; Socorro Rivas [...] 11/18/24 1230 DD/ 1045 TD/TT: 11/18/24 1130 Water Quality Specialist: Procedure Note Donotuseinterpreter, Image - 11/18/[address] [address] Fluoroscopy Report Signed Patient: Augustus RustMR#: [id number] : 1955cct:[id number] Age/Sex: 69 / FADM Date: 11/18/24 Loc: HO.SSS Attending Dr: León Walker MD, PhD Ordering Physician: León Walker MD, PhD Date of Service: 11/18/24 Procedure(s): FL guidance in OR Accession Number(s): [id number] cc: León Walker MD, PhD; Socorro Rivas [...] 11/18/24 1230 DD/ 1045 TD/TT: 11/18/24 1130 Water Quality Specialist: [facility] External Provider IMG IR PROCEDURES Final Result * (ABNORMAL) CBC (11/04/2024 1:16 PM EDT) White Blood Count 9.3 4.8 - 10.8 X10*3/uL [facility] Red Blood Count 5.02 4.20 - 5.50 X10*6/uL [facility] Hemoglobin 11.3(L) 12.0 - 16.0 g/dl [facility] Hematocrit 37.8 37.0 - 47.0 % [facility] Mean Corpuscular Volume 75.3(L) 80.0 - 98.0 fL [facility] Mean Corpuscular Hemoglobin 22.5(L) 27.0 - 33.0 pg [facility] Mean Corpuscular HGB Conc 29.9(L) 31.0 - 35.0 g/dl [facility] Red Cell Distribution Width 19.1(H) 11.0 - 16.0 % [facility] Platelet Count 288 160 - 400 X10*3/uL [facility] Mean Platelet Volume 9.0(L) 9.4 - 12.3 fL [facility] NRBC Pct Auto 0.0 0.0 - 0.2 /100WBC [facility] NRBC Abs Auto 0.000 0.0 - 0.012 X10*3/uL [facility] 11/04/2024 1:16 PM EDT 11/04/2024 1:16 PM EDT us Generic External Data Provider LAB BLOOD ORDERAB LES Final Result [facility] [address] [place] [phone] * Basic Metabolic Panel (11/04/2024 1:16 PM EDT) Sodium 143 135 - 145 mmol/L [facility] Potassium 4.1 3.3 - 5.1 mmol/L [facility] Chloride 107 96 - 108 mmol/L [facility] Carbon Dioxide 28 22 - 29 mmol/L [facility] Anion Gap 12 12 - 20 [facility] Urea Nitrogen (BUN) 15 9 - 16 mg/dL [facility] Creatinine, Serum 0.68 0.5 - 1.4 mg/dL [facility] Creatinine Clr Calc Pharmacy 94.3 [facility] Comment:Provided height and weight: 152.4 cm,120.3 kg.eGFR (calculated from the MDRD study equation) and eCrCl(calculated from the Cockcroft-Gault equation) are based ondifferent parameters and may not yield comparable results.If eCrCl result is absurd, please check patient'sheight/weight. Estimated Glomerular Filt Rate >60 [facility] Comment:Chronic Kidney Disea se: Estimated GFR < 60 mL/min/1.44k9Cxacds Kidney Disease: Estimated GFR < 15 mL/min/1.73m2 Glucose 91 60 - 115 mg/dL [facility] Calcium 9.2 8.4 - 10.2 mg/dL [facility] 11/04/2024 1:16 PM EDT 11/04/2024 1:16 PM EDT us Generic External Data Provider LAB BLOOD ORDERAB LES Final Result Performing Organization Address City/State/[facility] Co de Phone Number [facility] [address] [place] [phone] * MR Lumbar Spine w/ and w/o Contrast (09/22/2024 10:20 AM EDT) Anatomical Region Laterality Modality Spine, L-spine Magnetic Resonan ce 09/22/2024 10:2 0 AM EDT Narrative 09/22/2024 2:04 PM EDT [address] [address] Magnetic Resonance Report Signed Patient: Augustus Rust MR#: [id number] : 1955 Acct:[id number] Age/Sex: 69 / F ADM Date: 09/22/24 Loc: HO.MRI Attending Dr: León Walker MD, PhD Ordering Physician: León Walker MD, PhD Date of Service: 09/22/24 Procedure(s): MR lumbar spine wo/w con Accession Number(s): [id number] cc: León Walker MD, PhD; Socorro Rivas [...] 09/22/24 1401 DD/ 1020 TD/TT: 09/22/24 1200 Water Quality Specialist: Procedure Note Donotuseinterpreter, Image - 09/22/[address] [address] Magnetic Resonance Report Signed Patient: Augustus Rust#: [id number] : 1955cct:[id number] Age/Sex: 69 / FADM Date: 09/22/24 Loc: HO.MRI Attending Dr: León Walker MD, PhD Ordering Physician: León Walker MD, PhD Date of Service: 09/22/24 Procedure(s): MR lumbar spine wo/w con Accession Number(s): [id number] cc: León Walker MD, PhD; Socorro Rivas [...] 09/22/24 1401 DD/ 1020 TD/TT: 09/22/24 1200 Water Quality Specialist: [facility] External Provider IMG MRI PROCEDURES Final Result * BI Mammogram Screening Tomosynthesis Bilateral (02/13/2024 10:35 AM EST) Anatomical Region Laterality Modality Breast Bilateral Mammography 02/13/2024 10:3 5 AM EST Narrative 02/21/2024 4:10 PM EST [address] [address] Mammography Report Signed Patient: Augustus Rust MR#: [id number] : 1955 Acct:[id number] Age/Sex: 68 / F ADM Date: 02/13/24 Loc: HO.CT Attending Dr: Bryson NASCIMENTO Ordering Physician: Socorro Rivas MD Results: 1Nega tive Date of Service: 02/13/24 Follow Up: 1 Year From Orig ina Mammogram Procedure(s): MM tomosynthesis screening BI Accession Number(s): [id number] cc: Socorro Rivas MD EXAMINATION: MM SCREENING [...] 02/21/24 1607 DD/ 1035 TD/TT: 02/13/24 1059 Water Quality Specialist: Procedure Note Donotloretointerpreter, Image - 02/21/2024 [place] [address] Mammography Report Signed Patient: Augustus RustMR#: [id number] : 7Acct:[id number] Age/Sex: 68 / FADM Date: 02/13/24 Loc: HO.CT Attending Dr: Bryson NASCIMENTO Ordering Physician: Socorro Rivas MDResults: 1Nega tive Date of Service: 02/13/24Follow Up: 1 Year From Orig inal Mammogram Procedure(s): MM tomosynthesis screening BI Accession Number(s): [id number] cc: Socorro Rivas MD EXAMINATION: MM SCREENING [...] by: Laine Bravo DO 02/21/2024 04:07 PM [facility] Dictated By: Laine Bravo DO Signed By: <Electronically signed by Laine Bravo DO in OV> 02/21/24 1607 DD/ 1035 TD/TT: 02/13/24 1059 Water Quality Specialist: us Socorro Rivas MD IMG BI PROCEDURES Final Resul t * Lipid Panel, Standard (02/12/2024 9:05 AM EST) Triglycerides 104 <150 mg/dL [facility] Comment:Desirable Triglyceri de: less than 150 mg/dLBorderline High Triglyceride 150-199 mg/dLHigh Triglyceride: 200-499 mg/dLVery High Triglyceride: greater than or equal to 5OO mg/dL Cholesterol 156 <200 mg/dL [facility] Comment:Desirable Cholestero l: less than 200 mg/dLBorderline High Cholesterol: 200-239 mg/dLHigh Cholesterol: greater than 239 mg/dL LDL Cholesterol Calculated 85 <100 mg/dL [facility] Comment:Desirable LDL: less than 100 mg/dLNear Optimal/Above Optimal LDL: 110- 129 mg/dLBorderline High LDL: 130-159 mg/dLHigh LDL: 160-189 mg/dLVery High LDL: greater than or equal to 190 mg/dL HDL Cholesterol 51 >40 mg/dL [facility] Comment:Desirable HDL: great er than 40 mg/dL Note: This HDL assay may give artificially low results in patients with liver disease. Blood Venous blood specimen / Unknown 02/12/2024 9:05 AM EST 02/12/2024 9:05 AM EST us Mulugeta Jose MD LAB BLOOD ORDERABLES Final Result [facility] [address] [place] [phone] * POCT HGB A1C (12/12/2023 1:34 PM EDT) Hemoglobin A1C 5.8 4.0 - 6.0 % QC Media Lot # [id number] Lot# Expiration Date [id number] Blood 12/12/2023 1:34 PM EDT us Mulugeta Jose MD POINT OF CARE TEST ENTER/ED IT ORDERABLES Final Result * Cologuard?? colon cancer screening (01/23/2023 6:17 PM EDT) Cologuard Result Negative Negative 02/01/20 10:21 AM EDT [facility] (CLIA #:[id number]) Comment: NEGATIVE TEST RESULT. A negative Cologuard [...] Mosquera. et al, N Engl J Med 2014;370(14):7935-2187) The normal value (reference range) for this assay is negative. COLOGUARD RE-SCREENING RECOMMENDATION: Periodic colorectal cancer screening is an important part of preventive healthcare for asymptomatic individuals at average risk for colorectal cancer. Following a negative Cologuard result, the [place] Cancer Society and U.S. Multi-Society Task Force screening guidelines recommend a Cologuard re-screening interval of 3 years. References: [place] [employer] Guideline for Colorectal Cancer Screening: https://www.cancer.org/cancer/ecmzx-ajxuro-mgulpc/xbtkjriiu-vhhxxovjd-fhnsljv/ac s-rec ommendations.html.; Juan CHRISTIANSON, Nikki BOJORQUEZ, Arden PalaciosK, Colorectal Cancer Screening: Recommendations for Physicians and Patients from the U.S. Multi-Society Task Force on Colorectal Cancer Screening , Am J Gastroenterology 2017; 112:3669-8795. TEST DESCRIPTION: Composite algorithmic analysis of stool [...] Mosquera. et al, N Engl J Med 2014;370(14):6548-9842.) Cologuard may produce a false negative or false positive result (no colorectal cancer or precancerous polyp present at colonoscopy follow up). A negative Cologuard test result does not guarantee the absence of CRC or advanced adenoma (pre-cancer). The current Cologuard screening interval is every 3 years. ([place] Cancer Society and U.S. Multi-Society Task Force). Cologuard performance data in a 10,000 patient pivotal study using colonoscopy as the reference method can be accessed at the following location: www.[employer]/results. Additional description of the Cologuard test process, warnings and precautions can be found at www.cologuard.com. Stool specimen (specimen) 01/23/2023 6:17 PM EDT 01/25/2023 12:48 PM EDT Socorro Rivas MD LAB MOLECULAR DIAGNOSTICS ORD ERABLES Final Result [facility] (CLIA #:[id number]) [address] [place], [place] [phone], * Colonoscopy (09/27/2011) Colonoscopy Minor diverticulosis Historical Provider HEALTH MAINTENANCE Final Result from Last 3 Months or Most Recently Relevant to Health Maintenance Insurance FORMERLY [facility] [employer] (HMO D-SNP) [place] [id number] Care Teams Child Care Education Coordinator Relationship Specialty Start Date End Date Socorro Rivas MD [address] [place] [address] PCP - General Family Medicine 12/02/[address] [address] 04/08/23 León Walker MD,PhD Spine Surgery 02/13/24 Tay Sims MD Nephrology 02/13/24 Antonio Yan MD Pain Medicine 02/13/24 Marlin Arambula PA-C Bariatrics 02/13/[address] [address] 03/09/24
--- OUTSIDE RECORDS SUMMARY | 2024-12-09 16:09 | XMS_ITS | Encounter Summary ---
Author Organization [employer] Address [address] [facility] 7t [place] [address] Care Team Providers Care Pipe Buffer Name Role Phone Socorro Rivas MD Primary Care Provider [phone] Reason for Visit * Reason Comments Med Refill Encounter Details Date Type Department Care Team ([facility] st Contact Info) Description 04/15/2024 Refill [facility] [address] [place], [place] [phone] Socorro Rivas MD [address] [place] [address] Social History Tobacco Use Types Packs/Day Years [...] documented as of this encounter Care Teams Pipe Buffer Relationship Specialty Start Date End Date Socorro Rivas MD [address] [place] [address] PCP - General Family Medicine 12/02/[address] [address] 04/08/23 León Walker MD,PhD Spine Surgery 02/13/24 Tay Sims MD Nephrology 02/13/24 Antonio Yan MD Pain Medicine 02/13/24 Marlin Arambula PA-C Bariatrics 02/13/[address] [address] 03/09/24 documented as of this encounter
--- OUTSIDE RECORDS SUMMARY | 2024-12-09 16:09 | XMS_ITS | Encounter Summary ---
Author Organization [employer] Address [address] [facility] 7t [place] [address] Care Team Providers Care Shelving Supervisor Name Role Phone Socorro Rivas MD Primary Care Provider [phone] Reason for Visit * Reason Comments Med Refill Encounter Details Date Type Department Care Team ([facility] st Contact Info) Description 09/04/2023 Refill [facility] [address] [place], [place] [phone] Socorro Rivas MD [address] [place] [address] Social History Tobacco Use Types Packs/Day Years [...] documented as of this encounter Care Teams Shelving Supervisor Relationship Specialty Start Date End Date Socorro Rivas MD [address] [place] [address] PCP - General Family Medicine 12/02/[address] [address] 04/08/23 León Walker MD,PhD Spine Surgery 02/13/24 Tay Sims MD Nephrology 02/13/24 Antonio Yan MD Pain Medicine 02/13/24 Marlin Arambula PA-C Bariatrics 02/13/[address] [address] 03/09/24 documented as of this encounter
== END 2024-12-09 14:35 | disposition home or self-care (01) ==
LOC: HO.HNS 13:57
PROVIDERS: PCP Family Medicine; Visit Provider Physician Assistant
DX: G56.00 Carpal tunnel syndrome, unspecified upper limb (principal)
CPT/HCPCS: 99024

== ENCOUNTER → 2024-12-09 13:56 | Outpatient (BNVA) | payer OTHER, SELFPAY | PROVIDERS: PCP Family Medicine; Visit Provider Physician Assistant | DX: G56.00 Carpal tunnel syndrome, unspecified upper limb (principal) | CPT/HCPCS: 99212 ==

== ENCOUNTER 2025-01-08 09:20 | Outpatient (REF) | payer OTHER, SELFPAY ==
--- NOTE | ~2025-01-08 | US_ITS ---
CLINICAL HISTORY: 69 yo F with resistant hypertension, [place] [facility] [place] Renal with Doppler Comparison: None provided Findings: Right kidney normal size and echotexture, 9.8 cm length. No hydronephrosis. Normal color Doppler. Resistive index 0.8. Left kidney normal size and echotexture, 10.4 cm length. No hydronephrosis. Normal color Doppler. Resistive index 0.8. IMPRESSION: 1. Findings suggesting bilateral renal artery stenosis. Clinically appropriate follow-up recommended This document has been electronically signed by: Jose Alberto Huddleston MD on 01/09/2025 08:58:25
--- NOTE | ~2025-01-08 | US_ITS ---
CLINICAL HISTORY: 69 yo F with resistant hypertension, send to [facility] US Renal with Doppler Comparison: None provided Findings: Right kidney normal size and echotexture, 9.8 cm length. No hydronephrosis. Normal color Doppler. Resistive index 0.8. Left kidney normal size and echotexture, 10.4 cm length. No hydronephrosis. Normal color Doppler. Resistive index 0.8. IMPRESSION: 1. Findings suggesting bilateral renal artery stenosis. Clinically appropriate follow-up recommended This document has been electronically signed by: Jose Alberto Huddleston MD on 01/09/2025 08:58:25
--- OUTSIDE RECORDS SUMMARY | 2025-01-08 09:48 | XMS_ITS | Encounter Summary ---
Author Organization [employer] Address [address] [facility] 7t [place] [address] Care Team Providers Care Board Operator Name Role Phone Socorro Rivas MD Primary Care Provider [phone] Reason for Visit * Reason Comments Med Refill Encounter Details Date Type Department Care Team ([facility] st Contact Info) Description 09/06/2023 Refill [facility] [address] [place], [place] [phone] Socorro Rivas MD [address] [place] [address] Social History Tobacco Use Types Packs/Day Years [...] documented as of this encounter Care Teams Board Operator Relationship Specialty Start Date End Date Socorro Rivas MD [address] [place] [address] PCP - General Family Medicine 12/02/[address] [address] 04/08/23 León Walker MD,PhD Spine Surgery 02/13/24 Tay Sims MD Nephrology 02/13/24 Antonio Yan MD Pain Medicine 02/13/24 Marlin Arambula PA-C Bariatrics 02/13/[address] [address] 03/09/24 documented as of this encounter
--- OUTSIDE RECORDS SUMMARY | 2025-01-08 09:48 | XMS_ITS | Encounter Summary ---
Author Organization [employer] Address [address] [facility] 7t [place] [address] Care Team Providers Care Slubber Machine Operator Name Role Phone Socorro Rivas MD Primary Care Provider Reason for Visit * Reason Comments Med Refill Encounter Details Date Type Department Care Team ([facility] st Contact Info) Description 09/04/2023 Refill [facility] [address] [place], [place] [phone] Socorro Rivas MD [address] [place] [address] Social History Tobacco Use Types Packs/Day Years [...] documented as of this encounter Care Teams Slubber Machine Operator Relationship Specialty Start Date End Date Socorro Rivas MD [address] [place] [address] PCP - General Family Medicine 12/02/[address] [address] 04/08/23 León Walker MD,PhD Spine Surgery 02/13/24 Tay Sims MD Nephrology 02/13/24 Antonio Yan MD Pain Medicine 02/13/24 Marlin Arambula PA-C Bariatrics 02/13/[address] [address] 03/09/24 documented as of this encounter
--- OUTSIDE RECORDS SUMMARY | 2025-01-08 09:48 | XMS_ITS | Encounter Summary ---
Author Organization [employer] Address [address] [facility] 7t [place] [address] Care Team Providers Care Bag Printer Name Role Phone Socorro Rivas MD Primary Care Provider [phone] Encounter Details Date Type Department Care Team (Late st Contact Info) Description 10/15/2023 Orders Only [facility]S [address] [place], [place] [phone] ProviderVarun MD Social History Tobacco Use Types [...] t he electric, gas, oil or water [employer] threatened to shut off services in your [...] documented as of this encounter Care Teams Bag Printer Relationship Specialty Start Date End Date Socorro Rivas MD [address] [place] [address] PCP - General Family Medicine 12/02/[address] [address] 04/08/23 León Walker MD,PhD Spine Surgery 02/13/24 Tay Sims MD Nephrology 02/13/24 Antonio Yan MD Pain Medicine 02/13/24 Marlin NASCIMENTO-C Bariatrics 02/13/[address] [address] 03/09/24 documented as of this encounter
--- OUTSIDE RECORDS SUMMARY | 2025-01-08 09:48 | XMS_ITS | Encounter Summary ---
Author Organization [employer] Address [address] [facility] 7t [place] [address] Care Team Providers Care Sawmill Hand Name Role Phone Socorro Rivas MD Primary Care Provider [phone] Encounter Details Date Type Department Care Team ([facility] Contact Info) Description 04/17/2022 Telephone [facility]S [address] [place], [place] [phone] Socorro Rivas MD [address] [place] [address] Social History Tobacco Use Types Packs/Day Years [...] on filedocumented in this encounter Care Teams Sawmill Hand Relationship Specialty Start Date End Date Socorro Rivas MD [address] [place] [address] PCP - General Family Medicine 12/02/[address] [address] 04/08/23 León Walker MD,PhD Spine Surgery 02/13/24 Tay Sims MD Nephrology 02/13/24 Antonio Yan MD Pain Medicine 02/13/24 Marlin Arambula PA-C Bariatrics 02/13/[address] [address] 03/09/24 documented as of this encounter
--- OUTSIDE RECORDS SUMMARY | 2025-01-08 09:48 | XMS_ITS | Clinical Summary ---
Author Organization [employer] Address [address] [facility] 7t [place] [address] Care Team Providers Care Director Craft Center Name Role Phone Socorro Rivas MD Primary Care Provider [phone] Allergies No known active allergies Medications * [...] per day. 30 tablet 11 12/12/19 24 Active losartan (Cozaar) 100 MG tabletIndication s:Essential [...] MORNING 90 tablet 1 07/29/19 25 Active cloNIDine (Catapres) 0.1 MG tablet [...] for SLEEP 28 tablet 11/19/19 25 Active pregabalin (Lyrica) 100 MG capsuleIndicatio ns:Periodic limb movement disorder,Chronic low back pain with sciatica, sciatica laterality unspecified, unspecified back pain laterality TAKE 1 CAPSULE BY MOUTH TWICE DAILY 60 capsule 2 12/11/19 25 Active pregabalin (Lyrica) 100 MG capsuleIndicatio ns:Periodic limb movement disorder,Chronic low back pain with sciatica, sciatica laterality unspecified, unspecified back pain laterality Take 1 capsule (100 mg) by mouth 2 times daily. 60 capsule 2 09/17/19 25 025 Discontinued Active Problems Problem Noted Date Diagnosed Date S/P lumbar laminectomy 11/19/2024 Overview (11/19/2024): Underwent laminectomy of L5 11/18/[address] León Walker Spondylosis of lumbar spine 01/08/2024 S/P gastric bypass 01/08/2024 Near syncope 01/08/2024 Resistant hypertension 09/16/2023 Assessment & Plan (09/21/2024 8:44 AM EDT): Patient reports a 15-year history of hypertension since moving from [place]. Despite current treatment, blood pressure remains persistently elevated. The painter structural steel has made recent medication changes, including discontinuation [...] Center 08/16/2023 2:00 PM Socorro Rivas MD [facility] 03/19/2024 10:00 AM Darleen Humphreys PharmD [facility] Assessment & Plan (05/29/2023 4:16 [...] Center 07/08/2023 9:00 AM Socorro Rivas MD [facility] 03/18/2024 10:00 AM Brandon MedeirosD MEDICINE [facility] Chronic low back pain with [...] hrs PRN. She has been going to [facility] weight clinic to help with weigh loss. Assessment & Plan (03/07/2023 10:49 AM EST): Patient reports she is open to going to pain management and consider injections to help with her pain, she is going to [facility] weight clinic to help with weight loss, [...] 7 GAD7: 13 At this time Augustus Dunn meets criteria for Visit Diagnoses: Problem List Items Addressed This Visit Other Depressive disorder RAFAT (generalized anxiety disorder) Patient ready to address current needs Yes Strengths include willingness to engage, understands symptoms PLAN: 1. Follow up with [facility]: Recommended for follow-up: 01/31 @ 1pm 2. [...] MILTON-BSO Vitamin D deficiency 04/24/2012 Status post MILTNO-BSO 02/20/2012 RBC microcytosis 02/20/2012 Obstructive sleep apnea 01/31/2012 Overview (02/19/2022): 01/17 CPAP 8 cmH2O Pulmonary hypertension (CMS/HCC) 01/21/2012 History of syphilis 01/07/2012 Overview (02/19/2022): Tx in [place] ([place]), baseline RPR 1:8. 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 Recommended to decrease soda and sugary beverage consumption. Recommended at least 20 g per meal of protein to assist with satiety. Recommended at least 150 min/week of moderate intensity exercise. Assessment & Plan (12/24/2022 2:15 PM EDT): Discussed calorie deficit, recommended reduction of 20-30% of maintenance calories; coil winder referral offered. Recommended to decrease soda and [...] Encounters Date Type Department Care Team Description 12/10/2024 Refill [facility] MED & P[facility]S [address] [place] [address] Socorro Rivas MD Periodic limb movement disorder; Chronic low back pain with sciatica, sciatica laterality unspecified, unspecified back pain laterality 11/17/2024 Refill [facility] MED & PEDS [address] [place] [address] Tosha Whitmore MD 11/11/2024 Refill [facility] [address] [place] [address] Socorro Rivas MD 11/04/2024 Orders Only GENERIC EXTERNAL DATA DEPARTMENT Provider, Generic External Data 10/19/2024 Refill [facility] [address] [place] [address] Socorro Rivas MD from Last 3 Months Immunizations Immunization Administration [...] Done Comments CT Colonography 1955 FIT 1955 Sigmoidoscopy 1955 Colonoscopy 09/26/2021 09/27/2011 Depression Screening 01/11/2024 01/10/2023, 01/11/20 23 FOBT 01/24/2024 01/23/2023 COVID-19 Vaccine ( season) 2024 08/11/2021, 08/11/2021, 02/25/2021, Additional history exists Influenza Vaccine (#1) 2024 , 12/24/2022, 01/23/2022, Additional history exists Alcohol/Substance Use Screening 02/12/2025 02/13/2024 Tobacco Screening 02/12/2025 02/13/2024 SDOH Screening 09/07/2025 [...] EDT CBC Routine 11/04/2024 1:16 PM EDT BI MAMMOGRAM SCREENING TOMOSYNTHESIS BILATERAL Routine 02/13/2024 10:35 AM EST LIPID PANEL, STANDARD Routine 02/12/2024 9:05 AM EST Primary hypertension LAB COLOGUARD COLON CANCER SCREEN Routine 01/23/2023 6:17 PM EDT Colon cancer screening HM COLONOSCOPY Routine 09/27/2011 from Last 3 Months or Most Recently Relevant to Health Maintenance Results * FL Guidance in OR (11/18/2024 10:45 AM EDT) Anatomical Region Laterality Modality X-Ray Angiograph y 11/18/2024 10:4 5 AM EDT Narrative 11/18/2024 12:32 PM EDT [place] [address] Fluoroscopy Report Signed Patient: Augustus Rust MR#: [id number] : 1955 Acct:[id number] Age/Sex: 69 / F ADM Date: 11/18/24 Loc: HO[facility] Attending Dr: León Walker MD, PhD Ordering Physician: León Walker MD, PhD Date of Service: 11/18/24 Procedure(s): FL guidance in OR Accession Number(s): [id number] cc: León Walker MD, PhD; Socorro Rivas [...] Usama Menjivar MD 11/18/2024 12:30 PM EDT RP Dictated By: Usama Menjivar MD Signed By: <Electronically signed by Usama Menjivar MD in OV> 11/18/24 1230 DD/ 1045 TD/TT: 11/18/24 1130 Radial Drill Operator For Plastic: Procedure Note Donotuseinterpreter, Image - 11/18/2024 [place] [address] Fluoroscopy Report Signed Patient: Augustus RustMR#: [id number] : 1955cct:[id number] Age/Sex: 69 / FADM Date: 11/18/24 Loc: HO[facility] Attending Dr: León Walker MD, PhD Ordering Physician: León Walker MD, PhD Date of Service: 11/18/24 Procedure(s): FL guidance in OR Accession Number(s): [id number] cc: León Walker MD, PhD; Socorro Rivas [...] Usama Menjivar MD 11/18/2024 12:30 PM EDT RP Dictated By: Usama Menjivar MD Signed By: <Electronically signed by Usama Menjivar MD in OV> 11/18/24 1230 DD/ 1045 TD/TT: 11/18/24 1130 Radial Drill Operator For Plastic: us [facility] External Provider IMG IR PROCEDURES Final Result * (ABNORMAL) CBC (11/04/2024 1:16 PM EDT) [facility] White Blood Count 9.3 4.8 - 10.8 X10*3/uL [facility] Red Blood Count 5.02 4.20 - 5.50 X10*6/uL [facility] Hemoglobin 11.3(L) 12.0 - 16.0 g/dl [facility] Hematocrit 37.8 37.0 - 47.0 % [facility] Mean Corpuscular Volume 75.3(L) 80.0 - 98.0 fL [facility] Mean Corpuscular Hemoglobin 22.5(L) 27.0 - 33.0 pg [facility] Mean Corpuscular HGB Conc 29.9(L) 31.0 - 35.0 g/dl [facility] Red Cell Distribution Width 19.1(H) 11.0 - 16.0 % [facility] Platelet Count 288 160 - 400 X10*3/uL [facility] Mean Platelet Volume 9.0(L) 9.4 - 12.3 fL [facility] NRBC Pct Auto 0.0 0.0 - 0.2 /100WBC [facility] NRBC Abs Auto 0.000 0.0 - 0.012 X10*3/uL [facility] 11/04/2024 1:16 PM EDT 11/04/2024 1:16 PM EDT Generic External Data Provider LAB BLOOD ORDERAB LES Final Result [facility] [address] [place] [address] [phone] * Basic Metabolic Panel (11/04/2024 1:16 PM EDT) [facility] Sodium 143 135 - 145 mmol/L [facility] Potassium 4.1 3.3 - 5.1 mmol/L [facility] Chloride 107 96 - 108 mmol/L [facility] Carbon Dioxide 28 22 - 29 mmol/L [facility] Anion Gap 12 12 - 20 [facility] Urea Nitrogen (BUN) 15 9 - 16 mg/dL [facility] Creatinine, Serum 0.68 0.5 - 1.4 mg/dL [facility] Creatinine Clr Calc Pharmacy 94.3 [facility] Comment:Provided height and weight: 152.4 cm,120.3 kg.eGFR (calculated from the MDRD study equation) and eCrCl(calculated from the Cockcroft-Gault equation) are based ondifferent parameters and may not yield comparable results.If eCrCl result is absurd, please check patient'sheight/weight. Estimated Glomerular Filt Rate >60 [facility] Comment:Chronic Kidney Disea se: Estimated GFR < 60 mL/min/1.40b7Tedobo Kidney Disease: Estimated GFR < 15 mL/min/1.73m2 Glucose 91 60 - 115 mg/dL [facility] Calcium 9.2 8.4 - 10.2 mg/dL [facility] 11/04/2024 1:16 PM EDT 11/04/2024 1:16 PM EDT us Generic External Data Provider LAB BLOOD ORDERAB LES Final Result Performing Organization Address City/State/[facility] Co de Phone Number [facility] [address] [place] [phone] * BI Mammogram Screening Tomosynthesis Bilateral (02/13/2024 10:35 AM EST) Anatomical Region Laterality Modality Breast Bilateral Mammography 02/13/2024 10:3 5 AM EST Narrative 02/21/2024 4:10 PM EST [address] [address] Mammography Report Signed Patient: Augustus Rust MR#: [id number] : 1955 Acct:[id number] Age/Sex: 68 / F ADM Date: 02/13/24 Loc: HO.CT Attending Dr: Bryson NASCIMENTO Ordering Physician: Socorro Rivas MD Results: 1Nega tive Date of Service: 02/13/24 Follow Up: 1 Year From Orig inal Mammogram Procedure(s): MM tomosynthesis screening BI Accession Number(s): [id number] cc: Socorro Rivas MD EXAMINATION: MM SCREENING [...] by: Laine Bravo DO 02/21/2024 04:07 PM [facility] Dictated By: Laine Bravo DO Signed By: <Electronically signed by Laine Bravo DO in OV> 02/21/24 1607 DD/ 1035 TD/TT: 02/13/24 1059 Radial Drill Operator For Plastic: Procedure Note Donotuseinterpreter, Image - 02/21/[address] [address] Mammography Report Signed Patient: Augustus RustMR#: [id number] : 7Acct:[id number] Age/Sex: 68 / FADM Date: 02/13/24 Loc: HO.CT Attending Dr: Bryson NASCIMENTO Ordering Physician: Socorro Rivas MDResults: 1Nega tive Date of Service: 02/13/24Follow Up: 1 Year From Orig ina Mammogram Procedure(s): MM tomosynthesis screening BI Accession Number(s): [id number] cc: Socorro Rivas MD EXAMINATION: MM SCREENING [...] 02/21/24 1607 DD/ 1035 TD/TT: 02/13/24 1059 Radial Drill Operator For Plastic: us Socorro Rivas MD [facility] BI PROCEDURES Final Resul t * Lipid Panel, Standard (02/12/2024 9:05 AM EST) Triglycerides 104 <150 mg/dL [facility] Comment:Desirable Triglyceri de: less than 150 mg/dLBorderline High Triglyceride 150-199 mg/dLHigh Triglyceride: 200-499 mg/dLVery High Triglyceride: greater than or equal to 5OO mg/dL Cholesterol 156 <200 mg/dL [facility] Comment:Desirable Cholestero l: less than 200 mg/dLBorderline High Cholesterol: 200-239 mg/dLHigh Cholesterol: greater than 239 mg/dL LDL Cholesterol Calculated 85 <100 mg/dL [facility] Comment:Desirable LDL: less than 100 mg/dLNear Optimal/Above Optimal LDL: 110- 129 mg/dLBorderline High LDL: 130-159 mg/dLHigh LDL: 160-189 mg/dLVery High LDL: greater than or equal to 190 mg/dL HDL Cholesterol 51 >40 mg/dL [facility] Comment:Desirable HDL: great er than 40 mg/dL Note: This HDL assay may give artificially low results in patients with liver disease. Blood Venous blood specimen / Unknown 02/12/2024 9:05 AM EST 02/12/2024 9:05 AM EST us Mulugeta Jose MD LAB BLOOD ORDERABLES Final Result [facility] [address] [place] [phone] * Cologuard?? colon cancer screening (01/23/2023 6:17 PM EDT) Cologuard Result Negative Negative 02/01/20 10:21 AM EDT [facility] (CLIA #:[id number]) Comment: NEGATIVE TEST RESULT. A negative Cologuard [...] Mullins et al, N Engl J Med 2014;370(14):5336-0353) The normal value (reference range) for this assay is negative. COLOGUARD RE-SCREENING RECOMMENDATION: Periodic colorectal cancer screening is an important part of preventive healthcare for asymptomatic individuals at average risk for colorectal cancer. Following a negative Cologuard result, the [place] [employer] Society and U.S. Multi-Society Task Force screening guidelines recommend a Cologuard re-screening interval of 3 years. References: [place] [employer] Guideline for Colorectal Cancer Screening: https://www.cancer.org/cancer/hxwtm-ktqknu-zrpwms/ledhdmstq-zgklrvvrs-tfeflpz/ac s-rec ommendations.html.; Juan DK, Nikki BOJORQUEZ, Arden SOTO, Colorectal Cancer Screening: Recommendations for Physicians and Patients from the U.S. Multi-Society Task Force on Colorectal Cancer Screening , Am J Gastroenterology 2017; 112:3316-8095. TEST DESCRIPTION: Composite algorithmic analysis of stool [...] (Zahra Sarabia al, N Engl J Med 2014;370(14):1322-1531.) Cologuard may produce a false negative or false positive result (no colorectal cancer or precancerous polyp present at colonoscopy follow up). A negative Cologuard test result does not guarantee the absence of CRC or advanced adenoma (pre-cancer). The current Cologuard screening interval is every 3 years. ([place] [employer] and U.S. Multi-Society Task Force). Cologuard performance data in a 10,000 patient pivotal study using colonoscopy as the reference method can be accessed at the following location: www.[employer]/results. Additional description of the Cologuard test process, warnings and precautions can be found at www.cologuard.com. Stool specimen (specimen) 01/23/2023 6:17 PM EDT 01/25/2023 12:48 PM EDT Socorro Rivas MD LAB MOLECULAR DIAGNOSTICS ORD ERABLES Final Result [facility] (CLIA #:[id number]) [address] [place] [id number], * Colonoscopy (09/27/2011) Colonoscopy Minor diverticulosis Historical Provider HEALTH MAINTENANCE Final Result from Last 3 Months or Most Recently Relevant to Health Maintenance Insurance [facility] USP OPTIONS (O D-SNP) [place] [id number] Care Teams Director Craft Center Relationship Specialty Start Date End Date Socorro Rivas MD [address] [place] [address] PCP - General Family Medicine 12/02/[address] [address] 04/08/23 León Walker MD,PhD Spine Surgery 02/13/24 Tay Sims MD Nephrology 02/13/24 Antonio Yan MD Pain Medicine 02/13/24 Marlin NASCIMENTO-Gurpreet Bariatrics 02/13/[address] [address] 03/09/24
--- OUTSIDE RECORDS SUMMARY | 2025-01-08 09:48 | XMS_ITS | Encounter Summary ---
Author Organization [employer] Address [address] [facility] 7t [place] [address] Care Team Providers Care Registered Nurse Float Pool Name Role Phone Socorro Rivas MD Primary Care Provider [phone] Reason for Visit * Reason Onset Date Comments Med Refill 03/23/2024 Encounter Details Date Type Department Care Team ([facility] st Contact Info) Description 03/23/2024 Telephone [facility] [address] [place] [address] Socorro Rivas MD [address] [place] [address] Med Refill Social History Tobacco Use Types [...] 1:09 PM EST Medication was sent to [facility] on 12/04/23 #30 with 3 refills. * Telephone Encounter - Garfield Reddy - 03/23/2024 12:19 PM EST TC from pt requesting medication refill. Medications needing refill : cloNIDine (Catapres) 0.1 MG tablet To be sent to: [facility] - [place], [place] - [address] [facility] documented in this encounter Plan of [...] documented as of this encounter Care Teams Registered Nurse Float Pool Relationship Specialty Start Date End Date Socorro Rivas MD [address] [facility] [place] [address] PCP - General Family Medicine 12/02/[address] [address] 04/08/23 León Walker MD,PhD Spine Surgery 02/13/24 Tay Sims MD Nephrology 02/13/24 Antonio Yan MD Pain Medicine 02/13/24 Marlin Arambula PA-C Bariatrics 02/13/[address] [address] 03/09/24 documented as of this encounter
--- OUTSIDE RECORDS SUMMARY | 2025-01-08 09:48 | XMS_ITS | Encounter Summary ---
Author Organization [employer] Address [address] [facility] 7t [place] [address] Care Team Providers Care Hand Flesher Name Role Phone Socorro Rivas MD Primary Care Provider [phone] Reason for Visit * Reason Comments Med Refill Encounter Details Date Type Department Care Team ([facility] st Contact Info) Description 09/05/2023 Refill [facility]S [address] [place], [place] [phone] Socorro Rivas MD [address] [place] [address] Social History Tobacco Use Types Packs/Day Years [...] as of this encounter Care Teams Hand Flesher Relationship Specialty Start Date End Date Socorro Rivas MD [address] [place] [address] PCP - General Family Medicine 12/02/[address] [address] 04/08/23 León Walker MD,PhD Spine Surgery 02/13/24 Tay Sims MD Nephrology 02/13/24 Antonio Yan MD Pain Medicine 02/13/24 Marlin Arambula PA-C Bariatrics 02/13/[address] [address] 03/09/24 documented as of this encounter
--- OUTSIDE RECORDS SUMMARY | 2025-01-08 09:48 | XMS_ITS | Encounter Summary ---
Author Organization [employer] Address [address] [facility] 7t [place] [address] Care Team Providers Care Shoe Trimmer Name Role Phone Socorro Rivas MD Primary Care Provider [phone] Reason for Visit * Reason Comments Med Refill Encounter Details Date Type Department Care Team ([facility] st Contact Info) Description 04/15/2024 Refill [facility] MED & PEDS [address] [place], [place] [phone] Socorro Rivas MD [address] [place] [address] Social History Tobacco Use Types Packs/Day Years [...] documented as of this encounter Care Teams Shoe Trimmer Relationship Specialty Start Date End Date Socorro Rivas MD [address] [place] [address] PCP - General Family Medicine 12/02/[address] [address] 04/08/23 León Walker MD,PhD Spine Surgery 02/13/24 Tay Sims MD Nephrology 02/13/24 Antonio Yan MD Pain Medicine 02/13/24 Marlin Arambula PA-C Bariatrics 02/13/[address] [address] 03/09/24 documented as of this encounter
--- OUTSIDE RECORDS SUMMARY | 2025-01-08 09:48 | XMS_ITS | Encounter Summary ---
Author Organization [employer] Address [address] [facility] 7t [place] [address] Care Team Providers Care Rnfa Name Role Phone Socorro Rivas MD Primary Care Provider [phone] Encounter Details Date Type Department Care Team ([facility] st Contact Info) Description 03/12/2022 Orders Only [facility] [address] [place] [address] Darleen Humphreys PharmD [address] [place] [address] Social History Tobacco Use Types Packs/Day Years [...] Vitamin D 25-OH Total 39.6 >30 ng/mL [facility] Comment:Health Based Referen ce Values*< 20 ng/mL Lwkhxpviu05-71 ng/mL Insufficient> 30 ng/mL Sufficient*Ancelmo CARUSO. N [...] MD LAB BLOOD ORDERABLES Final Re sult [facility] [address] [place] [phone] documented in this encounter Visit Diagnoses Not on filedocumented in this encounter Care Teams Rnfa Relationship Specialty Start Date End Date Socorro Rivas MD [address] [place] [address] PCP - General Family Medicine 12/02/[address] [address] 04/08/23 León Walker MD,PhD Spine Surgery 02/13/24 Tay Sims MD Nephrology 02/13/24 Antonio Yan MD Pain Medicine 02/13/24 Marlin NASCIMENTO-Gurpreet Bariatrics 02/13/[address] [address] 03/09/24 documented as of this encounter
--- OUTSIDE RECORDS SUMMARY | 2025-01-08 09:48 | XMS_ITS | Clinical Summary ---
Author Organization [facility] Address [address] [place] [address] Phone Care Team Providers Care English Teacher Name Role Phone Unavailable Primary Care Provider [...] file Medical Devices Not on file Insurance [facility] MEDICARE REPLACEMENT [place]AR[place] [id number] MEDICARE REPLACEMENT MEDICARE REPLACEMENT MEDICARE [place] [address] MEDICARE REPLACEMENT [facility] MEDICARE REPLACEMENT Additional Source Comments The information contained in this document represents components of the legal health record. It is not the complete legal health record.[facility]
--- OUTSIDE RECORDS SUMMARY | 2025-01-08 09:48 | XMS_ITS | Encounter Summary ---
Author Organization [employer] Address [address] [facility] 7t [place] [address] Care Team Providers Care Manager Area Name Role Phone Socorro Rivas MD Primary Care Provider [phone] Reason for Visit * Reason Comments Med Refill Encounter Details Date Type Department Care Team ([facility] st Contact Info) Description 01/14/2024 Refill [facility] [address] [place], [place] [phone] John Yancey MD [address] [place] [address] Social History Tobacco Use Types Packs/Day Years [...] documented as of this encounter Care Teams Manager Area Relationship Specialty Start Date End Date Socorro Rivas MD [address] [place] [address] PCP - General Family Medicine 12/02/[address] [address] 04/08/23 León Walker MD,PhD Spine Surgery 02/13/24 Tay Sims MD Nephrology 02/13/24 Antonio Yan MD Pain Medicine 02/13/24 Marlin NASCIMENTO-Gurpreet Bariatrics 02/13/[address] [address] 03/09/24 documented as of this encounter
--- OUTSIDE RECORDS SUMMARY | 2025-01-08 09:48 | XMS_ITS | Clinical Summary ---
Author Organization [facility] Address [address] [place] [address] Care Team Providers Care Welder Oxyhydrogen Name Role Phone Steve Patton MD Primary Care Provider Allergies No known active allergies Medications cholecalciferol [...] syphilis 01/07/2012 11/19/2022 Overview (11/19/2022): Tx in [place] (CLETS), baseline RPR 1:8. 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
== END 2025-01-08 09:21 | disposition home or self-care (01) ==
LOC: HO.US 09:20
PROVIDERS: PCP Family Medicine; Visit Provider Family Medicine
DX: I1A.0 Resistant hypertension (principal); N18.2 Chronic kidney disease, stage 2 (mild)
CPT/HCPCS: 76775; 93975

== ENCOUNTER → 2025-01-08 09:22 | Outpatient (BNV) | payer OTHER, SELFPAY | PROVIDERS: PCP Family Medicine; Visit Provider Specialist | DX: I1A.0 Resistant hypertension (principal) | CPT/HCPCS: 93975 ==

== ENCOUNTER 2025-01-12 12:11 | Outpatient (AMB) | payer OTHER, SELFPAY ==
[2025-01-12 12:12] VITALS: BP 124/64; PULSE 72; O2SAT 96
--- NOTE | 2025-01-12 12:12 | HO.NEPHOV_ITS ---
Vital Signs 01/12/25 12:12 Weight 271 lb BP 124/64 Blood Pressure Location Lt brachial Position Sitting Pulse 72 Pulse Source Pulse Oximeter Pulse Oximetry (%) 96 Oxygen Delivery Method Room Air Intake Visit Reasons: 2mon f/u Superintendent Overhead Distribution Required: No Superintendent Overhead Distribution Services: Superintendent Overhead Distribution Offered & Declined (Granddaughter will translate) Accompanied by: Grand Child Allergies No Known Allergies (No Known Allergies*) Allergy (Verified 01/12/25 12:14) Medication List - Last Reconciled 01/12/25 by Tay Sims MD amitriptyline 50 mg PO BEDTIME amlodipine 10 mg PO DAILY baclofen 10 mg PO TID cetirizine 10 mg PO DAILY chlorthalidone 25 mg PO DAILY cholecalciferol (vitamin D3) 50 mcg PO DAILY clonidine HCl 0.1 mg PO BEDTIME losartan 100 mg PO DAILY mirabegron ER (Myrbetriq) 25 mg PO DAILY oxycodone 5 mg PO Q6H PRN pregabalin 100 mg PO BID spironolactone 50 mg PO DAILY HPI Comments Details: Augustus is a pleasant 68-year-old man with a history of obesity and resistant hypertension. She has been referred for evaluation hypertension. She is on multiple antihypertensive medications blood pressure is still suboptimal. Recently she underwent back surgery. She lost some weight and subsequently gained some back. She was accompanied by her family. They helped with translation. 03/02/24; Claims BP was normal at home 11/16/24 Home BP is elevated She does not remember any of her medications. Upon further inquiry with the help of farm marketer I believe that she is not taking her medications as prescribed. She is due for surgery on November 18. 11/17/24: Accompanied by daughter. Miladis Whittaker All meds reviewed 01/12/25 - The patient is a 69-year-old female presenting with hypertension management s/p Left L5 Laminotomy, Partial facetectomy and L4 foraminotomy with use of microscope - Dec 2024 Hypertension: Managed with amlodipine, chlorthalidone, clonidine, losartan, and spironolactone. - Muscle cramps: Persistent in legs and hands post spine surgery. - Peripheral edema: Managed with diuretics. [facility] Medical History (Updated 12/09/24 @ 14:13 by AZAM Oliva) Wears dentures Hx of cancer of uterus OAB (overactive bladder) Weakness of both arms OMA (obstructive sleep apnea) GERD (gastroesophageal reflux disease) History of headache Sleep apnea Insomnia Back pain Morbid obesity Anemia HTN (hypertension) Surgical History History of back surgery (~12/2023) History of cholecystectomy Hx of bariatric surgery (~2015) Hx of total hysterectomy H/O colonoscopy Hx of hand surgery Hx of knee surgery Family History Father No problems noted. Mother CVD (cardiovascular disease) Social History Household Members: None Housing: Apartment Housing Other:: second floor. uses elevator Are you a primary child care sitter to a significant other at home: No Do you presently have visiting nurse or other home services: Yes (1 hour per day ELECTRICAL TROUBLESHOOTER) Alcohol intake: never Patient Tobacco Use Status: Former Tobacco user Tobacco use type: Cigarette service: No Current occupational status: disabled Current occupation: rt handed Physical Exam Vital Signs: Last Vital Signs Pulse 72 01/12/25 12:12 BP 124/64 01/12/25 12:12 Pulse Ox 96 01/12/25 12:12 Oxygen Delivery Method Room Air 01/12/25 12:12 Const General: comfortable Nutritional Appearance: well nourished Orientation/consciousness: patient oriented x3 HEENT Head: No normal to inspection Mouth: moist mucous membranes Neck Neck: Yes supple and Yes no JVD Resp Auscultation: clear to auscultation bilaterally and no rales Cardio Jugular venous distension: no JVD Palpation: no palpable S3 and no palpable S4 Heart sounds: no rubs GI Palpation (GI): Soft to palpation and nontender Percussion: No Fluid wave present General: Yes no CVA tenderness Back/Spine/Pelvis Back: no CVA tenderness Skin General skin exam: no rashes or lesions noted Neuro General: patient oriented x3 Extrem General: Yes no pedal edema and No clubbing Results Reviewed Nephrology Results: Hgb, (12.0-16.0) 11.3 g/dl L 11/04/24 WBC, (4.8-10.8) 9.3 X10*3/uL 11/04/24 Plt Count, (160-400) 288 X10*3/uL Δ 11/04/24 Sodium, (135-145) 143 mmol/L 11/04/24 Potassium, (3.3-5.1) 4.1 mmol/L 11/04/24 Chloride, (96-108) 107 mmol/L 11/04/24 Carbon Dioxide, (22-29) 28 mmol/L 11/04/24 BUN, (9-16) 15 mg/dL 11/04/24 Creatinine, (0.5-1.4) 0.68 mg/dL 11/04/24 Calcium, (8.4-10.2) 9.2 mg/dL 11/04/24 Renal US 01/09/25 Assessment & Plan Assessment & Plan (1) HTN (hypertension): Code(s): I10 - Essential (primary) hypertension Category: Medical Plan 69-year-old woman with obesity and resistant hypertension. Obesity is probably playing a critical role in causing resistant hypertension. Given the history of morbid obesity underlying obstructive sleep apnea should be considered as well. Encouraged her to stay on low-sodium diet. Renal function stable at baseline. BP is acceptable Goal is to maintain systolic blood pressure less than 140 mm Hg. We discussed importance of weight loss. 11/17/2024. Hypertension. Blood pressure is acceptable Can administer additional dose of Clonidine PRN if SBP > 160 mmHG No change in medications today No absolute contraindication for surgery from a renal stand point Will arrange follow up post surgery 01/12/25 BP well controlled Renal function at baseline - Continue taking all prescribed medications as directed. - Monitor your blood pressure regularly. - Reduce salt intake to help manage blood pressure and swelling. No changes made Orders: Orders Complete Blood Count no Diff Today I10 - Essential (primary) hypertension Basic Metabolic Panel Today I10 - Essential (primary) hypertension Coding Level of Care Code Est Pt Level 4 (81931) Diagnoses HTN (hypertension) I10
--- OUTSIDE RECORDS SUMMARY | 2025-01-12 15:10 | XMS_ITS | Encounter Summary ---
Author Organization [employer] Address [address] [facility] 7t [place] [address] Care Team Providers Care Mannequin Mold Maker Name Role Phone Socorro Rivas MD Primary Care Provider [phone] Reason for Visit * Reason Comments Med Refill Encounter Details Date Type Department Care Team ([facility] st Contact Info) Description 01/09/2025 Refill [facility] MED & PEDS [address] [place], [place] [phone] Socorro Rivas MD [address] [place] [address] Social History Tobacco Use Types Packs/Day Years [...] Upcoming Encounters Date Type Department Care Team ([facility] Contact Info) Description 02/11/2025 11:15 AM EST Office Visit [facility] MED & PEDS [address] [place] [address] Socorro Rivas MD [address] [place] [address] documented as of this encounter Goals Goal Patient Goal Type Associated Problems Recent Progress Patient-Stated? Author BP <150/90 General No Darleen Humphreys, Dante documented as of this encounter Visit Diagnoses Not on filedocumented in this encounter Additional Health Concerns Assessment Noted Time PHQ-9 Depression Total Score: 4 01/11/20 23 2:17 PM EDT documented as of this encounter Care Teams Mannequin Mold Maker Relationship Specialty Start Date End Date Socorro Rivas MD [address] [place] [address] PCP - General Family Medicine 12/02/[address] [address] 04/08/23 León Walker MD,PhD Spine Surgery 02/13/24 Tay Sims MD Nephrology 02/13/24 Antonio Yan MD Pain Medicine 02/13/24 Marlin Arambula PA-C Bariatrics 02/13/[address] [address] 03/09/24 documented as of this encounter
--- OUTSIDE RECORDS SUMMARY | 2025-01-12 15:10 | XMS_ITS | Encounter Summary ---
Author Organization [employer] Address [address] [facility] 7t [place] [address] Care Team Providers Care Teacher Of The Sight Impaired Name Role Phone Socorro Rivas MD Primary Care Provider [phone] Reason for Visit * Reason Comments Med Refill Encounter Details Date Type Department Care Team ([facility] st Contact Info) Description 04/15/2024 Refill [facility] CHC MED & PEDS [address] [place], [place] [phone] Socorro Rivas MD [address] [place] [address] Social History Tobacco Use Types Packs/Day Years [...] Upcoming Encounters Date Type Department Care Team ([facility] st Contact Info) Description 02/11/2025 11:15 AM EST Office Visit [facility] MED & PEDS [address] [place] [address] Socorro Rivas MD [address] [place] [address] documented as of this encounter Goals Goal Patient Goal Type Associated Problems Recent Progress Patient-Stated? Author BP <150/90 General No Darleen Humphreys, PharmD documented as of this encounter Visit Diagnoses Not on filedocumented in this encounter Additional Health Concerns Assessment Noted Time PHQ-9 Depression Total Score: 4 01/11/20 23 2:17 PM EDT documented as of this encounter Care Teams Teacher Of The Sight Impaired Relationship Specialty Start Date End Date Socorro Rivas MD [address] [place] [address] PCP - General Family Medicine 12/02/[address] [address] 04/08/23 León Walker MD,PhD Spine Surgery 02/13/24 Tay Sims MD Nephrology 02/13/24 Antonio Yan MD Pain Medicine 02/13/24 Marlin NASCIMENTO-C Bariatrics 02/13/[address] [address] (work) 03/09/24 documented as of this encounter
--- OUTSIDE RECORDS SUMMARY | 2025-01-12 15:10 | XMS_ITS | Clinical Summary ---
Author Organization [facility] Facility Address [address] [place] [address] Care Team Providers Care Mechanic Welder Name Role Phone Steve Patton MD Primary Care Provider [phone] Allergies No known active allergies Medications cholecalciferol [...] syphilis 01/07/2012 11/19/2022 Overview (11/19/2022): Tx in [place] ([facility]), baseline RPR 1:8. 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
--- OUTSIDE RECORDS SUMMARY | 2025-01-12 15:10 | XMS_ITS | Encounter Summary ---
Author Organization [facility] [facility] Address [address] [facility] 7t [place] [address] Care Team Providers Care Surface Ship Usw Supervisor Name Role Phone Socorro Rivas MD Primary Care Provider [phone] Encounter Details Date Type Department Care Team (Late Contact Info) Description 04/17/2022 Telephone [facility] MED & PEDS [address] [place] [address] Socorro Rivas MD [address] [place] [address] Social History Tobacco Use Types Packs/Day Years [...] Encounters Date Type Department Care Team (Late Contact Info) Description 02/11/2025 11:15 AM EST Office Visit [facility] MED & PEDS [address] [place] [address] Socorro Rivas MD [address] [place] [address] documented as of this encounter Goals Goal Patient Goal Type Associated Problems Recent Progress Patient-Stated? Author BP <150/90 General No Humphreys, Darleen, PharmD documented as of this encounter Visit Diagnoses Not on filedocumented in this encounter Care Teams Surface Ship Usw Supervisor Relationship Specialty Start Date End Date Socorro Rivas MD [address] [place] [address] PCP - General Family Medicine 12/02/[address] [address] 04/08/23 León Walker MD,PhD Spine Surgery 02/13/24 Tay Sims MD Nephrology 02/13/24 Antonio Yan MD Pain Medicine 02/13/24 Marlin Arambula PA-C Bariatrics 02/13/[address] [address] 03/09/24 documented as of this encounter
--- OUTSIDE RECORDS SUMMARY | 2025-01-12 15:10 | XMS_ITS | Encounter Summary ---
Author Organization [employer] Address [address] [facility] 7t [place] [address] Care Team Providers Care In Flight Refueling System Repairer Name Role Phone Socorro Rivas MD Primary Care Provider [phone] Reason for Visit * Reason Comments Med Refill Encounter Details Date Type Department Care Team ([facility] st Contact Info) Description 09/06/2023 Refill [facility] CHC MED & PEDS [address] [place], [place] [phone] Socorro Rivas MD [address] [place] [address] Social History Tobacco Use Types Packs/Day Years [...] Upcoming Encounters Date Type Department Care Team ([facility] st Contact Info) Description 02/11/2025 11:15 AM EST Office Visit [facility] MED & PEDS [address] [place] [address] Socorro Rivas MD [address] [place] [address] documented as of this encounter Goals Goal Patient Goal Type Associated Problems Recent Progress Patient-Stated? Author BP <150/90 General No Darleen Humphreys, PharmD documented as of this encounter Visit Diagnoses Not on filedocumented in this encounter Additional Health Concerns Assessment Noted Time PHQ-9 Depression Total Score: 4 01/11/20 23 2:17 PM EDT documented as of this encounter Care Teams In Flight Refueling System Repairer Relationship Specialty Start Date End Date Socorro Rivas MD [address] [place] [address] PCP - General Family Medicine 12/02/[address] [address] 04/08/23 León Walker MD,PhD Spine Surgery 02/13/24 Tay Sims MD Nephrology 02/13/24 Antonio Yan MD Pain Medicine 02/13/24 Marlin NASCIMENTO-C Bariatrics 02/13/[address] [address] (work) 03/09/24 documented as of this encounter
--- OUTSIDE RECORDS SUMMARY | 2025-01-12 15:10 | XMS_ITS | Encounter Summary ---
Author Organization [employer] Address [address] [facility] 7t [place] [address] Care Team Providers Care Filter Press Pumper Name Role Phone Socorro Rivas MD Primary Care Provider [phone] Encounter Details Date Type Department Care Team (Late Contact Info) Description 03/12/2022 Orders Only [facility] MEDICINE [address] [place] [address] Darleen Humphreys, PharmD [address] [place] [address] Social History Tobacco Use Types Packs/Day Years [...] Care Team (Late st Contact Info) Description 02/11/2025 11:15 AM EST Office Visit [facility] CHC MED & PEDS [address] [place] [address] Socorro Rivas MD 505 [place] [address] documented as of this encounter Goals Goal [...] Vitamin D 25-OH Total 39.6 >30 ng/mL [facility] Comment:Health Based Referen ce Values*< 20 ng/mL Hdruftvci59-64 ng/mL Insufficient> 30 ng/mL Sufficient*Ancelmo CARUSO. N [...] MD LAB BLOOD ORDERABLES Final Re sult [facility] [address] [place] [phone] documented in this encounter Visit Diagnoses Not on filedocumented in this encounter Care Teams Filter Press Pumper Relationship Specialty Start Date End Date Socorro Rivas MD [address] [place] [address] PCP - General Family Medicine 12/02/[address] [address] 04/08/23 León Walker MD,PhD Spine Surgery 02/13/24 Tay Sims MD Nephrology 02/13/24 Antonio Yan MD Pain Medicine 02/13/24 Marlin Arambula PA-C Bariatrics 02/13/[address] [address] 03/09/24 documented as of this encounter
--- OUTSIDE RECORDS SUMMARY | 2025-01-12 15:10 | XMS_ITS | Encounter Summary ---
Author Organization [employer] Address [address] [facility] 7t [place] [address] Care Team Providers Care Material Assembler Name Role Phone Socorro Rivas MD Primary Care Provider [phone] Reason for Visit * Reason Comments Med Refill Encounter Details Date Type Department Care Team ([facility] st Contact Info) Description 01/14/2024 Refill [facility] CH[facility] MED & PEDS [address] [place], [place] [phone] John Yancey MD 505 [place] [address] Social History Tobacco Use Types Packs/Day Years [...] Upcoming Encounters Date Type Department Care Team ([facility] st Contact Info) Description 02/11/2025 11:15 AM EST Office Visit [facility] MED & PEDS [address] [place] [address] Socorro Rivas MD [address] [place] [address] documented as of this encounter Goals Goal Patient Goal Type Associated Problems Recent Progress Patient-Stated? Author BP <150/90 General No Darleen Humphreys, PharmD documented as of this encounter Visit Diagnoses Not on filedocumented in this encounter Additional Health Concerns Assessment Noted Time PHQ-9 Depression Total Score: 4 01/11/20 23 2:17 PM EDT documented as of this encounter Care Teams Material Assembler Relationship Specialty Start Date End Date Socorro Rivsa MD [address] [place] [address] PCP - General Family Medicine 12/02/[address] [address] 04/08/23 León Walker MD,PhD Spine Surgery 02/13/24 Tay Sims MD Nephrology 02/13/24 Antonio Yan MD Pain Medicine 02/13/24 Marlin NASCIMENTO-C Bariatrics 02/13/[address] [id number] 03/09/24 documented as of this encounter
--- OUTSIDE RECORDS SUMMARY | 2025-01-12 15:10 | XMS_ITS | Encounter Summary ---
Author Organization [employer] Address [address] [facility] 7t [place] [address] Care Team Providers Care Summons Server Name Role Phone Socorro Rivas MD Primary Care Provider [phone] Reason for Visit * Reason Onset Date Comments Med Refill 03/23/2024 Encounter Details Date Type Department Care Team ([facility] st Contact Info) Description 03/23/2024 Telephone [facility] MEDICINE [address] [place] [address] Socorro Rivas MD [address] [place] [address] Med Refill Social History Tobacco Use Types [...] 1:09 PM EST Medication was sent to [facility] on 12/04/23 #30 with 3 refills. * Telephone Encounter - Garfield Reddy - 03/23/2024 12:19 PM EST TC from pt requesting medication refill. Medications needing refill : cloNIDine (Catapres) 0.1 MG tablet To be sent to: [facility] - [place], [place] - [address] documented in this encounter Plan of Treatment Upcoming Encounters Date Type Department Care Team (Late st Contact Info) Description 02/11/2025 11:15 AM EST Office Visit [facility] CHC MED & PEDS [address] [place] [address] Socorro Rivas MD [address] [place] [address] documented as of this encounter Goals Goal Patient Goal Type Associated Problems Recent Progress Patient-Stated? Author BP <150/90 General No Darleen Humphreys, PharmD documented as of this encounter Visit Diagnoses Not on filedocumented in this encounter Additional Health Concerns Assessment Noted Time PHQ-9 Depression Total Score: 4 01/11/20 23 2:17 PM EDT documented as of this encounter Care Teams Summons Server Relationship Specialty Start Date End Date Socorro Rivas MD 230 [place] [address] PCP - General Family Medicine 12/02/[address] [address] 04/08/23 León Walker MD,PhD Spine Surgery 02/13/24 Tay Sims MD Nephrology 02/13/24 Antonio Yan MD Pain Medicine 02/13/24 Marlin NASCIMENTO-C Bariatrics 02/13/[address] [address] 03/09/24 documented as of this encounter
--- OUTSIDE RECORDS SUMMARY | 2025-01-12 15:10 | XMS_ITS | Clinical Summary ---
Author Organization [facility] Address [address] [address] Phone Care Team Providers Care Manager Culinary Name Role Phone Unavailable Primary Care Provider [...] file Medical Devices Not on file Insurance [facility] MEDICARE REPLACEMENT AZAM UGARTE [id number] MEDICARE REPLACEMENT MEDICARE REPLACEMENT MEDICARE [place] [place] [address] MEDICARE REPLACEMENT [facility] MEDICARE REPLACEMENT Additional Source Comments The information contained in this document represents components of the legal health record. It is not the complete legal health record.[facility]
--- OUTSIDE RECORDS SUMMARY | 2025-01-12 15:10 | XMS_ITS | Encounter Summary ---
Author Organization [employer] Address [address] [facility] 7t [place] [address] Care Team Providers Care Curtain Cutter Name Role Phone Socorro Rivas MD Primary Care Provider [phone] Encounter Details Date Type Department Care Team (Late st Contact Info) Description 10/15/2023 Orders Only [facility] CHC MED & PEDS [address] [place], [place] [phone] ProviderVarun MD Social History Tobacco Use Types [...] t he electric, gas, oil or water Diabeto threatened to shut off services in your [...] Description 02/11/2025 11:15 AM EST Office Visit [facility] CHC MED & PEDS [address] [place] [address] Socorro Rivas MD [address] [place] [address] documented as of this encounter Goals Goal [...] documented as of this encounter Care Teams Curtain Cutter Relationship Specialty Start Date End Date Socorro Rivas MD [address] [place] [address] PCP - General Family Medicine 12/02/[address] [address] 04/08/23 León Walker MD,PhD Spine Surgery 02/13/24 Tay Sims MD Nephrology 02/13/24 Antonio Yan MD Pain Medicine 02/13/24 Marlin Arambula PA-C Bariatrics 02/13/[address] [address] 03/09/24 documented as of this encounter
--- OUTSIDE RECORDS SUMMARY | 2025-01-12 15:10 | XMS_ITS | Encounter Summary ---
Author Organization [employer] Address [address] [facility] 7t [place] [address] Care Team Providers Care Lean Engineer Name Role Phone Socorro Rivas MD Primary Care Provider [phone] Reason for Visit * Reason Onset Date Comments Nurse Triage 01/11/2025 Encounter Details Date Type Department Care Team ([facility] st Contact Info) Description 01/11/2025 Telephone [facility] MEDICINE [address] [place] [address] Socorro Rivas MD [address] [place], [place] [phone] Nurse Triage Social History Tobacco Use Types Packs/Day Years [...] encounter Miscellaneous Notes * Telephone Encounter - eBtty Wells RN - 01/11/2025 4:30 PM EDT TC returned to pt. Pt. Reports swelling, discomfort in bilateral knees to toes since back surgery on 11/18/24. Pt. Reports numbness and tinging feels like it starts in knees and radiates to toes. Pt. Also reports h/o knee surgeries in the past. Pt. Reports symptoms are constant but worse with ambulation or extended periods of standing. Pt. Reports taking ibuprofen, lyrica without positive effect. Pt. Reports she has been evaluated by surgeon for this and they did not take action. Pt. Reports shewill only accept appointment with PCP and in the morning. Scheduled for 02/11/25 at 11:15am. Reasonsto call back and home care measures reviewed including elevating legs (pt. Reports she sits most ofthe day in dependent position). Protocol Used: Leg Swelling and Edema (Adult) Protocol-Based Disposition: See in Office or Video Visit Today Override (Final) Disposition: Home Care Override Reason: Desired specific provider Video visit offer not recorded Positive Triage Questions: * Moderate swelling of both ankles (e.g., swelling extends up to the knees) AND new-onset or getting worse * Patient wants to be seen * All higher-acuity triage questions were negative Care Advice Discussed: * How to Decrease Ankle and Lower Leg Swelling * Reasons To Call Back * Telephone Encounter - Akin Cheng - 01/11/2025 4:06 PM EDT TC from pt reporting leg swelling, numbness , and pain . Lithuanian speaking documented in this encounter Plan of Treatment Upcoming Encounters Date Type Department Care Team (Late st Contact Info) Description 02/11/2025 11:15 AM EST Office Visit [facility] MED & PEDS [address] [place] [address] Socorro Rivas MD [address] [place] [address] documented as of this encounter Goals Goal Patient Goal Type Associated Problems Recent Progress Patient-Stated? Author BP <150/90 General No Darleen Humphreys, PharmD documented as of this encounter Visit Diagnoses Not on filedocumented in this encounter Additional Health Concerns Assessment Noted Time PHQ-9 Depression Total Score: 4 01/11/20 23 2:17 PM EDT documented as of this encounter Care Teams Lean Engineer Relationship Specialty Start Date End Date Socorro Rivas MD [address] [place] [address] PCP - General Family Medicine 12/02/[address] [address] 04/08/23 León Walker MD,PhD Spine Surgery 02/13/24 Tay Sims MD Nephrology 02/13/24 Antonio Yan MD Pain Medicine 02/13/24 Marlin NASCIMENTO-Gurpreet Bariatrics 02/13/[address] [address] 03/09/24 documented as of this encounter
--- OUTSIDE RECORDS SUMMARY | 2025-01-12 15:10 | XMS_ITS | Encounter Summary ---
Author Organization [employer] Address [address] [facility] 7t [place] [address] Care Team Providers Care Behavioral Health Director Name Role Phone Socorro Rivas MD Primary Care Provider [phone] Reason for Visit * Reason Comments Med Refill Encounter Details Date Type Department Care Team ([facility] st Contact Info) Description 09/04/2023 Refill [facility] MED & PEDS [address] [place], [place] [phone] Socorro Rivas MD [address] [place] [address] Social History Tobacco Use Types Packs/Day Years [...] 02/11/2025 11:15 AM EST Office Visit [facility] MED & PEDS [address] [place] [address] Socorro Rivas MD [address] [place] [address] documented as of this encounter Goals Goal Patient Goal Type Associated Problems Recent Progress Patient-Stated? Author BP <150/90 General No Darleen Humphreys, PharmD documented as of this encounter Visit Diagnoses Not on filedocumented in this encounter Additional Health Concerns Assessment Noted Time PHQ-9 Depression Total Score: 4 01/11/20 23 2:17 PM EDT documented as of this encounter Care Teams Behavioral Health Director Relationship Specialty Start Date End Date Socorro Rivas MD [address] [place] [address] PCP - General Family Medicine 12/02/[address] [address] 04/08/23 León Walker MD,PhD Spine Surgery 02/13/24 Tay Sims MD Nephrology 02/13/24 Antonio Yan MD Pain Medicine 02/13/24 Marlin NASCIMENTO-C Bariatrics 02/13/[address] [address] (work) 03/09/24 documented as of this encounter
--- OUTSIDE RECORDS SUMMARY | 2025-01-12 15:10 | XMS_ITS | Encounter Summary ---
Author Organization [employer] Address [address] [facility] 7t [place] [address] Care Team Providers Care Special Education Educational Assistant Name Role Phone Socorro Rivas MD Primary Care Provider [phone] Reason for Visit * Reason Comments Med Refill Encounter Details Date Type Department Care Team ([facility] st Contact Info) Description 09/05/2023 Refill [facility] MED & PEDS [address] [place], [place] [phone] Socorro Rivas MD [address] [place] [address] Social History Tobacco Use Types Packs/Day Years [...] your housing situation today? I have kaitlynn ownes 01/21/[address] you li [...] Upcoming Encounters Date Type Department Care Team ([facility] st Contact Info) Description 02/11/2025 11:15 AM EST Office Visit [facility] MED & PEDS [address] [place] [address] Socorro Rivas MD [address] [place] [address] documented as of this encounter Goals Goal Patient Goal Type Associated Problems Recent Progress Patient-Stated? Author BP <150/90 General No Darleen Humphreys, PharmD documented as of this encounter Visit Diagnoses Not on filedocumented in this encounter Additional Health Concerns Assessment Noted Time PHQ-9 Depression Total Score: 4 01/11/20 23 2:17 PM EDT documented as of this encounter Care Teams Special Education Educational Assistant Relationship Specialty Start Date End Date Socorro Rivas MD [address] [place] [address] PCP - General Family Medicine 12/02/[address] [address] 04/08/23 León Walker MD,PhD Spine Surgery 02/13/24 Tay Sims MD Nephrology 02/13/24 Antonio Yan MD Pain Medicine 02/13/24 Marlin NASCIMENTO-C Bariatrics 02/13/[address] [address] (work) 03/09/24 documented as of this encounter
--- OUTSIDE RECORDS SUMMARY | 2025-01-12 15:11 | XMS_ITS | Clinical Summary ---
Author Organization [employer] Address [address] [facility] 7[address] [place] [address] Care Team Providers Care Horticultural Agent Name Role Phone Socorro Rivas MD Primary Care Provider [phone] Allergies No known active allergies Medications * [...] MORNING 90 tablet 1 07/29/19 25 Active cholecalciferol (D3 Super Strength) 50 MCG (2000 UT) capsule Take 1 capsule (50 mcg) by mouth in the morning. 120 capsule 4 10/21/19 25 Active zolpidem (Ambien) 5 MG tablet TAKE 1 TABLET BY MOUTH AT BEDTIME NEEDED for SLEEP 28 tablet 11/19/19 25 Active pregabalin (Lyrica) 100 MG capsuleIndicatio ns:Periodic limb movement disorder,Chronic low back pain with sciatica, sciatica laterality unspecified, unspecified back pain laterality TAKE 1 CAPSULE BY MOUTH TWICE DAILY 60 capsule 2 12/11/19 25 Active baclofen (Lioresal) 10 MG tablet TAKE 1 TABLET BY MOUTH THREE TIMES DAILY 90 tablet 1 01/12/20 25 Active cloNIDine (Catapres) 0.1 MG tablet TAKE 1 TABLET BY MOUTH EVERY DAY AT BEDTIME 30 tablet 3 01/12/20 25 Active cloNIDine (Catapres) 0.1 MG tablet Take 1 tablet (0.1 mg) by mouth at bedtime. 30 tablet 3 09/17/19 25 025 Discontinued baclofen (Lioresal) 10 MG tablet TAKE 1 TABLET BY MOUTH THREE TIMES DAILY 90 tablet 1 11/12/19 25 025 Discontinued Active Problems Problem Noted Date Diagnosed Date S/P lumbar laminectomy 11/19/2024 Overview (11/19/2024): Underwent laminectomy of L5 11/18/[address] León Walker Spondylosis of lumbar spine 01/08/2024 S/P gastric bypass 01/08/2024 Near syncope 01/08/2024 Resistant hypertension 09/16/2023 Assessment & Plan (09/21/2024 8:44 AM EDT): Patient reports a 15-year history of hypertension since moving from [place]. Despite current treatment, blood pressure remains persistently elevated. 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 She has been going to [facility] weight clinic to help with weigh loss. Assessment & Plan (03/07/2023 10:49 AM EST): Patient reports she is open to going to pain management and consider injections to help with her pain, she is going to [facility] weight clinic to help with weight loss, [...] understands symptoms PLAN: 1. Follow up with [facility]: Recommended for follow-up: 01/31 @ 1pm [...] of syphilis 01/07/2012 Overview (02/19/2022): Tx in [place] ([place]), baseline RPR 1:8. 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 Recommended to decrease soda and sugary beverage consumption. Recommended at least 20 g per meal of protein to assist with satiety. Recommended at least 150 min/week of moderate intensity exercise. Assessment & Plan (12/24/2022 2:15 PM EDT): Discussed calorie deficit, recommended reduction of 20-30% of maintenance calories; spray worker referral offered. Recommended to decrease soda and [...] Encounters Date Type Department Care Team Description 01/11/2025 Telephone [facility] [address] [place] [address] Socorro Rivas MD Nurse Triage 01/09/2025 Refill [facility] MED & PEDS [address] [place] [address] Socorro Rivas MD 12/10/2024 Refill [facility] MED & PEDS [address] [place] [address] Socorro Rivas MD Periodic limb movement disorder; Chronic low back pain with sciatica, sciatica laterality unspecified, unspecified back pain laterality 11/17/2024 Refill [facility] MED & PEDS [address] [place] [address] Tosha Whitmore MD 11/11/2024 Refill [facility] MED & PEDS [address] [place] [address] Socorro Rivas MD 11/04/2024 Orders Only GENERIC EXTERNAL DATA DEPARTMENT Provider, Generic External Data 10/19/2024 Refill [facility] MED & PEDS [address] [place] [address] Socorro Rivas MD from Last 3 Months [...] 09/16/2024 3:19 PM EDT Plan of Treatment Upcoming Encounters Date Type Department Care Team (Late st Contact Info) Description 02/11/2025 11:15 AM EST Office Visit [facility] MED & PEDS [address] [place] [address] Socorro Rivas MD [address] [place] [address] Health Maintenance Due Date Last Done Comments [...] Procedure Name Priority Date/Time Associated Diagnosis Comments US RENAL DOPPLER Routine 01/09/2025 8:58 AM EDT Resistant hypertension FL GUIDANCE IN OR Routine 11/18/2024 10: [...] Recently Relevant to Health Maintenance Results * US RENAL DOPPLER (01/09/2025 8:58 AM EDT) Anatomical Region Laterality Modality Abdomen Ultrasound 01/09/2025 8:58 AM EDT Narrative 01/09/2025 8:59 AM EDT [address] [address] Ultrasound Report Signed Patient: Augustus Rust MR#: [id number] : 1955 Acct:[id number] Age/Sex: 69 / F ADM Date: 01/08/25 Loc: HO.US Attending Dr: Socorro Rivas MD Ordering Physician: Socorro Rivas MD Date of Service: 01/08/25 Procedure(s): US renal doppler Accession Number(s): [id number] cc: Socorro Rivas MD Reason for Exam: 69 yo F with resistant hypertension, send to [facility] CLINICAL HISTORY: 69 yo F with resistant hypertension, send to [facility] US Renal with Doppler Comparison: None provided Findings: Right kidney normal size and echotexture, 9.8 cm length. No hydronephrosis. Normal color Doppler. Resistive index 0.8. Left kidney normal size and echotexture, 10.4 cm length. No hydronephrosis. Normal color Doppler. Resistive index 0.8. IMPRESSION: 1. Findings suggesting bilateral renal artery stenosis. Clinically appropriate follow-up recommended This document has been electronically signed by: Jose Alberto Huddleston MD on 01/09/2025 08:58:25 Dictated By: Jose Alberto Huddleston MD Signed By: <Electronically signed by Jose Alberto Huddleston MD in OV> 01/09/25857 DD/ 7 TD/TT: 01/09/25857 Retirement Actuary: Procedure Note Donotuseinterpreter, Image - 01/09/2025 [place] [address] Ultrasound Report Signed Patient: Augustus Rust#: [id number] : 1955cct:[id number] Age/Sex: 69 / FADM Date: 01/08/25 Loc: .US Attending Dr: Socorro Rivas MD Ordering Physician: Socorro Rivas MD Date of Service: 01/08/25 Procedure(s): US renal doppler Accession Number(s): [id number] cc: Socorro Rivas MD Reason for Exam: 69 yo F with resistant hypertension, send to [facility] CLINICAL HISTORY: 69 yo F with resistant hypertension, send to [facility] US Renal with Doppler Comparison: None provided Findings: Right kidney normal size and echotexture, 9.8 cm length. No hydronephrosis. Normal color Doppler. Resistive index 0.8. Left kidney normal size and echotexture, 10.4 cm length. No hydronephrosis. Normal color Doppler. Resistive index 0.8. IMPRESSION: 1. Findings suggesting bilateral renal artery stenosis. Clinically appropriate follow-up recommended This document has been electronically signed by: Jose Alberto Huddleston MD on 01/09/2025 08:58:25 Dictated By: Jose Alberto Huddleston MD Signed By: <Electronically signed by Jose Alberto Huddleston MD in OV> 01/09/25857 DD/ 7 TD/TT: 01/09/25857 Retirement Actuary: us Socorro Rivas MD IMG US PROCEDURES Edited Resu lt - Final * FL Guidance in OR (11/18/2024 10:45 AM EDT) Anatomical Region Laterality Modality X-Ray Angiograph y 11/18/2024 10:4 5 AM EDT Narrative 11/18/2024 12:32 PM EDT [place] [address] Fluoroscopy Report Signed Patient: Augustus Rust MR#: [id number] : 1955 Acct:[id number] Age/Sex: 69 / F ADM Date: 11/18/24 Loc: .[facility] Attending Dr: León Walker MD, PhD Ordering Physician: León Walker MD, PhD Date of Service: 11/18/24 Procedure(s): FL guidance in OR Accession Number(s): [id number] cc: León Walker MD, PhD; Socorro Rivas [...] 11/18/24 1230 DD/ 1045 TD/TT: 11/18/24 1130 Retirement Actuary: Procedure Note Donotuseinterpreter, Image - 11/18/2024 [place] [address] Fluoroscopy Report Signed Patient: Augustus RustMR#: [id number] : 1955cct:[id number] Age/Sex: 69 / FADM Date: 11/18/24 Loc: .[facility] Attending Dr: León Walker MD, PhD Ordering Physician: León Walker MD, PhD Date of Service: 11/18/24 Procedure(s): FL guidance in OR Accession Number(s): [id number] cc: León Walker MD, PhD; Socorro Rivas [...] 11/18/24 1230 DD/ 1045 TD/TT: 11/18/24 1130 Retirement Actuary: us [facility] External Provider IMG IR PROCEDURES Final Result * (ABNORMAL) CBC (11/04/2024 1:16 PM EDT) Pathologist [facility] White Blood Count 9.3 4.8 - 10.8 X10*3/uL [facility] Red Blood Count 5.02 4.20 - 5.50 X10*6/uL [facility] Hemoglobin 11.3(L) 12.0 - 16.0 g/dl [facility] Hematocrit 37.8 37.0 - 47.0 % [facility] Mean Corpuscular Volume 75.3(L) 80.0 - 98.0 fL [facility] Mean Corpuscular Hemoglobin 22.5(L) 27.0 - 33.0 pg [facility] Mean Corpuscular HGB Conc 29.9(L) 31.0 - 35.0 g/dl [facility] Red Cell Distribution Width 19.1(H) 11.0 - 16.0 % [facility] Platelet Count 288 160 - 400 X10*3/uL [facility] Mean Platelet Volume 9.0(L) 9.4 - 12.3 fL [facility] NRBC Pct Auto 0.0 0.0 - 0.2 /100WBC [facility] NRBC Abs Auto 0.000 0.0 - 0.012 X10*3/uL [facility] 11/04/2024 1:16 PM EDT 11/04/2024 1:16 PM EDT Generic External Data Provider LAB BLOOD ORDERAB LES Final Result [facility] [address] [place] [phone] * Basic Metabolic Panel (11/04/2024 1:16 PM EDT) Pathologist [facility] Sodium 143 135 - 145 mmol/L [facility] Potassium 4.1 3.3 - 5.1 mmol/L [facility] Chloride 107 96 - 108 mmol/L [facility] Carbon Dioxide 28 22 - 29 mmol/L [facility] Anion Gap 12 12 - 20 [facility] Urea Nitrogen (BUN) 15 9 - 16 mg/dL [facility] Creatinine, Serum 0.68 0.5 - 1.4 mg/dL [facility] Creatinine Clr Calc Pharmacy 94.3 [facility] Comment:Provided height and weight: 152.4 cm,120.3 kg.eGFR (calculated from the MDRD study equation) and eCrCl(calculated from the Cockcroft-Gault equation) are based ondifferent parameters and may not yield comparable results.If eCrCl result is absurd, please check patient'sheight/weight. Estimated Glomerular Filt Rate >60 [facility] Comment:Chronic Kidney Disea se: Estimated GFR < 60 mL/min/1.57p5Opkkmh Kidney Disease: Estimated GFR < 15 mL/min/1.73m2 Glucose 91 60 - 115 mg/dL [facility] Calcium 9.2 8.4 - 10.2 mg/dL [facility] 11/04/2024 1:16 PM EDT 11/04/2024 1:16 PM EDT us Generic External Data Provider LAB BLOOD ORDERAB LES Final Result [facility] [address] [place] [phone] * BI Mammogram Screening Tomosynthesis Bilateral (02/13/2024 10:35 AM EST) Anatomical Region Laterality Modality Breast Bilateral Mammography 02/13/2024 10:3 5 AM EST Narrative 02/21/2024 4:10 PM EST [address] [address] Mammography Report Signed Patient: Augustus Rust MR#: [id number] : 1955 Acct:[id number] Age/Sex: 68 / F ADM Date: 02/13/24 Loc: HO.CT Attending Dr: Bryson NASCIMENTO Ordering Physician: Socorro Rivas MD Results: 1Nega tive Date of Service: 02/13/24 Follow Up: 1 Year From Orig inal Mammogram Procedure(s): MM tomosynthesis screening BI Accession Number(s): [id number] cc: Socorro Rivas MD EXAMINATION: MM SCREENING [...] by: Laine Bravo DO 02/21/2024 04:07 PM [facility] Dictated By: Laine Bravo DO Signed By: <Electronically signed by Laine Bravo DO in OV> 02/21/24 1607 DD/ 1035 TD/TT: 02/13/24 1059 Retirement Actuary: Procedure Note Donotuseinterpreter, Image - 02/21/[address] [address] Mammography Report Signed Patient: Augustus RustMR#: [id number] : 7Acct:[id number] Age/Sex: 68 / FADM Date: 02/13/24 Loc: HO.CT Attending Dr: Bryson NASCIMENTO Ordering Physician: Socorro Rivas MDResults: 1Nega tive Date of Service: 02/13/24Follow Up: 1 Year From Orig inal Mammogram Procedure(s): MM tomosynthesis screening BI Accession Number(s): [id number] cc: Socorro Rivas MD EXAMINATION: MM SCREENING [...] 02/21/24 1607 DD/ 1035 TD/TT: 02/13/24 1059 Retirement Actuary: us Socorro Rivas MD IM BI PROCEDURES Final Resul t * Lipid Panel, Standard (02/12/2024 9:05 AM EST) Triglycerides 104 <150 mg/dL [facility] Comment:Desirable Triglyceri de: less than 150 mg/dLBorderline High Triglyceride 150-199 mg/dLHigh Triglyceride: 200-499 mg/dLVery High Triglyceride: greater than or equal to 5OO mg/dL Cholesterol 156 <200 mg/dL [facility] Comment:Desirable Cholestero l: less than 200 mg/dLBorderline High Cholesterol: 200-239 mg/dLHigh Cholesterol: greater than 239 mg/dL LDL Cholesterol Calculated 85 <100 mg/dL [facility] Comment:Desirable LDL: less than 100 mg/dLNear Optimal/Above Optimal LDL: 110- 129 mg/dLBorderline High LDL: 130-159 mg/dLHigh LDL: 160-189 mg/dLVery High LDL: greater than or equal to 190 mg/dL HDL Cholesterol 51 >40 mg/dL [facility] Comment:Desirable HDL: great er than 40 mg/dL Note: This HDL assay may give artificially low results in patients with liver disease. Blood Venous blood specimen / Unknown 02/12/2024 9:05 AM EST 02/12/2024 9:05 AM EST us Mulugeta Jose MD LAB BLOOD ORDERABLES Final Result [facility] [address] [place] [phone] * Cologuard?? colon cancer screening (01/23/2023 6:17 PM EDT) Cologuard Result Negative Negative 02/01/20 10:21 AM EDT [facility] (CLIA #:[id number]) Comment: NEGATIVE TEST RESULT. A negative Cologuard [...] Mullins et al, N Engl J Med 2014;370(14):7300-6014) The normal value (reference range) for this assay is negative. COLOGUARD RE-SCREENING RECOMMENDATION: Periodic colorectal cancer screening is an important part of preventive healthcare for asymptomatic individuals at average risk for colorectal cancer. Following a negative Cologuard result, the [employer] and U.S. Multi-Society Task Force screening guidelines recommend a Cologuard re-screening interval of 3 years. References: [employer] Guideline for Colorectal Cancer Screening: https://www.cancer.org/cancer/hdpaq-bbqiao-sbmqoo/qtjcjywdc-asszkyjyb-ybqwrbb/ac s-rec ommendations.html.; Juan CHRISTIANSON, Nikki BOJORQUEZ, Arden SOTO, Colorectal Cancer Screening: Recommendations for Physicians and Patients from the U.S. Multi-Society Task Force on Colorectal Cancer Screening , Am J Gastroenterology 2017; 112:1488-1161. TEST DESCRIPTION: Composite algorithmic analysis of stool [...] Mosquera. et al, N Engl J Med 2014;370(14):7435-9392.) Cologuard may produce a false negative or false positive result (no colorectal cancer or precancerous polyp present at colonoscopy follow up). A negative Cologuard test result does not guarantee the absence of CRC or advanced adenoma (pre-cancer). The current Cologuard screening interval is every 3 years. ([employer] and U.S. Multi-Society Task Force). Cologuard performance data in a 10,000 patient pivotal study using colonoscopy as the reference method can be accessed at the following location: www.[employer]/results. Additional description of the Cologuard test process, warnings and precautions can be found at www.cologuard.com. Stool specimen (specimen) 01/23/2023 6:17 PM EDT 01/25/2023 12:48 PM EDT Socorro Rivas MD LAB MOLECULAR DIAGNOSTICS ORD ERABLES Final Result [facility] (CLIA #:[id number]) [address] [place] [address], * Colonoscopy (09/27/2011) Colonoscopy Minor diverticulosis Historical Provider HEALTH MAINTENANCE Final Result from Last 3 Months or Most Recently Relevant to Health Maintenance Insurance [facility] [employer] OPT[employer] (O D-SNP) [place] [id number] Care Teams Horticultural Agent Relationship Specialty Start Date End Date Socorro Rivas MD [address] [place] [address] PCP - General Family Medicine 12/02/20 [place] [address] 04/08/23 León Walker MD,PhD Spine Surgery 02/13/24 Tay Sims MD Nephrology 02/13/24 Antonio Yan MD Pain Medicine 02/13/24 Marlin NASCIMENTO-Gurpreet Bariatrics 02/13/[address] [address] 03/09/24
== END 2025-01-12 12:25 | disposition home or self-care (01) ==
LOC: HO.HKA 12:12
PROVIDERS: PCP Family Medicine; Visit Provider Internal Medicine Hypertension Specialist
DX: I10 Essential (primary) hypertension (principal)
CPT/HCPCS: 99214

== ENCOUNTER → 2025-01-12 12:11 | Outpatient (BNVA) | payer OTHER, SELFPAY | PROVIDERS: PCP Family Medicine; Visit Provider Internal Medicine Hypertension Specialist | DX: I1A.0 Resistant hypertension (principal); E66.9 Obesity, unspecified | CPT/HCPCS: 99212 ==

== ENCOUNTER 2025-02-17 14:51 | Outpatient (REF) | payer OTHER, SELFPAY ==
--- OUTSIDE RECORDS SUMMARY | 2025-02-17 14:00 | XMS_ITS | Encounter Summary ---
Author Organization [employer] Address [address] [facility] [address] [place] [address] Care Team Providers Care Occupational Therapy Technician Name Role Phone Socorro Rivas MD Primary Care Provider [phone] Reason for Referral * Consultation (Routine) - Pending Review Specialty Diagnoses / Procedures Referred By Contac t Referred To Contact Pain Medicine Diagnoses Chronic low back pain with sciatica, sciatica laterality unspecified, unspecified back pain laterality Socorro Rivas MD [address] [place] [address] Phone: tel: fax: Referral ID Status Reason Start Date Expiration Date Visits Requested Visits Authorized [id number] Pending Review Specialty Services Required 5 02/17/2026 1 1 * Consultation (Routine) - Pending Review Specialty Diagnoses / Procedures Referred By Contac t Referred To Contact Cardiology Diagnoses Other chest pain Socorro Rivas MD [address] [place] [address] Phone: tel: fax: Referral ID Status Reason Start Date Expiration Date Visits Requested Visits Authorized [id number] Pending Review Specialty Services Required 5 02/17/2026 1 1 * Imaging (Routine) - Authorized Specialty Diagnoses / Procedures Referred By Contac t Referred To Contact Cardiology Diagnoses Localized swelling of both lower extremities Procedures Vascular US lower extremity arterial duplex bilateral with MIKE Socorro Rivas MD [address] [place] [address] Phone: tel: fax: [address] Phone: tel: fax: Referral ID Status Reason Start Date Expiration Date Visits Requested Visits Authorized [id number] Authorized Perform Procedure 5 02/17/2026 1 1 Reason for Visit * Reason Comments Leg Swelling Encounter Details Date Type Department Care Team (Late st Contact Info) Description 02/17/2025 2:00 PM EST Office Visit [facility] MED & PEDS [address] [place] [address] Socorro Rivas MD [address] [place] [address] Chronic low back pain with sciatica, sciatica laterality unspecified, unspecified back pain laterality (Primary Dx); Localized swelling of both lower extremities; Essential (primary) hypertension; Vitamin D deficiency; Other chest pain; Resistant hypertension Social History Tobacco Use Types Packs/Day Years [...] AM EDT documented as of this encounter Last Filed Vital Signs Vital Sign Reading Time Taken Comments Blood Pressure 124/64 02/17/2025 2:14 PM EST Pulse 76 02/17/2025 2:14 PM EST Temperature 36.2 C (97.2 F) 02/17/2025 2:14 PM EST Respiratory Rate 18 02/17/2025 2:14 PM EST Oxygen Saturation 98% 02/17/2025 2:14 PM EST Inhaled Oxygen Concentration - - Weight 124 kg (273 lb 3.2 oz) 02/17/2025 2:14 PM EST Height 147.3 cm (4' 10 ) 02/17/2025 2:14 PM EST Body Mass Index 57.1 02/17/2025 2:14 PM EST documented in this encounter Progress Notes * Socorro Rivas MD - 02/17/2025 2:00 PM EST Subjective Patient ID: Augustus norris is a 69 y.o. female who presents for Leg Swelling. The patient presents for follow-up of multiple ongoing issues including back pain, leg swelling, chest pain, and medication management. The patient underwent spinal fusion surgery in November and reports being very upset after the surgery when told that nothing more could be done for her pain. She iscurrently taking Lyrica, which was prescribed at the last visit, and reports nervousness that may benefit from a higher dose. The patient reports significant bilateral leg swelling with fluid retention, describing her legs asvery large, especially in the lower portions. She experiences episodes where she falls and remains fainted on the floor. Regarding chest pain, the patient was referred to cardiology due to chest pain that began last year, but when she called after receiving the appointment letter, a nurse told her she did not need to see the apparatus engineering technologist. The patient continues to experience chest pain and expresses confusion about whether she still needs the cardiology consultation. The patient had a sleep study done at home in September through [facility], completed the study, and returned the equipment, but reports not using her sleep apnea machine for years after her previous one was damaged. She reports her blood pressure has been stable and not low or high. T The patient mentions that a doctor told her to ask for blood analysis when she sees her physician, though she was not specific about which tests were requested. She reports that results would be sentto both the patient and the requesting physician. Medical History - Hypertension, controlled - Sleep apnea, previously treated with CPAP machine , pending testing results - Chest pain - Back pain - Edema/fluid retention in legs Surgical History - Spinal fusion surgery in December 2016 - Surgery in July (specific type not mentioned) Review of Systems Cardiovascular: Positive for chest pain. Genitourinary: Positive for urinary retention with intermittent stopping of urination. Neurological: Positive for episodes of fainting and remaining unconscious on the floor after falls. Review of Systems Objective BP 124/64 Pulse 76 Temp 97.2 ??F (36.2 ??C) (Oral) Resp 18 Ht 4' 10 (1.473 m) Wt 273 lb 3.2 oz (124 kg) SpO2 98% BMI 57.10 kg/m?? Physical Exam Constitutional: General: She is not in acute distress. Appearance: She is obese. She is not ill-appearing. HENT: Head: Normocephalic and atraumatic. Nose: No congestion. Cardiovascular: Rate and Rhythm: Regular rhythm. Heart sounds: No murmur heard. Pulmonary: Effort: Pulmonary effort is normal. No respiratory distress. Breath sounds: Normal breath sounds. Musculoskeletal: Cervical back: Normal range of motion. Right lower le+ Pitting Edema present. Left lower le+ Pitting Edema present. Neurological: General: No focal deficit present. Mental Status: She is alert. Psychiatric: Mood and Affect: Mood normal. Assessment/Plan Problem List Items Addressed This Visit Vitamin D deficiency Relevant Medications cholecalciferol (D3 Super Strength) 50 MCG (2000 UT) capsule Chronic low back pain with sciatica - Primary Relevant Medications pregabalin (Lyrica) 200 MG capsule cholecalciferol (D3 Super Strength) 50 MCG (2000 UT) capsule Other Relevant Orders Referral to Pain Medicine Resistant hypertension Difficult to control hypertension. US suggestive of renal artery stenosis. Patients BP well control. Recommend followup with nephrology. Will send lab results. Relevant Medications losartan (Cozaar) 100 MG tablet cloNIDine (Catapres) 0.1 MG tablet Localized swelling of both lower extremities Relevant Medications pregabalin (Lyrica) 200 MG capsule cholecalciferol (D3 Super Strength) 50 MCG (2000 UT) capsule Other Relevant Orders Vascular US lower extremity arterial duplex bilateral with MIKE TSH W/Reflex to FT4 CBC auto differential Comprehensive Metabolic Panel Lipid Panel, Standard B Type Natriuretic Peptide (BNP) Creatinine, Random Urine Other chest pain Patient cont with intermittent episodes of chest pain, high risk for coronary syndrome. Re-refer toCardiology, per patient she was referred last year and when she was called for followup reported she didn't need a consult. Unclear what happen. Referral placed. Relevant Medications losartan (Cozaar) 100 MG tablet cloNIDine (Catapres) 0.1 MG tablet Other Relevant Orders Referral to Cardiology Other Visit Diagnoses Essential (primary) hypertension Relevant Medications losartan (Cozaar) 100 MG tablet cloNIDine (Catapres) 0.1 MG tablet Patient with history of back fusion surgery in December presenting with post- surgical pain, bilateral lower extremity edema, chest pain, and sleep apnea management issues. Post-surgical back pain Assessment: Patient underwent spinal fusion surgery in December 2016 and reports that the surgeon stated she could not do anything further for her pain. She was previously on tramadol but did not want to sign a pain contract, resulting in discontinuation. Currently on Lyrica with some benefit but c ontinued pain and nervousness. Plan: - Increase Lyrica dosage - Refer to pain management for evaluation and recommendations - Tramadol available but requires in-person visit and pain contract Bilateral lower extremity edema Assessment: Patient presents with significant bilateral lower extremity swelling that was not present in November. She reports taking diuretics but continues to have fluid retention. Differential includes venous insufficiency, cardiac causes, or other systemic conditions causing fluid retention. Plan: - Order venous ultrasound of both legs to evaluate valve function - Laboratory studies to evaluate for causes of edema including thyroid function, electrolytes, creatinine, and urinalysis - Reschedule mammogram due to current swelling Chest pain Assessment: Patient reports ongoing chest pain that prompted cardiology referral. However, cardiology office staff informed patient via phone that she did not need to be seen, despite receiving appointment letter. Echocardiogram was reportedly performed in November but results not available in current record. Plan: - Re-refer to cardiology for chest pain evaluation - Obtain echocardiogram results from November study - Laboratory evaluation as part of workup Sleep apnea Assessment: Patient has history of sleep apnea and was using CPAP machine but stopped years ago dueto damaged equipment. Recent sleep study was performed at home in September through local facility, but results have not been received. Plan: - Follow up to obtain sleep study results from agency Hypertension Assessment: Patient reports blood pressure has been stable and well-controlled. Currently on clonidine for nighttime blood pressure management. Plan: - Continue clonidine - Refill sent to [facility] pharmacy documented in this encounter Miscellaneous Notes * Assessment & Plan Note - Socorro Rivas MD - 02/17/2025 2:56 PM EST Associated Problem(s): Resistant hypertension Difficult to control hypertension. US suggestive of renal artery stenosis. Patients BP well control. Recommend followup with nephrology. Will send lab results. * Assessment & Plan Note - Socorro Rivas MD - 02/17/2025 2:51 PM EST Associated Problem(s): Other chest pain Patient cont with intermittent episodes of chest pain, high risk for coronary syndrome. Re-refer toCardiology, per patient she was referred last year and when she was called for followup reported she didn't need a consult. Unclear what happen. Referral placed. documented in this encounter Plan of Treatment Upcoming Encounters Date Type Department Care Team (Late st Contact Info) Description 03/17/2025 9:00 AM EST Office Visit [facility] MED & PEDS [address] [place] [address] Socorro Rivas MD [address] [place] [address] Scheduled Orders Name Type Priority Associated Diagnoses Orde r Schedule TSH W/Reflex to FT4 Lab Routine Localized swelling of both lower extremities Expected: 02/17/2025 (Approximate), Expires: 02/17/2026 CBC auto differential Lab Routine Localized swelling of both lower extremities Expected: 02/17/2025 (Approximate), Expires: 02/17/2026 Comprehensive Metabolic Panel Lab Routine Localized swelling of both lower extremities Expected: 02/17/2025 (Approximate), Expires: 02/17/2026 Lipid Panel, Standard Lab Routine Localized swelling of both lower extremities Expected: 02/17/2025 (Approximate), Expires: 02/17/2026 B Type Natriuretic Peptide (BNP) Lab Routine Localized swelling of both lower extremities Expected: 02/17/2025, Expires: 02/17/2026 Creatinine, Random Urine Lab Routine Localized swelling of both lower extremities Expected: 02/17/2025, Expires: 02/17/2026 Scheduled Referrals Name Type Priority Associated Diagnoses Orde r Schedule Referral to Cardiology Outpatient Referral Routine Other chest pain Expected: 02/17/2025 (Approximate), Expires: 02/17/2026 Referral to Pain Medicine Outpatient Referral Routine Chronic low back pain with sciatica, sciatica laterality unspecified, unspecified back pain laterality Expected: 02/17/2025 (Approximate), Expires: 02/17/2026 documented as of this encounter Goals Goal Patient Goal Type Associated Problems Recent Progress Patient-Stated? Author BP <150/90 General No Darleen Humphreys, PharmD documented as of this encounter Visit Diagnoses Diagnosis Chronic low back pain with sciatica, sciatica laterality unspecified, unspecified back pain laterality- Primary Localized swelling of both lower extremities Essential (primary) hypertension Unspecified essential hypertension Vitamin D deficiency Other chest pain Resistant hypertension documented in this encounter Additional Health Concerns Assessment Noted Time PHQ-9 Depression Total Score: 4 01/11/20 23 2:17 PM EDT documented as of this encounter Care Teams Occupational Therapy Technician Relationship Specialty Start Date End Date Socorro Rivas MD [address] [place] [address] PCP - General Family Medicine 12/02/[address] [address] 04/08/23 León Walker MD,PhD Spine Surgery 02/13/24 Tay Sims MD Nephrology 02/13/24 Antonio Yan MD Pain Medicine 02/13/24 Marlin Arambula PA-C Bariatrics 02/13/[address] [address] 03/09/24 documented as of this encounter
[2025-02-17 18:03] LABS: MANUAL DIFF FLAG NO
--- OUTSIDE RECORDS SUMMARY | 2025-02-17 18:14 | XMS_ITS | Encounter Summary ---
Author Organization [employer] Address [address] [facility] 7t [place] [address] Care Team Providers Care Manager State Name Role Phone Socorro Rivas MD Primary Care Provider [phone] Encounter Details Date Type Department Care Team (Late Contact Info) Description 03/12/2022 Orders Only [facility] MEDICINE [address] [place] [address] Darleen Humphreys, PharmD [address] [place] [address] Social History Tobacco Use Types Packs/Day Years [...] Description 03/17/2025 9:00 AM EST Office Visit [facility] CH[facility] MED & PEDS [address] [place] [address] Socorro Rivas MD [address] [place] [address] documented as of this encounter Goals Goal [...] Vitamin D 25-OH Total 39.6 >30 ng/mL [facility] Comment:Health Based Referen ce Values*< 20 ng/mL [id number] ng/mL Insufficient> 30 ng/mL Sufficient*Ancelmo CARUSO. N [...] MD LAB BLOOD ORDERABLES Final Re sult [facility] [address] [place] [phone] documented in this encounter Visit Diagnoses Not on filedocumented in this encounter Care Teams Manager State Relationship Specialty Start Date End Date Socorro Rivas MD [address] [place] [address] PCP - General Family Medicine 12/02/[address] [address] 04/08/23 León Walker MD,PhD Spine Surgery 02/13/24 Tay Sims MD Nephrology 02/13/24 Antonio Yan MD Pain Medicine 02/13/24 Marlin Arambula PA-C Bariatrics 02/13/[address] [address] 03/09/24 documented as of this encounter
--- OUTSIDE RECORDS SUMMARY | 2025-02-17 18:14 | XMS_ITS | Encounter Summary ---
Author Organization [employer] Address [address] [facility] 7t [place] [address] Care Team Providers Care Car Wash Attendant Name Role Phone Socorro Rivas MD Primary Care Provider [phone] Encounter Details Date Type Department Care Team (Late st Contact Info) Description 10/15/2023 Orders Only [facility] CH[facility] MED & PEDS [address] [place], [place] [phone] ProviderVarun MD Social History Tobacco Use Types [...] t he electric, gas, oil or water [employer] threatened to shut off services in your [...] Description 03/17/2025 9:00 AM EST Office Visit [facility] MED & PEDS [address] [place] [address] Socorro Rivas MD [address] [place] [address] documented as of this encounter Goals Goal [...] documented as of this encounter Care Teams Car Wash Attendant Relationship Specialty Start Date End Date Socorro Rivas MD [address] [place] [address] PCP - General Family Medicine 12/02/[address] [address] 04/08/23 León Walker MD,PhD Spine Surgery 02/13/24 Tay Sims MD Nephrology 02/13/24 Antonio Yan MD Pain Medicine 02/13/24 Marlin Arambula PA-C Bariatrics 02/13/[address] [address] 03/09/24 documented as of this encounter
--- OUTSIDE RECORDS SUMMARY | 2025-02-17 18:14 | XMS_ITS | Encounter Summary ---
Author Organization [employer] Address [address] [facility] 7t [place] [address] Care Team Providers Care Computer Technical Support Specialist Name Role Phone Socorro Rivas MD Primary Care Provider [phone] Reason for Visit * Reason Comments Med Refill Encounter Details Date Type Department Care Team ([facility] st Contact Info) Description 09/04/2023 Refill [facility] CHC MED & PEDS [address] [place], [place] [phone] Socorro Rivas MD [address] [place] [address] Social History Tobacco Use Types Packs/Day Years [...] Upcoming Encounters Date Type Department Care Team ([facility] st Contact Info) Description 03/17/2025 9:00 AM EST Office Visit [facility] MED & PEDS [address] [place] [address] Socorro Rivas MD [address] [place] [address] documented as of this encounter Goals Goal Patient Goal Type Associated Problems Recent Progress Patient-Stated? Author BP <150/90 General No Darleen Humphreys, PharmD documented as of this encounter Visit Diagnoses Not on filedocumented in this encounter Additional Health Concerns Assessment Noted Time PHQ-9 Depression Total Score: 4 01/11/20 23 2:17 PM EDT documented as of this encounter Care Teams Computer Technical Support Specialist Relationship Specialty Start Date End Date Socorro Rivas MD [address] [place] [address] PCP - General Family Medicine 12/02/[address] [address] 04/08/23 León Wakler MD,PhD Spine Surgery 02/13/24 Tay Sims MD Nephrology 02/13/24 Antonio Yan MD Pain Medicine 02/13/24 Marlin NASCIMENTO-C Bariatrics 02/13/[address] [phone] (work) 03/09/24 documented as of this encounter
--- OUTSIDE RECORDS SUMMARY | 2025-02-17 18:14 | XMS_ITS | Clinical Summary ---
Author Organization [facility] Address [address] [address] Phone Care Team Providers Care General Farm Manager Name Role Phone Unavailable Primary Care Provider [...] file Medical Devices Not on file Insurance [facility] MEDICARE REPLACEMENT [place] [id number] MEDICARE REPLACEMENT MEDICARE REPLACEMENT MEDIC[place] [address] [place] [address] MEDICARE REPLACEMENT [facility] MEDICARE REPLACEMENT Additional Source Comments The information contained in this document represents components of the legal health record. It is not the complete legal health record.[facility]
--- OUTSIDE RECORDS SUMMARY | 2025-02-17 18:14 | XMS_ITS | Encounter Summary ---
Author Organization [employer] Address [address] [facility] 7t [place] [address] Care Team Providers Care Apricot Packer Name Role Phone Socorro Rivas MD Primary Care Provider Encounter Details Date Type Department Care Team (Latest Contact Info) Description 02/17/2025 Travel Social History Tobacco Use Types Packs/Day Years [...] Upcoming Encounters Date Type Department Care Team ([facility] st Contact Info) Description 03/17/2025 9:00 AM EST Office Visit [facility] CHC MED & PEDS [address] [place] [address] Socorro Rivas MD [address] [place] [address] documented as of this encounter Goals Goal Patient Goal Type Associated Problems Recent Progress Patient-Stated? Author BP <150/90 General No Darleen Humphreys, PharmD documented as of this encounter Visit Diagnoses Not on filedocumented in this encounter Additional Health Concerns Assessment Noted Time PHQ-9 Depression Total Score: 4 01/11/20 23 2:17 PM EDT documented as of this encounter Care Teams Apricot Packer Relationship Specialty Start Date End Date Socorro Rivas MD [address] [place] [address] PCP - General Family Medicine 12/02/[address] [address] 04/08/23 León Walker MD,PhD Spine Surgery 02/13/24 Tay Sims MD Nephrology 02/13/24 Antonio Yan MD Pain Medicine 02/13/24 Marlin NASCIMENTO-C Bariatrics 02/13/[address] [address] 03/09/24 documented as of this encounter
--- OUTSIDE RECORDS SUMMARY | 2025-02-17 18:14 | XMS_ITS | Encounter Summary ---
Author Organization [employer] Address [address] [facility] 7t [place] [address] Care Team Providers Care Washcoat Wiper Name Role Phone Socorro Rivas MD Primary Care Provider [phone] Reason for Visit * Reason Comments Med Refill Encounter Details Date Type Department Care Team ([facility] st Contact Info) Description 09/05/2023 Refill [facility] CHC MED & PEDS [address] [place], [place] [phone] Socorro Rivas MD [address] [place] [address] Social History Tobacco Use Types Packs/Day Years [...] Upcoming Encounters Date Type Department Care Team ([facility] st Contact Info) Description 03/17/2025 9:00 AM EST Office [facility] MED & PEDS [address] [place] [address] Socorro Rivas MD [address] [place] [address] documented as of this encounter Goals Goal Patient Goal Type Associated Problems Recent Progress Patient-Stated? Author BP <150/90 General No Darleen Humphreys, PharmD documented as of this encounter Visit Diagnoses Not on filedocumented in this encounter Additional Health Concerns Assessment Noted Time PHQ-9 Depression Total Score: 4 01/11/20 23 2:17 PM EDT documented as of this encounter Care Teams Washcoat Wiper Relationship Specialty Start Date End Date Socorro Rivas MD [address] [place] [address] PCP - General Family Medicine 12/02/[address] [address] 04/08/23 León Walker MD,PhD Spine Surgery 02/13/24 Tay Sims MD Nephrology 02/13/24 Antonio Yan MD Pain Medicine 02/13/24 Marlin NASCIMENTO-C Bariatrics 02/13/[address] [phone] (work) 03/09/24 documented as of this encounter
--- OUTSIDE RECORDS SUMMARY | 2025-02-17 18:15 | XMS_ITS | Encounter Summary ---
Author Organization [employer] Address [address] [facility] 7t [place] [address] Care Team Providers Care Senior Qualitative Researcher Name Role Phone Socorro Rivas MD Primary Care Provider Reason for Visit * Reason Onset Date Comments Med Refill 03/23/2024 Encounter Details Date Type Department Care Team ([facility] st Contact Info) Description 03/23/2024 Telephone [facility] MEDICINE [address] [place] [address] Socorro Rivas MD [address] [place] [address] Med Refill Social History Tobacco Use Types [...] 1:09 PM EST Medication was sent to [facility] on 12/04/23 #30 with 3 refills. * Telephone Encounter - Garfield Reddy - 03/23/2024 12:19 PM EST TC from pt requesting medication refill. Medications needing refill : cloNIDine (Catapres) 0.1 MG tablet To be sent to: [facility] - [place], [place] - [address] documented in this encounter Plan of Treatment Upcoming Encounters Date Type Department Care Team (Late st Contact Info) Description 03/17/2025 9:00 AM EST Office Visit [facility] CHC MED & PEDS [address] [place] [address] Socorro Rivas MD [address] [place] [address] documented as of this encounter Goals Goal Patient Goal Type Associated Problems Recent Progress Patient-Stated? Author BP <150/90 General No Darleen Humphreys, PharmD documented as of this encounter Visit Diagnoses Not on filedocumented in this encounter Additional Health Concerns Assessment Noted Time PHQ-9 Depression Total Score: 4 01/11/20 23 2:17 PM EDT documented as of this encounter Care Teams Senior Qualitative Researcher Relationship Specialty Start Date End Date Socorro Rivas MD [address] [place] [address] PCP - General Family Medicine 12/02/[address] [address] 04/08/23 León Walker MD,PhD Spine Surgery 02/13/24 Tay Sims MD Nephrology 02/13/24 Antonio Yan MD Pain Medicine 02/13/24 Marlin NASCIMENTO-C Bariatrics 02/13/[address] [address] 03/09/24 documented as of this encounter
--- OUTSIDE RECORDS SUMMARY | 2025-02-17 18:15 | XMS_ITS | Encounter Summary ---
Author Organization [employer] Address [address] [facility] 7t [place] [address] Care Team Providers Care Automotive Fuel Systems Converter Name Role Phone Socorro Rivas MD Primary Care Provider [phone] Reason for Visit * Reason Comments Med Refill Encounter Details Date Type Department Care Team ([facility] st Contact Info) Description 01/14/2024 Refill [facility] [address] [place], [place] [phone] John Yancey MD [address] [place] [address] Social History Tobacco Use Types Packs/Day Years [...] Upcoming Encounters Date Type Department Care Team ([facility] st Contact Info) Description 03/17/2025 9:00 AM EST Office Visit [facility] [address] [place] [address] Socorro Rivas MD [address] [place] [address] documented as of this encounter Goals Goal Patient Goal Type Associated Problems Recent Progress Patient-Stated? Author BP <150/90 General No Darleen Humphreys, PharmD documented as of this encounter Visit Diagnoses Not on filedocumented in this encounter Additional Health Concerns Assessment Noted Time PHQ-9 Depression Total Score: 4 01/11/20 23 2:17 PM EDT documented as of this encounter Care Teams Automotive Fuel Systems Converter Relationship Specialty Start Date End Date Socorro Rivas MD [address] [place] [address] PCP - General Family Medicine 12/02/[address] [address] 04/08/23 León Walker MD,PhD Spine Surgery 02/13/24 Tay Sims MD Nephrology 02/13/24 Antonio Yan MD Pain Medicine 02/13/24 Marlin NASCIMENTO-C Bariatrics 02/13/[address] [id number] 03/09/24 documented as of this encounter
--- OUTSIDE RECORDS SUMMARY | 2025-02-17 18:15 | XMS_ITS | Encounter Summary ---
Author Organization [facility] Address [address] [facility] 7t [place] [address] Care Team Providers Care Irish Moss Operator Name Role Phone Socorro Rivas MD Primary Care Provider [phone] Encounter Details Date Type Department Care Team (Late Contact Info) Description 04/17/2022 Telephone [facility] MED & PEDS [address] [place] [address] Socorro Rivas MD [address] [place] [address] Social History Tobacco Use Types Packs/Day Years [...] Department Care Team (Late Contact Info) Description 03/17/2025 9:00 AM EST Office Visit [facility] MED [facility] PEDS [address] [place] [address] Socorro Rivas MD [address] [place] [address] documented as of this encounter Goals Goal Patient Goal Type Associated Problems Recent Progress Patient-Stated? Author BP <150/90 General No Humphreys, Darleen, PharmD documented as of this encounter Visit Diagnoses Not on filedocumented in this encounter Care Teams Irish Moss Operator Relationship Specialty Start Date End Date Socorro Rivas MD [address] [place] [address] PCP - General Family Medicine 12/02/[address] [address] 04/08/23 León Walker MD,PhD Spine Surgery 02/13/24 Tay Sims MD Nephrology 02/13/24 Antonio Yan MD Pain Medicine 02/13/24 Marlin Arambula PA-C Bariatrics 02/13/[address] [address] 03/09/24 documented as of this encounter
--- OUTSIDE RECORDS SUMMARY | 2025-02-17 18:15 | XMS_ITS | Encounter Summary ---
Author Organization [employer] Address [address] [facility] 7t [place] [address] Care Team Providers Care Transit Clerk Name Role Phone Socorro Rivas MD Primary Care Provider [phone] Reason for Visit * Reason Comments Med Refill Encounter Details Date Type Department Care Team ([facility] st Contact Info) Description 09/06/2023 Refill [facility] MED & PEDS [address] [place], [place] [phone] Socorro Rivas MD [address] [place] [address] Social History Tobacco Use Types Packs/Day Years [...] Upcoming Encounters Date Type Department Care Team ([facility] st Contact Info) Description 03/17/2025 9:00 AM EST Office Visit [facility] MED & PEDS [address] [place] [address] Socorro Rivas MD [address] [place] [address] documented as of this encounter Goals Goal Patient Goal Type Associated Problems Recent Progress Patient-Stated? Author BP <150/90 General No Darleen Humphreys, PharmD documented as of this encounter Visit Diagnoses Not on filedocumented in this encounter Additional Health Concerns Assessment Noted Time PHQ-9 Depression Total Score: 4 01/11/20 23 2:17 PM EDT documented as of this encounter Care Teams Transit Clerk Relationship Specialty Start Date End Date Socorro Rivas MD [address] [place] [address] PCP - General Family Medicine 12/02/[address] [address] 04/08/23 León Walker MD,PhD Spine Surgery 02/13/24 Tay Sims MD Nephrology 02/13/24 Antonio Yan MD Pain Medicine 02/13/24 Marlin NASCIMENTO-C Bariatrics 02/13/[address] [phone] (work) 03/09/24 documented as of this encounter
--- OUTSIDE RECORDS SUMMARY | 2025-02-17 18:15 | XMS_ITS | Clinical Summary ---
Author Organization [email or web address] Address [address] [facility] 7t [place] [address] Care Team Providers Care Donor Relations Associate Name Role Phone Socorro Rivas MD Primary Care Provider [phone] Allergies No known active allergies Medications * [...] day. 30 tablet 11 12/12/19 24 Active Myrbetriq 25 MG 24 hr [...] AND BEDTIME 90 tablet 05/28/19 25 Active baclofen (Lioresal) 10 MG tablet TAKE 1 TABLET BY MOUTH THREE TIMES DAILY 90 tablet 1 01/12/20 25 Active zolpidem (Ambien) 5 MG tablet TAKE 1 TABLET BY MOUTH AT BEDTIME NEEDED FOR SLEEP 28 tablet 01/22/20 25 Active cetirizine (ZyrTEC) 10 MG tablet TAKE 1 TABLET BY MOUTH EVERY MORNING 90 tablet 1 02/06/20 25 Active pregabalin (Lyrica) 200 MG capsuleIndicatio ns:Chronic low back pain with sciatica, sciatica laterality unspecified, unspecified back pain laterality Take 1 capsule (200 mg) by mouth 2 times daily. 60 capsule 2 02/18/20 25 Active losartan (Cozaar) 100 MG tabletIndication s:Essential (primary) hypertension Take 1 tablet (100 mg) by mouth in the morning. 90 tablet 3 02/18/20 25 Active cholecalciferol (D3 Super Strength) 50 MCG (2000 UT) capsuleIndicatio ns:Vitamin D deficiency Take 1 capsule (50 mcg) by mouth in the morning. 120 capsule 4 02/18/20 25 Active cloNIDine (Catapres) 0.1 MG tabletIndication s:Essential (primary) hypertension Take 1 tablet (0.1 mg) by mouth at bedtime. 90 tablet 1 02/18/20 25 Active losartan (Cozaar) 100 MG tabletIndication s:Essential (primary) hypertension TAKE 1 TABLET BY MOUTH EVERY MORNING 90 tablet 3 03/17/20 24 025 Discontinued(Re order (will not trigger notification to Pharmacy)) cetirizine (ZyrTEC) 10 MG tablet TAKE 1 TABLET BY MOUTH EVERY MORNING 90 tablet 1 07/29/19 25 025 Discontinued cholecalciferol (D3 Super Strength) 50 MCG (2000 UT) capsule Take 1 capsule (50 mcg) by mouth in the morning. 120 capsule 4 10/21/19 25 025 Discontinued(Re order (will not trigger notification to Pharmacy)) zolpidem (Ambien) 5 MG tablet TAKE 1 TABLET BY MOUTH AT BEDTIME NEEDED for SLEEP 28 tablet 11/19/19 25 025 Discontinued pregabalin (Lyrica) 100 MG capsuleIndicatio ns:Periodic limb movement disorder,Chronic low back pain with sciatica, sciatica laterality unspecified, unspecified back pain laterality TAKE 1 CAPSULE BY MOUTH TWICE DAILY 60 capsule 2 12/11/19 025 Discontinued cloNIDine (Catapres) 0.1 MG tablet TAKE 1 TABLET BY MOUTH EVERY DAY AT BEDTIME 30 tablet 3 01/12/20 025 Discontinued(Re order (will not trigger notification to Pharmacy)) Active Problems Problem Noted Date Diagnosed Date S/P spinal fusion 02/17/2025 Localized swelling of both lower extremities 03/2025 Other chest pain 02/17/2025 Assessment & Plan (02/17/2025 2:51 PM EST): Patient cont with intermittent episodes of chest pain, high risk for coronary syndrome. Re-refer to Cardiology, per patient she was referred last year and when she was called for followup reported she didn't need a consult. Unclear what happen. Referral placed. S/P lumbar laminectomy 11/19/2024 Overview (11/19/2024): Underwent laminectomy of L5 11/18/[address] León Walker Left lumbar radiculopathy 01/08/2024 S/P gastric bypass 01/08/2024 Near syncope 01/08/2024 Resistant hypertension 09/16/2023 Overview (02/17/2025): US suggestive of renal artery stenosis. Assessment & Plan (02/17/2025 2:56 PM EST): Difficult to control hypertension. US suggestive of renal artery stenosis. Patients BP well control. Recommend followup with nephrology. Will send lab results. Assessment & Plan (09/21/2024 8:44 AM EDT): Patient reports a 15-year history of hypertension since moving from [place]. Despite current treatment, blood pressure remains persistently elevated. The website designer has made recent medication changes, including discontinuation [...] Center 08/16/2023 2:00 PM Socorro Rivas MD [facility] 03/19/2024 10:00 AM Darleen Humphreys PharmD [facility] Assessment & Plan (05/29/2023 4:16 PM EST): [...] Center 07/08/2023 9:00 AM Socorro Rivas MD [facility] 03/18/2024 10:00 AM Darleen Humphreys PharmD [facility] Chronic low back pain with sciatica [...] PRN. She has been going to [facility] weight clinic to help with weigh loss. Assessment & Plan (03/07/2023 10:49 AM EST): Patient reports she is open to going to pain management and consider injections to help with her pain, she is going to [facility] weight clinic to help with weight loss, [...] understands symptoms PLAN: 1. Follow up with [facility]: Recommended for follow-up: 01/31 @ 1pm 2. [...] of syphilis 01/07/2012 Overview (02/19/2022): Tx in ID (CLETS), baseline RPR 1:8. 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 Recommended to decrease soda and sugary beverage consumption. Recommended at least 20 g per meal of protein to assist with satiety. Recommended at least 150 min/week of moderate intensity exercise. Assessment & Plan (12/24/2022 2:15 PM EDT): Discussed calorie deficit, recommended reduction of 20-30% of maintenance calories; client technical professional referral offered. Recommended to decrease soda and [...] Encounters Date Type Department Care Team Description 02/17/2025 2:00 PM EST Office Visit [facility] MED & PEDS [address] [place] [address] Socorro Rivas MD Chronic low back pain with sciatica, sciatica laterality unspecified, unspecified back pain laterality (Primary Dx); Localized swelling of both lower extremities; Essential (primary) hypertension; Vitamin D deficiency; Other chest pain; Resistant hypertension 02/17/2025 Travel 02/04/2025 Refill [facility] PEDS [address] [place] [address] Mulugeta Jose MD 01/31/2025 Results Follow-Up [facility] [address] [place] [address] Socorro Rivas MD US RENAL DOPPLER 01/20/2025 Refill [facility] [address] [place] [address] Farnaz Linn FNP 01/11/2025 Telephone [facility] [address] [place], [place] [phone] Socorro Rivas MD Nurse Triage 01/09/2025 Refill [facility] [address] [place], [place] [phone] Socorro Rivas MD 12/10/2024 Refill [facility] [address] [place] [address] Socorro Rivas MD Periodic limb movement disorder; Chronic low back pain with sciatica, sciatica laterality unspecified, unspecified back pain laterality 11/17/2024 Refill [facility] [address] [place] [address] Tosha Whitmore MD from Last 3 Months Immunizations Immunization [...] Frequency of Binge Drinking Not on file 110 10/2023 Score 0 02/13/2024 Depression Answer Date [...] Mass Index 57.1 02/17/2025 2:14 PM EST Plan of Treatment Upcoming Encounters Date Type Department Care Team (Late st Contact Info) Description 03/17/2025 9:00 AM EST Office Visit [facility] [address] [place] [address] Socorro Rivas MD [address] [place] [address] Health Maintenance Due Date Last Done Comments CT Colonography 1955 FIT 1955 Sigmoidoscopy 1955 Alcohol/Substance Use Screening 1968 Colonoscopy 09/26/2021 09/27/2011 Depression Screening 01/11/2024 01/10/2023, 01/11/20 23 FOBT 01/24/2024 01/23/2023 COVID-19 Vaccine ( season) 2024 08/11/2021, 08/11/2021, 02/25/2021, Additional history exists Influenza Vaccine (#1) 2024 , 12/24/2022, 01/23/2022, Additional history exists SDOH Screening 09/07/2025 09/07/2024 Colorectal Cancer Screening 01/23/2026 FIT DNA/Cologuard 01/23/2026 01/23/2023 Mammogram 02/12/2026 02/13/2024, 05/2022, 01/05/2022, Additional history exists Tobacco Screening 02/17/2026 02/17/2025 DTaP/Tdap/Td Vaccines (3 - Td or Tdap) [...] Priority Date/Time Associated Diagnosis Comments US RENAL COMPLETE Routine 01/09/2025 8:5 8 AM EDT US RENAL DOPPLER Routine 01/09/2025 8:58 AM EDT Resistant hypertension FL GUIDANCE IN OR Routine 11/18/2024 10: 45 AM EDT BI MAMMOGRAM SCREENING TOMOSYNTHESIS BILATERAL [...] AM EDT Narrative 01/09/2025 8:59 AM EDT [address] [address] Ultrasound Report Signed Patient: Augustus Rust MR#: [id number] : 1955 Acct:[id number] Age/Sex: 69 / F ADM Date: 01/08/25 Loc: HO.US Attending Dr: Socorro Rivas MD Ordering Physician: Socorro Rivas MD Date of Service: 01/08/25 Procedure(s): US renal doppler Accession Number(s): [id number] cc: Socorro Rivas MD Reason for Exam: 69 yo F with resistant hypertension, send to [facility] CLINICAL HISTORY: 69 yo F with resistant hypertension, send to [facility] US Renal with Doppler Comparison: None provided [...] in OV> 01/09/25857 DD/ 7 TD/TT: 01/09/25857 Supervisor Cigar Making Hand: Procedure Note Donotuseinterpreter, Image - 01/09/2025 [place] [address] Ultrasound Report Signed Patient: Augustus RustMR#: [id number] : 7Acct:[id number] Age/Sex: 69 / FADM Date: 01/08/25 Loc: HO.US Attending Dr: Socorro Rivas MD Ordering Physician: Socorro Rivas MD Date of Service: 01/08/25 Procedure(s): US renal doppler Accession Number(s): [id number] cc: Socorro Rivas MD Reason for Exam: 69 yo F with resistant hypertension, send to [facility] CLINICAL HISTORY: 69 yo F with resistant hypertension, send to [facility] US Renal with Doppler Comparison: None provided [...] in OV> 01/09/25857 DD/ 7 TD/TT: 01/09/25857 Supervisor Cigar Making Hand: us Socorro Rivas MD IMG US PROCEDURES Edited Resu lt - Final * US Renal Complete (01/09/2025 8:58 AM EDT) Anatomical Region Laterality Modality Kidney Ultrasound 01/09/2025 8:58 AM EDT Narrative 01/28/2025 10:51 AM EDT [place] [address] Ultrasound Report Signed Patient: Augustus Rust MR#: [id number] : 1955 Acct:[id number] Age/Sex: 69 / F ADM Date: 01/08/25 Loc: .US Attending Dr: Socorro Rivas MD Ordering Physician: Socorro Rivas MD Date of Service: 01/08/25 Procedure(s): US renal BI Accession Number(s): [id number] cc: Socorro Rivas MD Reason for Exam: 69 yo F with resistant hypertension, send to [facility] CLINICAL HISTORY: 69 yo F with resistant hypertension, send to [facility] US Renal with Doppler Comparison: None provided [...] by Jose Alberto Huddleston MD in OV> 01/28/25 1051 DD/ 7 TD/TT: 01/09/25857 Supervisor Cigar Making Hand: Procedure Note Donotuseinterpreter, Image - 01/28/[address] [address] Ultrasound Report Signed Patient: Augustus RustMR#: [id number] : 1955cct:[id number] Age/Sex: 69 / FADM Date: 01/08/25 Loc: .US Attending Dr: Socorro Rivas MD Ordering Physician: Socorro Rivas MD Date of Service: 01/08/25 Procedure(s): US renal BI Accession Number(s): [id number] cc: Scoorro Rivas MD Reason for Exam: 69 yo F with resistant hypertension, send to [facility] CLINICAL HISTORY: 69 yo F with resistant hypertension, send to [facility] US Renal with Doppler Comparison: None provided Findings: Right kidney normal size and echotexture, 9.8 cm length. No hydronephrosis. Normal color Doppler. Resistive index 0.8. Left kidney normal size and echotexture, 10.4 cm length. No hydronephrosis. Normal color Doppler. Resistive index 0.8. IMPRESSION: 1. Findings suggesting bilateral renal artery stenosis. Clinically appropriate follow-up recommended This document has been electronically signed by: Jose Alberto Hdudleston MD on 01/09/2025 08:58:25 Dictated By: Jose Alberto Huddleston MD Signed By: <Electronically signed by Jose Alberto Huddleston MD in OV> 01/28/25 1051 DD/ 7 TD/TT: 01/09/25857 Supervisor Cigar Making Hand: us Socorro Rivas MD IMG US PROCEDURES Edited Resu lt - Final * FL Guidance in OR (11/18/2024 10:45 AM EDT) Anatomical Region Laterality Modality X-Ray Angiograph y 11/18/2024 10:4 5 AM EDT Narrative 11/18/2024 12:32 PM EDT [address] [address] Fluoroscopy Report Signed Patient: Augustus Rust MR#: [id number] : 1955 Acct:[id number] Age/Sex: 69 / F ADM Date: 11/18/24 Loc: HO.SSS Attending Dr: León Walker MD, PhD Ordering Physician: León Walker MD, PhD Date of Service: 11/18/24 Procedure(s): FL guidance in OR Accession Number(s): [id number] cc: León Walker MD, PhD; Socorro Rivas [...] 11/18/24 1230 DD/ 1045 TD/TT: 11/18/24 1130 Supervisor Cigar Making Hand: Procedure Note Donotuseinterpreter, Image - 11/18/[address] [address] Fluoroscopy Report Signed Patient: Augustus RustMR#: [id number] : 1955cct:[id number] Age/Sex: 69 / FADM Date: 11/18/24 Loc: HO.SSS Attending Dr: León Walker MD, PhD Ordering Physician: León Walker MD, PhD Date of Service: 11/18/24 Procedure(s): FL guidance in OR Accession Number(s): [id number] cc: León Walker MD, PhD; Socorro Rivas [...] 11/18/24 1230 DD/ 1045 TD/TT: 11/18/24 1130 Supervisor Cigar Making Hand: [facility] External Provider IMG IR PROCEDURES Final Result * BI Mammogram Screening Tomosynthesis Bilateral (02/13/2024 10:35 AM EST) Anatomical Region Laterality Modality Breast Bilateral Mammography 02/13/2024 10:3 5 AM EST Narrative 02/21/2024 4:10 PM EST [address] [address] Mammography Report Signed Patient: Augustus Rust MR#: [id number] : 1955 Acct:[id number] Age/Sex: 68 / F ADM Date: 02/13/24 Loc: HO.CT Attending Dr: Bryson NASCIMENTO Ordering Physician: Socorro Rivas MD Results: 1Nega tive Date of Service: 02/13/24 Follow Up: 1 Year From Orig inal Mammogram Procedure(s): MM tomosynthesis screening BI Accession Number(s): [id number] cc: Socorro Rivas MD EXAMINATION: MM SCREENING [...] by: Laine Bravo DO 02/21/2024 04:07 PM [facility] Dictated By: Laine Bravo DO Signed By: <Electronically signed by Laine Bravo DO in OV> 02/21/24 1607 DD/ 1035 TD/TT: 02/13/24 1059 Supervisor Cigar Making Hand: Procedure Note Donotuseinterpreter, Image - 02/21/[address] [address] Mammography Report Signed Patient: Augustus RustMR#: [id number] : 7Acct:[id number] Age/Sex: 68 / FADM Date: 02/13/24 Loc: HO.CT Attending Dr: Bryson NASCIMENTO Ordering Physician: Socorro Rivas MDResults: 1Nega tive Date of Service: 02/13/24Follow Up: 1 Year From Orig inal Mammogram Procedure(s): MM tomosynthesis screening BI Accession Number(s): [id number] cc: Socorro Rivas MD EXAMINATION: MM SCREENING [...] 02/21/24 1607 DD/ 1035 TD/TT: 02/13/24 1059 Supervisor Cigar Making Hand: us Socorro Rivas MD IM BI PROCEDURES Final Resul t * Lipid Panel, Standard (02/12/2024 9:05 AM EST) Triglycerides 104 <150 mg/dL [facility] Comment:Desirable Triglyceri de: less than 150 mg/dLBorderline High Triglyceride 150-199 mg/dLHigh Triglyceride: 200-499 mg/dLVery High Triglyceride: greater than or equal to 5OO mg/dL Cholesterol 156 <200 mg/dL [facility] Comment:Desirable Cholestero l: less than 200 mg/dLBorderline High Cholesterol: 200-239 mg/dLHigh Cholesterol: greater than 239 mg/dL LDL Cholesterol Calculated 85 <100 mg/dL [facility] Comment:Desirable LDL: less than 100 mg/dLNear Optimal/Above Optimal LDL: 110- 129 mg/dLBorderline High LDL: 130-159 mg/dLHigh LDL: 160-189 mg/dLVery High LDL: greater than or equal to 190 mg/dL HDL Cholesterol 51 >40 mg/dL [facility] Comment:Desirable HDL: great er than 40 mg/dL Note: This HDL assay may give artificially low results in patients with liver disease. Blood Venous blood specimen / Unknown 02/12/2024 9:05 AM EST 02/12/2024 9:05 AM EST us Mulugeta Jose MD LAB BLOOD ORDERABLES Final Result [facility] [address] [place] [phone] * Cologuard?? colon cancer screening (01/23/2023 6:17 PM EDT) Cologuard Result Negative Negative 02/01/20 10:21 AM EDT [facility] (CLIA #:[id number]) Comment: NEGATIVE TEST RESULT. A negative Cologuard [...] Mullins et al, N Engl J Med 2014;370(14):0156-0634) The normal value (reference range) for this assay is negative. COLOGUARD RE-SCREENING RECOMMENDATION: Periodic colorectal cancer screening is an important part of preventive healthcare for asymptomatic individuals at average risk for colorectal cancer. Following a negative Cologuard result, the [place] [employer] and U.S. Multi-Society Task Force screening guidelines recommend a Cologuard re-screening interval of 3 years. References: [place] [employer] Guideline for Colorectal Cancer Screening: https://www.cancer.org/cancer/ktljo-zkcioe-bscgjz/yoydacarz-yjwkhepwb-zhwwekx/ac s-rec ommendations.html.; Juan CHRISTIANSON, Nikki BOJORQUEZ, Arden PalaciosK, Colorectal Cancer Screening: Recommendations for Physicians and Patients from the U.S. Multi-Society Task Force on Colorectal Cancer Screening , Am J Gastroenterology 2017; 112:8023-8870. TEST DESCRIPTION: Composite algorithmic analysis of stool [...] Mosquera. et al, N Engl J Med 2014;370(14):4995-5890.) Cologuard may produce a false negative or false positive result (no colorectal cancer or precancerous polyp present at colonoscopy follow up). A negative Cologuard test result does not guarantee the absence of CRC or advanced adenoma (pre-cancer). The current Cologuard screening interval is every 3 years. ([place] [employer] and U.S. Multi-Society Task Force). Cologuard performance data in a 10,000 patient pivotal study using colonoscopy as the reference method can be accessed at the following location: www.[employer]/results. Additional description of the Cologuard test process, warnings and precautions can be found at www.cologuard.com. Stool specimen (specimen) 01/23/2023 6:17 PM EDT 01/25/2023 12:48 PM EDT Socorro Rivas MD LAB MOLECULAR DIAGNOSTICS ORD ERABLES Final Result [facility] (CLIA #:[id number]) [address] [place] [address], * Colonoscopy (09/27/2011) Colonoscopy Minor diverticulosis Historical Provider HEALTH MAINTENANCE Final Result from Last 3 Months or Most Recently Relevant to Health Maintenance Insurance [facility] INTERMEDIATE OPTIONS (O D-SNP) [place] [id number] Care Teams Donor Relations Associate Relationship Specialty Start Date End Date Socorro Rivas MD [address] [place] [address] PCP - General Family Medicine 12/02/20 [place] [address] 04/08/23 León Walker MD,PhD Spine Surgery 02/13/24 Tay Sims MD Nephrology 02/13/24 Antonio Yan MD Pain Medicine 02/13/24 Marlin NASCIMENTO-C Bariatrics 02/13/[address] [address] 03/09/24
--- OUTSIDE RECORDS SUMMARY | 2025-02-17 18:15 | XMS_ITS | Encounter Summary ---
Author Organization [employer] Address [address] [place] [address] Care Team Providers Care Green Chain Operator Name Role Phone Socorro Rivas MD Primary Care Provider [phone] Reason for Visit * Reason Comments Med Refill Encounter Details Date Type Department Care Team ([facility] st Contact Info) Description 04/15/2024 Refill [facility] [address], [place] [phone] Socorro Rivas MD [address] [place] [address] Social History Tobacco Use Types Packs/Day Years [...] Upcoming Encounters Date Type Department Care Team ([facility] st Contact Info) Description 03/17/2025 9:00 AM EST Office Visit [facility] [address] [place] [address] Socorro Rivas MD [address] [place] [address] documented as of this encounter Goals Goal Patient Goal Type Associated Problems Recent Progress Patient-Stated? Author BP <150/90 General No Darleen Humphreys, PharmD documented as of this encounter Visit Diagnoses Not on filedocumented in this encounter Additional Health Concerns Assessment Noted Time PHQ-9 Depression Total Score: 4 01/11/20 23 2:17 PM EDT documented as of this encounter Care Teams Green Chain Operator Relationship Specialty Start Date End Date Socorro Rivas MD [address] [place] [id number] PCP - General Family Medicine 12/02/[address] [address] 04/08/23 León Walker MD,PhD Spine Surgery 02/13/24 Tay Sims MD Nephrology 02/13/24 Antonio Yan MD Pain Medicine 02/13/24 Marlin NASCIMENTO-C Bariatrics 02/13/[address] [phone] (work) 03/09/24 documented as of this encounter
[2025-02-17 18:28] LABS: NT Pro B Type Natriuretic Pept 124.6 pg/mL (<300)
[2025-02-17 18:30] LABS: Alanine Aminotransferase 22 U/L (0-31); Albumin Level 4.1 g/dL (3.5-5.0); Alkaline Phosphatase 130 U/L (39-117); Anion Gap 13 (12-20); Aspartate Amino Transferase 34 U/L (5-31); Blood Urea Nitrogen 18 mg/dL (9-16); Calcium 9.5 mg/dL (8.4-10.2); Carbon Dioxide 26 mmol/L (22-29); Chloride 110 mmol/L (96-108); Cholesterol 160 mg/dL (<200); Estimated Glomerular Filt Rate > 60; HDL Cholesterol 53 mg/dL (>40); Potassium 4.9 mmol/L (3.3-5.1); Sodium 144 mmol/L (135-145); Total Protein 7.8 g/dL (6.5-8.0); Triglycerides 134 mg/dL (<150)
[2025-02-17 19:09] LABS: Hematocrit 38.4 % (37.0-47.0); Hemoglobin 11.0 g/dl (12.0-16.0); Imm Gran Abs Auto 0.04 X10*3/uL (0.00-0.03); Imm Gran Pct Auto 0.5 % (0.0-0.4); Lymphocytes Absolute Auto 2.5 X10*3/uL (1.2-4.9); Mean Corpuscular HGB Conc 28.6 g/dl (31.0-35.0); Mean Corpuscular Hemoglobin 23.3 pg (27.0-33.0); Mean Corpuscular Volume 81.4 fL (80.0-98.0); NRBC Abs Auto 0.000 X10*3/uL (0.0-0.012); NRBC Pct Auto 0.0 /100WBC (0.0-0.2); Platelet Count 293 X10*3/uL (160-400); Red Blood Count 4.72 X10*6/uL (4.20-5.50); White Blood Count 8.3 X10*3/uL (4.8-10.8)
== END 2025-02-17 14:52 | disposition home or self-care (01) ==
LOC: HO.CHCLDS 14:51
PROVIDERS: Visit Provider Family Medicine
DX: M79.89 Other specified soft tissue disorders (principal); Z13.6 Encounter for screening for cardiovascular disorders; Z13.29 Encounter for screening for other suspected endocrine disorder
CPT/HCPCS: 36415; 80053; 80061; 82570; 83880; 84443; 85025

== ENCOUNTER 2025-03-18 11:16 | Outpatient (AMB) | payer OTHER, SELFPAY ==
--- NOTE | 2025-03-18 11:19 | MHC.OFFVIS ---
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 Back in 2023 on my referral she had surgery with Dr. Walker. She stated that the surgery did not help her pain. She continues to report chronic low back pain, swelling of bilateral lower extremities, cramping sensation in bilateral lower extremities. She was referred to research pharmacist for swelling and cramping into bilateral lower extremities. Unfortunately her appointment with research pharmacist is in August. I offered her to consider Nevro spinal cord stimulator. I gave her brochure to read, she also can call [employer] telephone number and discuss it in her ruby language of Surinamese. If she decides to go for Nevro spinal cord stimulator we would need to obtain clearance from the research pharmacist for the procedure. In the past we attempted bilateral medial branch block L2, L3, L4, dorsal ramus L5 diagnostic. It did not help her pain. Prior: complains on pain in lower back with radiation into the right lower extremity. She reports that she cannot sleep normally because of her pain she cannot do activities of daily living she can take care of herself but she can not function normally. She is on permanent disability. She reports that movements aggravates her pain and she reports that the tramadol alleviate her pain. She refused to describe her pain in terms of tissue damage. She had physical therapy in August of 2021 she reported that physical therapy did her pain on the worse. She had MRI of the lumbar spine which was done in March of 2021 results of which are dictated as below. Because of the results of the MRI she was sent to consult with some another practitioner presumably from neurosurgical office who did not recommend any surgical intervention and recommended steroid injections. The patient is scared of needles. She is morbidly obese individual despite the fact that she had bariatric surgery. [facility] Medical History (Updated 03/18/25 @ 12:40 by Antonio Yan MD) Wears dentures Hx of cancer of uterus OAB (overactive bladder) Weakness of both arms OMA (obstructive sleep apnea) GERD (gastroesophageal reflux disease) History of headache Sleep apnea Insomnia Back pain Morbid obesity Anemia HTN (hypertension) Surgical History History of back surgery (~12/2023) History of cholecystectomy Hx of bariatric surgery (~2015) Hx of total hysterectomy H/O colonoscopy Hx of hand surgery Hx of knee surgery Family History Father No problems noted. Mother CVD (cardiovascular disease) Social History Household Members: None Housing: Apartment Housing Other:: second floor. 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) Alcohol intake: never Patient Tobacco Use Status: Former Tobacco user Tobacco use type: Cigarette service: No Current occupational status: disabled Current occupation: rt handed Review of Systems Const All systems reviewed & are unremarkable except as noted in HPI and below ENT Reports Normal hearing present Neuro Reports Normal hearing present, Denies Abnormal speech present, Denies confusion and Denies Sensory deficit (Neuro) Psych Denies confusion Physical Exam Vital Signs: Last Vital Signs Pulse 71 03/18/25 11:20 Resp 16 03/18/25 11:20 BP 146/64 H 03/18/25 11:20 Oxygen Delivery Method Room Air 03/18/25 11:20 Oxygen Flow Rate 96 03/18/25 11:20 BMI result Body Mass Index 56.5 Const General: comfortable; No confusion Nutritional Appearance: well nourished Orientation/consciousness: No confusion HEENT Mouth: moist mucous membranes Eyes General: appearance normal, both eyes and all related structures Pupils: Equal, round and reactive pupils present EOM: EOMs intact bilaterally Neck Neck: Yes full ROM Chest Chest palpation & inspection: normal inspection of the chest Resp Effort & Inspection: normal respiratory effort, able to speak in complete sentences, normal respiratory pattern, no audible wheezes and no cough Cardio Jugular venous distension: no JVD GI Inspection: Yes normal to inspection Back/Spine/Pelvis Other: presents with very mild aggravation on SLR on the right. Negative on the left. Reports quick tiredness of the lower extremities when walking. Reports flexing backwards alleviates her pain. That might be related to the fact that she has significant anterolisthesis on L4-5. Neuro General: No confusion Cranial nerves: Yes Equal, round and reactive pupils present and Yes Normal hearing present Speech: No Abnormal speech present Gait exam (Neuro): Normal gait present Motor exam (neuro): 5/5 motor strength present throughout Sensory Exam: No Sensory deficit (Neuro) Extrem General: No pedal edema Psych Speech and movement: Normal speech and movement present Affect: normal affect Attitude: cooperative Thought process: Normal thought process present Thought content: Normal thought content present Insight: Good insight present (Psych) Judgement: Good judgement present (Psych) Assessment & Plan Assessment & Plan (1) Spondylosis of lumbar region without myelopathy or radiculopathy: Code(s): M47.816 - Spondylosis without myelopathy or radiculopathy, lumbar region Category: Medical (2) Spondylolisthesis: Code(s): M43.10 - Spondylolisthesis, site unspecified Category: Medical (3) Spinal stenosis: Code(s): M48.00 - Spinal stenosis, site unspecified Category: Medical (4) Morbid obesity: Code(s): E66.01 - Morbid (severe) obesity due to excess calories Category: Medical (5) Spondylosis of lumbar spine: Code(s): M47.816 - Spondylosis without myelopathy or radiculopathy, lumbar region Category: Medical (6) Postlaminectomy syndrome of lumbar region: Code(s): M96.1 - Postlaminectomy syndrome, not elsewhere classified Category: Medical Plan The patient came back after surgery she had with Dr. Walker. She denies any help from the surgery. Now she has postlaminectomy syndrome. I would offer her Nevro spinal cord stimulator. Unfortunately patient reports edema on bilateral lower extremities. She needs to get clearance from research pharmacist if she wants to go for SCS Nevro. Brochure of Nevro was given. The patient was recommended to read brochure, she we will be able to speak with [employer] representatives online. If she decides to go for Nevro SCS she will give us a call and schedule appointment with me. Psychological evaluation briefly explained to the patient today. Coding Level of Care Code Est Pt Level 3 (75922) Diagnoses Spondylosis of lumbar region without myelopathy or radiculopathy M47.816 Spondylolisthesis M43.10 Spinal stenosis M48.00 Morbid obesity E66.01 Spondylosis of lumbar spine M47.816 Postlaminectomy syndrome of lumbar region M96.1
[2025-03-18 11:20] VITALS: BP 146/64; PULSE 71; RESP 16; BMI 56.5
== END 2025-03-18 11:41 | disposition home or self-care (01) ==
LOC: HO.PMC 11:17
PROVIDERS: PCP Family Medicine; Visit Provider Anesthesiology
DX: M47.816 Spondylosis without myelopathy or radiculopathy, lumbar region (principal); M43.10 Spondylolisthesis, site unspecified; M48.00 Spinal stenosis, site unspecified; E66.01 Morbid (severe) obesity due to excess calories; M96.1 Postlaminectomy syndrome, not elsewhere classified
CPT/HCPCS: 99213

== ENCOUNTER → 2025-03-18 11:16 | Outpatient (BNVA) | payer OTHER, SELFPAY | PROVIDERS: PCP Family Medicine; Visit Provider Anesthesiology | DX: M47.816 Spondylosis without myelopathy or radiculopathy, lumbar region (principal); M43.10 Spondylolisthesis, site unspecified; M48.00 Spinal stenosis, site unspecified; M96.1 Postlaminectomy syndrome, not elsewhere classified; E66.01 Morbid (severe) obesity due to excess calories; Z68.43 Body mass index [BMI] 50.0-59.9, adult | CPT/HCPCS: 99212 ==

== ENCOUNTER → 2025-03-24 11:00 | Outpatient (BNV) | payer OTHER, SELFPAY | PROVIDERS: PCP Family Medicine; Visit Provider Radiology Body Imaging | DX: Z12.31 Encounter for screening mammogram for malignant neoplasm of breast (principal) | CPT/HCPCS: 77063; 77067 ==

== ENCOUNTER 2025-03-24 11:04 | Outpatient (REF) | payer OTHER, SELFPAY | END 2025-03-24 11:05 | disposition home or self-care (01) | LOC: HO.MAMMO 11:04 | PROVIDERS: PCP Family Medicine; Visit Provider Family Medicine | DX: Z12.31 Encounter for screening mammogram for malignant neoplasm of breast (principal) | CPT/HCPCS: 77063; 77067 ==